=== PATIENT | female | born 1940 | race Caucasian/White ===

== ENCOUNTER 2020-07-05 12:30 | Outpatient (REF) | payer MEDICARE, SELFPAY ==
[2020-07-05 13:26] LABS: MANUAL DIFF FLAG NO
[2020-07-05 13:38] LABS: Basophils Absolute Auto 0.1 X10*3/uL (0.0-0.2); Basophils Percent Auto 1.8 % (0-2); Eosinophils Absolute Auto 0.5 X10*3/uL (0.0-0.4); Eosinophils Percent Auto 8.2 % (0-4); Hemoglobin 11.8 g/dl (12.0-16.0); Imm Gran Abs Auto 0.03 X10*3/uL (0.00-0.03); Imm Gran Pct Auto 0.5 % (0.0-0.4); Lymphocytes Absolute Auto 0.8 X10*3/uL (1.2-4.9); Lymphocytes Percent Auto 13.9 % (20-40); Mean Corpuscular HGB Conc 30.3 g/dl (31.0-35.0); Mean Corpuscular Hemoglobin 28.6 pg (27.0-33.0); Mean Corpuscular Volume 94.7 fL (80-98); Mean Platelet Volume 10.6 fL (9.4-12.3); Monocytes Absolute Auto 0.6 X10*3/uL (0.1-1.2); Neutrophils Absolute Auto 3.7 X10*3/uL (2.0-8.3); Neutrophils Percent Auto 65.6 % (45-73); Platelet Count 244 X10*3/uL (160-400); Red Blood Count 4.12 X10*6/uL (4.20-5.50); Red Cell Distribution Width 13.2 % (11.0-16.0); White Blood Count 5.6 X10*3/uL (4.8-10.8)
[2020-07-05 13:56] LABS: Estimated Average Glucose 143 mg/dL; Hemoglobin A1c % 6.6 %
[2020-07-05 14:12] LABS: Anion Gap 13 (12-20); Blood Urea Nitrogen 51 mg/dL (9-16); Calcium 9.2 mg/dL (8.4-10.2); Carbon Dioxide 26 mmol/L (22-29); Chloride 104 mmol/L (96-108); Estimated Glomerular Filt Rate 39; Potassium 5.1 mmol/l (3.3-5.1); Sodium 138 mmol/L (135-145)
[2020-07-05 16:20] LABS: Renal w Reflex Lab Use Only Order verified
== END 2020-07-05 12:31 | disposition home or self-care (01) ==
LOC: HO.LAB 12:30
PROVIDERS: PCP Internal Medicine; Visit Provider Internal Medicine Hypertension Specialist
DX: E11.9 Type 2 diabetes mellitus without complications (principal)
CPT/HCPCS: 36415; 80051; 82310; 82565; 83036; 84520; 85025

== ENCOUNTER → 2020-08-15 11:33 | Outpatient (BNVA) | payer MEDICARE, SELFPAY | PROVIDERS: PCP Internal Medicine; Visit Provider Internal Medicine Pulmonary Disease | DX: J45.30 Mild persistent asthma, uncomplicated (principal) | CPT/HCPCS: 99212 ==

== ENCOUNTER → 2020-09-06 12:57 | Outpatient (REF) | payer MEDICARE, SELFPAY ==
--- NOTE | 2020-09-06 13:00 | CA_ITS ---
Transthoracic Echocardiogram Patient (Last, First, Middle): Sarah Kraus, Gender: Female Date of : 1940 Age: 80 Procedure Date: 09/06/2020 Procedure Type: Transthoracic Echocardiogram Location: OP Height: 165.1 cm Weight: 77.11 kg BSA: 1.85 m2 Heart Rate: bpm BP: 134 / 70 mmHg Liquor Department Manager: DSRoman Referring MD: Clarence Russo MD Subject Scientific Research: Clarence Russo MD Symptoms: Z95.2 S/P TAVR, I50.30 HFpEF I10 HTN Study Quality: Fair ECG Rhythm: Sinus Conclusions: - 1. Normal LV systolic function with mild LVH with impaired relaxation filling pattern and elevated filling pressures 2. Severely dilated left atrium 3. Bioprosthetic aortic valve in place with increased gradient of 19 mm of mercury with no significant aortic regurgitation 4. Severe mitral annular calcification with [id number] mitral regurgitation 5. Mildly elevated right ventricular systolic pressure 6. No pericardial effusion Findings Left Ventricle Normal left ventricular size and systolic function. There is mildly increased left ventricular wall thickness. The visually estimated ejection fraction is between 55-60%. Spectral Doppler is indicative of an impaired relaxation filling pattern. Elevated filling pressures. E/E prime ratio is >15, consistent with elevated filling pressures. Right Ventricle Normal right ventricular cavity size and systolic function. Atria The left atrium is severely dilated. There is no evidence of interatrial shunt. The right atrium is likely dilated. 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 The mean gradient is 19 mmHg. There is no aortic valve regurgitation. Mitral Valve There is mild anterior mitral leaflet thickening. There is severe mitral annular calcification. There is mild to moderate mitral valve regurgitation. There is no mitral valve stenosis. Pulmonic Valve The pulmonic valve was not well visualized. Tricuspid Valve Likely normal tricuspid valve structure and function. There is mild tricuspid valve regurgitation. Normal right atrial pressure. Mild pulmonary hypertension is present. Great Vessels All visible segments of the aorta are normal in size. The pulmonary artery was not well visualized. Venous The inferior vena cava is normal in size and collapses greater than 50% with inspiration. Pericardium/Pleural There is no evidence of pericardial effusion. Prior Study Comparison Changes noted compared to prior study dated: 08/31/2019. RV systolic pressure is mildly increased. Mean gradient is again mildly increased to 19 mm of mercury across the bioprosthetic aortic martir Measurements 2D Linear Measurements IVSd: 1.17 0.6-0.9/0.6-1.0 cm LVIDd: 5.27 3.9-5.3/4.2-5.9 cm LVIDd Index: 2.85 2.4-3.2/2.2-3.1 cm/m2 LVIDs: 3.25 2.0-3.6 cm LVPWd: 1.40 0.7-1.1 cm Ao Root: 2.70 2.1-3.5 cm LA Diam: 4.90 2.7-3.8/3.0-4.0 cm LAIDs Index: 2.65 1.5-2.3 cm/m2 LV Mass: 348.95 67-162/88-224 g LV Mass Index: 188.62 43-95/49-115 g/m2 LVOT Diam: 1.90 3.0+(-)1.3 cm 2D Systolic Function EF 4C: 50.10 >55% EF 2C: 52.90 >55% EF BiP: 53.50 >55% Mitral Valve MV VTI: 0.46 MV Pk Gabino: 1.76 MV Mn Gabino: 1.16 MV Pk Grad: 12.00 MV Mn Grad: 6.00 MV Pk E: 1.44 MV PK A: 1.65 MV Decel Time: 203.00 E/A: 0.90 E'Lateral: 5.66 E'Medial: 3.37 E/E' Med: 42.70 E/E' Lat: 25.40 PHT: 60.00 MVA PHT: 3.67 MVA Continuity: 1.66 Decel [place]: 7.06 MR VTI: 1.84 Aortic Valve AoV Pk Gabino: 2.89 AoV Mn Gabino: 2.00 AoV VTI: 0.61 AoV Pk Grad: 33.00 Aov Mn Grad: 19.00 JUANCARLOS Cont.VTI: 1.24 LVOT LVOT Pk Gabino: 1.19 LVOT Mn Gabino: 0.79 LVOT VTI: 0.27 LVOT Pk Grad: 6.00 LVOT Mn Grad: 3.00 LVOT Diam: 1.90 LVOT Area: 2.84 Diastolic Function MV Pk E: 1.44 MV Pk A: 1.65 E/A: 0.90 E'Medial: 3.37 E/E' Med: 42.70 E' Laterial: 5.66 E/E' Lat: 25.40 Tricuspid Valve TR Pk Gabino: 3.06 TR Pk Grad: 37.00 RA Press: 3.00 RVSP: 40.00 Great Vessels Aorta Ao Root-2D: 2.70 2.0-3.7 cm Ao Asc: 3.60 2.1-3.4 cm Updated in Other Vendor System with Status of Final Clarence Russo MD electronically signed on 09/06/2020 2:40:21 PM with status of Final
== END ==
LOC: HO.CARD 12:57
PROVIDERS: Visit Provider Internal Medicine Cardiovascular Disease
DX: I50.30 Unspecified diastolic (congestive) heart failure (principal); I10 Essential (primary) hypertension; Z95.2 Presence of prosthetic heart valve
CPT/HCPCS: 93306

== ENCOUNTER → 2020-09-14 13:04 | Outpatient (BNVA) | payer MEDICARE, SELFPAY | PROVIDERS: PCP Internal Medicine; Visit Provider Internal Medicine Cardiovascular Disease | DX: Z13.89 Encounter for screening for other disorder (principal) | CPT/HCPCS: Q3014 ==

== ENCOUNTER 2020-10-26 12:17 | Outpatient (REF) | payer MEDICARE, SELFPAY ==
--- NOTE | ~2020-10-26 | XR_ITS ---
EXAMINATION: XR CHEST CLINICAL INFORMATION: Cough and wheeze COMPARISON: 09/15/2018 TECHNIQUE: 2 views of the chest were obtained. FINDINGS: The lungs are well expanded. There is patchy airspace opacity at the left lung base. Likely small left pleural effusion. No edema. No pneumothorax. The cardiomediastinal silhouette is within normal limits of size with a calcified aorta. No acute osseous abnormality. XR/XR chest 2V IMPRESSION: Patchy left basilar airspace opacity which could represent atelectasis or pneumonia. Likely small left pleural effusion.
== END 2020-10-26 12:18 | disposition home or self-care (01) ==
LOC: HO.HMGCX 12:17
PROVIDERS: PCP Internal Medicine; Visit Provider Internal Medicine
DX: R05 Cough (principal); R06.2 Wheezing
CPT/HCPCS: 71046

== ENCOUNTER 2020-11-02 14:12 | Outpatient (REF) | payer MEDICARE, SELFPAY ==
--- NOTE | ~2020-11-02 | XR_ITS ---
EXAMINATION: XR CHEST CLINICAL INFORMATION: Follow-up left lower lobe pneumonia COMPARISON: 10/26/2020 TECHNIQUE: 2 views of the chest were obtained. FINDINGS: The lungs are well expanded. There is improved aeration at the left lung base with minimal residual streaky opacity. Central vascular prominence without overt edema. No pneumothorax. Improvement of the prior left pleural effusion. The cardiomediastinal silhouette is normal in size. Aortic calcifications noted. Aortic valvular hardware. Degenerative changes in the spine. XR/XR chest 2V IMPRESSION: Improved aeration at the left lung base with minimal streaky opacities remaining suggestive of atelectasis. Improvement of prior left pleural effusion. Central vascular prominence without overt edema.
== END 2020-11-02 14:13 | disposition home or self-care (01) ==
LOC: HO.XRAY 14:12
PROVIDERS: PCP Internal Medicine; Visit Provider Internal Medicine
DX: J18.1 Lobar pneumonia, unspecified organism (principal)
CPT/HCPCS: 71046

== ENCOUNTER 2020-12-24 12:49 | Emergency (ER) | payer MEDICARE, SELFPAY ==
--- NOTE | ~2020-12-24 | XR_ITS ---
EXAMINATION: XR KNEE, RIGHT CLINICAL INFORMATION: Medial knee pain COMPARISON: None TECHNIQUE: Four views of the right knee. FINDINGS: There is no acute fracture or dislocation. There is medial and patellofemoral joint space narrowing with associated osteophyte formation. No joint effusion. There is mild diffuse osteopenia. Overlying soft tissues are intact. XR/XR knee RT 4V IMPRESSION: Moderate osteoarthritis and osteopenia of the right knee without acute fracture or dislocation.
--- NOTE | ~2020-12-24 | CT_ITS ---
EXAMINATION: CT HEAD WITHOUT CONTRAST CLINICAL INFORMATION: On Eliquis, concern for intracranial bleed COMPARISON: None TECHNIQUE: Contiguous axial imaging was performed from the skull base to vertex without intravenous administration of contrast. This CT examination was performed using dose optimization techniques as appropriate, variously including the following: *Automated exposure control *Adjustment of mA and/or kV according to patient size (this includes techniques or standardized protocols for targeted exams where dose is matched to indication/reason for exam; i.e. extremities or head) *Use of iterative reconstruction technique DLP: 607 mGy-cm FINDINGS: There is no evidence of acute intracranial hemorrhage or territorial infarction. No abnormal mass effect or midline shift is seen. Burkett to white matter differentiation is well preserved. No extra-axial fluid collections are identified. The ventricles are normal in size. There is no abnormal attenuation within the brain parenchyma. The osseous structures and soft tissues are normal. The mastoid air cells and visualized portions of the paranasal sinuses are well aerated. CT/CT head/brain wo con IMPRESSION: No acute intracranial pathology.
[2020-12-24 13:01] VITALS: BP 169/80; PULSE 78; RESP 16; TEMP 36.6; O2SAT 95; BMI 26.6
[2020-12-24 13:40] LABS: MANUAL DIFF FLAG NO
[2020-12-24 13:42] LABS: Basophils Absolute Auto 0.1 X10*3/uL (0.0-0.2); Basophils Percent Auto 1.4 % (0-2); Eosinophils Absolute Auto 0.6 X10*3/uL (0.0-0.4); Eosinophils Percent Auto 10.2 % (0-4); Hematocrit 38.7 % (37-47); Hemoglobin 12.1 g/dl (12.0-16.0); Imm Gran Abs Auto 0.01 X10*3/uL (0.00-0.03); Imm Gran Pct Auto 0.2 % (0.0-0.4); Lymphocytes Absolute Auto 0.8 X10*3/uL (1.2-4.9); Mean Corpuscular HGB Conc 31.3 g/dl (31.0-35.0); Mean Corpuscular Hemoglobin 28.1 pg (27.0-33.0); Mean Platelet Volume 10.2 fL (9.4-12.3); Monocytes Absolute Auto 0.4 X10*3/uL (0.1-1.2); Monocytes Percent Auto 7.2 % (2-11); Neutrophils Absolute Auto 3.9 X10*3/uL (2.0-8.3); Platelet Count 241 X10*3/uL (160-400); Red Cell Distribution Width 14.9 % (11.0-16.0); White Blood Count 5.9 X10*3/uL (4.8-10.8)
[2020-12-24 13:51] LABS: INTERNATIONAL NORM RATIO 1.3 (0.9-1.1); Prothrombin Time 15.2 SEC (10.8-13.0)
[2020-12-24 14:19] LABS: Anion Gap 14 (12-20); Blood Urea Nitrogen 35 mg/dL (9-16); Calcium 10.7 mg/dL (8.4-10.2); Carbon Dioxide 26 mmol/L (22-29); Chloride 106 mmol/L (96-108); Creatinine Clr Calc Pharmacy 38.6; Estimated Glomerular Filt Rate 46; Glucose Random 115 mg/dL (60-115); Potassium 4.6 mmol/L (3.3-5.1); Sodium 141 mmol/L (135-145)
[2020-12-24 14:38] LABS: Partial Thromboplastin Time 43.5 SEC (24.1-38.0)
[2020-12-24 15:20] VITALS: BP 156/85; PULSE 77; RESP 18; TEMP 36.7; O2SAT 92
--- NOTE | 2020-12-24 15:28 | ED_ITS ---
HPI - General Adult General Chief complaint: Extremity Problem Stated complaint: r leg pain l eye red headache Time Seen by Provider: 12/24/20 13:40 Source: patient Mode of arrival: ambulatory Limitations: no limitations History of Present Illness HPI narrative: Patient presents to the ED for medial right knee pain m for 3 days. Patient denies any recent trauma to the knee. Patient denies any swelling of right lower extremity or leg pain. Patient's secondary complaint is waking up this morning with left eye-bloodshot red looks like there is blood. Patient denies any recent trauma to the eye. Patient denies any recent head trauma. Patient states she takes Eliquis for viral replacement of her heart. 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 Related Data Home Medications Medication Instructions Recorded Confirmed amlodipine 5 mg tablet 5 mg PO DAILY 08/15/20 09/14/20 cyclosporine 0.05 % eye drops in a 1 drp OPHTHALMIC (EYE) Q12H 08/15/20 09/14/20 dropperette fenofibrate 160 mg tablet 160 mg PO DAILY 08/15/20 09/14/20 gabapentin 800 mg tablet 800 mg PO QID 08/15/20 09/14/20 glipizide 2.5 mg tablet, extended mg PO 08/15/20 09/14/20 release 24 hr levothyroxine 50 mcg tablet 50 mcg PO DAILY 08/15/20 09/14/20 simvastatin 20 mg tablet 20 mg PO DAILY 08/15/20 09/14/20 spironolactone 25 mg tablet 25 mg PO DAILY 08/15/20 09/14/20 Previous Rx's Medication Instructions Recorded furosemide 40 mg tablet 40 mg PO DAILY #180 tab 05/22/20 fluticasone propionate 45 2 puff PO BID #12 g 11/30/20 mcg-salmeterol 21 mcg/actuation HFA inhaler apixaban 5 mg tablet 5 mg PO BID #60 tab 12/08/20 artifi.tears(hypromellose)(PF) 1 drp OPHTHALMIC (EYE) Q2H 7 Days 12/24/20 #10 ml Allergies Allergy/AdvReac Type Severity Reaction Status Date / Time Penicillins [PENICILLINS] Allergy Intermediate HIVES Verified 08/15/20 11:34 Review of Systems Review of Systems: Yes all other systems are reviewed and are negative Constitutional: Constitutional: Reports as per HPI and Reports no additional constitutional complaints Eyes: Eyes: Reports as per HPI and Reports no additional eye complaints Comments: Bloodshot red left eyes ENT: Reports system reviewed and no additional complaints, except as documented and Reports as per HPI Cardiovascular: Cardiovascular: Reports as per HPI and Reports no additional cardiovascular complaints Respiratory: Respiratory: Reports as per HPI and Reports no additional respiratory complaints Gastrointestinal: Gastrointestinal: Reports as per HPI and Reports no additional gastrointestinal complaints Genitourinary: Genitourinary: Reports no additional female genitourinary complaints and Reports as per HPI Musculoskeletal: Musculoskeletal: Reports no additional musculoskeletal co mplaints and Reports arthralgias (Right knee) Neurologic: Reports system reviewed and no additional complaints, except as documented and Reports as per HPI Psychiatric: Psychiatric: Reports no additional psychiatric complaints and Reports as per HPI [facility] Past Medical History Medical History (Updated 12/24/20 @ 16:23 by RAJESH Mccarthy) Chronic heart failure with preserved ejection fraction (HFpEF) HTN (hypertension) LBBB (left bundle branch block) Surgical History (Updated 09/14/20 @ 13:14 by Clarence Russo MD) Hx of cardiac cath S/P TAVR (transcatheter aortic valve replacement) Family History Family History (Updated 09/14/20 @ 13:06 by KRISTA Avila) Father No problems noted. Mother CVD (cardiovascular disease) Social History Social History (Updated 08/15/20 @ 11:39 by Delia Alston MA) Advance Directives: No Advance Directives Information Provided: Yes Physical Exam Vital Signs: Vital Signs: Last Vital Signs Temp 98.1 F 12/24/20 15:20 Pulse 77 12/24/20 15:20 Resp 18 12/24/20 15:20 BP 156/85 H 12/24/20 15:20 Pulse Ox 92 12/24/20 15:20 Body Mass Index 26.6 Const: General: cooperative, healthy appearing, comfortable and no acute distress HENMT: Head: Yes normal to inspection, Yes No palpable skull fracture present, Yes normocephalic, Yes atraumatic and No abrasion Eyes: Other: Left eye: positive for subconjunctival hemorrhage. Tonometry pressures 17 Right eye; normal. Negative for erythema. Tonometry pressure 13 Neck: Neck: Yes normal visual inspection, Yes full ROM, Yes no lymphadenopathy, Yes no meningeal signs, Yes trachea midline, Yes supple and No tender Chest: Chest palpation & inspection: normal inspection of the chest and normal palpation of entire chest wall Resp: Effort & Inspection: normal respiratory effort and able to speak in complete sentences Auscultation: clear to auscultation bilaterally Cardio: Jugular venous distension: no JVD Heart sounds: S1 normal heart sound present and S2 normal heart sound present GI: Inspection: Yes normal to inspection and No abdominal wall ecchymosis Palpation (GI): Soft to palpation, not firm, nontender, no guarding and not rigid : General: No CVA tenderness and Yes no CVA tenderness Back/Spine/Pelvis: Back: no CVA tenderness, No CVA tenderness and No back tenderness Skin: General skin exam: no rashes or lesions noted and elasticity normal Neuro: General: patient oriented x3, gait normal, no meningeal signs and CN's II-XI intact bilaterally Cranial nerves: Yes CN's II-XII intact bilaterally Extrem: Other: Right lower extremity; positive for tenderness on palpation of medial aspect of right knee. Negative for knee swelling or redness. Negative for leg swelling, calf tenderness, pitting edema. Left lower extremity normal. Both lower extremities motor/neuro/vascular exam is intact. Psych: Appearance: grossly normal, well kempt and not disheveled Course Course Course Narrative: Physical exam indicate subconjunctival hemorrhage. Due to patient being on Eliquis and having subconjunctival hemorrhage was sent for head CT to make sure there is no brain bleed although very unlikely due to patient denies headache. Will do labs. Reevaluation(s) Reevaluation #1: Lab does not show any anemia. Coags are at baseline. Kidney function normal. Knee x-ray shows osteoarthritis. Not suspecting septic joint. Case discussed with Dr. Osorio recommends patient continue taking Eliquis and be sent home with artificial tears eyedrops to prevent corneal abrasion. Medical Decision Making MDM Narrative Medical decision making narrative: Subconjunctival hemorrhage. Knee osteoarthritis Lab Data Result diagrams: 12/24/20 13:32 12/24/20 13:32 Labs: Lab Results 12/24/20 12/24/20 12/24/20 Range/Units 13:32 13:32 13:32 WBC 5.9 (4.8-10.8) X10*3/uL RBC 4.30 (4.20-5.50) X10*6/uL Hgb 12.1 (12.0-16.0) g/dl Hct 38.7 (37-47) % MCV 90.0 (80-98) fL MCH 28.1 (27.0-33.0) pg MCHC 31.3 (31.0-35.0) g/dl RDW 14.9 (11.0-16.0) % Plt Count 241 (160-400) X10*3/uL MPV 10.2 (9.4-12.3) fL Immature Gran % (Auto) 0.2 (0.0-0.4) % Neut % (Auto) 67.0 (45-73) % Lymph % (Auto) 14.0 L (20-40) % [place] % (Auto) 7.2 (2-11) % Eos % (Auto) 10.2 H (0-4) % Baso % (Auto) 1.4 (0-2) % Lymph # (Auto) 0.8 L (1.2-4.9) X10*3/uL [place] # (Auto) 0.4 (0.1-1.2) X10*3/uL Eos # (Auto) 0.6 H (0.0-0.4) X10*3/uL Baso # (Auto) 0.1 (0.0-0.2) X10*3/uL Abs Immat Gran (auto) 0.01 (0.00-0.03) X10*3/uL Absolute Neuts (auto) 3.9 (2.0-8.3) X10*3/uL Absolute Nucleated RBC 0.000 (0.0-0.012) X10*3/uL Nucleated RBC % (auto) 0.0 (0.0-0.2) /100WBC PT 15.2 H (10.8-13.0) SEC INR 1.3 H (0.9-1.1) APTT 43.5 H (24.1-38.0) SEC Sodium 141 (135-145) mmol/L Potassium 4.6 (3.3-5.1) mmol/L Chloride 106 (96-108) mmol/L Carbon Dioxide 26 (22-29) mmol/L Anion Gap 14 (12-20) BUN 35 H (9-16) mg/dL Creatinine 1.14 (0.5-1.4) mg/dL Estim Creat Clear Calc 38.6 Estimated GFR 46 Random Glucose 115 (60-115) mg/dL Calcium 10.7 H D (8.4-10.2) mg/dL Discharge Plan Discharge Clinical Impression: Osteoarthritis, Non-traumatic subconjunctival hemorrhage Patient Disposition: Home, Self-Care Instructions: Subconjunctival Hemorrhage (ED), Osteoarthritis (ED) Additional Instructions: Return to the ED for change or loss in vision, headache, dizziness, eye pain, bleeding from any orifice, weakness, dizziness, passing out, slurred speech, loss of vision, paralysis of extremities, or any other concerning symptoms. Continue taking Eliquis as prescribed and call your PCP tomorrow. Prescriptions: New artifi.tears(hypromellose)(PF) 0.3 % drops 1 drp ophthalmic (eye) Q2H 7 Days Qty: 10 RF: 0 No Action furosemide 40 mg tablet 40 mg PO DAILY Qty: 180 RF: 2 fluticasone propion-salmeterol [Advair HFA] 45-21 mcg/actuation HFA aerosol inhaler 2 puff PO BID Qty: 12 RF: 3 apixaban [Eliquis] 5 mg tablet 5 mg PO BID Qty: 60 RF: 5 gabapentin 800 mg tablet 800 mg PO QID RF: 0 Restasis 0.05 % dropperette 1 drp ophthalmic (eye) Q12H RF: 0 fenofibrate 160 mg tablet 160 mg PO DAILY RF: 0 glipizide 2.5 mg tablet extended release 24hr PO RF: 0 simvastatin 20 mg tablet 20 mg PO DAILY RF: 0 amlodipine 5 mg tablet 5 mg PO DAILY RF: 0 spironolactone 25 mg tablet 25 mg PO DAILY RF: 0 levothyroxine 50 mcg tablet 50 mcg PO DAILY RF: 0 Referrals: Alfredo Garcia [Physician] - 2 days (Subconjunctival hemorrhage) Rudi Cunningham MD [Primary Care Provider] - 2 days (Subconjunctival hemorrhage. Right knee osteoarthritis. Head CT negative for bleed. Labs are normal.) Interventions: ED Discharge Assessment Last Done: 12/24/20 16:33 Discharge Date/Time: 12/24/20 16:34 Print Language: Setswana
--- NOTE | 2020-12-24 16:18 | PC.NURSE ---
VISUAL ACCUITY, L EYE 20/70, R EYE 20/50
== END 2020-12-24 16:34 | disposition home or self-care (01) ==
PROVIDERS: Physician Assistant; Emergency Provider Internal Medicine; PCP Internal Medicine
DX: H11.32 Conjunctival hemorrhage, left eye (principal); M17.11 Unilateral primary osteoarthritis, right knee; M25.561 Pain in right knee; I11.0 Hypertensive heart disease with heart failure; I50.32 Chronic diastolic (congestive) heart failure; J45.909 Unspecified asthma, uncomplicated; Z95.2 Presence of prosthetic heart valve; Z79.01 Long term (current) use of anticoagulants; Z79.02 Long term (current) use of antithrombotics/antiplatelets
CPT/HCPCS: 36415; 70450; 73564; 80048; 85025; 85610; 85730; 99283; 99284

== ENCOUNTER 2021-02-06 10:49 | Outpatient (REF) | payer MEDICARE, SELFPAY ==
[2021-02-06 12:29] LABS: Anion Gap 16 (12-20); Blood Urea Nitrogen 38 mg/dL (9-16); Carbon Dioxide 26 mmol/L (22-29); Chloride 104 mmol/L (96-108); Estimated Glomerular Filt Rate 45; Glucose Random 164 mg/dL (60-115); Potassium 5.2 mmol/L (3.3-5.1); Sodium 141 mmol/L (135-145)
[2021-02-06 12:40] LABS: Calcium 10.6 mg/dL (8.4-10.2)
[2021-02-06 12:46] LABS: Estimated Average Glucose 146 mg/dL; Hemoglobin A1c % 6.7 %
[2021-02-12 13:26] LABS: Vitamin D 25-OH, D2 <4 ng/mL; Vitamin D 25-OH, D3 32 ng/mL; Vitamin D 25-OH, Total 32 ng/mL (30-100)
== END 2021-02-06 10:50 | disposition home or self-care (01) ==
LOC: HO.LAB 10:49
PROVIDERS: PCP Internal Medicine; Visit Provider Internal Medicine
DX: N18.9 Chronic kidney disease, unspecified (principal); R53.83 Other fatigue
CPT/HCPCS: 36415; 80048; 82306; 83036

== ENCOUNTER → 2021-03-15 14:00 | Outpatient (BNVA) | payer MEDICARE, SELFPAY | PROVIDERS: PCP Internal Medicine; Referring Provider Internal Medicine; Visit Provider Internal Medicine Cardiovascular Disease | DX: I50.32 Chronic diastolic (congestive) heart failure (principal); Z95.2 Presence of prosthetic heart valve | CPT/HCPCS: 93005; 99212 ==

== ENCOUNTER 2021-04-16 10:56 | Outpatient (REF) | payer MEDICARE, SELFPAY ==
[2021-04-16 11:49] LABS: MANUAL DIFF FLAG NO
[2021-04-16 11:54] LABS: Basophils Absolute Auto 0.1 X10*3/uL (0.0-0.2); Basophils Percent Auto 0.9 % (0-2); Eosinophils Absolute Auto 0.5 X10*3/uL (0.0-0.4); Eosinophils Percent Auto 4.9 % (0-4); Hematocrit 32.7 % (37-47); Hemoglobin 10.1 g/dl (12.0-16.0); Imm Gran Abs Auto 0.06 X10*3/uL (0.00-0.03); Imm Gran Pct Auto 0.6 % (0.0-0.4); Lymphocytes Absolute Auto 0.8 X10*3/uL (1.2-4.9); Lymphocytes Percent Auto 8.2 % (20-40); Mean Corpuscular HGB Conc 30.9 g/dl (31.0-35.0); Mean Corpuscular Hemoglobin 29.1 pg (27.0-33.0); Mean Corpuscular Volume 94.2 fL (80-98); Mean Platelet Volume 10.1 fL (9.4-12.3); Monocytes Absolute Auto 0.8 X10*3/uL (0.1-1.2); Monocytes Percent Auto 7.9 % (2-11); Neutrophils Absolute Auto 7.8 X10*3/uL (2.0-8.3); Neutrophils Percent Auto 77.5 % (45-73); Platelet Count 272 X10*3/uL (160-400); Red Blood Count 3.47 X10*6/uL (4.20-5.50); Red Cell Distribution Width 13.8 % (11.0-16.0)
[2021-04-16 12:41] LABS: Albumin Level 3.8 g/dL (3.5-5.0); Anion Gap 14 (12-20); Blood Urea Nitrogen 32 mg/dL (9-16); Calcium 9.2 mg/dL (8.4-10.2); Carbon Dioxide 25 mmol/L (22-29); Chloride 107 mmol/L (96-108); Estimated Glomerular Filt Rate 44; Magnesium 2.2 mg/dL (1.6-2.6); Potassium 5.1 mmol/L (3.3-5.1); Sodium 141 mmol/L (135-145)
[2021-04-17 18:27] LABS: Calcium (PTHI) 9.6 mg/dL (8.6-10.4); PTHI 37 pg/mL (14-64)
== END 2021-04-16 10:57 | disposition home or self-care (01) ==
LOC: HO.LAB 10:56
PROVIDERS: PCP Internal Medicine; Visit Provider Internal Medicine Hypertension Specialist
DX: I13.0 Hypertensive heart and chronic kidney disease with heart failure and stage 1 through stage 4 chronic kidney disease, or unspecified chronic kidney disease (principal); N18.30 Chronic kidney disease, stage 3 unspecified; D63.8 Anemia in other chronic diseases classified elsewhere
CPT/HCPCS: 36415; 80051; 82040; 82310; 82565; 83735; 83970; 84520; 85025

== ENCOUNTER 2021-05-09 10:07 | Outpatient (REF) | payer MEDICARE, SELFPAY ==
[2021-05-09 10:42] LABS: COVID-19 Test Negative (Negative)
== END 2021-05-09 10:08 | disposition home or self-care (01) ==
LOC: HO.LAB 10:07
PROVIDERS: PCP Internal Medicine; Visit Provider Internal Medicine
DX: Z20.822 Contact with and (suspected) exposure to COVID-19 (principal)
CPT/HCPCS: 36415; 87635; C9803

== ENCOUNTER 2021-05-24 14:00 | Outpatient (REF) | payer MEDICARE, SELFPAY ==
--- NOTE | ~2021-05-24 | XR_ITS ---
EXAMINATION: XR CHEST CLINICAL INFORMATION: Chronic obstructive pulmonary disease. Shortness of breath. Cough. COMPARISON: 11/02/2020 TECHNIQUE: 2 views of the chest were obtained. FINDINGS: The lungs are well expanded. Increased opacification at the right upper lung. No pleural effusion or pneumothorax. The cardiomediastinal silhouette is unchanged, with a calcified aorta. Bilateral hilar prominence could be associated with prominent pulmonary vasculature. Aortic valvular hardware. Degenerative changes of the spine. XR/XR chest 2V IMPRESSION: Increased opacification of the right upper lung could represent atelectasis or pneumonia. Follow-up to resolution.
== END 2021-05-24 14:01 | disposition home or self-care (01) ==
LOC: HO.XRAY 14:00
PROVIDERS: PCP Internal Medicine; Visit Provider Internal Medicine
DX: R09.02 Hypoxemia (principal); J44.9 Chronic obstructive pulmonary disease, unspecified; I50.32 Chronic diastolic (congestive) heart failure
CPT/HCPCS: 71046; 99202

== ENCOUNTER 2021-06-05 14:05 | Outpatient (REF) | payer MEDICARE, SELFPAY ==
--- NOTE | 2021-06-05 16:16 | PFT_ITS ---
INDICATION: COPD. SPIROMETRY: The FEV1 to FVC 83% with an FEV1 of 1.13 L which is 50% predicted. An FVC of 1.37 L which is 54% predicted. Bronchodilators were not used, and she had just used in a few hours before. Maximum voluntary ventilation is 70% predicted. LUNG VOLUMES: Total lung capacity 72% predicted. DIFFUSION CAPACITY: DLCO 35% predicted. COMPARISONS: None. INTERPRETATION: No obstructive ventilatory defects and bronchodilators for night use. The patient does have a mild to moderate decrease in maximum voluntary ventilation secondary to likely deconditioning. Lung volumes do demonstrate a mild restrictive ventilatory defect, and therefore, interstitial lung conditions and/or neuromuscular conditions should be considered. The patient has severe out of proportion diffusion impairment. Again, interstitial lung conditions, parenchymal lung disease, pulmonary vascular conditions and/or neuromuscular conditions should be considered. The patient also has a severe diffusion impairment. Clinical correlation warranted. MD DARÍO Lomeli/RAVI / [id number]
== END 2021-06-05 14:06 | disposition home or self-care (01) ==
LOC: HO.RESP 14:05
PROVIDERS: PCP Internal Medicine; Visit Provider Internal Medicine
DX: J44.9 Chronic obstructive pulmonary disease, unspecified (principal); I50.32 Chronic diastolic (congestive) heart failure
CPT/HCPCS: 94010; 94727; 94729

== ENCOUNTER → 2021-06-14 14:19 | Outpatient (BNVA) | payer MEDICARE, SELFPAY | PROVIDERS: PCP Internal Medicine; Visit Provider Internal Medicine | DX: J44.9 Chronic obstructive pulmonary disease, unspecified (principal); R09.02 Hypoxemia; I50.32 Chronic diastolic (congestive) heart failure; I11.0 Hypertensive heart disease with heart failure; I44.7 Left bundle-branch block, unspecified; Z87.891 Personal history of nicotine dependence; Z98.890 Other specified postprocedural states; Z95.2 Presence of prosthetic heart valve; Z88.0 Allergy status to penicillin; Z99.81 Dependence on supplemental oxygen; Z79.84 Long term (current) use of oral hypoglycemic drugs; Z79.899 Other long term (current) drug therapy | CPT/HCPCS: 99212 ==

== ENCOUNTER → 2021-08-02 14:31 | Outpatient (BNVA) | payer MEDICARE, SELFPAY | PROVIDERS: PCP Internal Medicine; Visit Provider Internal Medicine | DX: R09.02 Hypoxemia (principal); R93.89 Abnormal findings on diagnostic imaging of other specified body structures; J44.9 Chronic obstructive pulmonary disease, unspecified | CPT/HCPCS: 99212 ==

== ENCOUNTER → 2021-08-28 13:07 | Outpatient (REF) | payer MEDICARE, SELFPAY ==
--- NOTE | 2021-08-28 13:12 | CA_ITS ---
Transthoracic Echocardiogram Patient (Last, First, Middle): Sarah Kraus, Gender: Female Date of : 1940 Age: 81 Procedure Date: 08/28/2021 Procedure Type: Transthoracic Echocardiogram Location: OP Height: 165.1 cm Weight: 72.58 kg BSA: 1.80 m2 Heart Rate: bpm BP: 135 / 75 mmHg [employer] Preassembler: DSRoman Referring MD: Clarence Russo MD Symptoms: Z95.2 - Presence of prosthetic heart valve Study Quality: Fair ECG Rhythm: Sinus Conclusions: - The left ventricular systolic function is low normal. The visually estimated ejection fraction is between 50-55%. - A bioprosthetic aortic valve is present. The prosthetic aortic valve appears to be functioning abnormally. The mean gradient is 17 mmHg. The aortic valve area is 1.11 cm2. Could indicate degenerative changes in the valve. - There is severe mitral annular calcification. There is moderate mitral valve regurgitation. Mean gradient across the mitral valve 6 mm Hg; Cannot exclude [id number] mitral stenosis. - There is mild to moderate tricuspid valve regurgitation. - The right ventricular systolic pressure is 68 mmHg. Severe pulmonary hypertension is present. Findings Procedure Information Contrast agent, definity, is being given per protocol without apparent complications. Left Ventricle Normal left ventricular cavity size. There is moderately increased left ventricular wall thickness. The left ventricular systolic function is low normal. The visually estimated ejection fraction is between 50-55%. E/E prime ratio is >15, consistent with elevated filling pressures. Evidence suggests grade II (moderate) diastolic dysfunction. Right Ventricle Normal right ventricular cavity size and systolic function. Atria The left atrium is severely dilated. The right atrium is normal in size. 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 The peak aortic velocity is 2.71 m/s with a calculated peak gradient of 29 mmHg. The mean gradient is 17 mmHg. The aortic valve area is 1.11 cm2. Trace valvular regurgitation. Mitral Valve There is severe mitral annular calcification. There is moderate mitral valve regurgitation. Mean gradient across the mitral valve 6 mm Hg; Cannot exclude [id number] mitral stenosis. Pulmonic Valve The pulmonic valve was not well visualized. Tricuspid Valve Normal tricuspid valve structure. There is mild to moderate tricuspid valve regurgitation. The right ventricular systolic pressure is 68 mmHg. Severe pulmonary hypertension is present. Great Vessels The asc aorta is normal in size. Venous The inferior vena cava is normal in size and collapses greater than 50% with inspiration. Pericardium/Pleural There is no evidence of pericardial effusion. Prior Study Comparison Changes noted compared to prior study dated: 09/06/2020. Increase in RVSP. Slight change in LVEF. Measurements 2D Linear Measurements IVSd: 1.29 0.6-0.9/0.6-1.0 cm LVIDd: 5.59 3.9-5.3/4.2-5.9 cm LVIDd Index: 3.11 2.4-3.2/2.2-3.1 cm/m2 LVIDs: 4.13 2.0-3.6 cm LVPWd: 1.27 0.7-1.1 cm LA Diam: 4.80 2.7-3.8/3.0-4.0 cm LAIDs Index: 2.67 1.5-2.3 cm/m2 LV Mass: 381.33 67-162/88-224 g LV Mass Index: 211.85 43-95/49-115 g/m2 LVOT Diam: 1.80 3.0+(-)1.3 cm 2D Systolic Function EF 4C: 54.80 >55% EF 2C: 60.90 >55% EF BiP: 58.10 >55% Mitral Valve MV VTI: 0.44 MV Pk Gabino: 1.79 MV Mn Gabino: 1.16 MV Pk Grad: 13.00 MV Mn Grad: 6.00 MV Pk E: 2.00 MV PK A: 1.65 MV Decel Time: 159.00 E/A: 1.20 E'Lateral: 4.79 E'Medial: 3.92 E/E' Med: 51.00 E/E' Lat: 41.80 PHT: 47.00 MVA PHT: 4.68 MVA Continuity: 1.41 Decel [place]: 12.55 MR VTI: 1.84 MR Alias Gabino: 0.29 Aortic Valve AoV Pk Gabino: 2.71 AoV Mn Gabino: 1.92 AoV VTI: 0.56 AoV Pk Grad: 29.00 Aov Mn Grad: 17.00 JUANCARLOS Cont.VTI: 1.11 LVOT LVOT Pk [place]ino: 1.24 LVOT Mn [place]ino: 0.79 LVOT VTI: 0.24 LVOT Pk Grad: 6.00 LVOT Mn Grad: 3.00 LVOT Diam: 1.80 LVOT Area: 2.54 Diastolic Function MV Pk E: 2.00 MV Pk A: 1.65 E/A: 1.20 E'Medial: 3.92 E/E' Med: 51.00 E' Laterial: 4.79 E/E' Lat: 41.80 Right Ventricle TAPSE (mm): 2.38 TVS' Gabino: 14.40 Tricuspid Valve TR Pk [place]: 4.04 TR Pk Grad: 65.00 RA Press: 3.00 RVSP: 68.00 Great Vessels Aorta Ao Asc: 3.60 2.1-3.4 cm Updated in Other Vendor System with Status of Final Lowell Patrick MD electronically signed on 08/29/2021 1:50:00 PM with status of Final
== END ==
LOC: HO.CARD 13:07
PROVIDERS: PCP Internal Medicine; Visit Provider Internal Medicine Cardiovascular Disease
DX: Z95.2 Presence of prosthetic heart valve (principal)
CPT/HCPCS: 93306; Q9957

== ENCOUNTER 2021-09-06 14:31 | Outpatient (REF) | payer MEDICARE, SELFPAY ==
[2021-09-06 14:50] LABS: MANUAL DIFF FLAG NO
[2021-09-06 15:15] LABS: Basophils Absolute Auto 0.1 X10*3/uL (0.0-0.2); Basophils Percent Auto 1.6 % (0-2); Eosinophils Absolute Auto 0.5 X10*3/uL (0.0-0.4); Eosinophils Percent Auto 7.1 % (0-4); Imm Gran Abs Auto 0.04 X10*3/uL (0.00-0.03); Imm Gran Pct Auto 0.5 % (0.0-0.4); Lymphocytes Absolute Auto 0.9 X10*3/uL (1.2-4.9); Lymphocytes Percent Auto 11.4 % (20-40); Mean Corpuscular HGB Conc 29.7 g/dl (31.0-35.0); Mean Corpuscular Hemoglobin 27.2 pg (27.0-33.0); Mean Corpuscular Volume 91.6 fL (80.0-98.0); Mean Platelet Volume 10.2 fL (9.4-12.3); Monocytes Absolute Auto 0.6 X10*3/uL (0.1-1.2); Neutrophils Absolute Auto 5.5 x10*3/uL (2.0-8.3); Neutrophils Percent Auto 71.4 % (45-73); Platelet Count 285 X10*3/uL (160-400); Red Blood Count 4.04 X10*6/uL (4.20-5.50); Red Cell Distribution Width 15.5 % (11.0-16.0); White Blood Count 7.6 X10*3/uL (4.8-10.8)
[2021-09-06 15:39] LABS: Alanine Aminotransferase 8 U/L (0-31); Albumin Level 3.9 g/dL (3.5-5.0); Alkaline Phosphatase 56 U/L (39-117); Anion Gap 13 (12-20); Aspartate Amino Transferase 18 U/L (5-31); Bilirubin Total 0.4 mg/dL (0.0-1.0); Blood Urea Nitrogen 36 mg/dL (9-16); Calcium 9.6 mg/dL (8.4-10.2); Carbon Dioxide 28 mmol/L (22-29); Chloride 105 mmol/L (96-108); Estimated Glomerular Filt Rate 46; Glucose Random 97 mg/dL (60-115); Potassium 4.9 mmol/L (3.3-5.1); Sodium 141 mmol/L (135-145); Total Protein 7.8 g/dL (6.5-8.0)
[2021-09-06 16:39] LABS: Estimated Average Glucose 128 mg/dL; Hemoglobin A1C 126.5211 umol/L; Hemoglobin A1c % 6.1 %
== END 2021-09-06 14:32 | disposition home or self-care (01) ==
LOC: HO.LAB 14:31
PROVIDERS: PCP Internal Medicine; Visit Provider Internal Medicine
DX: N18.9 Chronic kidney disease, unspecified (principal); R53.83 Other fatigue; E11.9 Type 2 diabetes mellitus without complications
CPT/HCPCS: 36415; 80053; 83036; 85025

== ENCOUNTER 2021-09-25 14:05 | Outpatient (REF) | payer MEDICARE, SELFPAY ==
[2021-09-25 15:48] LABS: Hematocrit 38.3 % (37.0-47.0); Hemoglobin 11.3 g/dl (12.0-16.0); Mean Corpuscular HGB Conc 29.5 g/dl (31.0-35.0); Mean Corpuscular Hemoglobin 27.5 pg (27.0-33.0); Mean Corpuscular Volume 93.2 fL (80.0-98.0); Platelet Count 297 X10*3/uL (160-400); Red Blood Count 4.11 X10*6/uL (4.20-5.50); White Blood Count 8.2 X10*3/uL (4.8-10.8)
[2021-09-25 15:53] LABS: INTERNATIONAL NORM RATIO 1.5 (0.9-1.1); Prothrombin Time 17.1 SEC (9.9-13.0)
[2021-09-25 16:12] LABS: Anion Gap 15 (12-20); Blood Urea Nitrogen 35 mg/dL (9-16); Calcium 9.8 mg/dL (8.4-10.2); Carbon Dioxide 28 mmol/L (22-29); Chloride 103 mmol/L (96-108); Estimated Glomerular Filt Rate 45; Glucose Random 150 mg/dL (60-115); Potassium 5.2 mmol/L (3.3-5.1); Sodium 141 mmol/L (135-145)
[2021-09-25 16:17] LABS: B Type Natriuretic Peptide 539 pg/mL (<100)
== END 2021-09-25 14:06 | disposition home or self-care (01) ==
LOC: HO.LAB 14:05
PROVIDERS: PCP Internal Medicine; Referring Provider Internal Medicine; Visit Provider Internal Medicine Cardiovascular Disease
DX: I50.32 Chronic diastolic (congestive) heart failure (principal)
CPT/HCPCS: 36415; 80048; 83880; 85027; 85610; 99212

== ENCOUNTER 2021-10-30 14:32 | Outpatient (REF) | payer MEDICARE, SELFPAY ==
--- NOTE | ~2021-10-30 | XR_ITS ---
EXAMINATION: XR CHEST CLINICAL INFORMATION: Abnormal findings on diagnostic imaging of other COMPARISON: Previous chest x-ray most recent April 2021 TECHNIQUE: 2 views of the chest were obtained. FINDINGS: The cardiac silhouette is enlarged but stable. There is an aortic valve stent graft. There are increased central hilar markings questionable for pulmonary venous redistribution versus airways disease. The lungs are otherwise clear. The previously identified increased opacity in the right upper lobe on April 2021 exam is no longer seen. There is no pleural effusion or pneumothorax. There are degenerative changes of the spine. XR/XR chest 2V IMPRESSION: Stable enlargement of the cardiac silhouette. Aortic valve stent graft. Prominent central lung markings. Resolved right upper lobe process from April 2021.
== END 2021-10-30 14:33 | disposition home or self-care (01) ==
LOC: HO.XRAY 14:32
PROVIDERS: PCP Internal Medicine; Visit Provider Internal Medicine
DX: J44.9 Chronic obstructive pulmonary disease, unspecified (principal); R09.02 Hypoxemia; R39.89 Other symptoms and signs involving the genitourinary system; Z79.899 Other long term (current) drug therapy
CPT/HCPCS: 71046; 94618; 99212

== ENCOUNTER → 2021-10-31 13:02 | Outpatient (BNVA) | payer MEDICARE, SELFPAY | PROVIDERS: PCP Internal Medicine; Referring Provider Internal Medicine; Visit Provider Nurse Practitioner Family | DX: I11.0 Hypertensive heart disease with heart failure (principal); I50.32 Chronic diastolic (congestive) heart failure; I27.20 Pulmonary hypertension, unspecified; I44.7 Left bundle-branch block, unspecified; I05.0 Rheumatic mitral stenosis; Z95.2 Presence of prosthetic heart valve; Z98.890 Other specified postprocedural states | CPT/HCPCS: 99212 ==

== ENCOUNTER 2021-11-14 11:31 | Outpatient (REF) | payer MEDICARE, SELFPAY ==
[2021-11-14 12:30] LABS: Anion Gap 14 (12-20); Blood Urea Nitrogen 50 mg/dL (9-16); Calcium 9.9 mg/dL (8.4-10.2); Carbon Dioxide 30 mmol/L (22-29); Chloride 102 mmol/L (96-108); Estimated Glomerular Filt Rate 32; Glucose Random 162 mg/dL (60-115); Potassium 4.6 mmol/L (3.3-5.1); Sodium 141 mmol/L (135-145)
[2021-11-14 12:36] LABS: B Type Natriuretic Peptide 483 pg/mL (<100)
== END 2021-11-14 11:32 | disposition home or self-care (01) ==
LOC: HO.LAB 11:31
PROVIDERS: PCP Internal Medicine; Visit Provider Internal Medicine Cardiovascular Disease
DX: I50.32 Chronic diastolic (congestive) heart failure (principal)
CPT/HCPCS: 36415; 80048; 83880

== ENCOUNTER 2022-01-24 22:20 | Inpatient (IN) | payer MEDICARE, SELFPAY ==
--- NOTE | 2022-01-24 | ECG_ITS ---
Test Reason : SEPSIS Blood Pressure : / mmHG Vent. Rate : 094 BPM Atrial Rate : 094 BPM P-R Int : 174 ms QRS Dur : 158 ms QT Int : 394 ms P-R-T Axes : 069 -26 079 degrees QTc Int : 492 ms Normal sinus rhythm Left bundle branch block Abnormal ECG When compared with ECG of 08-NOV-2018 15:06, Premature ventricular complexes are no longer Present Left bundle branch block has replaced Incomplete left bundle branch block Referred By: Raimundo Roman Electronically Signed By:DEJUAN MADRID
--- NOTE | ~2022-01-24 | XR_ITS ---
EXAMINATION: XR CHEST CLINICAL INFORMATION: Fever and cough COMPARISON: 10/30/2021 TECHNIQUE: Frontal view of the chest was obtained. FINDINGS: Cardiac leads overlie the chest. Diffuse bronchial wall thickening with patchy opacities mostly in a perihilar distribution. No pleural effusion or pneumothorax. The cardiomediastinal silhouette is unchanged, with a calcified aorta. XR/XR chest 1V IMPRESSION: Bronchial wall thickening can be seen with a small airways process such as asthma or atypical/viral infection. Patchy opacities of both lungs may represent superimposed atelectasis or pneumonia.
--- NOTE | 2022-01-24 22:27 | ED_ITS ---
HPI - General Adult General Chief complaint: Dyspnea Stated complaint: Fever/sob Time Seen by Provider: 01/24/22 22:27 Source: patient Mode of arrival: EMS Limitations: no limitations History of Present Illness HPI narrative: Patient 81 years old with history of hypertension, COPD, TAVR, LBBB, HFpEF came by ambulance for complaining of bilateral leg blister for last few days increased shortness of breath and fever since yesterday patient does use oxygen as needed, at home saturating 84% at room air when EMS arrived denies any chest pain or palpitation noticed to have fever of 101 degrees apparently patient's son clean the house with chemicals yesterday and during that time patient started noticing coughing with mucopurulent phlegm and increased shortness of breath. Patient also has chronic superficial blisters on both lower extremities right lower extremity blister ruptured few days ago with increased redness and swelling Related Data Home Medications Medication Instructions Recorded Confirmed amlodipine 5 mg tablet 5 mg PO DAILY 08/15/20 11/02/21 cyclosporine 0.05 % eye drops in a 1 drp ophthalmic (eye) Q12H 08/15/20 11/02/21 dropperette (Restasis) fenofibrate 160 mg tablet 160 mg PO DAILY 08/15/20 11/02/21 gabapentin 800 mg tablet 800 mg PO QID 08/15/20 11/02/21 levothyroxine 50 mcg tablet 50 mcg PO DAILY 08/15/20 11/02/21 simvastatin 20 mg tablet 20 mg PO DAILY 08/15/20 11/02/21 albuterol sulfate mg inhalation QID 05/24/21 11/02/21 albuterol sulfate 90 mcg/actuation 2 puff PO Q4H PRN 05/24/21 11/02/21 aerosol inhaler glipizide 2.5 mg tablet, extended 2.5 mg PO BID 05/24/21 11/02/21 release 24 hr prednisolone acetate 1 % eye 0 drp ophthalmic (eye) 05/24/21 11/02/21 drops,suspension tobramycin 0.3 % eye drops 1 drp ophthalmic-Right QID 05/24/21 11/02/21 white petrolatum-mineral oil 56.8 ophthalmic-Right BEDTIME 05/24/21 11/02/21 %-42.5 % eye ointment (Refresh Lacri-Lube) fluticasone propionate 50 spray intranasal 08/02/21 11/02/21 mcg/actuation nasal spray,suspension spironolactone 25 mg tablet 25 mg PO DAILY 08/02/21 11/02/21 aspirin 81 mg tablet,delayed 81 mg PO DAILY 10/30/21 11/02/21 release (Adult Aspirin Regimen) Previous Rx's Medication Instructions Recorded artifi.tears(hypromellose)(PF) 0.3 1 drp ophthalmic (eye) Q2H 7 days 12/24/20 % eye drops #10 mL fluticasone propionate 115 2 puff inhalation BID 30 days #1 ea 05/24/21 mcg-salmeterol 21 mcg/actuation HFA inhaler (Advair HFA) furosemide 40 mg tablet (Lasix) 40 mg PO DAILY #90 tabs 10/26/21 Allergies Allergy/AdvReac Type Severity Reaction Status Date / Time Penicillins [PENICILLINS] Allergy Intermediate HIVES Verified 10/31/21 13:14 Review of Systems Review of Systems: Yes all other systems are reviewed and are negative COUNT INCLUDES THE [facility] Past Medical History Medical History Abnormal chest x-ray Chronic heart failure with preserved ejection fraction (HFpEF) COPD (chronic obstructive pulmonary disease) HTN (hypertension) Hypoxemia LBBB (left bundle branch block) Mitral stenosis Pulmonary hypertension Surgical History Hx of cardiac cath S/P TAVR (transcatheter aortic valve replacement) Family History Family History Father No problems noted. Mother CVD (cardiovascular disease) Social History Social History Patient Tobacco Use Status: Former Tobacco user Quit Date: Years Smoked: 20 +/- Advance Directives: No Physical Exam ED Vital Signs: Vital Signs - 24 hr 01/24/22 22:39 01/24/22 23:53 01/24/22 23:59 Temperature 99.4 F Pulse Rate 100 88 85 Respiratory Rate 16 13 18 Blood Pressure 150/79 H 149/81 H Pulse Oximetry 98 Oxygen Delivery Method Nasal Cannula BMI result Body Mass Index 26.9 Appearance: Alert. Oriented X3. No acute distress. Eyes: PERRLA, No Nystagmus ENT: Pharynx normal. Oral Mucosa moist Neck: Normal inspection. Neck supple. CVS: Normal heart rate and rhythm. Pulses normal. Respiratory: No respiratory distress. Equal air entry bilateral, prolonged expiration with bilateral crackles posteriorly at bases Abdomen: Soft and nontender. Bowel sounds are present, no mass palpable, no CVA tenderness Skin: Skin warm and dry. Ruptured blister on her right clark with surrounding erythema left clark with intact blister no erythema. Extremities: +lower extremity edema. No calf tenderness Neuro: Oriented X 3. No motor deficit. No sensory deficit.No cerebellar signs , cranial nerves II-XII intact Extrem Other: Medical Decision Making MDM Narrative Medical decision making narrative: Patient with bilateral pneumonia with right leg cellulitis will admit patient for further evaluation and treatment Lab Data Lab results reviewed: Yes I reviewed the patient's lab results. Result diagrams: 01/24/22 22:51 01/24/22 22:51 Labs: Lab Results 01/24/22 01/24/22 01/24/22 Range/Units 22:51 22:51 22:51 WBC 11.7 H (4.8-10.8) X10*3/uL RBC 3.89 L (4.20-5.50) X10*6/uL Hgb 11.3 L (12.0-16.0) g/dl Hct 36.0 L (37.0-47.0) % MCV 92.5 (80.0-98.0) fL MCH 29.0 (27.0-33.0) pg MCHC 31.4 (31.0-35.0) g/dl RDW 13.9 (11.0-16.0) % Plt Count 265 (160-400) X10*3/uL MPV 9.8 (9.4-12.3) fL Immature Gran % (Auto) 0.4 (0.0-0.4) % Neut % (Auto) 81.0 H (45-73) % Lymph % (Auto) 5.8 L (20-40) % [place] % (Auto) 9.9 (2-11) % Eos % (Auto) 2.0 (0-4) % Baso % (Auto) 0.9 (0-2) % Lymph # (Auto) 0.7 L (1.2-4.9) X10*3/uL [place] # (Auto) 1.2 (0.1-1.2) X10*3/uL Eos # (Auto) 0.2 (0.0-0.4) X10*3/uL Baso # (Auto) 0.1 (0.0-0.2) X10*3/uL Abs Immat Gran (auto) 0.05 H (0.00-0.03) X10*3/uL Absolute Neuts (auto) 9.5 H (2.0-8.3) x10*3/uL Absolute Nucleated RBC 0.000 (0.0-0.012) X10*3/uL Nucleated RBC % (auto) 0.0 (0.0-0.2) /100WBC Sodium 138 (135-145) mmol/L Potassium 4.5 (3.3-5.1) mmol/L Chloride 103 (96-108) mmol/L Carbon Dioxide 25 (22-29) mmol/L Anion Gap 15 (12-20) BUN 41 H (9-16) mg/dL Creatinine 1.39 (0.5-1.4) mg/dL Estim Creat Clear Calc 31.3 Estimated GFR 36 Random Glucose 142 H (60-115) mg/dL Lactic Acid (0.5-2.0) mmol/L Calcium 9.0 D (8.4-10.2) mg/dL Total Bilirubin 0.7 (0.0-1.0) mg/dL AST 19 (5-31) U/L ALT 10 (0-31) U/L Alkaline Phosphatase 54 (39-117) U/L Total Protein 7.3 (6.5-8.0) g/dL Albumin 3.6 (3.5-5.0) g/dL COVID-19 (MICHAELLE) Negative (Negative) COVID-19 Clin Com See Note 01/24/22 Range/Units 22:51 WBC (4.8-10.8) X10*3/uL RBC (4.20-5.50) X10*6/uL Hgb (12.0-16.0) g/dl Hct (37.0-47.0) % MCV (80.0-98.0) fL MCH (27.0-33.0) pg MCHC (31.0-35.0) g/dl RDW (11.0-16.0) % Plt Count (160-400) X10*3/uL MPV (9.4-12.3) fL Immature Gran % (Auto) (0.0-0.4) % Neut % (Auto) (45-73) % Lymph % (Auto) (20-40) % [place] % (Auto) (2-11) % Eos % (Auto) (0-4) % Baso % (Auto) (0-2) % Lymph # (Auto) (1.2-4.9) X10*3/uL [place] # (Auto) (0.1-1.2) X10*3/uL Eos # (Auto) (0.0-0.4) X10*3/uL Baso # (Auto) (0.0-0.2) X10*3/uL Abs Immat Gran (auto) (0.00-0.03) X10*3/uL Absolute Neuts (auto) (2.0-8.3) x10*3/uL Absolute Nucleated RBC (0.0-0.012) X10*3/uL Nucleated RBC % (auto) (0.0-0.2) /100WBC Sodium (135-145) mmol/L Potassium (3.3-5.1) mmol/L Chloride (96-108) mmol/L Carbon Dioxide (22-29) mmol/L Anion Gap (12-20) BUN (9-16) mg/dL Creatinine (0.5-1.4) mg/dL Estim Creat Clear Calc Estimated GFR Random Glucose (60-115) mg/dL Lactic Acid 0.9 (0.5-2.0) mmol/L Calcium (8.4-10.2) mg/dL Total Bilirubin (0.0-1.0) mg/dL AST (5-31) U/L ALT (0-31) U/L Alkaline Phosphatase (39-117) U/L Total Protein (6.5-8.0) g/dL Albumin (3.5-5.0) g/dL COVID-19 (MICHAELLE) (Negative) COVID-19 Clin Com ECG Data Attestation: I personally reviewed and interpreted this ECG as follows: Interpretation: Number sinus rhythm with heart rate 94 beats per minute left bundle-branch block normal axis no acute ST wave changes no acute ischemia Discharge Plan Discharge Clinical Impression: COPD (chronic obstructive pulmonary disease), Community acquired pneumonia, Cellulitis Patient Disposition: Admitted As Inpatient
[2022-01-24 22:39] VITALS: BP 150/79; PULSE 100; RESP 16; TEMP 37.4; O2SAT 98; BMI 26.9
[2022-01-24 22:58] LABS: MANUAL DIFF FLAG NO
[2022-01-24 22:59] LABS: Basophils Absolute Auto 0.1 X10*3/uL (0.0-0.2); Basophils Percent Auto 0.9 % (0-2); Eosinophils Absolute Auto 0.2 X10*3/uL (0.0-0.4); Hemoglobin 11.3 g/dl (12.0-16.0); Imm Gran Abs Auto 0.05 X10*3/uL (0.00-0.03); Imm Gran Pct Auto 0.4 % (0.0-0.4); Lymphocytes Absolute Auto 0.7 X10*3/uL (1.2-4.9); Lymphocytes Percent Auto 5.8 % (20-40); Mean Corpuscular HGB Conc 31.4 g/dl (31.0-35.0); Mean Corpuscular Volume 92.5 fL (80.0-98.0); Mean Platelet Volume 9.8 fL (9.4-12.3); Monocytes Absolute Auto 1.2 X10*3/uL (0.1-1.2); Monocytes Percent Auto 9.9 % (2-11); Neutrophils Absolute Auto 9.5 x10*3/uL (2.0-8.3); Platelet Count 265 X10*3/uL (160-400); Red Blood Count 3.89 X10*6/uL (4.20-5.50); Red Cell Distribution Width 13.9 % (11.0-16.0); White Blood Count 11.7 X10*3/uL (4.8-10.8)
[2022-01-24 23:11] LABS: Lactic Acid 0.9 mmol/L (0.5-2.0)
[2022-01-24 23:13] LABS: COVID-19 Test Negative (Negative)
[2022-01-24 23:18] LABS: Alanine Aminotransferase 10 U/L (0-31); Albumin Level 3.6 g/dL (3.5-5.0); Alkaline Phosphatase 54 U/L (39-117); Anion Gap 15 (12-20); Aspartate Amino Transferase 19 U/L (5-31); Bilirubin Total 0.7 mg/dL (0.0-1.0); Blood Urea Nitrogen 41 mg/dL (9-16); Carbon Dioxide 25 mmol/L (22-29); Chloride 103 mmol/L (96-108); Creatinine Clr Calc Pharmacy 31.3; Estimated Glomerular Filt Rate 36; Glucose Random 142 mg/dL (60-115); Potassium 4.5 mmol/L (3.3-5.1); Sodium 138 mmol/L (135-145); Total Protein 7.3 g/dL (6.5-8.0)
[2022-01-24] MEDS: Acetaminophen 325 MG TABLET 650 MG PO (23:31)
[2022-01-24] MEDS: cefTRIAXone sodium 1 GM in 0.9 % Sodium Chloride 50 ML IV (23:32)
[2022-01-24 23:53] VITALS: BP 149/81; PULSE 88; RESP 13
[2022-01-24 23:59] VITALS: PULSE 85; RESP 18; O2SAT 96
[2022-01-24] MEDS: Albuterol/Iprat 2.5/0.5MG 3 ML AMPUL.NEB INHALE (23:59)
[2022-01-25] VITALS (11 sets, daily range): BP systolic 118–140; BP diastolic 52–69; PULSE 79–96; RESP 12–26; TEMP 36.4–37.2; O2SAT 90–96
[2022-01-25] MEDS: Doxycycline Hyclate 100 MG in 0.9 % Sodium Chloride 250 ML 166.67 MG IV (00:06)
--- NOTE | 2022-01-25 00:31 | P.HPHOSP_ITS ---
History of Present Illness Date of Service: 01/25/22 Chief Complaint: Not feeling well, cough, sob This is an 81-year-old female with past medical history of COPD, HTN, mitral stenosis, pulmonary hypertension, chronic hypoxic respiratory failure on 2 L of oxygen as needed, HTN, who presents to the hospital with complaints of cough, increased shortness of breath, as well as sputum production. Patient reports that her symptoms started about few days ago, her son had clean the bathroom and he used several strong chemicals, she felt that maybe she breathe that in which made her feel more short of breath. She also reports increased cough and sputum production. Patient felt lousy, she had significant weakness, fever of 101, rigors, adjusted and feel right. Reports that she was constantly using her O2 even though she was supposed to use it as needed with no relief. She has also noticed decreased urine output and urgency for the past few days, she reports that she has water blisters in her loose legs with 1 of them on the right bursting and now has redness around it. She reports compliance with her Lasix and has no orthopnea or PND and no lower extremity edema. On arrival to the ED patient noted to be hemodynamically stable satting 91% on 2L of nasal cannula Labs are significant for WBC count 11.7, hemoglobin of 11.3, BUN of 41, creatinine of 1.39, which is close to her baseline , UA positive for nitrites, leukocyte Estrace and WBC Chest x-ray revealed ankle wall thickening secondary to small airway process such as asthma or atypical/viral infection. Patchy opacities of both lungs may represent superimposed pneumonia Patient started on IV antibiotics and will be admitted for further management Review of Systems Review of Systems: Yes all other systems are reviewed and are negative [facility] Medical History Abnormal chest x-ray Chronic heart failure with preserved ejection fraction (HFpEF) COPD (chronic obstructive pulmonary disease) HTN (hypertension) Hypoxemia LBBB (left bundle branch block) Mitral stenosis Pulmonary hypertension Family History Father No problems noted. Mother CVD (cardiovascular disease) Surgical History Hx of cardiac cath S/P TAVR (transcatheter aortic valve replacement) Social History Patient Tobacco Use Status: Former Tobacco user Quit Date: Years Smoked: 20 +/- Advance Directives: No Meds Allergies Allergy/AdvReac Type Severity Reaction Status Date / Time Penicillins [PENICILLINS] Allergy Intermediate HIVES Verified 10/31/21 13:14 Active Medications: Current Medications Acetaminophen (Acetaminophen 325 Mg Tablet) 650 mg PO Q6H PRN PRN Reason: Pain, Mild (Pain Scale 1-3) Docusate Sodium (Docusate Sodium 100 Mg Capsule) 100 mg PO DAILY PRN PRN Reason: Constipation Doxycycline Hyclate 100 mg/ (Sodium Chloride) 250 mls @ 166.67 mls/hr IV ONCE O NE Stop: 01/25/22 01:14 Last Admin: 01/25/22 00:06 Dose: 166.67 mls/hr Ceftriaxone Sodium 1 gm/ (Sodium Chloride) 50 mls @ 100 mls/hr IV Q24H VIJAY Azithromycin 500 mg/ Sodium (Chloride) 250 mls @ 125 mls/hr IV Q24H VIJAY Ondansetron HCl (Ondansetron Hcl 4 Mg/2 Ml Vial) 4 mg IVPUSH Q8H PRN PRN Reason: Nausea and Vomiting Oxycodone HCl (Oxycodone Hcl Immed Release 5 Mg Tablet) 5 mg PO Q6H PRN PRN Reason: Pain, Severe (Pain Scale 7-10) Sodium Chloride (0.9 % Sodium Chloride Flush 3 Ml Syringe) 3 ml [facility] Home Medications Medication Instructions Recorded Confirmed Last Taken Type amlodipine 5 mg tablet 5 mg PO DAILY 08/15/20 11/02/21 Unknown History cyclosporine 0.05 % eye drops in a 1 drp ophthalmic (eye) Q12H 08/15/20 11/02/21 Unknown History dropperette (Restasis) fenofibrate 160 mg tablet 160 mg PO DAILY 08/15/20 11/02/21 Unknown History gabapentin 800 mg tablet 800 mg PO QID 08/15/20 11/02/21 Unknown History levothyroxine 50 mcg tablet 50 mcg PO DAILY 08/15/20 11/02/21 Unknown History simvastatin 20 mg tablet 20 mg PO DAILY 08/15/20 11/02/21 Unknown History albuterol sulfate mg inhalation QID 05/24/21 11/02/21 Unknown History albuterol sulfate 90 mcg/actuation 2 puff PO Q4H PRN 05/24/21 11/02/21 Unknown History aerosol inhaler glipizide 2.5 mg tablet, extended 2.5 mg PO BID 05/24/21 11/02/21 Unknown History release 24 hr prednisolone acetate 1 % eye 0 drp ophthalmic (eye) 05/24/21 11/02/21 Unknown History drops,suspension tobramycin 0.3 % eye drops 1 drp ophthalmic-Right QID 05/24/21 11/02/21 Unknown History white petrolatum-mineral oil 56.8 ophthalmic-Right BEDTIME 05/24/21 11/02/21 Unknown History %-42.5 % eye ointment (Refresh Lacri-Lube) fluticasone propionate 50 spray intranasal 08/02/21 11/02/21 Unknown History mcg/actuation nasal spray,suspension spironolactone 25 mg tablet 25 mg PO DAILY 08/02/21 11/02/21 Unknown History aspirin 81 mg tablet,delayed 81 mg PO DAILY 10/30/21 11/02/21 Unknown History release (Adult Aspirin Regimen) Physical Exam Vital Signs and Narrative: Vital Signs: Last Vital Signs Temp 99.4 F 01/24/22 22:39 Pulse 85 01/24/22 23:59 Resp 18 01/24/22 23:59 BP 149/81 H 01/24/22 23:53 Pulse Ox 98 01/24/22 22:39 O2 Del Method 01/24/22 22:39 Oxygen Flow Rate 4 01/24/22 22:39 BMI result Body Mass Index 26.9 Const: General: cooperative and no acute distress Orientation/consciousness: patient oriented x3 Eyes: General: appearance normal, both eyes and all related structures Pupils: Equal, round and reactive pupils present Resp: Other: Expiratory wheezing, crackles on exam Effort & Inspection: normal respiratory effort Cardio: Rate: regular rate Rhythm: regular rhythm GI: Palpation (GI): Soft to palpation Auscultation: normal bowel sounds Neuro: General: patient oriented x3 Cranial nerves: Yes Equal, round and reactive pupils present Cognition (Neuro): normal cognition Extrem: Other: Right leg cellulitis with erythema, warmth, mild tenderness Results Labs CBC and Chem 7: 01/24/22 22:51 01/24/22 22:51 Labs: Laboratory Results - last 24 hr 01/24/22 01/24/22 01/24/22 22:51 22:51 22:51 MCV 92.5 MCH 29.0 MCHC 31.4 RDW 13.9 Plt Count 265 MPV 9.8 Immature Gran % (Auto) 0.4 Neut % (Auto) 81.0 H Lymph % (Auto) 5.8 L [place] % (Auto) 9.9 Eos % (Auto) 2.0 Baso % (Auto) 0.9 Lymph # (Auto) 0.7 L [place] # (Auto) 1.2 Eos # (Auto) 0.2 Baso # (Auto) 0.1 Abs Immat Gran (auto) 0.05 H Absolute Neuts (auto) 9.5 H Absolute Nucleated RBC 0.000 Nucleated RBC % (auto) 0.0 Anion Gap 15 Estim Creat Clear Calc 31.3 Estimated GFR 36 Random Glucose 142 H Lactic Acid Calcium 9.0 D Total Bilirubin 0.7 AST 19 ALT 10 Alkaline Phosphatase 54 Total Protein 7.3 Albumin 3.6 COVID-19 (MICHAELLE) Negative COVID-19 Clin Com See Note 01/24/22 22:51 MCV MCH MCHC RDW Plt Count MPV Immature Gran % (Auto) Neut % (Auto) Lymph % (Auto) [place] % (Auto) Eos % (Auto) Baso % (Auto) Lymph # (Auto) [place] # (Auto) Eos # (Auto) Baso # (Auto) Abs Immat Gran (auto) Absolute Neuts (auto) Absolute Nucleated RBC Nucleated RBC % (auto) Anion Gap Estim Creat Clear Calc Estimated GFR Random Glucose Lactic Acid 0.9 Calcium Total Bilirubin AST ALT Alkaline Phosphatase Total Protein Albumin COVID-19 (MICHAELLE) COVID-19 Clin Com Imaging Radiologist's Impressions: Impressions Chest X-Ray 01/24/22 23:11 IMPRESSION: Bronchial wall thickening can be seen with a small airways process such as asthma or atypical/viral infection. Patchy opacities of both lungs may represent superimposed atelectasis or pneumonia. Assessment and Plan (1) Acute on chronic respiratory failure with hypoxia: Status: Acute (2) Community acquired pneumonia: Status: Acute (3) Cellulitis: Status: Acute (4) UTI (urinary tract infection): Status: Acute (5) COPD exacerbation: Status: Acute Plan 81-year-old female with past medical history as mentioned above who presents to the hospital with complaints of not feeling well, cough, sputum production found to have pneumonia UTI as well as cellulitis # acute on chronic hypoxic respiratory failure - patient usually on O2 only as needed, currently satting low 90s on 3 L of oxygen - likely secondary to pneumonia as well as COPD exacerbation - continue O2 supplement, p.r.n. DuoNeb as low Solu-Medrol scheduled - Monitor respiratory status # community-acquired pneumonia - chest x-ray evidence of pneumonia, patient febrile with leukocytosis - will treat with IV antibiotics - follow cultures # acute COPD exacerbation - increased cough sputum production, as well as dyspnea - with pneumonia on x-ray - will treat with Solu-Medrol, DuoNeb p.r.n. as well as scheduled # acute cellulitis of right lower extremity - has warmth, tenderness, as well as erythema - treat with IV antibiotics - follow cultures # acute UTI - symptomatic - UA positive - IV antibiotics - follow cultures # CHF with preserved ejection fraction - not in exacerbation - continue on Lasix # diabetes - hold oral anti hypoglycemics - low-dose sliding scale insulin - diabetic diet # all other home medications will be resumed wounds patient medications have been reviewed- multiple requests have been placed for nursing staff to complete med rec DVT prophylaxis: Heparin subQ Given the multiple root illnesses including acute hypoxic respiratory failure requiring continue with oxygen, pneumonia core IV antibiotics, COPD exacerbation as well cellulitis patient will to poorly outpatient and will require a minimum 2 night hospital stay for further management and evaluation as well as monitoring Quality Stroke Does the patient have a stroke diagnosis?: No VTE Prior VTE?: No VTE Risk Level:: Medical - moderate - high VTE Device Contraindication: Treatment Not Indicated VTE Drug Contraindication: N/A - Med Ordered
[2022-01-25] MEDS: Azithromycin 500 MG in 0.9 % Sodium Chloride 250 ML 125 MG IV (01:18)
[2022-01-25 03:15] LABS: Appearance Urine HAZY; Color Urine YELLOW; Glucose Urine UA NEG (NEG); Leukocyte Esterase Urine 1+ (NEG); Nitrite Urine POS (NEG); PH 5.5 (5.0-8.0); UACC Culture Trigger YES; Urine Blood NEG (NEG); Urine Ketones NEG (NEG); Urine Protein TRACE MG/DL (NEG-TRACE)
[2022-01-25 03:19] LABS: Bacteria Urine 3+ /LPF; RBC Urine 0 /HPF (0); Squamous Epithelial Cell Urine 1+ /LPF
[2022-01-25] MEDS: methylPREDNISolone Sod Succ 40 MG/ML VIAL IVPUSH ×2 (06:16→20:48)
[2022-01-25 06:48] LABS: MANUAL DIFF FLAG NO
[2022-01-25 06:50] LABS: Basophils Absolute Auto 0.1 X10*3/uL (0.0-0.2); Basophils Percent Auto 0.7 % (0-2); Eosinophils Absolute Auto 0.2 X10*3/uL (0.0-0.4); Eosinophils Percent Auto 1.2 % (0-4); Hematocrit 32.7 % (37.0-47.0); Hemoglobin 10.4 g/dl (12.0-16.0); Imm Gran Abs Auto 0.07 X10*3/uL (0.00-0.03); Imm Gran Pct Auto 0.6 % (0.0-0.4); Lymphocytes Absolute Auto 0.5 X10*3/uL (1.2-4.9); Lymphocytes Percent Auto 4.2 % (20-40); Mean Corpuscular HGB Conc 31.8 g/dl (31.0-35.0); Mean Corpuscular Hemoglobin 29.9 pg (27.0-33.0); Monocytes Absolute Auto 1.4 X10*3/uL (0.1-1.2); Monocytes Percent Auto 10.9 % (2-11); Neutrophils Absolute Auto 10.4 x10*3/uL (2.0-8.3); Neutrophils Percent Auto 82.4 % (45-73); Platelet Count 242 X10*3/uL (160-400); Red Blood Count 3.48 X10*6/uL (4.20-5.50); Red Cell Distribution Width 13.9 % (11.0-16.0); White Blood Count 12.6 X10*3/uL (4.8-10.8)
[2022-01-25 07:14] LABS: Glucose, Whole Blood 135 mg/dL (60-115)
[2022-01-25 07:19] LABS: Anion Gap 12 (12-20); Blood Urea Nitrogen 39 mg/dL (9-16); Calcium 8.4 mg/dL (8.4-10.2); Carbon Dioxide 26 mmol/L (22-29); Chloride 106 mmol/L (96-108); Creatinine Clr Calc Pharmacy 36.6; Estimated Glomerular Filt Rate 43; Glucose Random 140 mg/dL (60-115); Sodium 140 mmol/L (135-145)
--- NOTE | 2022-01-25 07:38 | PC.NURSE ---
Pt tearful stating she is unhappy with things at the moment she has not received her home medication of Gabapentin at this time due to home med rec not being completed. SUKI Bedoya called pharmacy to have this completed. Offered pt pain medication until med rec could be completed but pt refused. Pt sitting upright in bed eating breakfast now
--- NOTE | 2022-01-25 08:27 | PHA.MEDREC ---
Pharmacy Consult ? Medication Reconciliation Pharmacy has completed the medication reconciliation. Pt had list on her, concerned about gabapentin, stated it was last taken at 6pm on 01/24/22.
[2022-01-25] MEDS: Albuterol/Iprat 2.5/0.5MG 3 ML AMPUL.NEB INHALE ×4 (08:37→20:07)
[2022-01-25] MEDS: oxyCODONE HCl Immed Release 5 MG TABLET PO ×2 (08:39→16:15)
[2022-01-25] MEDS: ondansetron HCL 4 MG/2 ML VIAL IVPUSH (08:39)
[2022-01-25] MEDS: Gabapentin 400 MG CAPSULE 800 MG PO ×3 (10:57→23:18)
[2022-01-25] MEDS: 0.9 % Sodium Chloride Flush 3 ML SYRINGE IVFLUSH ×2 (10:58→17:24)
--- NOTE | 2022-01-25 11:18 | MHC.CM.PN ---
Attempted to meet with patient in regards to discharge planning. Patient sleeping. No family present. Will attempt to meet again. Continue to monitor for d/c needs.
--- NOTE | 2022-01-25 12:18 | PC.NURSE ---
Pt has own eye drops they prefer. Refused hospital prescribed eye drops.
[2022-01-25 12:36] LABS: Glucose, Whole Blood 195 mg/dL (60-115)
[2022-01-25] MEDS: Insulin Lispro 100 UNIT/ML 3 ML VIAL SUBCUT ×2 (14:05→19:01)
[2022-01-25] MEDS: Atorvastatin Calcium 10 MG TABLET PO ×2 (16:16→16:17)
--- NOTE | 2022-01-25 17:23 | PM.EVENT ---
Event Note Date of Service: 01/25/22 Event Note: Patient seen and examined patient admitted for acute on ch hypoxemic respiratory failure secondary to COPD exacerbation/pneumonia. Shortness of breath similar to last night with minimum improvement. Denies any chest pain , has dry cough. Physical exam: Unchanged from H&P. Assessment and plan: Coordinated in H&P note. Leukocytosis improving, no fever Will continue IV steroids, nebs, antibiotic. Follow blood culture.
[2022-01-25 18:41] LABS: Glucose, Whole Blood 184 mg/dL (60-115)
--- NOTE | 2022-01-25 19:09 | PC.NURSE ---
pt sitting up. reports good effect with pain medication. napped . ate dinner and remained afebile during shift. pt ambulation status not assessed by this RN.
[2022-01-25] MEDS: Heparin Sodium,Porcine 5,000 UNIT/ML VIAL 5000 UNIT SUBCUT (20:43)
--- NOTE | 2022-01-25 21:58 | MHC.CM.PN ---
IMM 01/25. A&Ox4. Very pleasant woman. Lives with and son. just returned from rehab. has VNA. Patient uses oxygen 2L prn and a cane. No services. Vax/boosted Pfizer 09/21/20, 10/02/20 & 05/23/21. HCP changed at patient request. HCP/daughter #1 Anu VargasLaura ([phone]) and HCP/son #2 Storm Kraus ([phone]). D/C plan: home without services. Family to provide transportation. CM to follow for d/c needs.
[2022-01-25] MEDS: Cholecalciferol (Vitamin D3) 25 MCG TABLET PO (23:18)
[2022-01-25] MEDS: cefTRIAXone sodium 1 GM in 0.9 % Sodium Chloride 50 ML IV (23:21)
[2022-01-26] VITALS (9 sets, daily range): BP systolic 126–161; BP diastolic 62–80; PULSE 91–102; RESP 18–20; TEMP 36.4–36.6; O2SAT 91–98; BMI 27.7
[2022-01-26] MEDS: Azithromycin 500 MG in 0.9 % Sodium Chloride 250 ML 125 MG IV (01:11)
[2022-01-26] MEDS: methylPREDNISolone Sod Succ 40 MG/ML VIAL IVPUSH ×2 (07:26→16:50)
[2022-01-26] MEDS: Levothyroxine Sodium 50 MCG TABLET PO (07:26)
[2022-01-26 07:40] LABS: Glucose, Whole Blood 207 mg/dL (60-115)
[2022-01-26] MEDS: Albuterol/Iprat 2.5/0.5MG 3 ML AMPUL.NEB INHALE ×4 (07:44→20:02)
[2022-01-26] MEDS: Fenofibrate 160 MG TABLET PO (08:23)
[2022-01-26] MEDS: amLODIPine Besylate 5 MG TABLET PO (08:23)
[2022-01-26] MEDS: Aspirin Enteric Coated 81 MG TABLET.DR PO (08:24)
[2022-01-26] MEDS: Gabapentin 400 MG CAPSULE 800 MG PO ×4 (08:24→21:56)
[2022-01-26] MEDS: Furosemide 40 MG TABLET PO (08:24)
[2022-01-26] MEDS: glipiZIDE XL 2.5 MG TAB.ER.24 PO ×2 (08:24→21:56)
[2022-01-26] MEDS: Cholecalciferol (Vitamin D3) 25 MCG TABLET PO ×2 (08:24→21:56)
[2022-01-26] MEDS: Spironolactone 25 MG TABLET PO (08:24)
[2022-01-26] MEDS: Insulin Lispro 100 UNIT/ML 3 ML VIAL SUBCUT ×4 (08:25→21:57)
[2022-01-26] MEDS: 0.9 % Sodium Chloride Flush 3 ML SYRINGE IVFLUSH ×3 (08:26→21:57)
[2022-01-26] MEDS: Fluticasone/Vilanterol 100/25 BLST.W.DEV 1 PUFF INHALE (08:59)
[2022-01-26 11:12] LABS: Glucose, Whole Blood 195 mg/dL (60-115)
--- NOTE | 2022-01-26 15:57 | P.PNIM_ITS ---
Subjective Subjective Date of Service: 01/26/22 Interval History: copd, pneumonia Review of Systems Still shortness of breath with minimal exertion, productive cough, denies any chest pain or abdominal pain or nausea vomiting or fever or chills Physical Exam Vital Signs: Vital Signs: Last Vital Signs Temp 97.8 F 01/26/22 11:31 Pulse 94 01/26/22 15:12 Resp 20 01/26/22 15:12 BP 161/75 H 01/26/22 11:31 Pulse Ox 98 01/26/22 11:31 O2 Del Method 01/26/22 11:31 O2 Flow Rate 2 01/26/22 11:31 Oxygen Flow Rate 4 01/24/22 22:39 BMI result Body Mass Index 27.7 Appearance: Alert.? Oriented X3.? not in distress.? cvs: [id number], [id number] , no murmur res: diminshed breath sounds at bases , b/l wheezing abd: no rebound or guarding ,nt, bs present. ext pulses present , no cyanosis ,Gait well balanced well coordinated. neuro: axo3 , nonfocal. Objective Data Active Medications Acetaminophen (Acetaminophen 325 Mg Tablet) 650 mg PO Q6H PRN PRN Reason: Pain, Mild (Pain Scale 1-3) Albuterol Sulfate (Albuterol Sulfate 90 Mcg 8 Gm Inhaler) 2 puff INHALE Q4H PRN PRN Reason: Shortness Of Breath Albuterol/Ipratropium (Albuterol/Iprat 2.5/0.5mg 3 Ml Ampul.Neb) 3 ml INHALE RQ4H WHILE AWAKE [facility] Last Admin: 01/26/22 15:10 Dose: 3 ml Documented By: JADIEL Amlodipine Besylate (Amlodipine Besylate 5 Mg Tablet) 5 mg PO DAILY [facility]; Protocol Last Admin: 01/26/22 08:23 Dose: 5 mg Documented By: JENNY Artificial Tears (Artificial Tears 15 Ml Drops) 1 drop EYE-BOTH Q2H [facility] Last Admin: 01/26/22 15:15 Dose: Not Given Documented By: JENNY Non-Admin Reason: Patient Refused Aspirin (Aspirin Enteric Coated 81 Mg Tablet.) 81 mg PO DAILY [facility] Last Admin: 01/26/22 08:24 Dose: 81 mg Documented By: JENNY Atorvastatin Calcium (Atorvastatin Calcium 10 Mg Tablet) 10 mg PO DAILY@1700 [facility] Last Admin: 01/25/22 16:17 Dose: 10 mg Documented By: TRINA Dextrose (Dextrose 50 % 25 Gm/50 Ml Syringe) 25 gm IVPUSH Q15M PRN; Protocol PRN Reason: per Hypoglycemia Standing Ord. Docusate Sodium (Docusate Sodium 100 Mg Capsule) 100 mg PO DAILY PRN PRN Reason: Constipation Fenofibrate (Fenofibrate 160 Mg Tablet) 160 mg PO DAILY [facility] Last Admin: 01/26/22 08:23 Dose: 160 mg Documented By: JENNY Fluticasone Propionate (Fluticasone Propionate Nasal 16 Gm [place]) 2 spray NOSTRIL-B DAILY [facility] Last Admin: 01/26/22 08:27 Dose: Not Given Documented By: JENNY Non-Admin Reason: Patient Refused Fluticasone/Vilanterol (Fluticasone/Vilanterol 100/25 Blst.W.Dev) 1 puff INHALE RDAILY [facility] Last Admin: 01/26/22 08:59 Dose: 1 puff Documented By: JADIEL Furosemide (Furosemide 40 Mg Tablet) 40 mg PO DAILY [facility]; Protocol Last Admin: 01/26/22 08:24 Dose: 40 mg Documented By: JENNY Gabapentin (Gabapentin 400 Mg Capsule) 800 mg PO QID [facility] Last Admin: 01/26/22 12:15 Dose: 800 mg Documented By: JENNY Glipizide (Glipizide Xl 2.5 Mg Tab.Er.24) 2.5 mg PO BID [facility] Last Admin: 01/26/22 08:24 Dose: 2.5 mg Documented By: JENNY Glucose (Glucose Gel 15 Gm Gel..Gram.) 15 gm PO Q15M PRN; Protocol PRN Reason: per Hypoglycemia Standing Ord. Heparin Sodium (Porcine) (Heparin Sodium,Porcine 5,000 Unit/Ml Vial) 5,000 unit SUBCUT Q12H [facility] Last Admin: 01/26/22 07:26 Dose: Not Given Documented By: MARY Non-Admin Reason: Patient Refused Ceftriaxone Sodium 1 gm/ (Sodium Chloride) 50 mls @ 100 mls/hr IV Q24H [facility] Last Infusion: 01/26/22 00:19 Dose: 0 mls/hr Documented By: STANLEY Azithromycin 500 mg/ Sodium (Chloride) 250 mls @ 125 mls/hr IV Q24H [facility] Last Infusion: 01/26/22 03:18 Dose: 0 mls/hr Documented By: STANLEY Insulin Human Lispro (Insulin Lispro 100 Unit/Ml 3 Ml Vial) 0 unit SUBCUT QIDACHS [facility]; Protocol Last Admin: 01/26/22 12:15 Dose: 2 unit Documented By: JENNY Levothyroxine Sodium (Levothyroxine Sodium 50 Mcg Tablet) 50 mcg PO DAILY@0600 [facility] Last Admin: 01/26/22 07:26 Dose: 50 mcg Documented By: MARY Methylprednisolone Sodium Succinate (Methylprednisolone Sod Succ 40 Mg/Ml Vial) 40 mg IVPUSH Q12H [facility] Last Admin: 01/26/22 07:26 Dose: 40 mg Documented By: MARY Ondansetron HCl (Ondansetron Hcl 4 Mg/2 Ml Vial) 4 mg IVPUSH Q8H PRN PRN Reason: Nausea and Vomiting Last Admin: 01/25/22 08:39 Dose: 4 mg Documented By: TRINA Oxycodone HCl (Oxycodone Hcl Immed Release 5 Mg Tablet) 5 mg PO Q6H PRN PRN Reason: Pain, Severe (Pain Scale 7-10) Last Admin: 01/25/22 16:15 Dose: 5 mg Documented By: TRINA Pharmacy Consult (Consult Rx Perform Med Rec) 1 each MISCELLANE ONCE PRN PRN Reason: Consult order Sodium Chloride (0.9 % Sodium Chloride Flush 3 Ml Syringe) [facility] Admin: 01/26/22 08:26 Dose: 3 ml Documented By: JENNY Spironolactone (Spironolactone 25 Mg Tablet) 25 mg PO DAILY [facility]; Protocol Last Admin: 01/26/22 08:24 Dose: 25 mg Documented By: JENNY Vitamin D (Cholecalciferol (Vitamin D3) 25 Mcg Tablet) 25 mcg PO BID [facility] Last Admin: 01/26/22 08:24 Dose: 25 mcg Documented By: JENNY Labs CBC & Chem 7: 01/25/22 06:23 01/25/22 06:23 Labs: Laboratory Results - last 24 hr 01/25/22 01/26/22 01/26/22 18:34 07:31 11:07 POC Glucose 184 H 207 H 195 H Microbiology Microbiology Results: Microbiology 01/25/22 Unknown Urine Culture - Preliminary Urine clean catch - Urine kamara top Gram negative stefany 01/24/22 23:02 Blood Culture - Preliminary Blood - Venous No growth after 24 hours. 01/24/22 22:51 Blood Culture - Preliminary Blood - Venous No growth after 24 hours. Assessment and Plan (1) COPD exacerbation: Status: Acute (2) Cellulitis: Status: Acute (3) Community acquired pneumonia: Status: Acute Plan 81-year-old female with past medical history as mentioned above who presents to the hospital with complaints of not feeling well, cough, sputum production found to have pneumonia UTI as well as cellulitis # acute on chronic hypoxic respiratory failure - patient usually on O2 only as needed, currently satting low 90s on 3 L of oxygen - likely secondary to pneumonia as well as COPD exacerbation - continue O2 supplement, p.r.n. DuoNeb as low Solu-Medrol scheduled - Monitor respiratory status # community-acquired pneumonia still sob with minimum excersion - chest x-ray evidence of pneumonia, patient febrile with leukocytosis - will treat with IV antibiotics - follow cultures # acute COPD exacerbation - increased cough sputum production, as well as dyspnea - with pneumonia on x-ray - will treat with Solu-Medrol, DuoNeb p.r.n. as well as scheduled # acute cellulitis of right lower extremity - has warmth, tenderness, as well as erythema-seems improivng - treat with IV antibiotics - follow cultures # acute UTI - symptomatic - UA positive - IV antibiotics - follow cultures # CHF with preserved ejection fraction - not in exacerbation - continue on Lasix # diabetes: fs 140-160 - hold oral anti hypoglycemics - low-dose sliding scale insulin - diabetic diet inpatient need: acute on chronic hypoxic respiratory failure,pneumonia -on iv antibiotics Quality Stroke Does the patient have a stroke diagnosis?: No VTE Prior VTE?: No VTE Risk Level:: Medical - moderate - high VTE Device Contraindication: Treatment Not Indicated VTE Drug Contraindication: N/A - Med Ordered
[2022-01-26 16:31] LABS: Glucose, Whole Blood 309 mg/dL (60-115)
[2022-01-26] MEDS: Atorvastatin Calcium 10 MG TABLET PO (16:53)
[2022-01-26 19:47] LABS: Glucose, Whole Blood 181 mg/dL (60-115)
[2022-01-26] MEDS: cefTRIAXone sodium 1 GM in 0.9 % Sodium Chloride 50 ML IV (21:56)
[2022-01-27] VITALS (10 sets, daily range): BP systolic 136–146; BP diastolic 77–87; PULSE 20–102; RESP 18–93; TEMP 36.4–37.1; O2SAT 90–99
[2022-01-27] MEDS: Azithromycin 500 MG in 0.9 % Sodium Chloride 250 ML 125 MG IV (01:19)
[2022-01-27] MEDS: Levothyroxine Sodium 50 MCG TABLET PO (05:59)
[2022-01-27] MEDS: methylPREDNISolone Sod Succ 40 MG/ML VIAL IVPUSH ×2 (06:00→17:01)
[2022-01-27] MEDS: Fluticasone/Vilanterol 100/25 BLST.W.DEV 1 PUFF INHALE (07:44)
[2022-01-27] MEDS: Albuterol/Iprat 2.5/0.5MG 3 ML AMPUL.NEB INHALE ×4 (07:44→20:12)
[2022-01-27 07:50] LABS: Glucose, Whole Blood 148 mg/dL (60-115)
[2022-01-27] MEDS: Fenofibrate 160 MG TABLET PO (08:19)
[2022-01-27] MEDS: Spironolactone 25 MG TABLET PO (08:19)
[2022-01-27] MEDS: glipiZIDE XL 2.5 MG TAB.ER.24 PO ×2 (08:20→20:53)
[2022-01-27] MEDS: amLODIPine Besylate 5 MG TABLET PO (08:20)
[2022-01-27] MEDS: Gabapentin 400 MG CAPSULE 800 MG PO ×4 (08:20→20:53)
[2022-01-27] MEDS: Cholecalciferol (Vitamin D3) 25 MCG TABLET PO ×2 (08:20→20:53)
[2022-01-27] MEDS: Furosemide 40 MG TABLET PO (08:20)
[2022-01-27] MEDS: Aspirin Enteric Coated 81 MG TABLET.DR PO (08:20)
[2022-01-27] MEDS: 0.9 % Sodium Chloride Flush 3 ML SYRINGE IVFLUSH ×3 (08:22→20:54)
[2022-01-27 11:52] LABS: Glucose, Whole Blood 301 mg/dL (60-115)
[2022-01-27] MEDS: Insulin Lispro 100 UNIT/ML 3 ML VIAL SUBCUT ×3 (12:00→20:53)
--- NOTE | 2022-01-27 12:38 | P.PNIM_ITS ---
Subjective Subjective Date of Service: 01/27/22 Interval History: copd, pneumonia Review of Systems Still shortness of breath with minimal exertion, productive cough,generally weak Physical Exam Vital Signs: Vital Signs: Last Vital Signs Temp 97.6 F 01/27/22 08:00 Pulse 91 01/27/22 11:30 Resp 20 01/27/22 11:30 BP 141/77 H 01/27/22 08:00 Pulse Ox 93 01/27/22 08:00 O2 Del Method 01/27/22 08:00 O2 Flow Rate 2 01/27/22 08:00 Oxygen Flow Rate 4 01/24/22 22:39 BMI result Body Mass Index 27.7 Appearance: Alert.? Oriented X3.? not in distress.? cvs: rrr, [id number] , no murmur res: diminshed breath sounds at bases , b/l wheezing abd: no rebound or guarding ,nt, bs present. ext pulses present , no cyanosis. neuro: axo3 , nonfocal. Objective Data Active Medications Acetaminophen (Acetaminophen 325 Mg Tablet) 650 mg PO Q6H PRN PRN Reason: Pain, Mild (Pain Scale 1-3) Albuterol Sulfate (Albuterol Sulfate 90 Mcg 8 Gm Inhaler) 2 puff INHALE Q4H PRN PRN Reason: Shortness Of Breath Albuterol/Ipratropium (Albuterol/Iprat 2.5/0.5mg 3 Ml Ampul.Neb) 3 ml INHALE RQ4H WHILE AWAKE [facility] Last Admin: 01/27/22 11:27 Dose: 3 ml Documented By: JADIEL Amlodipine Besylate (Amlodipine Besylate 5 Mg Tablet) 5 mg PO DAILY [facility]; Protocol Last Admin: 01/27/22 08:20 Dose: 5 mg Documented By: JENNY Artificial Tears (Artificial Tears 15 Ml Drops) 1 drop EYE-BOTH Q2H [facility] Last Admin: 01/27/22 12:01 Dose: Not Given Documented By: JENNY Non-Admin Reason: Patient Refused Aspirin (Aspirin Enteric Coated 81 Mg Tablet.) 81 mg PO DAILY [facility] Last Admin: 01/27/22 08:20 Dose: 81 mg Documented By: JENNY Atorvastatin Calcium (Atorvastatin Calcium 10 Mg Tablet) 10 mg PO DAILY@1700 [facility] Last Admin: 01/26/22 16:53 Dose: 10 mg Documented By: JENNY Dextrose (Dextrose 50 % 25 Gm/50 Ml Syringe) 25 gm IVPUSH Q15M PRN; Protocol PRN Reason: per Hypoglycemia Standing Ord. Docusate Sodium (Docusate Sodium 100 Mg Capsule) 100 mg PO DAILY PRN PRN Reason: Constipation Fenofibrate (Fenofibrate 160 Mg Tablet) 160 mg PO DAILY [facility] Last Admin: 01/27/22 08:19 Dose: 160 mg Documented By: JENNY Fluticasone Propionate (Fluticasone Propionate Nasal 16 Gm [place]) 2 spray NOSTRIL-B DAILY [facility] Last Admin: 01/27/22 08:28 Dose: Not Given Documented By: JENNY Non-Admin Reason: Patient Refused Fluticasone/Vilanterol (Fluticasone/Vilanterol 100/25 Blst.W.Dev) 1 puff INHALE RDAILY [facility] Last Admin: 01/27/22 07:44 Dose: 1 puff Documented By: JADIEL Furosemide (Furosemide 40 Mg Tablet) 40 mg PO DAILY [facility]; Protocol Last Admin: 01/27/22 08:20 Dose: 40 mg Documented By: JENNY Gabapentin (Gabapentin 400 Mg Capsule) 800 mg PO QID [facility] Last Admin: 01/27/22 08:20 Dose: 800 mg Documented By: JENNY Glipizide (Glipizide Xl 2.5 Mg Tab.Er.24) 2.5 mg PO BID [facility] Last Admin: 01/27/22 08:20 Dose: 2.5 mg Documented By: JENNY Glucose (Glucose Gel 15 Gm Gel..Gram.) 15 gm PO Q15M PRN; Protocol PRN Reason: per Hypoglycemia Standing Ord. Heparin Sodium (Porcine) (Heparin Sodium,Porcine 5,000 Unit/Ml Vial) 5,000 unit SUBCUT Q12H [facility] Last Admin: 01/27/22 06:05 Dose: Not Given Documented By: RADHA Non-Admin Reason: Patient Refused Ceftriaxone Sodium 1 gm/ (Sodium Chloride) 50 mls @ 100 mls/hr IV Q24H [facility] Last Infusion: 01/27/22 00:00 Dose: 0 mls/hr Documented By: RADHA Azithromycin 500 mg/ Sodium (Chloride) 250 mls @ 125 mls/hr IV Q24H [facility] Last Infusion: 01/27/22 03:30 Dose: 0 mls/hr Documented By: RADAH Insulin Human Lispro (Insulin Lispro 100 Unit/Ml 3 Ml Vial) 0 unit SUBCUT QIDACHS [facility]; Protocol Last Admin: 01/27/22 12:00 Dose: 8 unit Documented By: JENNY Levothyroxine Sodium (Levothyroxine Sodium 50 Mcg Tablet) 50 mcg PO DAILY@0600 [facility] Last Admin: 01/27/22 05:59 Dose: 50 mcg Documented By: RADHA Methylprednisolone Sodium Succinate (Methylprednisolone Sod Succ 40 Mg/Ml Vial) 40 mg IVPUSH Q12H [facility] Last Admin: 01/27/22 06:00 Dose: 40 mg Documented By: RADHA Ondansetron HCl (Ondansetron Hcl 4 Mg/2 Ml Vial) 4 mg IVPUSH Q8H PRN PRN Reason: Nausea and Vomiting Last Admin: 01/25/22 08:39 Dose: 4 mg Documented By: TRINA Oxycodone HCl (Oxycodone Hcl Immed Release 5 Mg Tablet) 5 mg PO Q6H PRN PRN Reason: Pain, Severe (Pain Scale 7-10) Last Admin: 01/25/22 16:15 Dose: 5 mg Documented By: TRINA Pharmacy Consult (Consult Rx Perform Med Rec) 1 each MISCELLANE ONCE PRN PRN Reason: Consult order Sodium Chloride (0.9 % Sodium Chloride Flush 3 Ml Syringe) 3 ml IVFLUSH QSHIFT [facility] Last Admin: 01/27/22 08:22 Dose: 3 ml Documented By: JENNY Spironolactone (Spironolactone 25 Mg Tablet) 25 mg PO DAILY [facility]; Protocol Last Admin: 01/27/22 08:19 Dose: 25 mg Documented By: JENNY Vitamin D (Cholecalciferol (Vitamin D3) 25 Mcg Tablet) 25 mcg PO BID [facility] Last Admin: 01/27/22 08:20 Dose: 25 mcg Documented By: JENNY Labs CBC & Chem 7: 01/25/22 06:23 01/25/22 06:23 Labs: Laboratory Results - last 24 hr 01/26/22 01/26/22 01/27/22 16:12 19:25 07:36 POC Glucose 309 H 181 H 148 H 01/27/22 11:30 POC Glucose 301 H Microbiology Microbiology Results: Microbiology 01/25/22 Unknown Urine Culture - Final Urine clean catch - Urine kamara top Escherichia coli 01/24/22 23:02 Blood Culture - Preliminary Blood - Venous No growth after 48 hours. 01/24/22 22:51 Blood Culture - Preliminary Blood - Venous No growth after 48 hours. Assessment and Plan (1) COPD exacerbation: Status: Acute (2) Cellulitis: Status: Acute (3) Community acquired pneumonia: Status: Acute Plan 81-year-old female with past medical history as mentioned above who presents to the hospital with complaints of not feeling well, cough, sputum production found to have pneumonia UTI as well as cellulitis # acute on chronic hypoxic respiratory failure - patient usually on O2 only as needed, currently satting low 90s on 3 L of oxy gen - likely secondary to pneumonia as well as COPD exacerbation - continue O2 supplement, p.r.n. DuoNeb as low Solu-Medrol scheduled - Monitor respiratory status # community-acquired pneumonia still sob with minimum excersion - chest x-ray evidence of pneumonia, patient febrile with leukocytosis - will treat with IV antibiotics - follow cultures # acute COPD exacerbation - increased cough sputum production, as well as dyspnea - with pneumonia on x-ray - will treat with Solu-Medrol, DuoNeb p.r.n. as well as scheduled # acute cellulitis of right lower extremity - has warmth, tenderness, as well as erythema-seems improivng - treat with IV antibiotics - follow cultures # acute UTI - symptomatic - UA positive - IV antibiotics - follow cultures # CHF with preserved ejection fraction - not in exacerbation - continue on Lasix # diabetes: fs 140-160 - hold oral anti hypoglycemics - low-dose sliding scale insulin - diabetic diet inpatient need: acute on chronic hypoxic respiratory failure,pneumonia -on iv antibiotics Quality Stroke Does the patient have a stroke diagnosis?: No VTE Prior VTE?: No VTE Risk Level:: Medical - moderate - high VTE Device Contraindication: Treatment Not Indicated VTE Drug Contraindication: N/A - Med Ordered
[2022-01-27 16:10] LABS: Glucose, Whole Blood 222 mg/dL (60-115)
[2022-01-27] MEDS: Atorvastatin Calcium 10 MG TABLET PO (17:01)
[2022-01-27 20:03] LABS: Glucose, Whole Blood 242 mg/dL (60-115)
[2022-01-27] MEDS: cefTRIAXone sodium 1 GM in 0.9 % Sodium Chloride 50 ML IV (23:57)
[2022-01-27] MEDS: oxyCODONE HCl Immed Release 5 MG TABLET PO (23:58)
[2022-01-28] VITALS (13 sets, daily range): BP systolic 106–166; BP diastolic 51–93; PULSE 85–102; RESP 17–20; TEMP 36.3–37.1; O2SAT 90–97
[2022-01-28] MEDS: Azithromycin 500 MG in 0.9 % Sodium Chloride 250 ML 125 MG IV (01:22)
[2022-01-28] MEDS: Levothyroxine Sodium 50 MCG TABLET PO (06:12)
[2022-01-28] MEDS: methylPREDNISolone Sod Succ 40 MG/ML VIAL IVPUSH (06:12)
[2022-01-28 07:32] LABS: Glucose, Whole Blood 192 mg/dL (60-115)
[2022-01-28] MEDS: Fluticasone/Vilanterol 100/25 BLST.W.DEV 1 PUFF INHALE (08:08)
[2022-01-28] MEDS: Albuterol/Iprat 2.5/0.5MG 3 ML AMPUL.NEB INHALE ×4 (08:08→19:18)
[2022-01-28] MEDS: Furosemide 40 MG TABLET PO (08:29)
[2022-01-28] MEDS: Fenofibrate 160 MG TABLET PO (08:29)
[2022-01-28] MEDS: amLODIPine Besylate 5 MG TABLET PO (08:30)
[2022-01-28] MEDS: glipiZIDE XL 2.5 MG TAB.ER.24 PO ×2 (08:30→20:54)
[2022-01-28] MEDS: Spironolactone 25 MG TABLET PO (08:30)
[2022-01-28] MEDS: Gabapentin 400 MG CAPSULE 800 MG PO ×3 (08:30→20:54)
[2022-01-28] MEDS: Aspirin Enteric Coated 81 MG TABLET.DR PO (08:30)
[2022-01-28] MEDS: Cholecalciferol (Vitamin D3) 25 MCG TABLET PO ×2 (08:30→20:54)
[2022-01-28] MEDS: Fluticasone Propionate Nasal 16 GM SPRAY 2 SPRAY NOSTRIL-B (08:31)
[2022-01-28] MEDS: Insulin Lispro 100 UNIT/ML 3 ML VIAL SUBCUT ×4 (08:31→20:54)
[2022-01-28] MEDS: 0.9 % Sodium Chloride Flush 3 ML SYRINGE IVFLUSH ×2 (08:33→17:18)
[2022-01-28 11:32] LABS: Glucose, Whole Blood 209 mg/dL (60-115)
--- NOTE | 2022-01-28 12:35 | HO.PM.IMPN ---
Subjective Subjective Date of Service: 01/28/22 Interval History: copd, pneumonia Review of Systems Shortness of breath seems to be improving significantly, denies any chest pain or nausea vomiting New did not cough when I saw her . Physical Exam Vital Signs: Vital Signs: Last Vital Signs Temp 97.3 F 01/28/22 11:13 Pulse 102 H 01/28/22 11:16 Resp 20 01/28/22 11:16 BP 147/78 H 01/28/22 11:13 Pulse Ox 93 01/28/22 11:13 O2 Del Method 01/28/22 11:13 O2 Flow Rate 4 01/28/22 11:13 Oxygen Flow Rate 4 01/24/22 22:39 BMI result Body Mass Index 27.7 Appearance: Alert.? Oriented X3.? not in distress.? cvs: rrr, [id number] , no murmur res: air entry seems better,no rhonchii abd: no rebound or guarding ,nt, bs present. ext pulses present , no cyanosis. neuro: axo3 , nonfocal. Objective Data Active Medications Acetaminophen (Acetaminophen 325 Mg Tablet) 650 mg PO Q6H PRN PRN Reason: Pain, Mild (Pain Scale 1-3) Albuterol Sulfate (Albuterol Sulfate 90 Mcg 8 Gm Inhaler) 2 puff INHALE Q4H PRN PRN Reason: Shortness Of Breath Albuterol/Ipratropium (Albuterol/Iprat 2.5/0.5mg 3 Ml Ampul.Neb) 3 ml INHALE RQ4H WHILE AWAKE [facility] Last Admin: 01/28/22 11:14 Dose: 3 ml Documented By: JADIEL Amlodipine Besylate (Amlodipine Besylate 5 Mg Tablet) 5 mg PO DAILY [facility]; Protocol Last Admin: 01/28/22 08:30 Dose: 5 mg Documented By: STEVE Artificial Tears (Artificial Tears 15 Ml Drops) 1 drop EYE-BOTH Q2H [facility] Last Admin: 01/28/22 11:39 Dose: Not Given Documented By: STEVE Non-Admin Reason: Patient Refused Aspirin (Aspirin Enteric Coated 81 Mg Tablet.) 81 mg PO DAILY [facility] Last Admin: 01/28/22 08:30 Dose: 81 mg Documented By: STEVE Atorvastatin Calcium (Atorvastatin Calcium 10 Mg Tablet) 10 mg PO DAILY@1700 [facility] Last Admin: 01/27/22 17:01 Dose: 10 mg Documented By: JENNY Azithromycin (Azithromycin 500 Mg Tablet) 500 mg PO Q24H [facility] Cefuroxime Axetil (Cefuroxime Axetil 500 Mg Tablet) 500 mg PO Q12H [facility] Last Admin: 01/28/22 11:44 Dose: 500 mg Documented By: STEVE Dextrose (Dextrose 50 % 25 Gm/50 Ml Syringe) 25 gm IVPUSH Q15M PRN; Protocol PRN Reason: per Hypoglycemia Standing Ord. Docusate Sodium (Docusate Sodium 100 Mg Capsule) 100 mg PO DAILY PRN PRN Reason: Constipation Fenofibrate (Fenofibrate 160 Mg Tablet) 160 mg PO DAILY [facility] Last Admin: 01/28/22 08:29 Dose: 160 mg Documented By: STEVE Fluticasone Propionate (Fluticasone Propionate Nasal 16 Gm [place]) 2 spray NOSTRIL-B DAILY [facility] Last Admin: 01/28/22 08:31 Dose: 2 spray Documented By: STEVE Fluticasone/Vilanterol (Fluticasone/Vilanterol 100/25 Blst.W.Dev) 1 puff INHALE RDAILY [facility] Last Admin: 01/28/22 08:08 Dose: 1 puff Documented By: JADIEL Furosemide (Furosemide 40 Mg Tablet) 40 mg PO DAILY [facility]; Protocol Last Admin: 01/28/22 08:29 Dose: 40 mg Documented By: STEVE Gabapentin (Gabapentin 400 Mg Capsule) 800 mg PO TID [facility] Last Admin: 01/28/22 08:30 Dose: 800 mg Documented By: STEVE Glipizide (Glipizide Xl 2.5 Mg Tab.Er.24) 2.5 mg PO BID [facility] Last Admin: 01/28/22 08:30 Dose: 2.5 mg Documented By: STEVE Glucose (Glucose Gel 15 Gm Gel..Gram.) 15 gm PO Q15M PRN; Protocol PRN Reason: per Hypoglycemia Standing Ord. Heparin Sodium (Porcine) (Heparin Sodium,Porcine 5,000 Unit/Ml Vial) 5,000 unit SUBCUT Q12H [facility] Last Admin: 01/28/22 06:20 Dose: Not Given Documented By: RADHA Non-Admin Reason: Patient Refused Insulin Human Lispro (Insulin Lispro 100 Unit/Ml 3 Ml Vial) 0 unit SUBCUT QIDACHS [facility]; Protocol Last Admin: 01/28/22 11:45 Dose: 6 unit Documented By: STEVE Levothyroxine Sodium (Levothyroxine Sodium 50 Mcg Tablet) 50 mcg PO DAILY@0600 [facility] Last Admin: 01/28/22 06:12 Dose: 50 mcg Documented By: RADHA Ondansetron HCl (Ondansetron Hcl 4 Mg/2 Ml Vial) 4 mg IVPUSH Q8H PRN PRN Reason: Nausea and Vomiting Last Admin: 01/25/22 08:39 Dose: 4 mg Documented By: TRINA Oxycodone HCl (Oxycodone Hcl Immed Release 5 Mg Tablet) 5 mg PO Q6H PRN PRN Reason: Pain, Severe (Pain Scale 7-10) Last Admin: 01/27/22 23:58 Dose: 5 mg Documented By: RADHA Pharmacy Consult (Consult Rx Perform Med Rec) 1 each MISCELLANE ONCE PRN PRN Reason: Consult order Sodium Chloride (0.9 % Sodium Chloride Flush 3 Ml Syringe) 3 ml IVFLUSH QSHIFT [facility] Last Admin: 01/28/22 08:33 Dose: 3 ml Documented By: STEVE Spironolactone (Spironolactone 25 Mg Tablet) 25 mg PO DAILY [facility]; Protocol Last Admin: 01/28/22 08:30 Dose: 25 mg Documented By: STEVE Vitamin D (Cholecalciferol (Vitamin D3) 25 Mcg Tablet) 25 mcg PO BID [facility] Last Admin: 01/28/22 08:30 Dose: 25 mcg Documented By: STEVE Labs CBC & Chem 7: 01/25/22 06:23 01/25/22 06:23 Labs: Laboratory Results - last 24 hr 01/27/22 01/27/22 01/28/22 16:07 19:58 07:17 POC Glucose 222 H 242 H 192 H 01/28/22 11:17 POC Glucose 209 H Assessment and Plan (1) COPD exacerbation: Status: Acute (2) Community acquired pneumonia: Status: Acute (3) Cellulitis: Status: Acute Plan 81-year-old female with past medical history as mentioned above who presents to the hospital with complaints of not feeling well, cough, sputum production found to have pneumonia UTI as well as cellulitis # acute on chronic hypoxic respiratory failure - patient usually on O2 only as needed, currently satting low 90s on 3 L of oxygen - likely secondary to pneumonia as well as COPD exacerbation - continue O2 supplement, p.r.n. DuoNeb as low Solu-Medrol scheduled - Monitor respiratory status # community-acquired pneumonia still sob with minimum excersion - chest x-ray evidence of pneumonia, patient febrile with leukocytosis - will treat with IV antibiotics - follow cultures # acute COPD exacerbation - increased cough sputum production, as well as dyspnea - with pneumonia on x-ray - will treat with Solu-Medrol, DuoNeb p.r.n. as well as scheduled # acute cellulitis of right lower extremity - has warmth, tenderness, as well as erythema-seems improivng - treat with IV antibiotics - follow cultures # acute UTI - symptomatic - UA positive - IV antibiotics - follow cultures # CHF with preserved ejection fraction - not in exacerbation - continue on Lasix # diabetes: fs 140-160 - hold oral anti hypoglycemics - low-dose sliding scale insulin - diabetic diet inpatient need: acute on chronic hypoxic respiratory failure,pneumonia -on iv antibiotics Quality Stroke Does the patient have a stroke diagnosis?: No VTE Prior VTE?: No VTE Risk Level:: Medical - moderate - high VTE Device Contraindication: Treatment Not Indicated VTE Drug Contraindication: N/A - Med Ordered
[2022-01-28 16:16] LABS: Glucose, Whole Blood 155 mg/dL (60-115)
[2022-01-28] MEDS: Atorvastatin Calcium 10 MG TABLET PO (17:18)
[2022-01-28 20:26] LABS: Glucose, Whole Blood 162 mg/dL (60-115)
[2022-01-29 04:00] VITALS: BP 169/77; PULSE 85; RESP 17; TEMP 36.4; O2SAT 96
[2022-01-29] MEDS: Azithromycin 500 MG TABLET PO (06:45)
[2022-01-29] MEDS: Levothyroxine Sodium 50 MCG TABLET PO (06:45)
[2022-01-29 08:05] LABS: Glucose, Whole Blood 96 mg/dL (60-115)
[2022-01-29] MEDS: Aspirin Enteric Coated 81 MG TABLET.DR PO (10:16)
[2022-01-29] MEDS: Spironolactone 25 MG TABLET PO (10:20)
[2022-01-29] MEDS: Furosemide 40 MG TABLET PO (10:20)
[2022-01-29] MEDS: amLODIPine Besylate 5 MG TABLET PO (10:20)
[2022-01-29] MEDS: Fenofibrate 160 MG TABLET PO (10:20)
[2022-01-29] MEDS: Cholecalciferol (Vitamin D3) 25 MCG TABLET PO (10:20)
[2022-01-29] MEDS: Gabapentin 400 MG CAPSULE 800 MG PO (10:21)
[2022-01-29] MEDS: glipiZIDE XL 2.5 MG TAB.ER.24 PO (10:21)
[2022-01-29] MEDS: 0.9 % Sodium Chloride Flush 3 ML SYRINGE IVFLUSH (10:22)
[2022-01-29] MEDS: Fluticasone Propionate Nasal 16 GM SPRAY 2 SPRAY NOSTRIL-B (10:22)
[2022-01-29 11:39] VITALS: BP 151/78; PULSE 95; RESP 18; TEMP 36.9; O2SAT 92
[2022-01-29 11:56] LABS: Glucose, Whole Blood 189 mg/dL (60-115)
[2022-01-29] MEDS: Insulin Lispro 100 UNIT/ML 3 ML VIAL SUBCUT (12:10)
--- NOTE | 2022-01-29 12:28 | PM.DS ---
DS: Providers Provider Date of Service: 01/29/22 Date of admission: 01/25/22 00:21 Primary care physician: Rudi Cunningham MD DS: Diagnosis Discharge Diagnosis (1) COPD exacerbation: Status: Acute (2) Community acquired pneumonia: Status: Acute (3) Cellulitis: Status: Acute (4) Acute on chronic respiratory failure with hypoxia: Status: Acute (5) UTI (urinary tract infection): Status: Acute DS: Summary Hospital Course Hospital Course: Admission note HPI This is an 81-year-old female with past medical history of COPD, HTN, mitral stenosis, pulmonary hypertension, chronic hypoxic respiratory failure on 2 L of oxygen as needed, HTN, who presents to the hospital with complaints of cough, increased shortness of breath, as well as sputum production.? Patient reports that her symptoms started about few days ago, her son had clean the bathroom and he used several strong chemicals, she felt that maybe she breathe that in which made her feel more short of breath.? She also reports increased cough and sputum production.? Patient felt lousy, she had significant weakness, fever of 101, rigors, adjusted and feel right.? Reports that she was constantly using her O2 even though she was supposed to use it as needed with no relief.? She has also noticed decreased urine output and urgency for the past few days, she reports that she has water blisters in her loose legs with 1 of them on the right bursting and now has redness around it.? She reports compliance with her Lasix and has no orthopnea or PND and no lower extremity edema.? On arrival to the ED patient noted to be hemodynamically stable satting 91% on 2L of nasal cannula Labs are significant for WBC count 11.7, hemoglobin of 11.3, BUN of 41, creatinine of 1.39, which is close to her baseline , UA positive for nitrites, leukocyte Estrace and WBC Chest x-ray revealed ankle wall thickening secondary to small airway process such as asthma or atypical/viral infection.? Patchy opacities of both lungs may represent superimposed pneumonia Patient started on IV antibiotics and will be admitted for further management Hospital course The patient was admitted for treatment of acute hypoxic respiratory failure secondary to pneumonia, UTI, COPD exacerbation and possible cellulitis. She was not septic. Treated with IV antibiotics of azithromycin and ceftriaxone , bronchodilator nebulizers and steroids with good response over the course of hospital stay S she was wean down oxygen supplement to 2 L. Evaluated by Physical therapy as she was able to ambulate. Urine culture grew E coli. Covered with ceftriaxone. Right lower extremity was treated empirically for possible cellulitis as erythema improved. She seems to have chronic underlying venous disease that was a need further evaluation as outpatient by PCP. Physical therapy recommended home with therapy at home. Continue azithromycin and Ceftin for 5 more days to finish total of 10 days of antibiotics. Prednisone for 3 more days for COPD exacerbation Wean down oxygen as tolerated at home. To follow-up with PCP in the next 2 weeks. Time Spent with Patient Time attestation: Total time spent providing and/or coordinating discharge services: Discharge coordination time: Greater than 30 minutes Quality: Safe Use of Opioids Does Pt have an Active Cancer Diagnosis on the Problem List?: No Quality: Stroke Does the patient have a stroke diagnosis?: No Physical Exam Vital Signs: Vital Signs: Last Vital Signs Temp 98.5 F 01/29/22 11:39 Pulse 95 01/29/22 11:39 Resp 18 01/29/22 11:39 BP 151/78 H 01/29/22 11:39 Pulse Ox 92 01/29/22 11:39 O2 Del Method 01/29/22 11:39 O2 Flow Rate 2 01/29/22 11:39 Oxygen Flow Rate 4 01/24/22 22:39 BMI result Body Mass Index 27.7 Const: Other: Constitutional : Alert, oriented, not in distress Neck : Normal inspection, Supple Cardiovascular : RRR, no JVP, more right-sided lower extremity swelling with no tenderness, warmth or erythema Respiratory : fair bilateral air entry, no crackles, wheezes or rhonchi Gastrointestinal: soft, lax, Normal bowel sounds, Non tender Skin : Warm, Dry, chronic lower extremity stasis dermatitis Neurological : Alert & oriented x3, No focal deficit , CN 2-12 within normal DS: Data Data Completed and Pending Labs on day of discharge: Laboratory Results - last 24 hr 01/28/22 01/28/22 01/29/22 16:06 20:17 07:18 POC Glucose 155 H 162 H 96 01/29/22 11:39 POC Glucose 189 H Preliminary micro results at discharge 01/24/22 23:02 Blood Culture - Preliminary Blood - Venous No growth after 48 hours. 01/24/22 22:51 Blood Culture - Preliminary Blood - Venous No growth after 48 hours. Discharge Plan Discharge Patient Disposition: Home Health Service Discharge Diagnosis: Pneumonia, COPD exacerbation Urinary tract infection Acute on chronic respiratory failure Cellulitis Referrals: Rudi Cunningham MD [Primary Care Provider] - 1 Week Discharge Medications: New cefuroxime axetil 500 mg Tablet 500 mg PO Q12H 5 Days Qty: 10 0RF azithromycin 500 mg Tablet 500 mg PO Q24H 5 Days Qty: 5 0RF prednisone 20 mg tablet 40 mg PO DAILY Qty: 6 0RF Continued Advair HFA 115-21 mcg/actuation HFA aerosol inhaler 2 puff inhalation BID 30 Days Qty: 1 6RF furosemide [Lasix] 40 mg tablet 40 mg PO DAILY Qty: 90 1RF artifi.tears(hypromellose)(PF) 0.3 % drops 1 drp ophthalmic (eye) Q2H 7 Days Qty: 10 0RF cholecalciferol (vitamin D3) 25 mcg (1,000 unit) Tablet 25 mcg PO BID gabapentin 800 mg tablet 800 mg PO QID fenofibrate 160 mg tablet 160 mg PO DAILY simvastatin 20 mg tablet 20 mg PO DAILY@1700 amlodipine 5 mg tablet 5 mg PO DAILY levothyroxine 50 mcg tablet 50 mcg PO DAILY@0600 glipizide 2.5 mg tablet extended release 24 hr 2.5 mg PO BID fluticasone propionate 50 mcg/actuation spray,suspension 2 spray intranasal DAILY spironolactone 25 mg tablet 25 mg PO DAILY aspirin [Adult Aspirin Regimen] 81 mg tablet,delayed release (DR/EC) 81 mg PO DAILY albuterol sulfate 90 mcg/actuation HFA aerosol inhaler 2 puff PO Q4H PRN (Reason: Shortness Of Breath) Discharge Orders: Discharge Order (Routine); Ordered 01/29/22 Ordered By: Wilson Andrade Activity on Discharge: As tolerated Stand Alone Forms: Patient Portal Discharge page Care Plan Goals: Read below Health Concerns: Read below Plan of Treatment: Read below Assessment: You were admitted to the hospital for evaluation of shortness of breath and cough. Found to be in COPD exacerbation with associated evidence of pneumonia on chest images. Treated with nebulizers, steroids and antibiotics with good response over the course of hospital stay as your oxygen supplement was weaned down to 2 L. You were noticed as well to have an evidence of urine infection with bacteria called E coli, sensitive to antibiotic growing in the urine. Treated with the same antibiotics. Concern of possible cellulitis and lower extremity was also covered with antibiotic. It seems more related to venous insufficiency and chronic edema. Continue azithromycin and Ceftin for 5 more days to finish total of 10 days of antibiotics. Prednisone for 3 more days for COPD exacerbation Wean down oxygen as tolerated at home. To follow-up with PCP in the next 2 weeks.
--- NOTE | 2022-01-29 12:46 | P.F2F_ITS ---
Service Date Service Date: 01/29/22 Encounter Date of encounter: 01/29/22 Reasons for Services Signs and symptoms assessed: Acute on chronic respiratory failure with hypoxia Physical deconditioning Reason for group home: teach disease management Reason for physical therapy: home safety and mobility and therapeutic exercises Homebound: Leaving the home is medically contraindicated at this time without the asist of a device and/or another person due th the listed conditions above and below. Reason homebound: unsteady gait / fall risk and shortness of breath with minimal effort Certification: Based on the above findings, I certify that this patient is confined to the home and needs intermittent group home care, physical therapy and/or speech therapy, or continues to need occupational therapy. The patient is under my care, and I have initiated the establishment of the plan of care. The patient will be followed by a physician who will periodically review the plan of care.
--- NOTE | 2022-01-29 12:47 | MHC.CM.PN ---
PATIENT IS DC HOME TODAY NEW [facility] REFERRAL PLACE PER PATIENT REQUESTED IMM 01/29 IN CHART DAUGHTER IS ON WAY TO [facility]ARE WORKER AWARE OF PLAN.
== END 2022-01-29 15:17 | disposition home health service (06) | DRG 193 ==
LOC: HO.ED 01-25 00:39 → HO.EDOVER 01-25 00:51 → HO.IMC 01-26 03:09 → HO.S3 01-28 21:12
PROVIDERS: Internal Medicine; Admitting Provider Internal Medicine; Emergency Provider Internal Medicine; PCP Internal Medicine; Visit Provider Student in an Organized Health Care Education/Training Program
DX: J18.9 Pneumonia, unspecified organism (principal); J96.21 Acute and chronic respiratory failure with hypoxia; J44.0 Chronic obstructive pulmonary disease with (acute) lower respiratory infection; J44.1 Chronic obstructive pulmonary disease with (acute) exacerbation; N39.0 Urinary tract infection, site not specified; L03.115 Cellulitis of right lower limb; I50.32 Chronic diastolic (congestive) heart failure; I11.0 Hypertensive heart disease with heart failure; Z20.822 Contact with and (suspected) exposure to COVID-19; Z95.2 Presence of prosthetic heart valve; B96.20 Unspecified Escherichia coli [E. coli] as the cause of diseases classified elsewhere; I27.20 Pulmonary hypertension, unspecified; Z87.891 Personal history of nicotine dependence; Z99.81 Dependence on supplemental oxygen; Z79.82 Long term (current) use of aspirin; Z79.51 Long term (current) use of inhaled steroids; Z79.52 Long term (current) use of systemic steroids; Z79.890 Hormone replacement therapy; Z79.899 Other long term (current) drug therapy
CPT/HCPCS: 36415; 71045; 80048; 80053; 81001; 82947; 83605; 85025; 87040; 87086; 87088; 87186; 87635; 93005; 94640; 96365; 96367; 97161; 99285; J0456; J0696; J2405; J2920

== ENCOUNTER → 2022-03-21 15:14 | Outpatient (BNVA) | payer MEDICARE, SELFPAY | PROVIDERS: PCP Internal Medicine; Visit Provider Internal Medicine | DX: J44.9 Chronic obstructive pulmonary disease, unspecified (principal); I27.20 Pulmonary hypertension, unspecified; R93.89 Abnormal findings on diagnostic imaging of other specified body structures; R09.02 Hypoxemia | CPT/HCPCS: 99212 ==

== ENCOUNTER → 2022-04-22 13:51 | Outpatient (BNVA) | payer MEDICARE, SELFPAY | PROVIDERS: PCP Internal Medicine; Referring Provider Internal Medicine; Visit Provider Internal Medicine Cardiovascular Disease | DX: J96.10 Chronic respiratory failure, unspecified whether with hypoxia or hypercapnia (principal); I50.32 Chronic diastolic (congestive) heart failure; I27.20 Pulmonary hypertension, unspecified; I05.0 Rheumatic mitral stenosis; Z95.2 Presence of prosthetic heart valve | CPT/HCPCS: 99212 ==

== ENCOUNTER 2022-10-22 14:47 | Outpatient (REF) | payer MEDICARE, SELFPAY ==
[2022-10-22 17:09] LABS: Anion Gap 13 (12-20); Blood Urea Nitrogen 31 mg/dL (9-16); Calcium 9.3 mg/dL (8.4-10.2); Carbon Dioxide 33 mmol/L (22-29); Chloride 102 mmol/L (96-108); Estimated Glomerular Filt Rate 39; Glucose Random 153 mg/dL (60-115); Potassium 4.3 mmol/L (3.3-5.1); Sodium 144 mmol/L (135-145)
[2022-10-22 17:13] LABS: B Type Natriuretic Peptide 2347 pg/mL (<100)
== END 2022-10-22 14:48 | disposition home or self-care (01) ==
LOC: HO.LAB 14:47
PROVIDERS: PCP Internal Medicine; Referring Provider Internal Medicine; Visit Provider Internal Medicine Cardiovascular Disease
DX: I50.32 Chronic diastolic (congestive) heart failure (principal); I05.0 Rheumatic mitral stenosis; R60.0 Localized edema; Z99.81 Dependence on supplemental oxygen; Z87.891 Personal history of nicotine dependence; Z95.2 Presence of prosthetic heart valve; Z79.899 Other long term (current) drug therapy
CPT/HCPCS: 36415; 80048; 83880; 99212

== ENCOUNTER 2022-10-29 15:26 | Outpatient (REF) | payer MEDICARE, SELFPAY ==
[2022-10-29 16:30] LABS: Anion Gap 13 (12-20); Blood Urea Nitrogen 33 mg/dL (9-16); Calcium 9.6 mg/dL (8.4-10.2); Carbon Dioxide 36 mmol/L (22-29); Chloride 97 mmol/L (96-108); Estimated Glomerular Filt Rate 41; Glucose Random 159 mg/dL (60-115); Potassium 4.3 mmol/L (3.3-5.1); Sodium 142 mmol/L (135-145)
[2022-10-29 16:32] LABS: B Type Natriuretic Peptide 2209 pg/mL (<100)
== END 2022-10-29 15:27 | disposition home or self-care (01) ==
LOC: HO.LAB 15:26
PROVIDERS: Visit Provider Internal Medicine Cardiovascular Disease
DX: I50.32 Chronic diastolic (congestive) heart failure (principal)
CPT/HCPCS: 36415; 80048; 83880

== ENCOUNTER 2022-11-05 15:10 | Outpatient (REF) | payer MEDICARE, SELFPAY ==
[2022-11-05 17:35] LABS: B Type Natriuretic Peptide 2341 pg/mL (<100)
[2022-11-05 17:59] LABS: Anion Gap 16 (12-20); Blood Urea Nitrogen 35 mg/dL (9-16); Calcium 9.5 mg/dL (8.4-10.2); Carbon Dioxide 35 mmol/L (22-29); Chloride 97 mmol/L (96-108); Estimated Glomerular Filt Rate 36; Glucose Random 141 mg/dL (60-115); Potassium 4.1 mmol/L (3.3-5.1); Sodium 144 mmol/L (135-145)
== END 2022-11-05 15:11 | disposition home or self-care (01) ==
LOC: HO.LAB 15:10
PROVIDERS: PCP Internal Medicine; Visit Provider Internal Medicine Cardiovascular Disease
DX: I50.32 Chronic diastolic (congestive) heart failure (principal)
CPT/HCPCS: 36415; 80048; 83880

== ENCOUNTER 2022-11-15 11:39 | Outpatient (REF) | payer MEDICARE, SELFPAY ==
[2022-11-15 12:52] LABS: B Type Natriuretic Peptide 2048 pg/mL (<100)
[2022-11-15 13:03] LABS: Anion Gap 12 (12-20); Blood Urea Nitrogen 41 mg/dL (9-16); Calcium 9.4 mg/dL (8.4-10.2); Carbon Dioxide 41 mmol/L (22-29); Chloride 96 mmol/L (96-108); Estimated Glomerular Filt Rate 36; Glucose Random 140 mg/dL (60-115); Sodium 144 mmol/L (135-145)
== END 2022-11-15 11:40 | disposition home or self-care (01) ==
LOC: HO.LAB 11:39
PROVIDERS: PCP Internal Medicine; Visit Provider Internal Medicine Cardiovascular Disease
DX: I50.32 Chronic diastolic (congestive) heart failure (principal)
CPT/HCPCS: 36415; 80048; 83880

== ENCOUNTER → 2023-08-19 14:02 | Outpatient (REF) | payer MEDICARE, SELFPAY ==
--- NOTE | 2023-08-19 14:12 | CA_ITS ---
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 The visually estimated ejection fraction is between 15-20%. - Moderately increased right ventricular cavity size. - The left atrium is severely dilated. 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 - Probable severe calcific mitral valve stenosis. - There is severe tricuspid valve regurgitation. - The right ventricular systolic pressure is 106 mmHg. Severe pulmonary hypertension is present. - The inferior vena cava is mildly dilated and collapses less than 50% with inspiration. Findings Left Ventricle Mildly increased left ventricular cavity size. There is mildly increased left ventricular wall thickness. The left ventricular systolic function is severely decreased. The visually estimated ejection fraction is between 15 20%. There is paradoxical septal motion consistent with a left bundle branch block. Right Ventricle Moderately increased right ventricular cavity size. There is normal right ventricular systolic function. Atria The left atrium is severely dilated. The right atrium is moderately dilated. 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 The peak aortic gradient is 28 mmHg.The mean gradient is 15 mmHg. The aortic valve area is 1.01 cm2. Mild valvular aortic regurgitation. Mitral Valve There is severe mitral annular calcification. There is mild to moderate mitral valve regurgitation. Probable severe calcific mitral valve stenosis. Pulmonic Valve The pulmonic valve is likely normal. There is trace pulmonic valve regurgitation. Tricuspid Valve Normal tricuspid valve structure. There is severe tricuspid valve regurgitation. The right ventricular systolic pressure is 106 mmHg. Severe pulmonary hypertension is present. Great Vessels The asc aorta is normal in size. Venous The inferior vena cava is mildly dilated and collapses less than 50% with inspiration. Pericardium/Pleural There is a trivial pericardial effusion. Prior Study Comparison Changes noted compared to prior study dated: 08/28/2021. Decrease in LVEF.Worsening pulmonary hypertension. Measurements 2D Linear Measurements IVSd: 1.33 0.6-0.9/0.6-1.0 cm LVIDd: 5.83 3.9-5.3/4.2-5.9 cm LVIDd Index: 3.37 2.4-3.2/2.2-3.1 cm/m2 LVIDs: 4.23 2.0-3.6 cm LVPWd: 1.25 0.7-1.1 cm Ao Root: 3.00 2.1-3.5 cm LA Diam: 5.30 2.7-3.8/3.0-4.0 cm LAIDs Index: 3.06 1.5-2.3 cm/m2 LV Mass: 412.53 67-162/88-224 g LV Mass Index: 238.46 43-95/49-115 g/m2 LVOT Diam: 2.00 3.0+(-)1.3 cm 2D Systolic Function EF 4C: 14.10 >55% EF 2C: 13.40 >55% EF BiP: 11.30 >55% Mitral Valve MV VTI: 0.45 MV Pk Gabino: 1.98 MV Mn Gabino: 1.29 MV Pk Grad: 16.00 MV Mn Grad: 8.00 MV Pk E: 1.23 MV Decel Time: 127.00 E'Lateral: 7.18 E'Medial: 7.29 E/E' Med: 16.90 E/E' Lat: 17.10 PHT: 37.00 MVA PHT: 5.95 MVA Continuity: 1.17 Decel [place]: 9.70 Aortic Valve AoV Pk [place]: 2.63 AoV Mn [place]: 1.78 AoV VTI: 0.52 AoV Pk Grad: 28.00 Aov Mn Grad: 15.00 JUANCARLOS Cont.VTI: 1.01 LVOT LVOT Pk [place]: 0.80 LVOT Mn [place]: 0.52 LVOT VTI: 0.17 LVOT Pk Grad: 3.00 LVOT Mn Grad: 1.00 LVOT Diam: 2.00 LVOT Area: 3.14 Diastolic Function MV Pk E: 1.23 E'Medial: 7.29 E/E' Med: 16.90 E' Laterial: 7.18 E/E' Lat: 17.10 Right Ventricle TAPSE (mm): 24.80 TVS' [place]: 8.16 Tricuspid Valve TR Pk [place]: 3.83 TR Pk Grad: 59.00 RVSP: 106.00 Great Vessels Aorta Ao Root-2D: 3.00 2.0-3.7 cm Ao Asc: 3.40 2.1-3.4 cm Pulmonary Valve PV Pk [place]: 1.09 Peak PV Grad: 5.00 Updated in Other Vendor System with Status of Final Lowell Patrick MD electronically signed on 08/19/2023 3:54:25 PM with status of Final
== END ==
LOC: HO.CARD 14:02
PROVIDERS: PCP Internal Medicine; Visit Provider Internal Medicine Cardiovascular Disease
DX: Z13.89 Encounter for screening for other disorder (principal)
CPT/HCPCS: 93306

== ENCOUNTER → 2023-08-19 14:12 | Outpatient (BNV) | payer MEDICARE, SELFPAY | PROVIDERS: PCP Internal Medicine; Visit Provider Internal Medicine | DX: I34.2 Nonrheumatic mitral (valve) stenosis (principal); I36.1 Nonrheumatic tricuspid (valve) insufficiency | CPT/HCPCS: 93010; 93306 ==

== ENCOUNTER 2023-08-19 15:36 | Inpatient (IN) | payer MEDICARE, SELFPAY ==
--- NOTE | ~2023-08-19 | US_ITS ---
EXAMINATION: US VENOUS ULTRASOUND WITH DOPPLER LOWER EXTREMITY, BILATERAL CLINICAL INFORMATION: Pain COMPARISON: Ultrasound 09/15/2018 TECHNIQUE: Ultrasound of the deep veins is performed from the hip to the calf with compression sonography and color and pulse Doppler assessment. Spectral analysis with color-flow imaging is performed. FINDINGS: RIGHT: There is normal venous compression and respiratory variation and augmented flow. The visualized common femoral vein, superficial femoral vein, profunda femoral vein, popliteal vein, and the trifurcation region shows no evidence of deep venous thrombosis. Complex Pennington's cyst measuring 4.1 x 1 x 2.4 cm. LEFT: There is normal venous compression and respiratory variation and augmented flow. The visualized common femoral vein, superficial femoral vein, profunda femoral vein, popliteal vein, and the trifurcation region shows no evidence of deep venous thrombosis. There is no significant popliteal fossa cyst. If the patient's symptoms persist, followup ultrasound in 5 days 7 days might be of value to exclude proximal propagation from a non-visualized calf vein. US/US venous duplex LE BI IMPRESSION: No DVT demonstrated in the bilateral lower extremity. Complex right Pennington's cyst measuring 4.1 cm.
--- NOTE | ~2023-08-19 | XR_ITS ---
EXAMINATION: XR CHEST CLINICAL INFORMATION: Shortness of breath. COMPARISON: Chest radiograph 08/19/2023. TECHNIQUE: AP view of the chest was obtained. FINDINGS: Stable prominence of the cardiomediastinal silhouette. TAVR. Calcifications in the aortic arch. Diffuse interstitial coarsening, bibasilar airspace opacities, left midlung platelike opacity and small right pleural effusion are not significantly changed. No pneumothorax. No discrete new focal airspace densities. No acute osseous findings. Chronic irregularity of the right humeral head. Degenerative changes of the shoulders and spine. XR/XR chest 1V IMPRESSION: Unchanged compared to 08/19/2023.
--- NOTE | ~2023-08-19 | XR_ITS ---
EXAMINATION: XR chest 1V CLINICAL INFORMATION: Reason for Exam pain COMPARISON: Prior study 01/24/2022 TECHNIQUE: Single portable frontal view. Tubes and lines: None Lungs and pleura: Diffuse increased interstitial lung marking and peribronchial cuffing might be a small airway disease such as bronchiolitis or interstitial pneumonitis, versus interstitial lung disease versus interstitial edema. No dense focal consolidation pneumonia. Blunting of costophrenic angles suggesting subpulmonic pleural effusions right more than left. Heart and mediastinum: Cardiac silhouette is enlarged, this is exaggerated by AP technique.. Bones/soft tissue: Cortical irregularity in the right humeral head probably an old fracture. XR/XR chest 1V IMPRESSION: 1. Diffuse increased interstitial lung marking and peribronchial cuffing might be a small airway disease such as bronchiolitis or interstitial pneumonitis, versus interstitial lung disease versus interstitial edema. No dense focal consolidation pneumonia. 2. Blunting of costophrenic angles suggesting subpulmonic pleural effusions right more than left.
[2023-08-19 16:07] VITALS: BP 155/90; PULSE 86; RESP 24; TEMP 36.6; O2SAT 92; BMI 27.3
[2023-08-19 16:21] VITALS: BP 155/83; PULSE 87; RESP 22; TEMP 36.6; O2SAT 93
--- NOTE | 2023-08-19 16:26 | ECG_ITS ---
Test Reason : SOB Blood Pressure : / mmHG Vent. Rate : 085 BPM Atrial Rate : 085 BPM P-R Int : 188 ms QRS Dur : 170 ms QT Int : 450 ms P-R-T Axes : 079 -59 049 degrees QTc Int : 535 ms Normal sinus rhythm with sinus arrhythmia Left axis deviation Left bundle branch block Abnormal ECG When compared with ECG of 24-JAN-2022 22:37, No significant change was found Referred By: Chepe Jimenez Electronically Signed By:Rhett Reddy
--- NOTE | 2023-08-19 16:26 | PC.NURSE ---
Pt alert and oriented. Skin warm and dry. Airway patent, breathing even and with increased dyspnea noted when talking for long periods. Pt went to outpatient electrocardiogram at [facility] office, sent her to ED. Pt has had increased dyspnea with exertion and talking over the past couple weeks along with increase in edema in bilat lower legs x1 week. Pts lower legs noted to be red, swollen with blisters present. Pt placed on bedside lunchroom monitor.
[2023-08-19 16:48] LABS: MANUAL DIFF FLAG NO
[2023-08-19 16:56] LABS: Basophils Absolute Auto 0.1 X10*3/uL (0.0-0.2); Basophils Percent Auto 1.6 % (0-2); Eosinophils Absolute Auto 0.3 X10*3/uL (0.0-0.4); Eosinophils Percent Auto 3.7 % (0-4); Hematocrit 39.2 % (37.0-47.0); Hemoglobin 11.9 g/dl (12.0-16.0); Imm Gran Abs Auto 0.03 X10*3/uL (0.00-0.03); Imm Gran Pct Auto 0.4 % (0.0-0.4); Lymphocytes Absolute Auto 0.5 X10*3/uL (1.2-4.9); Lymphocytes Percent Auto 6.2 % (20-40); Mean Corpuscular HGB Conc 30.4 g/dl (31.0-35.0); Mean Corpuscular Hemoglobin 28.7 pg (27.0-33.0); Mean Corpuscular Volume 94.7 fL (80.0-98.0); Mean Platelet Volume 10.3 fL (9.4-12.3); Monocytes Absolute Auto 0.7 X10*3/uL (0.1-1.2); Monocytes Percent Auto 9.3 % (2-11); Neutrophils Absolute Auto 5.8 x10*3/uL (2.0-8.3); Neutrophils Percent Auto 78.8 % (45-73); Platelet Count 246 X10*3/uL (160-400); Red Blood Count 4.14 X10*6/uL (4.20-5.50); Red Cell Distribution Width 15.2 % (11.0-16.0); White Blood Count 7.3 X10*3/uL (4.8-10.8)
[2023-08-19 17:11] LABS: Alanine Aminotransferase 13 U/L (0-31); Albumin Level 3.8 g/dL (3.5-5.0); Alkaline Phosphatase 81 U/L (39-117); Anion Gap 14 (12-20); Aspartate Amino Transferase 21 U/L (5-31); Bilirubin Total 0.6 mg/dL (0.0-1.0); Blood Urea Nitrogen 51 mg/dL (9-16); Carbon Dioxide 33 mmol/L (22-29); Chloride 100 mmol/L (96-108); Creatinine Clr Calc Pharmacy 24.4; Estimated Glomerular Filt Rate 29; Glucose Random 134 mg/dL (60-115); Lipase 48 U/L (8-78); Potassium 4.4 mmol/L (3.3-5.1); Sodium 143 mmol/L (135-145); Total Protein 7.8 g/dL (6.5-8.0)
[2023-08-19 17:12] LABS: B Type Natriuretic Peptide 2074 pg/mL (<100)
[2023-08-19 17:15] LABS: INTERNATIONAL NORM RATIO 1.2 (0.9-1.1); Prothrombin Time 14.2 SEC (11.1-13.3)
--- NOTE | 2023-08-19 17:16 | ED_ITS ---
HPI - General Adult General Chief complaint: Dyspnea Stated complaint: swollen bilat legs Time Seen by Provider: 08/19/23 16:05 Source: patient, family and RN notes reviewed Mode of arrival: ambulatory Limitations: no limitations History of Present Illness HPI narrative: 83 year old female with history of COPD on 2 L O2, and HFrEF s/p TAVR presents with bilateral lower extremity edema. Patient reports she had an echo performed this morning, where cloth framer recommended she been seen at the ED for leg swelling. She states that she takes Bumex, which initally helped, but the swelling has acutely worsened since the beginning of July. Denies shortness of breath but notes her oxygen saturation drops when she walks short distances. Denies chest pain, cough, dizziness, headache. Patient is chronically on 2L oxygen at home. Related Data Home Medications Medication Instructions Recorded Confirmed amlodipine 5 mg tablet 5 mg PO DAILY 08/15/20 10/22/22 fenofibrate 160 mg tablet 160 mg PO DAILY 08/15/20 10/22/22 gabapentin 800 mg tablet 800 mg PO QID 08/15/20 10/22/22 levothyroxine 50 mcg tablet 50 mcg PO DAILY@0600 08/15/20 10/22/22 simvastatin 20 mg tablet 20 mg PO DAILY@1700 08/15/20 10/22/22 albuterol sulfate 90 mcg/actuation 2 puff PO Q4H PRN Shortness Of 05/24/21 10/22/22 aerosol inhaler Breath glipizide 2.5 mg tablet, extended 2.5 mg PO BID 05/24/21 10/22/22 release 24 hr fluticasone propionate 50 2 spray intranasal DAILY 08/02/21 10/22/22 mcg/actuation nasal spray,suspension spironolactone 25 mg tablet 25 mg PO DAILY 08/02/21 10/22/22 aspirin 81 mg tablet,delayed 81 mg PO DAILY 10/30/21 10/22/22 release (Adult Aspirin Regimen) cholecalciferol (vitamin D3) 25 25 mcg PO BID 01/25/22 10/22/22 mcg (1,000 unit) tablet citalopram 20 mg tablet 20 mg PO DAILY 10/22/22 10/22/22 Previous Rx's Medication Instructions Recorded artifi.tears(hypromellose)(PF) 0.3 1 drp ophthalmic (eye) Q2H 7 days 12/24/ % eye drops #10 mL fluticasone propionate 115 2 puff inhalation BID 30 days #1 ea 05/24/21 mcg-salmeterol 21 mcg/actuation HFA inhaler (Advair HFA) metolazone 2.5 mg tablet 2.5 mg PO Q OTHER DAY #10 tabs 11/07/22 bumetanide 2 mg tablet 2 mg PO BID #60 tabs 05/29/23 Allergies Allergy/AdvReac Type Severity Reaction Status Date / Time Penicillins [PENICILLINS] Allergy Intermediate HIVES Verified 03/21/22 17:15 Review of Systems 2 Constitutional: Constitutional: Denies chills, Reports difficulty sleeping, Denies fever(s) and Denies headache(s) ENT: Denies headache(s) Cardiovascular: Cardiovascular: Denies chest pain at rest, Denies chest pain with activity, Denies Epigastric Pain, Reports pedal edema, Reports claudication, Reports leg ulcers, Reports leg edema, Denies lightheadedness and Denies dyspnea Respiratory: Respiratory: Denies chest congestion, Denies cough, Denies dyspnea and Denies wheezing Gastrointestinal: Gastrointestinal: Denies abdominal pain and Denies nausea Musculoskeletal: Musculoskeletal: Reports arthralgias Neurologic: Denies headache(s) Allergic/Immunologic: Allergic/Immunologic: Denies wheezing PMFSH Past Medical History Medical History Abnormal chest x-ray Chronic heart failure with preserved ejection fraction (HFpEF) COPD (chronic obstructive pulmonary disease) COPD (chronic obstructive pulmonary disease) HTN (hypertension) Hypoxemia LBBB (left bundle branch block) Mitral stenosis Pulmonary hypertension Surgical History Hx of cardiac cath S/P TAVR (transcatheter aortic valve replacement) Family History Family History Father No problems noted. Mother CVD (cardiovascular disease) Social History Social History Household Members: Spouse and Children Housing: House Do you presently have visiting nurse or other home services: No Patient Tobacco Use Status: Former Tobacco user Quit Date: Years Smoked: 20 +/- Smoked in Last 30 Days: No Use of substances other than those prescribed or required for medical reasons: No Advance Directives: Yes Advance Directives on File: Yes Advance Directives Date on File: 01/27/22 service: No Current occupational status: retired Physical Exam ED Vital Signs: Vital Signs - 24 hr 08/19/23 16:07 08/19/23 16:21 08/19/23 18:28 Temperature 97.9 F 97.9 F 97.2 F Pulse Rate 86 87 82 Respiratory Rate 24 H 22 H 16 Blood Pressure 155/90 H 155/83 H 145/74 H Pulse Oximetry 92 93 95 Oxygen Delivery Method Nasal Cannula Nasal Cannula Nasal Cannula Oxygen Flow Rate 2 3 08/19/23 21:09 08/19/23 21:09 Temperature Pulse Rate Respiratory Rate Blood Pressure Pulse Oximetry 87 L 91 L Oxygen Delivery Method Nasal Cannula Nasal Cannula Oxygen Flow Rate 2 2 BMI result Body Mass Index 27.3 Const General: healthy appearing, comfortable, no acute distress, alert and awake Nutritional Appearance: well nourished Eyes Eyelids: Yes eyelids normal Conjunctivae: conjunctivae normal Sclerae: sclerae normal Corneas: corneas normal Resp Effort & Inspection: normal respiratory effort, able to speak in complete sentences, no audible wheezes and not labored Auscultation: no crackles, no wheezes and diminished lung sounds Cardio Other: 2+ pitting edema to above the knees. Rate: regular rate Rhythm: regular rhythm Heart sounds: normal S1 and S2 Peripheral pulses: radial pulses present GI Inspection: Yes normal to inspection Palpation (GI): Soft to palpation, nontender and no guarding Extrem Other: 2+ pitting edema on bilateral lower extremities. Edematous to just above the knee. Circumferential erythema to lower extremities bilaterally with open sore at left medial malleolus and right calf. Mild tenderness to palpation. No increased warmth General: Yes full ROM Course Reevaluation(s) Reevaluation #1: Patient desaturated while ambulating on her baseline O2, discussed with hospitalist, Dr. Salcedo who will admit the patient Time: 21:22 Medications Administered Discontinued Medications Generic Name Dose Route Start Last Admin Trade Name Freq PRN Reason Stop Dose Admin Bumetanide 2 mg 08/19/23 18:16 08/19/23 18:27 Bumetanide 1 Mg/4 Ml Vial IVPUSH 08/19/23 18:17 2 mg ONCE ONE Administration Protocol Medical Decision Making Medical Decision Making [facility] Narrative: 83-year-old female with past medical history significant for COPD on chronic 2 L via nasal cannula, history of pulmonary hypertension, status post TAVR, heart failure presents for evaluation of leg swelling. Her oxygen saturation is around 90-91% on her baseline 2 L. She states that she does not feel short of breath. She reports increasing leg swelling for the last few weeks and she is on Bumex 2 mg b.i.d.. Plan for workup to rule out DVT, CHF I have a low suspicion for cellulitis as the legs are symmetrically edematous. There is no increased warmth.. Differential Diagnosis Differential Diagnoses: The differential diagnosis associated with the presentation includes (CHF exacerbation, DVT, cellulitis, edema) Admission/Observation Consideration of admission/observation: Escalation of care including admission/observation considered Patient was diuresed with Bumex 2 mg IV. After attempting to ambulate with her baseline oxygen she desatted to 87% rather quickly. She will require admission for IV diuresis. The patient has no audible wheezing and therefore I feel this is most likely related to CHF exacerbation and not a COPD exacerbation. I am holding steroids at this time. She also has significant lower extremity edema Lab Data [facility] Lab Attestation statement: I reviewed the patient's lab results. No leukocytosis. The patient has a mild anemia consistent with baseline. Her CO2 is elevated to 33 which is likely related to chronic O2 use. She has a mild ADRIANE with a BUN of 51 a creatinine of 1.67. However she appears to be volume overloaded. No significant electrolyte abnormalities. BNP is elevated to 2074 which is approximately around her baseline. 08/19/23 16:43 08/19/23 16:43 Labs: Lab Results 08/19/23 Range/Units 16:43 WBC 7.3 (4.8-10.8) X10*3/uL RBC 4.14 L (4.20-5.50) X10*6/uL Hgb 11.9 L (12.0-16.0) g/dl Hct 39.2 (37.0-47.0) % MCV 94.7 (80.0-98.0) fL MCH 28.7 (27.0-33.0) pg MCHC 30.4 L (31.0-35.0) g/dl RDW 15.2 (11.0-16.0) % Plt Count 246 (160-400) X10*3/uL MPV 10.3 (9.4-12.3) fL Immature Gran % (Auto) 0.4 (0.0-0.4) % Neut % (Auto) 78.8 H (45-73) % Lymph % (Auto) 6.2 L (20-40) % Dickens % (Auto) 9.3 (2-11) % Eos % (Auto) 3.7 (0-4) % Baso % (Auto) 1.6 (0-2) % Lymph # (Auto) 0.5 L (1.2-4.9) X10*3/uL Dickens # (Auto) 0.7 (0.1-1.2) X10*3/uL Eos # (Auto) 0.3 (0.0-0.4) X10*3/uL Baso # (Auto) 0.1 (0.0-0.2) X10*3/uL Abs Immat Gran (auto) 0.03 (0.00-0.03) X10*3/uL Absolute Neuts (auto) 5.8 (2.0-8.3) x10*3/uL Absolute Nucleated RBC 0.000 (0.0-0.012) X10*3/uL Nucleated RBC % (auto) 0.0 (0.0-0.2) /100WBC PT 14.2 H (11.1-13.3) SEC INR 1.2 H (0.9-1.1) APTT 36.8 H (26.0-36.4) SEC Sodium 143 (135-145) mmol/L Potassium 4.4 (3.3-5.1) mmol/L Chloride 100 (96-108) mmol/L Carbon Dioxide 33 H (22-29) mmol/L Anion Gap 14 (12-20) BUN 51 H (9-16) mg/dL Creatinine 1.67 H (0.5-1.4) mg/dL Estim Creat Clear Calc 24.4 Estimated GFR 29 Random Glucose 134 H (60-115) mg/dL Calcium 10.0 D (8.4-10.2) mg/dL Total Bilirubin 0.6 (0.0-1.0) mg/dL AST 21 (5-31) U/L ALT 13 (0-31) U/L Alkaline Phosphatase 81 (39-117) U/L B-Natriuretic Peptide 2074 H (<100) pg/mL Total Protein 7.8 (6.5-8.0) g/dL Albumin 3.8 (3.5-5.0) g/dL Lipase 48 (8-78) U/L Independent Interpretation I performed an independent interpretation of an: EKG (Sinus rhythm with a rate of 85 beats minute. Left bundle branch block that has been previously documented.) and Plain X-Ray (Blunting of the bilateral costophrenic angles) Discharge Plan Discharge Clinical Impression: Congestive heart failure Patient Disposition: Admitted As Inpatient Prescriptions: No Action Advair HFA 115-21 mcg/actuation HFA aerosol inhaler 2 puff inhalation BID 30 Days Qty: 1 6RF metolazone 2.5 mg tablet 2.5 mg PO Q OTHER DAY Qty: 10 0RF Rx Instructions: This Friday and Friday; November 08 and November 10 only. Additional pills will be used as directed by doctor when needed. bumetanide 2 mg tablet 2 mg PO BID Qty: 60 6RF artifi.tears(hypromellose)(PF) 0.3 % drops 1 drp ophthalmic (eye) Q2H 7 Days Qty: 10 0RF cholecalciferol (vitamin D3) 25 mcg (1,000 unit) Tablet 25 mcg PO BID gabapentin 800 mg tablet 800 mg PO QID fenofibrate 160 mg tablet 160 mg PO DAILY simvastatin 20 mg tablet 20 mg PO DAILY@1700 amlodipine 5 mg tablet 5 mg PO DAILY levothyroxine 50 mcg tablet 50 mcg PO DAILY@0600 glipizide 2.5 mg tablet extended release 24 hr 2.5 mg PO BID fluticasone propionate 50 mcg/actuation spray,suspension 2 spray intranasal DAILY spironolactone 25 mg tablet 25 mg PO DAILY aspirin [Adult Aspirin Regimen] 81 mg tablet,delayed release (DR/EC) 81 mg PO DAILY albuterol sulfate 90 mcg/actuation HFA aerosol inhaler 2 puff PO Q4H PRN (Reason: Shortness Of Breath) citalopram 20 mg tablet 20 mg PO DAILY
[2023-08-19 17:17] LABS: Partial Thromboplastin Time 36.8 SEC (26.0-36.4)
--- NOTE | 2023-08-19 17:27 | PC.NURSE ---
Pt alert and oriented. Breathing even and unlabored while at rest. Dyspnea noted when talking. SPO2 92-93% on baseline 2L O2. Pt denies any pain at this time, resting comfortably in bed. IV established in the right AC 20G.
--- NOTE | 2023-08-19 18:15 | MHC.EDTECH ---
Patient pad changed and repositioned
[2023-08-19] MEDS: Bumetanide 1 MG/4 ML VIAL 2 MG IVPUSH (18:27)
[2023-08-19 18:28] VITALS: BP 145/74; PULSE 82; RESP 16; TEMP 36.2; O2SAT 95
--- NOTE | 2023-08-19 19:41 | MHC.EDTECH ---
Patient given dinner tray
[2023-08-19 21:09] VITALS: O2SAT 87; O2SAT 91
--- NOTE | 2023-08-19 21:32 | PHA.MEDREC ---
Pharmacy Consult ? Medication Reconciliation Pharmacy has completed the medication reconciliation. Confirmed medications with patient. Zaina Arriaga CPhT
[2023-08-19 21:54] VITALS: BP 139/87; PULSE 95; RESP 28; O2SAT 93
[2023-08-19] MEDS: methylPREDNISolone Sod Succ 125 MG/2 ML VIAL IVPUSH (22:22)
[2023-08-19] MEDS: Albuterol/Iprat 2.5/0.5MG 3 ML AMPUL.NEB INHALE (22:26)
[2023-08-19 22:27] VITALS: PULSE 91; RESP 24; O2SAT 93
[2023-08-20] VITALS (12 sets, daily range): BP systolic 120–150; BP diastolic 58–83; PULSE 74–97; RESP 16–22; TEMP 36.4–37.2; O2SAT 90–93; BMI 26.1
[2023-08-20 00:13] LABS: VBG Base Excess 9.6 mmol/L; VBG HCO3 35 mmol/L (22-26); VBG pCO2 51 mmHg; VBG pH 7.44 (7.32-7.43); VBG pO2 41 mmHg
[2023-08-20 00:15] LABS: Venous Blood Gas Refer to POC result
[2023-08-20] MEDS: Gabapentin 400 MG CAPSULE PO (01:14)
[2023-08-20] MEDS: Levothyroxine Sodium 50 MCG TABLET PO (05:21)
[2023-08-20 05:41] LABS: Basophils Percent Auto 0.5 % (0-2); Eosinophils Percent Auto 0.2 % (0-4); Hematocrit 36.9 % (37.0-47.0); Hemoglobin 11.3 g/dl (12.0-16.0); Imm Gran Abs Auto 0.02 X10*3/uL (0.00-0.03); Imm Gran Pct Auto 0.3 % (0.0-0.4); Lymphocytes Absolute Auto 0.2 X10*3/uL (1.2-4.9); Lymphocytes Percent Auto 3.1 % (20-40); MANUAL DIFF FLAG SCAN; Mean Corpuscular HGB Conc 30.6 g/dl (31.0-35.0); Mean Corpuscular Hemoglobin 28.7 pg (27.0-33.0); Mean Corpuscular Volume 93.7 fL (80.0-98.0); Mean Platelet Volume 10.6 fL (9.4-12.3); Monocytes Absolute Auto 0.1 X10*3/uL (0.1-1.2); Monocytes Percent Auto 0.9 % (2-11); Neutrophils Absolute Auto 5.5 x10*3/uL (2.0-8.3); Platelet Count 216 X10*3/uL (160-400); Red Blood Count 3.94 X10*6/uL (4.20-5.50); Red Cell Distribution Width 15.1 % (11.0-16.0); SCAN SMEAR FLAG 1; White Blood Count 5.8 X10*3/uL (4.8-10.8)
--- NOTE | 2023-08-20 05:46 | PM.IMHP ---
History of Present Illness Date of Service: 08/19/23 Attending physician on admission: Bhavin Nazario Chief Complaint: Shortness of breath. Sarah Man is a very pleasant 83 years old woman with past medical history significant for HFrEF (15-20% TTE Jul 2022), severe MR stenosis, severe tricuspid valve regurgitation, s/p TAVR, COPD -on home oxygen 2 L/min, coronary artery disease, essential hypertension and pulmonary hypertension was brought to the emergency department after she is tired to experience worsening shortness of breath. Patient stated worsening shortness of breath over the last few days. Shortness of breathe increases with minimal activity. She also noted worsening swelling to her lower extremities. She uses Bumex as a diuretic but she feels that is not helping her anymore. She denies any chest pain, cough, palpitations, headache or dizziness. She denied any acute gastrointestinal genitourinary symptoms. She is a former tobacco smoker. In the ED, she was found to have tachypnea, hypertension a low oxygen saturation with ambulation 87%. She is currently requiring 2 liters/minute supplemental oxygen via nasal cannula which is her baseline. However, she stated that she is still feeling quite short of breath despite treatment in the emergency department. Blood workup is remarkable for elevated creatinine but seems to be around baseline (last was 1.October). BNP is mildly worse than her baseline. Venous blood gas showed no respiratory acidosis. CXR showed finding possibly consistent with bronchiolitis versus interstitial pneumonitis versus interstitial lung disease versus interstitial edema. ED tx: Bumex 2 mg IV. Review of Systems Review of Systems: All 12 systems were reviewed and normal except as noted in HPI. [facility] Medical History Abnormal chest x-ray Chronic heart failure with preserved ejection fraction (HFpEF) COPD (chronic obstructive pulmonary disease) COPD (chronic obstructive pulmonary disease) HTN (hypertension) Hypoxemia LBBB (left bundle branch block) Mitral stenosis Pulmonary hypertension Family History Father No problems noted. Mother CVD (cardiovascular disease) Surgical History Hx of cardiac cath S/P TAVR (transcatheter aortic valve replacement) Social History Household Members: Spouse and Children Housing: House Do you presently have visiting nurse or other home services: No Patient Tobacco Use Status: Former Tobacco user Quit Date: Years Smoked: 20 +/- Smoked in Last 30 Days: No Use of substances other than those prescribed or required for medical reasons: No Advance Directives: Yes Advance Directives on File: Yes Advance Directives Date on File: 01/27/22 Nutrition Risks: No Nutritional Risk service: No Current occupational status: retired Meds Allergies Allergy/AdvReac Type Severity Reaction Status Date / Time Penicillins [PENICILLINS] Allergy Intermediate HIVES Verified 03/21/22 17:15 Active Medications: Current Medications Acetaminophen (Acetaminophen 325 Mg Tablet) 650 mg PO Q6H PRN PRN Reason: Pain, Mild (Pain Scale 1-3) Albuterol/Ipratropium (Albuterol/Iprat 2.5/0.5mg 3 Ml Ampul.Neb) 3 ml INHALE RQ4H [facility] Last Admin: 08/20/23 04:06 Dose: Not Given Artificial Tears (Artificial Tears 15 Ml Drops) 1 drop EYE-BOTH Q2H PRN PRN Reason: Dry Eyes Aspirin (Aspirin Enteric Coated 81 Mg Tablet.Dr) 81 mg PO DAILY [facility] Atorvastatin Calcium (Atorvastatin Calcium 10 Mg Tablet) 10 mg PO DAILY@1700 [facility] Bumetanide (Bumetanide 1 Mg Tablet) 2 mg PO BID [facility]; Protocol Dextrose (Dextrose 50 % 25 Gm/50 Ml Syringe) 25 gm IVPUSH Q15M PRN; Protocol PRN Reason: per Hypoglycemia Standing Ord. Escitalopram Oxalate (Escitalopram Oxalate 10 Mg Tablet) 10 mg PO DAILY [facility] Glipizide (Glipizide Xl 2.5 Mg Tab.Er.24) 2.5 mg PO BID [facility] Glucose (Glucose Gel 15 Gm Gel..Gram.) 15 gm PO Q15M PRN; Protocol PRN Reason: per Hypoglycemia Standing Ord. Heparin Sodium (Porcine) (Heparin Sodium,Porcine 5,000 Unit/Ml Vial) 5,000 unit SUBCUT Q12H [facility] Insulin Human Lispro (Insulin Lispro 100 Unit/Ml 3 Ml Vial) 0 unit SUBCUT QIDACHS [facility]; Protocol Levothyroxine Sodium (Levothyroxine Sodium 50 Mcg Tablet) 50 mcg PO DAILY@0600 [facility] Last Admin: 08/20/23 05:21 Dose: 50 mcg Methylprednisolone Sodium Succinate (Methylprednisolone Sod Succ 40 Mg/Ml Vial) 40 mg IVPUSH Q12H [facility] Sodium Chloride (0.9 % Sodium Chloride Flush 3 Ml Syringe) 3 ml IVFLUSH QSHIFT [facility] Last Admin: 08/20/23 01:06 Dose: Not Given Spironolactone (Spironolactone 25 Mg Tablet) 25 mg PO DAILY [facility]; Protocol Vitamin D (Cholecalciferol (Vitamin D3) 25 Mcg Tablet) 25 mcg PO BID [facility] Home Medications Medication Instructions Recorded Confirmed Last Taken Type gabapentin 800 mg tablet 800 mg PO QID 08/15/20 08/19/23 08/19/23 History levothyroxine 50 mcg tablet 50 mcg PO DAILY@0600 08/15/20 08/19/23 08/19/23 History simvastatin 20 mg tablet 20 mg PO DAILY@1700 08/15/20 08/19/23 08/19/23 History glipizide 2.5 mg tablet, extended 2.5 mg PO BID 05/24/21 08/19/23 08/19/23 History release 24 hr spironolactone 25 mg tablet 25 mg PO DAILY 08/02/21 08/19/23 08/19/23 History aspirin 81 mg tablet,delayed 81 mg PO DAILY 10/30/21 08/19/23 08/19/23 History release (Adult Aspirin Regimen) cholecalciferol (vitamin D3) 25 25 mcg PO BID 01/25/22 08/19/23 08/19/23 History mcg (1,000 unit) tablet citalopram 20 mg tablet 20 mg PO DAILY 10/22/22 08/19/23 08/19/23 History artifi.tears(hypromellose)(PF) 0.3 1 drp ophthalmic (eye) Q2H PRN Dry 08/19/23 08/19/23 08/19/23 History % eye drops Eyes Physical Exam Vital Signs and Narrative: Vital Signs: Last Vital Signs Temp 97.5 F 08/20/23 05:23 Pulse 94 08/20/23 05:23 Resp 18 08/20/23 05:23 BP 150/78 H 08/20/23 05:23 Pulse Ox 93 08/20/23 05:23 O2 Del Method Nasal Cannula 08/20/23 05:23 O2 Flow Rate 2 08/20/23 05:23 Oxygen Flow Rate 2 08/19/23 16:07 BMI result Body Mass Index 27.3 Constitutional - Awake and Alert, No apparent distress. Acutely ill. Speaking short sentences. HEENT - PERRLA, EOMI Heart - RRR, normal rhythm Respiratory - Normal lung expansion, Normal respiratory effort, tachypnea. No respiratory distress. Bibasilar crackles. Inspiratory wheezing. Gastrointestinal - NT / ND; +BS; No rebound or guarding Extremities - bilateral edema to lower extremities Musculoskeletal - Normal inspection, normal ROM Skin - Warm/Dry Neurological - Alert & oriented x3. Psychological - Appropriate affect Results Labs 08/19/23 16:43 08/19/23 16:43 Labs: Laboratory Results - last 24 hr 08/19/23 08/20/23 16:43 00:06 MCV 94.7 MCH 28.7 MCHC 30.4 L RDW 15.2 Plt Count 246 MPV 10.3 Immature Gran % (Auto) 0.4 Neut % (Auto) 78.8 H Lymph % (Auto) 6.2 L Lee % (Auto) 9.3 Eos % (Auto) 3.7 Baso % (Auto) 1.6 Lymph # (Auto) 0.5 L Lee # (Auto) 0.7 Eos # (Auto) 0.3 Baso # (Auto) 0.1 Abs Immat Gran (auto) 0.03 Absolute Neuts (auto) 5.8 Absolute Nucleated RBC 0.000 Nucleated RBC % (auto) 0.0 PT 14.2 H INR 1.2 H APTT 36.8 H VBG pH 7.44 H VBG pCO2 51 VBG pO2 41 VBG HCO3 35 H VBG O2 Saturation 62.0 VBG Base Excess 9.6 Anion Gap 14 Estim Creat Clear Calc 24.4 Estimated GFR 29 Random Glucose 134 H Calcium 10.0 D Total Bilirubin 0.6 AST 21 ALT 13 Alkaline Phosphatase 81 B-Natriuretic Peptide 2074 H Total Protein 7.8 Albumin 3.8 Lipase 48 Imaging Radiologist's Impressions: Impressions Chest X-Ray 08/19/23 17:00 IMPRESSION: 1. Diffuse increased interstitial lung marking and peribronchial cuffing might be a small airway disease such as bronchiolitis or interstitial pneumonitis, versus interstitial lung disease versus interstitial edema. No dense focal consolidation pneumonia. 2. Blunting of costophrenic angles suggesting subpulmonic pleural effusions right more than left. Venous Duplex 08/19/23 17:12 IMPRESSION: No DVT demonstrated in the bilateral lower extremity. Complex right Pennington's cyst measuring 4.1 cm. Assessment and Plan (1) Hypoxic respiratory failure: Status: Acute (2) Acute on chronic systolic CHF (congestive heart failure): Status: Acute Plan Sarah Man is a very pleasant 83 years old woman with past medical history significant for HFrEF (15-20% TTE Jul 2022), severe MR stenosis, severe tricuspid valve regurgitation, s/p TAVR, COPD -on home oxygen 2 L/min, coronary artery disease and pulmonary hypertension admitted with: Hypoxic respiratory failure likely multifactorial: Acute on chronic systolic congestive heart failure and acute exacerbation of COPD. Admit to hospitalist service. Telemetry. Pulse oximetry. Continue supplemental oxygen to keep oxygen saturation above 90%. Continue bronchodilator therapy. Continue IV steroids. Continue Bumex IV twice daily. Continue spironolactone. Hypothyroidism. Continue levothyroxine. Check TSH. Essential hypertension. Continue spironolactone. Neuropathy. Continue gabapentin. Hyperlipidemia. Continue statin. Type 2 diabetes mellitus. Continue glipizide. Blood glucose monitoring before meals and bedtime. Insulin sliding scale. Chronic anemia, stable. Continue to monitor hemoglobin. Chronic kidney disease. Creatinine slightly increasing from baseline. Continue to monitor renal function. DVT prophylaxis: Heparin subcut Code status: Full Patient will need hospitalization for at least 2 midnights for respiratory failure treatment with supplemental oxygen, IV diuretics, bronchodilator therapy and IV steroids. Quality Stroke Does the patient have a stroke diagnosis?: No VTE Prior VTE?: No VTE Risk Level:: Medical - moderate - high VTE Device Contraindication: Treatment Not Indicated VTE Drug Contraindication: N/A - Med Ordered
[2023-08-20 05:59] LABS: Anion Gap 18 (12-20); Blood Urea Nitrogen 53 mg/dL (9-16); Calcium 9.5 mg/dL (8.4-10.2); Carbon Dioxide 26 mmol/L (22-29); Chloride 101 mmol/L (96-108); Creatinine Clr Calc Pharmacy 26.1; Estimated Glomerular Filt Rate 32; Glucose Random 234 mg/dL (60-115); Magnesium 2.3 mg/dL (1.6-2.6); Potassium 4.3 mmol/L (3.3-5.1); Sodium 141 mmol/L (135-145)
[2023-08-20 06:00] LABS: SLIDE REVIEW VERIFIED
[2023-08-20 06:50] LABS: TSH reflex Free T4 2.71 uIU/mL (0.32-4.0)
[2023-08-20 07:29] LABS: Glucose, Whole Blood 216 mg/dL (60-115)
[2023-08-20] MEDS: Insulin Lispro 100 UNIT/ML 3 ML VIAL SUBCUT ×4 (07:36→20:35)
[2023-08-20] MEDS: 0.9 % Sodium Chloride Flush 3 ML SYRINGE IVFLUSH ×3 (07:39→23:57)
--- NOTE | 2023-08-20 09:10 | PC.NURSE ---
pt being transported upstairs at this time.
[2023-08-20] MEDS: Bumetanide 1 MG/4 ML VIAL 1.5 MG IVPUSH (09:35)
[2023-08-20] MEDS: glipiZIDE XL 2.5 MG TAB.ER.24 PO ×2 (09:35→17:57)
[2023-08-20] MEDS: Cholecalciferol (Vitamin D3) 25 MCG TABLET PO ×2 (09:35→20:35)
[2023-08-20] MEDS: Spironolactone 25 MG TABLET PO (09:35)
[2023-08-20] MEDS: Aspirin Enteric Coated 81 MG TABLET.DR PO (09:35)
[2023-08-20] MEDS: Escitalopram Oxalate 10 MG TABLET PO (09:35)
[2023-08-20] MEDS: methylPREDNISolone Sod Succ 40 MG/ML VIAL IVPUSH (09:35)
[2023-08-20] MEDS: Albuterol/Iprat 2.5/0.5MG 3 ML AMPUL.NEB INHALE ×3 (11:14→19:53)
[2023-08-20 11:28] LABS: Glucose, Whole Blood 199 mg/dL (60-115)
--- NOTE | 2023-08-20 11:37 | MHC.CM.PN ---
IMM 08/20/23, Pt lives in her own home, her son lives with her and helps with care for the home, shopping. She does not have home health services at this time, she does have [facility], she has used [facility] in the past and is happy with them. For med equip she has home O2, nebulizer, cane, O2 is supplied by [employer]. Family to transport upon DC. CM to follow and assist with DC planning.
--- NOTE | 2023-08-20 15:50 | HO.PM.IMPN ---
Subjective Subjective Date of Service: 08/20/23 Interval History: Being followed for acute CHF exacerbation, feeling better this morning denies shortness of breath, leg edema has improved significantly denies PND, no orthopnea denies chest tightness, use albuterol MDI twice daily quit smoking 47 years, denies cough, no fevers, no chills. Review of Systems All other system reviewed and negative. Physical Exam Vital Signs: Vital Signs: Last Vital Signs Temp 98.2 F 08/20/23 15:40 Pulse 97 08/20/23 15:40 Resp 18 08/20/23 15:40 BP 132/83 08/20/23 15:40 Pulse Ox 93 08/20/23 15:40 O2 Del Method Nasal Cannula 08/20/23 15:40 O2 Flow Rate 5 08/20/23 15:40 Oxygen Flow Rate 2 08/19/23 16:07 BMI result Body Mass Index 26.1 Const: Other: General awake alert x3,resting comfortably in no acute distress. Neck supple no JVD. CVS regular rate rhythm, Respiratory lungs clear to auscultation, no respiratory distress, no wheeze, no rales Gastrointestinal abdomen soft, nontender, bowel sounds audible, no guarding , no rigidity. Extremities bilateral wrinkles, mild edema. Neuro nonfocal Skin no rash Psych appropriate affect Objective Data Active Medications Acetaminophen (Acetaminophen 325 Mg Tablet) 650 mg PO Q6H PRN PRN Reason: Pain, Mild (Pain Scale 1-3) Albuterol/Ipratropium (Albuterol/Iprat 2.5/0.5mg 3 Ml Ampul.Neb) 3 ml INHALE RQ4H [facility] Last Admin: 08/20/23 15:17 Dose: 3 ml Documented By: JADIEL Artificial Tears (Artificial Tears 15 Ml Drops) 1 drop EYE-BOTH Q2H PRN PRN Reason: Dry Eyes Aspirin (Aspirin Enteric Coated 81 Mg Tablet.) 81 mg PO DAILY [facility] Last Admin: 08/20/23 09:35 Dose: 81 mg Documented By: SUSANNA Atorvastatin Calcium (Atorvastatin Calcium 10 Mg Tablet) 10 mg PO DAILY@1700 [facility] Bumetanide (Bumetanide 1 Mg/4 Ml Vial) 1.5 mg IVPUSH BID@0900,1700 [facility]; Protocol Last Admin: 08/20/23 09:35 Dose: 1.5 mg Documented By: SUSANNA Dextrose (Dextrose 50 % 25 Gm/50 Ml Syringe) 25 gm IVPUSH Q15M PRN; Protocol PRN Reason: per Hypoglycemia Standing Ord. Escitalopram Oxalate (Escitalopram Oxalate 10 Mg Tablet) 10 mg PO DAILY [facility] Last Admin: 08/20/23 09:35 Dose: 10 mg Documented By: SUSANNA Glipizide (Glipizide Xl 2.5 Mg Tab.Er.24) 2.5 mg PO BID [facility] Last Admin: 08/20/23 09:35 Dose: 2.5 mg Documented By: SUSANNA Glucose (Glucose Gel 15 Gm Gel..Gram.) 15 gm PO Q15M PRN; Protocol PRN Reason: per Hypoglycemia Standing Ord. Heparin Sodium (Porcine) (Heparin Sodium,Porcine 5,000 Unit/Ml Vial) 5,000 unit SUBCUT Q12H [facility] Insulin Human Lispro (Insulin Lispro 100 Unit/Ml 3 Ml Vial) 0 unit SUBCUT QIDACHS [facility]; Protocol Last Admin: 08/20/23 11:46 Dose: 2 unit Documented By: SUSANNA Levothyroxine Sodium (Levothyroxine Sodium 50 Mcg Tablet) 50 mcg PO DAILY@0600 [facility] Last Admin: 08/20/23 05:21 Dose: 50 mcg Documented By: AVELINO Methylprednisolone Sodium Succinate (Methylprednisolone Sod Succ 40 Mg/Ml Vial) 40 mg IVPUSH Q12H [facility] Last Admin: 08/20/23 09:35 Dose: 40 mg Documented By: SUSANNA Sodium Chloride (0.9 % Sodium Chloride Flush 3 Ml Syringe) 3 ml IVFLUSH QSHIFT [facility] Last Admin: 08/20/23 07:39 Dose: 3 ml Documented By: MARCUS Spironolactone (Spironolactone 25 Mg Tablet) 25 mg PO DAILY [facility]; Protocol Last Admin: 08/20/23 09:35 Dose: 25 mg Documented By: SUSANNA Vitamin D (Cholecalciferol (Vitamin D3) 25 Mcg Tablet) 25 mcg PO BID [facility] Last Admin: 08/20/23 09:35 Dose: 25 mcg Documented By: SUSANNA Labs 08/20/23 05:05 08/20/23 05:05 Labs: Laboratory Results - last 24 hr 0108/20/23 08/20/23 16:43 00:06 05:05 MCV 94.7 93.7 MCH 28.7 28.7 MCHC 30.4 L 30.6 L RDW 15.2 15.1 Plt Count 246 216 MPV 10.3 10.6 Immature Gran % (Auto) 0.4 0.3 Neut % (Auto) 78.8 H 95.0 H Lymph % (Auto) 6.2 L 3.1 L [place] % (Auto) 9.3 0.9 L Eos % (Auto) 3.7 0.2 Baso % (Auto) 1.6 0.5 Lymph # (Auto) 0.5 L 0.2 L [place] # (Auto) 0.7 0.1 Eos # (Auto) 0.3 0.0 Baso # (Auto) 0.1 0.0 Abs Immat Gran (auto) 0.03 0.02 Absolute Neuts (auto) 5.8 5.5 Absolute Nucleated RBC 0.000 0.000 Nucleated RBC % (auto) 0.0 0.0 Smear Tech's Comments VERIFIED PT 14.2 H INR 1.2 H APTT 36.8 H VBG pH 7.44 H VBG pCO2 51 VBG pO2 41 VBG HCO3 35 H VBG O2 Saturation 62.0 VBG Base Excess 9.6 Anion Gap 14 18 Estim Creat Clear Calc 24.4 26.1 Estimated GFR 29 32 POC Glucose Random Glucose 134 H 234 H Calcium 10.0 D 9.5 Magnesium 2.3 Total Bilirubin 0.6 AST 21 ALT 13 Alkaline Phosphatase 81 B-Natriuretic Peptide 2074 H Total Protein 7.8 Albumin 3.8 Lipase 48 TSH 2.71 08/20/23 08/20/23 07:25 10:55 MCV MCH MCHC RDW Plt Count MPV Immature Gran % (Auto) Neut % (Auto) Lymph % (Auto) [place] % (Auto) Eos % (Auto) Baso % (Auto) Lymph # (Auto) [place] # (Auto) Eos # (Auto) Baso # (Auto) Abs Immat Gran (auto) Absolute Neuts (auto) Absolute Nucleated RBC Nucleated RBC % (auto) Smear Tech's Comments PT INR APTT VBG pH VBG pCO2 VBG pO2 VBG HCO3 VBG O2 Saturation VBG Base Excess Anion Gap Estim Creat Clear Calc Estimated GFR POC Glucose 216 H 199 H Random Glucose Calcium Magnesium Total Bilirubin AST ALT Alkaline Phosphatase B-Natriuretic Peptide Total Protein Albumin Lipase TSH Assessment and Plan (1) Acute on chronic systolic CHF (congestive heart failure): Status: Acute (2) Hypoxic respiratory failure: Status: Acute Plan Sarah Man is a very pleasant 83 years old woman with past medical history significant for HFrEF (15-20% TTE Jul 2022), severe MR stenosis, severe tricuspid valve regurgitation, s/p TAVR, COPD -on home oxygen 2 L/min, coronary artery disease and pulmonary hypertension admitted with: Acute on chronic hypoxic respiratory failure; Likely due to acute on chronic congestive heart failure Echo showed EF 15-20% moderately increased right ventricular cavity site, severely dilated left atrium, prosthetic aortic valve, severe tricuspid valve regurgitation Initially felt to have acute exacerbation of COPD but patient denies any symptoms and no clinical evidence of COPD exacerbation. On IV Bumex 1.5 mg b.i.d. continue by mouth spironolactone, follow I's and O's, daily weight and BMP, chronically elevated BNP. DC IV steroids and q.4 hours schedule updraft. Wean oxygen as tolerated on 2 L of home oxygen Consult cardiology for medication management. Hypothyroidism continue levothyroxine follow TSH Neuropathy resume gabapentin Type 2 diabetes mellitus continue diabetic diet, glipizide monitor point of care blood sugars and insulin sliding scale Chronic normocytic anemia stable Acute on chronic kidney disease stage 3 follow BMP while being diuresed DVT prophylaxis: Heparin subcut Code status: Full Patient will need continued inpatient hospitalization for med management of acute on chronic hypoxic respiratory failure requiring IV diuretics and close cardiac monitoring. Quality Stroke Does the patient have a stroke diagnosis?: No VTE Prior VTE?: No VTE Risk Level:: Medical - moderate - high VTE Device Contraindication: Treatment Not Indicated VTE Drug Contraindication: N/A - Med Ordered
[2023-08-20] MEDS: Atorvastatin Calcium 10 MG TABLET PO (16:10)
[2023-08-20] MEDS: Gabapentin 400 MG CAPSULE 800 MG PO ×2 (16:18→20:35)
[2023-08-20 16:25] LABS: Glucose, Whole Blood 273 mg/dL (60-115)
[2023-08-20] MEDS: Heparin Sodium,Porcine 5,000 UNIT/ML VIAL 5000 UNIT SUBCUT (20:36)
[2023-08-20 20:39] LABS: Glucose, Whole Blood 192 mg/dL (60-115)
[2023-08-21] VITALS (10 sets, daily range): BP systolic 100–140; BP diastolic 67–92; PULSE 87–99; RESP 16–20; TEMP 36.2–36.8; O2SAT 86–95
[2023-08-21] MEDS: Levothyroxine Sodium 50 MCG TABLET PO (06:01)
[2023-08-21 07:16] LABS: Anion Gap 14 (12-20); Blood Urea Nitrogen 69 mg/dL (9-16); Calcium 9.8 mg/dL (8.4-10.2); Carbon Dioxide 30 mmol/L (22-29); Chloride 100 mmol/L (96-108); Creatinine Clr Calc Pharmacy 21.6; Estimated Glomerular Filt Rate 26; Glucose Random 80 mg/dL (60-115); Potassium 4.6 mmol/L (3.3-5.1); Sodium 139 mmol/L (135-145)
[2023-08-21] MEDS: Albuterol/Iprat 2.5/0.5MG 3 ML AMPUL.NEB INHALE ×3 (07:46→20:11)
[2023-08-21 08:08] LABS: Glucose, Whole Blood 86 mg/dL (60-115)
[2023-08-21] MEDS: 0.9 % Sodium Chloride Flush 3 ML SYRINGE IVFLUSH ×2 (08:37→17:01)
[2023-08-21] MEDS: Gabapentin 400 MG CAPSULE 800 MG PO ×4 (08:37→20:50)
[2023-08-21] MEDS: Heparin Sodium,Porcine 5,000 UNIT/ML VIAL 5000 UNIT SUBCUT ×2 (08:37→20:51)
[2023-08-21] MEDS: Aspirin Enteric Coated 81 MG TABLET.DR PO (08:37)
[2023-08-21] MEDS: Cholecalciferol (Vitamin D3) 25 MCG TABLET PO ×2 (08:37→20:50)
[2023-08-21] MEDS: Escitalopram Oxalate 10 MG TABLET PO (08:37)
[2023-08-21] MEDS: Spironolactone 25 MG TABLET PO (08:37)
[2023-08-21] MEDS: glipiZIDE XL 2.5 MG TAB.ER.24 PO ×2 (08:37→20:51)
[2023-08-21] MEDS: Acetaminophen 325 MG TABLET 650 MG PO (09:52)
--- NOTE | 2023-08-21 11:32 | PM.CNCAR ---
History of Present Illness History of Present Illness Date of Service: 08/21/23 Requesting physician: Elizabeth Daly Chief complaint: CHF Narrative: Pleasant 83-year-old female who is presenting for shortness of breath. She has been feeling fatigued for few weeks and was also noticing lower extremity edema. She was getting short of breath with activities. She is saying that in January 2023 her and since then she has been sleeping in a recliner. Part of the reason is that she is on supplemental oxygen 17/02 and the tubing is not a long enough for her to move to her bedroom. She said she has been experiencing shortness of breath and fatigue. She said her legs were significantly swollen. With these symptoms she presented to us and was admitted for congestive heart failure. She has been on diuretics for her creatinine was rising. Her lower extremity edema is improved. She continues to be oxygen dependent but has chronic respiratory failure due to COPD and is on supplemental oxygen all the time. Previously she had transcatheter aortic valve replacement couple of years ago. 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 She has severe pulmonary hypertension. Previously had echocardiography was normal but recent echocardiography is showing EF in the severely reduced arrange and she has a wide left bundle-branch block on EKG. [facility] Past Medical History Medical History Abnormal chest x-ray Chronic heart failure with preserved ejection fraction (HFpEF) COPD (chronic obstructive pulmonary disease) COPD (chronic obstructive pulmonary disease) HTN (hypertension) Hypoxemia LBBB (left bundle branch block) Mitral stenosis Pulmonary hypertension Family History Family History Father No problems noted. Mother CVD (cardiovascular disease) Surgical History Surgical History Hx of cardiac cath S/P TAVR (transcatheter aortic valve replacement) Social History Social History Household Members: Family Housing: House Do you presently have visiting nurse or other home services: No Patient Tobacco Use Status: Former Tobacco user Quit Date: Years Smoked: 20 +/- Advance Directives Date on File: 01/27/22 service: No Current occupational status: retired Meds Allergies Allergy/AdvReac Type Severity Reaction Status Date / Time Penicillins [PENICILLINS] Allergy Intermediate HIVES Verified 03/21/22 17:15 Active Medications: Current Medications Acetaminophen (Acetaminophen 325 Mg Tablet) 650 mg PO Q6H PRN PRN Reason: Pain, Mild (Pain Scale 1-3) Last Admin: 08/21/23 09:52 Dose: 650 mg Albuterol/Ipratropium (Albuterol/Iprat 2.5/0.5mg 3 Ml Ampul.Neb) 3 ml INHALE RQ6H WHILE AWAKE [facility] Last Admin: 08/21/23 07:46 Dose: 3 ml Artificial Tears (Artificial Tears 15 Ml Drops) 1 drop EYE-BOTH Q2H PRN PRN Reason: Dry Eyes Aspirin (Aspirin Enteric Coated 81 Mg Tablet.Dr) 81 mg PO DAILY [facility] Last Admin: 08/21/23 08:37 Dose: 81 mg Atorvastatin Calcium (Atorvastatin Calcium 10 Mg Tablet) 10 mg PO DAILY@1700 [facility] Last Admin: 08/20/23 16:10 Dose: 10 mg Dextrose (Dextrose 50 % 25 Gm/50 Ml Syringe) 25 gm IVPUSH Q15M PRN; Protocol PRN Reason: per Hypoglycemia Standing Ord. Escitalopram Oxalate (Escitalopram Oxalate 10 Mg Tablet) 10 mg PO DAILY [facility] Last Admin: 08/21/23 08:37 Dose: 10 mg Gabapentin (Gabapentin 400 Mg Capsule) 800 mg PO QID [facility] Last Admin: 08/21/23 08:37 Dose: 800 mg Glipizide (Glipizide Xl 2.5 Mg Tab.Er.24) 2.5 mg PO BID [facility] Last Admin: 08/21/23 08:37 Dose: 2.5 mg Glucose (Glucose Gel 15 Gm Gel..Gram.) 15 gm PO Q15M PRN; Protocol PRN Reason: per Hypoglycemia Standing Ord. Heparin Sodium (Porcine) (Heparin Sodium,Porcine 5,000 Unit/Ml Vial) 5,000 unit SUBCUT Q12H [facility] Last Admin: 08/21/23 08:37 Dose: 5,000 unit Insulin Human Lispro (Insulin Lispro 100 Unit/Ml 3 Ml Vial) 0 unit SUBCUT QIDACHS [facility]; Protocol Last Admin: 08/21/23 08:28 Dose: Not Given Levothyroxine Sodium (Levothyroxine Sodium 50 Mcg Tablet) 50 mcg PO DAILY@0600 [facility] Last Admin: 08/21/23 06:01 Dose: 50 mcg Sodium Chloride (0.9 % Sodium Chloride Flush 3 Ml Syringe) 3 ml IVFLUSH QSHIFT [facility] Last Admin: 08/21/23 08:37 Dose: 3 ml Vitamin D (Cholecalciferol (Vitamin D3) 25 Mcg Tablet) 25 mcg PO BID [facility] Last Admin: 08/21/23 08:37 Dose: 25 mcg Home Medications Medication Instructions Recorded Confirmed Last Taken Type gabapentin 800 mg tablet 800 mg PO QID 08/15/20 08/19/23 08/19/23 History levothyroxine 50 mcg tablet 50 mcg PO DAILY@0600 08/15/20 08/19/23 08/19/23 History simvastatin 20 mg tablet 20 mg PO DAILY@1700 08/15/20 08/19/23 08/19/23 History glipizide 2.5 mg tablet, extended 2.5 mg PO BID 05/24/21 08/19/23 08/19/23 History release 24 hr spironolactone 25 mg tablet 25 mg PO DAILY 08/02/21 08/19/23 08/19/23 History aspirin 81 mg tablet,delayed 81 mg PO DAILY 10/30/21 08/19/23 08/19/23 History release (Adult Aspirin Regimen) cholecalciferol (vitamin D3) 25 25 mcg PO BID 01/25/22 08/19/23 08/19/23 History mcg (1,000 unit) tablet citalopram 20 mg tablet 20 mg PO DAILY 10/22/22 08/19/23 08/19/23 History artifi.tears(hypromellose)(PF) 0.3 1 drp ophthalmic (eye) Q2H PRN Dry 08/19/23 08/19/23 08/19/23 History % eye drops Eyes Physical Exam Vital Signs: Vital Signs: Last Vital Signs Temp 97.9 F 08/21/23 10:57 Pulse 92 08/21/23 10:57 Resp 18 08/21/23 10:57 BP 117/69 08/21/23 10:57 Pulse Ox 88 L 08/21/23 10:57 O2 Del Method Nasal Cannula 08/21/23 10:57 O2 Flow Rate 2 08/21/23 10:57 Oxygen Flow Rate 2 08/19/23 16:07 BMI result Body Mass Index 26.1 GENERAL APPEARANCE: Short of breath, on supplemental oxygen. NECK: no carotid bruit,, elevated JVD to the angle of jaw. SKIN: no suspicious lesions, warm and dry. HEART: Left parasternal heave, holosystolic murmur at the apex and left parasternal border. LUNGS: Few crackles at bases. ABDOMEN: soft, nontender. EXTREMITIES: Mild edema. PERIPHERAL PULSES: equal. NEUROLOGIC: No gross deficits, AAO X 3 Objective Labs and Meds 08/20/23 05:05 08/21/23 06:22 Lab results: Laboratory Results - last 24 hr 08/20/23 08/20/23 08/21/23 16:13 20:23 06:22 Hold Purple Top SEE NOTE Sodium 139 Potassium 4.6 Chloride 100 Carbon Dioxide 30 H Anion Gap 14 BUN 69 H Creatinine 1.85 H Estim Creat Clear Calc 21.6 Estimated GFR 26 POC Glucose 273 H 192 H Random Glucose 80 Calcium 9.8 08/21/23 08:00 Hold Purple Top Sodium Potassium Chloride Carbon Dioxide Anion Gap BUN Creatinine Estim Creat Clear Calc Estimated GFR POC Glucose 86 Random Glucose Calcium Assessment and Plan (1) Acute on chronic systolic CHF (congestive heart failure): Status: Acute (2) Mitral stenosis: Status: Acute (3) LBBB (left bundle branch block): Status: Acute (4) S/P TAVR (transcatheter aortic valve replacement): Status: Acute Plan [age] year female presenting for fatigue and lower extremity edema along with dyspnea. She had recent echocardiography which is showing severe LV dysfunction. She has a wide left bundle-branch block which can be potential etiology for cardiomyopathy. She had severe calcific mitral and aortic valve stenosis previously and underwent transcatheter aortic valve replacement. Mitral valve at the time of transcatheter aortic valve replacement was moderately stenosed. Recent echocardiography is raising concern for probably severe mitral valve stenosis. In any case she appears to be significantly volume overloaded but her creatinine is rising with diuretics. Please check another BNP level. If the BNP level is higher than before are not significantly changed, would favor keeping her on IV diuretics. In that case we may have to increase the diuretic dose. Quite challenging and complex situation as she has multiple issues and cardiovascular problems. Given drop in her ejection fraction with a wide left bundle-branch block [employer] ENGINE[employer] could be helpful to her. It is hard to say how much contribution in her pulmonary hypertension and RV dysfunction is due to mitral stenosis as she also carries diagnosis of chronic respiratory failure and COPD. We will follow along with you. Thank you for allowing me to participate in the care of your patient. Please feel free to contact me if you have any questions. Procedures Date of Service Date of Service: 08/21/23
[2023-08-21 11:46] LABS: Glucose, Whole Blood 174 mg/dL (60-115)
[2023-08-21] MEDS: Insulin Lispro 100 UNIT/ML 3 ML VIAL SUBCUT ×2 (12:05→20:51)
--- NOTE | 2023-08-21 15:02 | HO.SKINPHOTO ---
Location: Category: Stage: Length: Width: Depth: cm Location: Category: Stage: Length: Width: Depth: cm Location: Category: Stage: Length: Width: Depth: cm Location: Category: Stage: Length: Width: Depth: cm Location: Category: Stage: Length: Width: Depth: cm Location: Category: Stage: Length: Width: Depth: cm
[2023-08-21 15:50] LABS: B Type Natriuretic Peptide 1975 pg/mL (<100)
--- NOTE | 2023-08-21 16:02 | HO.WOUND ---
Wound Consult: Initial 78yr old F? admitted to [facility] on - See progress notes and H&P for detailed history.? Wound consult placed for Right Calf and Sacrum - POA.? Patient agreeable to assessment and photo documentation.? Pt reports the legs are a result of her swelling - she is noted for venous dermatitis with with keratotic flaking tissue revealing intact skin. the posterior wound is in fact resurfaced it is fragile and should be protected but is currently intact - recommend light barrier cream application and foam dressing to protect from friction as it is the posterior side of her leg with a lot of friction while in bed. The sacrum was assessed and reveals intact red pink blanchable tissue - no open wounds noted. MASD (Moisture associated Skin DAmage) noted. Sacrum - red pink intact tissue remains blanchable throughout - incontinence at times - foam dressing in place. Bilateral Lower Legs Right Posterior calf - resurfaced tissue Venous dermatitis with recent history of swelling Recommendations: 1. Turn and Reposition every 2 hours and as needed for patient comfort.? Use pillows or wedges to support off loading positions. 2. Off Load all bony prominences with use of pillows and heel boots if needed.? Apply Preventative foams where needed. ? 3. Monitor for incontinence and moisture control, use barrier creams when needed for prevention and treatment. 4. Provide adequate and supplemental nutrition.? 5. Order low air loss mattress. 6. When applicable maintain blood glucose levels per Providers order. 7. Sacrum - Off Load Pressure - Apply sacral foam dressing peel back and assess Q Shift and change every 3 days and PRN. 8. Bilateral Lower Legs - Elevate lower legs off of surface of bed with use of pillows.? Cleanse with NS, Pat dry.? Apply vaseline to both legs. To newly resurfaced tissue of right calf apply thin layer of barrier cream covered with foam dressing. Change every other day. Re-consult wound care Nurse for wound deterioration or wound changes.
[2023-08-21 16:34] LABS: Glucose, Whole Blood 146 mg/dL (60-115)
--- NOTE | 2023-08-21 16:44 | HO.PM.IMPN ---
Subjective Subjective Date of Service: 08/22/23 Interval History: Feeling better this morning, awake alert denies shortness of breath, no chest pain, leg edema resolved, tolerating diet no nausea no vomiting no abdominal pain no other acute issues overnight. Review of Systems All other system reviewed and negative Physical Exam Vital Signs: Vital Signs: Last Vital Signs Temp 98.2 F 08/21/23 15:32 Pulse 99 08/21/23 15:32 Resp 20 08/21/23 15:32 BP 111/81 08/21/23 15:32 Pulse Ox 90 L 08/21/23 15:32 O2 Del Method Nasal Cannula 08/21/23 15:32 O2 Flow Rate 2 08/21/23 15:32 Oxygen Flow Rate 2 08/19/23 16:07 BMI result Body Mass Index 26.1 Const: Other: General awake alert x3,resting comfortably in no acute distress. Neck supple ,+ JVD. CVS regular rate rhythm, Respiratory lungs few basilar crackles, no respiratory distress, no wheeze, no rales Gastrointestinal abdomen soft, nontender, bowel sounds audible, no guarding , no rigidity. Extremities mild edema. Neuro non focal Skin no rash Psych appropriate affect Objective Data Active Medications Acetaminophen (Acetaminophen 325 Mg Tablet) 650 mg PO Q6H PRN PRN Reason: Pain, Mild (Pain Scale 1-3) Last Admin: 08/21/23 09:52 Dose: 650 mg Documented By: FUNMILAYO Albuterol/Ipratropium (Albuterol/Iprat 2.5/0.5mg 3 Ml Ampul.Neb) 3 ml INHALE RQ6H WHILE AWAKE [facility] Last Admin: 08/21/23 14:59 Dose: 3 ml Documented By: JADIEL Artificial Tears (Artificial Tears 15 Ml Drops) 1 drop EYE-BOTH Q2H PRN PRN Reason: Dry Eyes Aspirin (Aspirin Enteric Coated 81 Mg Tablet.) 81 mg PO DAILY [facility] Last Admin: 08/21/23 08:37 Dose: 81 mg Documented By: FUNMILAYO Atorvastatin Calcium (Atorvastatin Calcium 10 Mg Tablet) 10 mg PO DAILY@1700 [facility] Last Admin: 08/20/23 16:10 Dose: 10 mg Documented By: SOHAIL Dextrose (Dextrose 50 % 25 Gm/50 Ml Syringe) 25 gm IVPUSH Q15M PRN; Protocol PRN Reason: per Hypoglycemia Standing Ord. Escitalopram Oxalate (Escitalopram Oxalate 10 Mg Tablet) 10 mg PO DAILY [facility] Last Admin: 08/21/23 08:37 Dose: 10 mg Documented By: FUNMILAYO Furosemide (Furosemide 100 Mg/10 Ml Vial) 80 mg IVPUSH BID@0900,1800 [facility]; Protocol Gabapentin (Gabapentin 400 Mg Capsule) 800 mg PO QID [facility] Last Admin: 08/21/23 12:05 Dose: 800 mg Documented By: FUNMILAYO Glipizide (Glipizide Xl 2.5 Mg Tab.Er.24) 2.5 mg PO BID [facility] Last Admin: 08/21/23 08:37 Dose: 2.5 mg Documented By: FUNMILAYO Glucose (Glucose Gel 15 Gm Gel..Gram.) 15 gm PO Q15M PRN; Protocol PRN Reason: per Hypoglycemia Standing Ord. Heparin Sodium (Porcine) (Heparin Sodium,Porcine 5,000 Unit/Ml Vial) 5,000 unit SUBCUT Q12H [facility] Last Admin: 08/21/23 08:37 Dose: 5,000 unit Documented By: FUNMILAYO Insulin Human Lispro (Insulin Lispro 100 Unit/Ml 3 Ml Vial) 0 unit SUBCUT QIDACHS [facility]; Protocol Last Admin: 08/21/23 16:37 Dose: Not Given Documented By: FUNMILAYO Non-Admin Reason: No Insulin Coverage Levothyroxine Sodium (Levothyroxine Sodium 50 Mcg Tablet) 50 mcg PO DAILY@0600 [facility] Last Admin: 08/21/23 06:01 Dose: 50 mcg Documented By: RAMIREZ Sodium Chloride (0.9 % Sodium Chloride Flush 3 Ml Syringe) 3 ml IVFLUSH QSHIFT [facility] Last Admin: 08/21/23 08:37 Dose: 3 ml Documented By: FUNMILAYO Vitamin D (Cholecalciferol (Vitamin D3) 25 Mcg Tablet) 25 mcg PO BID [facility] Last Admin: 08/21/23 08:37 Dose: 25 mcg Documented By: FUNMILAYO Labs 08/22/23 09:30 08/22/23 09:30 Labs: Laboratory Results - last 24 hr 08/20/23 08/21/23 08/21/23 20:23 06:22 08:00 Hold Purple Top SEE NOTE Anion Gap 14 Estim Creat Clear Calc 21.6 Estimated GFR 26 POC Glucose 192 H 86 Random Glucose 80 Calcium 9.8 B-Natriuretic Peptide 08/21/23 08/21/23 08/21/23 11:42 15:05 16:25 Hold Purple Top Anion Gap Estim Creat Clear Calc Estimated GFR POC Glucose 174 H 146 H Random Glucose Calcium B-Natriuretic Peptide 1975 H Assessment and Plan (1) Acute on chronic systolic CHF (congestive heart failure): Status: Acute (2) Hypoxic respiratory failure: Status: Acute Plan Sarah Man is a very pleasant 83 years old woman with past medical history significant for HFrEF (15-20% TTE Jul 2022), severe MR stenosis, severe tricuspid valve regurgitation, s/p TAVR, COPD -on home oxygen 2 L/min, coronary artery disease and pulmonary hypertension admitted with: Acute on chronic hypoxic respiratory failure; Likely due to acute on chronic systolic congestive heart failure Echo showed EF 15-20% moderately increased right ventricular cavity site, severely dilated left atrium, prosthetic aortic valve, severe tricuspid valve regurgitation, severe mitral stenosis, abnormally functioning prosthetic aortic valve, paradoxical septal motion consistent with left bundle branch block On IV Bumex 1.5 mg b.i.d. , by mouth spironolactone, noted to have significant rise in creatinine Case discussed with Cardiology they recommend IV Lasix 80 mg b.i.d. will DC Bumex and spironolactone Repeat BNP remains elevated 1974 chronically elevated BNP around 1999 1.2 L negative, follow I's and O's, daily weight and BMP Wean oxygen as tolerated on 2 L of home oxygen Hypothyroidism continue levothyroxine , stable TSH Neuropathy continue gabapentin Type 2 diabetes mellitus continue diabetic diet, glipizide monitor point of care blood sugars and insulin sliding scale Chronic normocytic anemia stable Acute on chronic kidney disease stage 3 follow BMP closely while being diuresed. DVT prophylaxis: Heparin subcut Code status: Full Patient will need continued inpatient hospitalization for med management of acute on chronic hypoxic respiratory failure requiring IV diuretics and close cardiac monitoring. Quality Stroke Does the patient have a stroke diagnosis?: No VTE Prior VTE?: No VTE Risk Level:: Medical - moderate - high VTE Device Contraindication: Treatment Not Indicated VTE Drug Contraindication: N/A - Med Ordered
[2023-08-21] MEDS: Furosemide 100 MG/10 ML VIAL 80 MG IVPUSH (17:01)
[2023-08-21] MEDS: Atorvastatin Calcium 10 MG TABLET PO (17:01)
[2023-08-21 20:00] LABS: Glucose, Whole Blood 164 mg/dL (60-115)
[2023-08-22] VITALS (9 sets, daily range): BP systolic 95–118; BP diastolic 54–84; PULSE 84–94; RESP 17–20; TEMP 35.4–37; O2SAT 90–94; BMI 26.5
[2023-08-22] MEDS: Levothyroxine Sodium 50 MCG TABLET PO (05:08)
[2023-08-22 07:58] LABS: Glucose, Whole Blood 73 mg/dL (60-115)
[2023-08-22] MEDS: Furosemide 100 MG/10 ML VIAL 80 MG IVPUSH (08:18)
[2023-08-22] MEDS: glipiZIDE XL 2.5 MG TAB.ER.24 PO ×2 (08:19→20:05)
[2023-08-22] MEDS: Gabapentin 400 MG CAPSULE 800 MG PO ×4 (08:19→20:05)
[2023-08-22] MEDS: Escitalopram Oxalate 10 MG TABLET PO (08:19)
[2023-08-22] MEDS: Cholecalciferol (Vitamin D3) 25 MCG TABLET PO ×2 (08:19→20:05)
[2023-08-22] MEDS: Aspirin Enteric Coated 81 MG TABLET.DR PO (08:19)
[2023-08-22] MEDS: Heparin Sodium,Porcine 5,000 UNIT/ML VIAL 5000 UNIT SUBCUT ×2 (08:20→20:05)
[2023-08-22] MEDS: 0.9 % Sodium Chloride Flush 3 ML SYRINGE IVFLUSH ×3 (08:20→17:18)
[2023-08-22] MEDS: Albuterol/Iprat 2.5/0.5MG 3 ML AMPUL.NEB INHALE ×3 (08:38→20:19)
[2023-08-22 10:19] LABS: Hematocrit 34.4 % (37.0-47.0); Hemoglobin 10.6 g/dl (12.0-16.0); Mean Corpuscular HGB Conc 30.8 g/dl (31.0-35.0); Mean Corpuscular Hemoglobin 29.2 pg (27.0-33.0); Mean Corpuscular Volume 94.8 fL (80.0-98.0); Mean Platelet Volume 10.7 fL (9.4-12.3); Platelet Count 219 X10*3/uL (160-400); Red Blood Count 3.63 X10*6/uL (4.20-5.50); Red Cell Distribution Width 15.5 % (11.0-16.0); White Blood Count 9.2 X10*3/uL (4.8-10.8)
[2023-08-22 10:30] LABS: Anion Gap 16 (12-20); Blood Urea Nitrogen 76 mg/dL (9-16); Calcium 9.1 mg/dL (8.4-10.2); Carbon Dioxide 31 mmol/L (22-29); Chloride 100 mmol/L (96-108); Creatinine Clr Calc Pharmacy 17.9; Estimated Glomerular Filt Rate 21; Glucose Random 90 mg/dL (60-115); Potassium 4.5 mmol/L (3.3-5.1); Sodium 142 mmol/L (135-145)
--- NOTE | 2023-08-22 11:29 | P.PNCA_ITS ---
Subjective Subjective Date of Service: 08/22/23 Interval history: Seen examined at bedside. Short of breath. Neck veins are distended. She was given diuretics but apparently creatinine has been rising with diuretics. I's and O's are not monitored correctly because she is using pads at this point. Difficult to say whether she had meaningful diuresis at this point or not but creatinine has been rising persistently. It appears she was on Bumex 2 mg twice a day and spironolactone 25 mg daily at home. Physical Exam Vital Signs: Last Vital Signs Temp 98.0 F 08/22/23 08:00 Pulse 90 08/22/23 08:39 Resp 18 08/22/23 08:39 BP 118/72 08/22/23 08:00 Pulse Ox 93 08/22/23 08:00 O2 Del Method Nasal Cannula 08/22/23 08:00 O2 Flow Rate 3 08/22/23 08:00 Oxygen Flow Rate 2 08/19/23 16:07 BMI result Body Mass Index 26.5 GENERAL APPEARANCE: Short of breath, on supplemental oxygen. NECK: no carotid bruit,, elevated JVD to the angle of jaw. Prominent V-wave. SKIN: no suspicious lesions, warm and dry. HEART: Left parasternal heave, holosystolic murmur at the apex and left parasternal border. LUNGS: Few crackles at bases. ABDOMEN: soft, nontender. EXTREMITIES: Mild edema. PERIPHERAL PULSES: equal. NEUROLOGIC: No gross deficits, AAO X 3 Objective Labs and Meds 08/22/23 09:30 08/22/23 09:30 Lab results: Laboratory Results - last 24 hr 08/21/23 08/21/23 08/21/23 11:42 15:05 16:25 WBC RBC Hgb Hct MCV MCH MCHC RDW Plt Count MPV Absolute Nucleated RBC Nucleated RBC % (auto) Sodium Potassium Chloride Carbon Dioxide Anion Gap BUN Creatinine Estim Creat Clear Calc Estimated GFR POC Glucose 174 H 146 H Random Glucose Calcium B-Natriuretic Peptide 1975 H 08/21/23 08/22/23 08/22/23 19:17 07:51 09:30 WBC 9.2 RBC 3.63 L Hgb 10.6 L Hct 34.4 L MCV 94.8 MCH 29.2 MCHC 30.8 L RDW 15.5 Plt Count 219 MPV 10.7 Absolute Nucleated RBC 0.000 Nucleated RBC % (auto) 0.0 Sodium 142 Potassium 4.5 Chloride 100 Carbon Dioxide 31 H Anion Gap 16 BUN 76 H Creatinine 2.25 H Estim Creat Clear Calc 17.9 Estimated GFR 21 POC Glucose 164 H 73 Random Glucose 90 Calcium 9.1 D B-Natriuretic Peptide Progress Note: A&P Assessment and plan (1) Acute on chronic systolic CHF (congestive heart failure): Status: Acute (2) Mitral stenosis: Status: Acute (3) Pulmonary hypertension: Status: Acute (4) LBBB (left bundle branch block): Status: Acute (5) S/P TAVR (transcatheter aortic valve replacement): Status: Acute Plan [age] year female with complex cardiovascular issues presenting with shortness of breath. Clinically volume overloaded and in heart failure but with diuretics creatinine has been rising. She had rise in her creatinine for few days before we got involved but by examination she was volume overloaded and had significantly elevated BNP levels 2. She has been on diuretics since yesterday but creatinine is rising further. She has incontinence and is using bad and does not have a Rodriguez catheter and I's and O's are not well documented. Recommend holding diuretics for now. Check her standing wait to see if there is any weight loss because his hard to know whether she had any meaningful diuresis at this point are not. Please consult Nephrology. She has complex issues with previous transcatheter aortic valve replacement but also had calcific mitral stenosis which by recent echocardiography is moderate to severe. She also has pulmonary hypertension, severe tricuspid valve regurgitation, moderate right ventricular dysfunction and severe LV dysfunction. I think LV dysfunction is due to significant dyssynchrony due to left bundle- branch block with a QRS interval of 170 milliseconds. Thank you for allowing me to participate in the care of your patient. Please feel free to contact me if you have any questions. Time Spent With Patient Time: Total time managing care of this patient today ____ minutes. Progress Note: Quality Stroke Does the patient have a stroke diagnosis?: No Procedures Date of Service Date of Service: 08/22/23
[2023-08-22 11:46] LABS: Glucose, Whole Blood 84 mg/dL (60-115)
--- NOTE | 2023-08-22 12:44 | MHC.CM.PN ---
EMR reviewed and per MD rounds, pt is not medically cleared for D/C due to continued management of CHF. CM will continue to follow.
--- NOTE | 2023-08-22 15:46 | HO.PM.IMPN ---
Subjective Subjective Date of Service: 08/22/23 Interval History: Feeling better this morning denies shortness of breath, complaining of cough bringing up clear phlegm, denies chest pain, no lightheadedness, no dizziness sleeping well tolerating diet, no other acute issues overnight. Review of Systems All other system reviewed and negative. Physical Exam Vital Signs: Vital Signs: Last Vital Signs Temp 95.8 F L 08/22/23 12:00 Pulse 84 08/22/23 14:57 Resp 20 08/22/23 14:57 BP 110/55 L 08/22/23 12:00 Pulse Ox 91 L 08/22/23 12:00 O2 Del Method Room Air 08/22/23 12:00 O2 Flow Rate 3 08/22/23 08:00 Oxygen Flow Rate 2 08/19/23 16:07 BMI result Body Mass Index 26.5 Const: Other: General awake alert x3,resting comfortably in no acute distress. Neck supple ,no JVD . CVS regular rate rhythm, Respiratory lungs left base crackles, no respiratory distress, no wheeze, no rales Gastrointestinal abdomen soft, non tender, bowel sounds audible, no guarding , no rigidity. Extremities edema resolved. Neuro non focal Skin dry/see wound nurse note for skin examination Psych appropriate affect Objective Data Active Medications Acetaminophen (Acetaminophen 325 Mg Tablet) 650 mg PO Q6H PRN PRN Reason: Pain, Mild (Pain Scale 1-3) Last Admin: 08/21/23 09:52 Dose: 650 mg Documented By: FUNMILAYO Albuterol/Ipratropium (Albuterol/Iprat 2.5/0.5mg 3 Ml Ampul.Neb) 3 ml INHALE RQ6H WHILE AWAKE [facility] Last Admin: 08/22/23 14:57 Dose: 3 ml Documented By: JET Artificial Tears (Artificial Tears 15 Ml Drops) 1 drop EYE-BOTH Q2H PRN PRN Reason: Dry Eyes Aspirin (Aspirin Enteric Coated 81 Mg Tablet.) 81 mg PO DAILY [facility] Last Admin: 08/22/23 08:19 Dose: 81 mg Documented By: NORRIS Atorvastatin Calcium (Atorvastatin Calcium 10 Mg Tablet) 10 mg PO DAILY@1700 [facility] Last Admin: 08/21/23 17:01 Dose: 10 mg Documented By: FUNMILAYO Dextrose (Dextrose 50 % 25 Gm/50 Ml Syringe) 25 gm IVPUSH Q15M PRN; Protocol PRN Reason: per Hypoglycemia Standing Ord. Escitalopram Oxalate (Escitalopram Oxalate 10 Mg Tablet) 10 mg PO DAILY [facility] Last Admin: 08/22/23 08:19 Dose: 10 mg Documented By: NRORIS Gabapentin (Gabapentin 400 Mg Capsule) 800 mg PO QID [facility] Last Admin: 08/22/23 12:51 Dose: 800 mg Documented By: NORRIS Glipizide (Glipizide Xl 2.5 Mg Tab.Er.24) 2.5 mg PO BID [facility] Last Admin: 08/22/23 08:19 Dose: 2.5 mg Documented By: NORRIS Glucose (Glucose Gel 15 Gm Gel..Gram.) 15 gm PO Q15M PRN; Protocol PRN Reason: per Hypoglycemia Standing Ord. Heparin Sodium (Porcine) (Heparin Sodium,Porcine 5,000 Unit/Ml Vial) 5,000 unit SUBCUT Q12H [facility] Last Admin: 08/22/23 08:20 Dose: 5,000 unit Documented By: NORRIS Insulin Human Lispro (Insulin Lispro 100 Unit/Ml 3 Ml Vial) 0 unit SUBCUT QIDACHS [facility]; Protocol Last Admin: 08/22/23 11:49 Dose: Not Given Documented By: NORRIS Non-Admin Reason: poc= 84 Levothyroxine Sodium (Levothyroxine Sodium 50 Mcg Tablet) 50 mcg PO DAILY@0600 [facility] Last Admin: 08/22/23 05:08 Dose: 50 mcg Documented By: LAWRENCE Sodium Chloride (0.9 % Sodium Chloride Flush 3 Ml Syringe) 3 ml IVFLUSH QSHIFT [facility] Last Admin: 08/22/23 08:20 Dose: 3 ml Documented By: NORRIS Vitamin D (Cholecalciferol (Vitamin D3) 25 Mcg Tablet) 25 mcg PO BID [facility] Last Admin: 08/22/23 08:19 Dose: 25 mcg Documented By: NORRIS Labs 08/22/23 09:30 08/22/23 09:30 Labs: Laboratory Results - last 24 hr 08/21/23 08/21/23 08/21/23 15:05 16:25 19:17 MCV MCH MCHC RDW Plt Count MPV Absolute Nucleated RBC Nucleated RBC % (auto) Anion Gap Estim Creat Clear Calc Estimated GFR POC Glucose 146 H 164 H Random Glucose Calcium B-Natriuretic Peptide 1975 H 08/22/23 08/22/23 08/22/23 07:51 09:30 11:38 MCV 94.8 MCH 29.2 MCHC 30.8 L RDW 15.5 Plt Count 219 MPV 10.7 Absolute Nucleated RBC 0.000 Nucleated RBC % (auto) 0.0 Anion Gap 16 Estim Creat Clear Calc 17.9 Estimated GFR 21 POC Glucose 73 84 Random Glucose 90 Calcium 9.1 D B-Natriuretic Peptide Assessment and Plan (1) Acute on chronic systolic CHF (congestive heart failure): Status: Acute Plan Sarah Man is a very pleasant 83 years old woman with past medical history significant for HFrEF (15-20% TTE Jul 2022), severe MR stenosis, severe tricuspid valve regurgitation, s/p TAVR, COPD -on home oxygen 2 L/min, coronary artery disease and pulmonary hypertension admitted with: Acute on chronic hypoxic respiratory failure; Likely due to acute on chronic systolic congestive heart failure Echo showed EF 15-20% moderately increased right ventricular cavity site, severely dilated left atrium, prosthetic aortic valve, severe tricuspid valve regurgitation, severe mitral stenosis, abnormally functioning prosthetic aortic valve, paradoxical septal motion consistent with left bundle branch block Treated with IV Bumex 1.5 mg b.i.d. and by mouth spironolactone, noted to have significant rise in creatinine JVD resolved, lower extremity edema improved. Case discussed with Cardiology they recommend to hold diuretics and obtain Nephro consultation for fluid management Repeat BNP remains elevated 1974 chronically elevated BNP around 1999 1.5 L negative since admission, will follow daily weight and BMP Wean oxygen as tolerated on 2 L of home oxygen Hypothyroidism continue levothyroxine , stable TSH Neuropathy on gabapentin 800 q.i.d. will wean dosage due to decreased creatinine clearance . Type 2 diabetes mellitus continue diabetic diet, glipizide monitor point of care blood sugars and insulin sliding scale Chronic normocytic anemia stable Acute on chronic kidney disease stage 3 noted to have gradually worsening creatinine 2.25 today Consult nephrology, follow BMP , avoid nephrotoxins Diabetes mellitus on glipizide will reduce dose to once daily to avoid hypoglycemia with worsening creatinine. MASD (Moisture associated Skin Damage) sacrum continue wound dressing as per wound nurse. DVT prophylaxis: Heparin subcut Code status: Full Patient will need continued inpatient hospitalization for med management of acute on chronic hypoxic respiratory failure and acute on chronic kidney disease require expert consultation and close monitoring of renal function and electrolytes. Quality Stroke Does the patient have a stroke diagnosis?: No VTE Prior VTE?: No VTE Risk Level:: Medical - moderate - high VTE Device Contraindication: Treatment Not Indicated VTE Drug Contraindication: N/A - Med Ordered
[2023-08-22 17:02] LABS: Glucose, Whole Blood 140 mg/dL (60-115)
[2023-08-22] MEDS: Atorvastatin Calcium 10 MG TABLET PO (17:16)
--- NOTE | 2023-08-22 19:45 | PM.CNNEP ---
History of Present Illness Reason for Consult Consult date: 08/22/23 Reason for consult: ADRIANE Chief Complaint Chief complaint: CHF History of Present Illness Narrative: Sarah Man is a very pleasant 83 years old woman with HFrEF (15-20% TTE Jul 2022), severe MR stenosis, severe tricuspid valve regurgitation, s/p TAVR, COPD -on home oxygen 2 L/min, coronary artery disease and pulmonary hypertension was brought to the emergency room for worsening shortness of breath even with minimal activity associated with worsening swelling to her lower extremities.She denies any chest pain, cough, palpitations, headache or dizziness. She denied any acute gastrointestinal genitourinary symptoms. She is a former tobacco smoker. In the ED, she was found to have tachypnea, hypertension a low oxygen saturation with ambulation 87%. She is currently requiring 2 liters/minute supplemental oxygen via nasal cannula which is her baseline. Blood workup is remarkable for elevated creatinine but seems to be around baseline (last was 1.October). BNP is mildly worse than her baseline. CXR showed finding possibly consistent with bronchiolitis versus interstitial pneumonitis versus interstitial lung disease versus interstitial edema. She was admitted for further management. She was seen by cards and was given diuresis as well. Her serum creatinine has gone up. Nephrology has been consulted to assist in her clinical care during her current hospital stay. Review of Systems Review of Systems Yes all other systems are reviewed and are negative PMF Past Medical History Medical History Abnormal chest x-ray Chronic heart failure with preserved ejection fraction (HFpEF) COPD (chronic obstructive pulmonary disease) COPD (chronic obstructive pulmonary disease) HTN (hypertension) Hypoxemia LBBB (left bundle branch block) Mitral stenosis Pulmonary hypertension Family History Family History Father No problems noted. Mother CVD (cardiovascular disease) Surgical History Surgical History Hx of cardiac cath S/P TAVR (transcatheter aortic valve replacement) Social History Social History Household Members: Family Housing: House Do you presently have visiting nurse or other home services: No Patient Tobacco Use Status: Former Tobacco user Quit Date: Years Smoked: 20 +/- Advance Directives Date on File: 01/27/22 service: No Current occupational status: retired Meds Allergies Allergy/AdvReac Type Severity Reaction Status Date / Time Penicillins [PENICILLINS] Allergy Intermediate HIVES Verified 03/21/22 17:15 Active Medications: Current Medications Acetaminophen (Acetaminophen 325 Mg Tablet) 650 mg PO Q6H PRN PRN Reason: Pain, Mild (Pain Scale 1-3) Last Admin: 08/21/23 09:52 Dose: 650 mg Albuterol/Ipratropium (Albuterol/Iprat 2.5/0.5mg 3 Ml Ampul.Neb) 3 ml INHALE RQ6H WHILE AWAKE [facility] [place] Last Admin: 08/22/23 14:57 Dose: 3 ml Artificial Tears (Artificial Tears 15 Ml Drops) 1 drop EYE-BOTH Q2H PRN PRN Reason: Dry Eyes Aspirin (Aspirin Enteric Coated 81 Mg Tablet.) 81 mg PO DAILY [facility] [place] Last Admin: 08/22/23 08:19 Dose: 81 mg Atorvastatin Calcium (Atorvastatin Calcium 10 Mg Tablet) 10 mg PO DAILY@1700 [facility] [place] Last Admin: 08/22/23 17:16 Dose: 10 mg Dextrose (Dextrose 50 % 25 Gm/50 Ml Syringe) 25 gm IVPUSH Q15M PRN; Protocol PRN Reason: per Hypoglycemia Standing Ord. Escitalopram Oxalate (Escitalopram Oxalate 10 Mg Tablet) 10 mg PO DAILY [facility] Last Admin: 08/22/23 08:19 Dose: 10 mg Gabapentin (Gabapentin 400 Mg Capsule) 800 mg PO QID [facility] [place] Last Admin: 08/22/23 17:16 Dose: 800 mg Glipizide (Glipizide Xl 2.5 Mg Tab.Er.24) 2.5 mg PO BID [facility] Last Admin: 08/22/23 08:19 Dose: 2.5 mg Glucose (Glucose Gel 15 Gm Gel..Gram.) 15 gm PO Q15M PRN; Protocol PRN Reason: per Hypoglycemia Standing Ord. Heparin Sodium (Porcine) (Heparin Sodium,Porcine 5,000 Unit/Ml Vial) 5,000 unit SUBCUT Q12H [facility] [place] Last Admin: 08/22/23 08:20 Dose: 5,000 unit Insulin Human Lispro (Insulin Lispro 100 Unit/Ml 3 Ml Vial) 0 unit SUBCUT QIDACHS [facility]; Protocol Last Admin: 08/22/23 17:11 Dose: Not Given Levothyroxine Sodium (Levothyroxine Sodium 50 Mcg Tablet) 50 mcg PO DAILY@0600 [facility] [place] Last Admin: 08/22/23 05:08 Dose: 50 mcg Sodium Chloride (0.9 % Sodium Chloride Flush 3 Ml Syringe) 3 ml IVFLUSH QSHIFT [facility] [place] Last Admin: 08/22/23 17:18 Dose: 3 ml Vitamin D (Cholecalciferol (Vitamin D3) 25 Mcg Tablet) 25 mcg PO BID [facility] [place] Last Admin: 08/22/23 08:19 Dose: 25 mcg Home Medications Medication Instructions Recorded Confirmed Last Taken Type gabapentin 800 mg tablet 800 mg PO QID 08/15/20 08/19/23 08/19/23 History levothyroxine 50 mcg tablet 50 mcg PO DAILY@0600 08/15/20 08/19/23 08/19/23 History simvastatin 20 mg tablet 20 mg PO DAILY@1700 08/15/20 08/19/23 08/19/23 History glipizide 2.5 mg tablet, extended 2.5 mg PO BID 05/24/21 08/19/23 08/19/23 History release 24 hr spironolactone 25 mg tablet 25 mg PO DAILY 08/02/21 08/19/23 08/19/23 History aspirin 81 mg tablet,delayed 81 mg PO DAILY 10/30/21 08/19/23 08/19/23 History release (Adult Aspirin Regimen) cholecalciferol (vitamin D3) 25 25 mcg PO BID 01/25/22 08/19/23 08/19/23 History mcg (1,000 unit) tablet citalopram 20 mg tablet 20 mg PO DAILY 10/22/22 08/19/23 08/19/23 History artifi.tears(hypromellose)(PF) 0.3 1 drp ophthalmic (eye) Q2H PRN Dry 08/19/23 08/19/23 08/19/23 History % eye drops Eyes Physical Exam Vital Signs: Last Vital Signs Temp 98.3 F 08/22/23 19:13 Pulse 84 08/22/23 19:13 Resp 20 08/22/23 19:13 BP 118/71 08/22/23 19:13 Pulse Ox 91 L 08/22/23 19:13 O2 Del Method Nasal Cannula 08/22/23 19:13 O2 Flow Rate 1 08/22/23 19:13 Oxygen Flow Rate 2 08/19/23 16:07 BMI result Body Mass Index 26.5 Const General: cooperative HEENT Head: Yes normocephalic Eyes EOM: EOMs intact bilaterally Neck Other: JVD Resp Auscultation: diminished lung sounds Cardio Jugular venous distension: JVD GI Palpation (GI): Soft to palpation General: Yes no CVA tenderness Back/Spine/Pelvis Back: no CVA tenderness Neuro General: moves all extremities Extrem General: Yes edema Results Lab Results 08/22/23 09:30 08/22/23 09:30 Lab results: Chemistry 08/20/23 08/21/23 08/22/23 05:05 06:22 09:30 Sodium 141 139 142 Potassium 4.3 4.6 4.5 Carbon Dioxide 26 30 H 31 H BUN 53 H 69 H 76 H Creatinine 1.56 H 1.85 H 2.25 H Calcium 9.5 9.8 9.1 D Hematology 08/20/23 08/22/23 05:05 09:30 WBC 5.8 9.2 Hgb 11.3 L 10.6 L Plt Count 216 219 Assessment and Plan (1) Acute kidney injury: Status: Acute Plan ADRIANE likely due to 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 Needs urine Na on diuretics as well May need vasodialator with diuretics if she doesnt have adequate response Will not be surprised if she will end up needing renal replacement Shall continue to follow up; D/W Cards Attending Procedures Date of Service Date of Service: 08/22/23
[2023-08-22 20:22] LABS: Glucose, Whole Blood 179 mg/dL (60-115)
[2023-08-22] MEDS: Insulin Lispro 100 UNIT/ML 3 ML VIAL SUBCUT (20:56)
[2023-08-23] VITALS (8 sets, daily range): BP systolic 101–141; BP diastolic 55–78; PULSE 64–88; RESP 15–20; TEMP 36.6–37.1; O2SAT 89–96; BMI 25.7
[2023-08-23] MEDS: 0.9 % Sodium Chloride Flush 3 ML SYRINGE IVFLUSH ×4 (06:03→21:22)
[2023-08-23] MEDS: Levothyroxine Sodium 50 MCG TABLET PO (06:03)
[2023-08-23 06:55] LABS: Glucose, Whole Blood 67 mg/dL (60-115)
[2023-08-23 07:37] LABS: Anion Gap 17 (12-20); Blood Urea Nitrogen 75 mg/dL (9-16); Calcium 9.5 mg/dL (8.4-10.2); Carbon Dioxide 29 mmol/L (22-29); Chloride 101 mmol/L (96-108); Creatinine Clr Calc Pharmacy 22.3; Estimated Glomerular Filt Rate 27; Glucose Random 63 mg/dL (60-115); Potassium 4.2 mmol/L (3.3-5.1); Sodium 143 mmol/L (135-145)
[2023-08-23] MEDS: glipiZIDE XL 2.5 MG TAB.ER.24 PO (08:03)
[2023-08-23] MEDS: Escitalopram Oxalate 10 MG TABLET PO (08:03)
[2023-08-23] MEDS: Heparin Sodium,Porcine 5,000 UNIT/ML VIAL 5000 UNIT SUBCUT ×2 (08:03→21:21)
[2023-08-23] MEDS: Gabapentin 400 MG CAPSULE 800 MG PO (08:03)
[2023-08-23] MEDS: Cholecalciferol (Vitamin D3) 25 MCG TABLET PO ×2 (08:03→21:21)
[2023-08-23] MEDS: Aspirin Enteric Coated 81 MG TABLET.DR PO (08:03)
[2023-08-23] MEDS: Albuterol/Iprat 2.5/0.5MG 3 ML AMPUL.NEB INHALE ×2 (08:23→15:48)
[2023-08-23 11:01] LABS: Glucose, Whole Blood 112 mg/dL (60-115)
[2023-08-23] MEDS: Furosemide 100 MG/10 ML VIAL 80 MG IVPUSH (11:45)
--- NOTE | 2023-08-23 13:00 | PM.PNCARD ---
Subjective Subjective Date of Service: 08/23/23 Interval history: Seen and examined at bedside. Continues to be short of breath. Significantly volume overloaded. She was given 80 mg of Lasix yesterday and subsequently due to creatinine rising Lasix was held. She is in negative balance today and creatinine is better than yesterday. Physical Exam Vital Signs: Last Vital Signs Temp 98.2 F 08/23/23 11:09 Pulse 84 08/23/23 11:09 Resp 20 08/23/23 11:09 BP 101/61 08/23/23 11:09 Pulse Ox 93 08/23/23 11:09 O2 Del Method Nasal Cannula 08/23/23 11:09 O2 Flow Rate 3 08/23/23 11:09 Oxygen Flow Rate 2 08/19/23 16:07 BMI result Body Mass Index 25.7 GENERAL APPEARANCE: Short of breath, on supplemental oxygen. NECK: no carotid bruit,, elevated JVD to the angle of jaw. Prominent V-wave. SKIN: no suspicious lesions, warm and dry. HEART: Left parasternal heave, holosystolic murmur at the apex and left parasternal border. LUNGS: crackles at bases. ABDOMEN: soft, nontender. EXTREMITIES: Mild edema. PERIPHERAL PULSES: equal. NEUROLOGIC: No gross deficits, AAO X 3 Objective Labs and Meds 08/22/23 09:30 08/23/23 06:21 Lab results: Laboratory Results - last 24 hr 08/22/23 08/22/23 08/23/23 16:59 20:18 06:21 Sodium 143 Potassium 4.2 Chloride 101 Carbon Dioxide 29 Anion Gap 17 BUN 75 H Creatinine 1.80 H Estim Creat Clear Calc 22.3 Estimated GFR 27 POC Glucose 140 H 179 H Random Glucose 63 Calcium 9.5 Ur Random Sodium 08/23/23 08/23/23 08/23/23 06:30 06:51 10:57 Sodium Potassium Chloride Carbon Dioxide Anion Gap BUN Creatinine Estim Creat Clear Calc Estimated GFR POC Glucose 67 112 Random Glucose Calcium Ur Random Sodium 67.0 Progress Note: A&P Assessment and plan (1) Acute on chronic systolic CHF (congestive heart failure): Status: Acute Plan 83-year-old female who presented with shortness of breath and clinical heart failure. She has severely reduced ejection fraction and wide left bundle branch block which could be potential cause for the cardiomyopathy. She also has RV dysfunction with severe tricuspid valve regurgitation, calcific mitral stenosis which is in the moderate to severe range as well as mitral regurgitation. Quite deconditioned and overall quite overloaded. Course has been challenging cause diuretics her creatinine was rising and ins and outs were not very well documented so it was hard to know whether getting worse due to diuretics or not. She received 80 mg Lasix yesterday and is in inactive balance and creatinine has improved despite being inactive balance. Clinically she is overloaded. I had a discussion with Nephrology detail and we have decided to diurese her with Lasix drip. Start her on 7.5 milligram/hour. We will monitor her closely. She should have b.i.d. labs potassium and magnesium in particular he currently unable tolerate any heart condition to blood pressure. He had any blood pressure room then will consider adding afterload reducers. Thank you for allowing me to participate in the care of your patient. Please feel free to contact me if you have any questions. Time Spent With Patient Time: Total time managing care of this patient today ____ minutes. Progress Note: Quality Stroke Does the patient have a stroke diagnosis?: No Procedures Date of Service Date of Service: 08/23/23
--- NOTE | 2023-08-23 13:32 | P.PNIM_ITS ---
Subjective Subjective Date of Service: 08/23/23 Interval History: Being followed for acute congestive heart failure, patient denies shortness of breath, slept well complaining of on and off cough congested but not bringing up any phlegm, denies chest pain, no fevers, no chills, tolerating diet, no nausea, no vomiting, no abdominal pain, no other acute issues overnight. Review of Systems All other system reviewed and negative. Physical Exam 2 Vital Signs: Vital Signs: Last Vital Signs Temp 98.2 F 08/23/23 11:09 Pulse 84 08/23/23 11:09 Resp 20 08/23/23 11:09 BP 101/61 08/23/23 11:09 Pulse Ox 93 08/23/23 11:09 O2 Del Method Nasal Cannula 08/23/23 11:09 O2 Flow Rate 3 08/23/23 11:09 Oxygen Flow Rate 2 08/19/23 16:07 BMI result Body Mass Index 25.7 Const: Other: General awake alert x3,resting comfortably in no acute distress. Neck supple ,+ JVD . CVS regular rate rhythm, Respiratory lungs left base crackles, no respiratory distress, no wheeze, no rales Gastrointestinal abdomen soft, non tender, bowel sounds audible, no guarding , no rigidity. Extremities edema resolved. Neuro non focal Skin dry/see wound nurse note for skin examination Psych appropriate affect Objective Data Active Medications Acetaminophen (Acetaminophen 325 Mg Tablet) 650 mg PO Q6H PRN PRN Reason: Pain, Mild (Pain Scale 1-3) Last Admin: 08/21/23 09:52 Dose: 650 mg Documented By: FUNMILAYO Albuterol/Ipratropium (Albuterol/Iprat 2.5/0.5mg 3 Ml Ampul.Neb) 3 ml INHALE RQ6H WHILE AWAKE [facility] Last Admin: 08/23/23 08:23 Dose: 3 ml Documented By: SHELLY Artificial Tears (Artificial Tears 15 Ml Drops) 1 drop EYE-BOTH Q2H PRN PRN Reason: Dry Eyes Aspirin (Aspirin Enteric Coated 81 Mg Tablet.) 81 mg PO DAILY [facility] Last Admin: 08/23/23 08:03 Dose: 81 mg Documented By: NORRIS Atorvastatin Calcium (Atorvastatin Calcium 10 Mg Tablet) 10 mg PO DAILY@1700 [facility] Last Admin: 08/22/23 17:16 Dose: 10 mg Documented By: NORRIS Dextrose (Dextrose 50 % 25 Gm/50 Ml Syringe) 25 gm IVPUSH Q15M PRN; Protocol PRN Reason: per Hypoglycemia Standing Ord. Escitalopram Oxalate (Escitalopram Oxalate 10 Mg Tablet) 10 mg PO DAILY [facility] Last Admin: 08/23/23 08:03 Dose: 10 mg Documented By: NORRIS Furosemide (Furosemide 100 Mg/10 Ml Vial) 80 mg IVPUSH Q12H [facility]; Protocol Last Admin: 08/23/23 11:45 Dose: 80 mg Documented By: NORRIS Gabapentin (Gabapentin 300 Mg Capsule) 600 mg PO BID [facility] Last Admin: 08/23/23 08:34 Dose: Not Given Documented By: NORRIS Non-Admin Reason: Previously Administered Glipizide (Glipizide Xl 2.5 Mg Tab.Er.24) 2.5 mg PO DAILY [facility] Last Admin: 08/23/23 08:34 Dose: Not Given Documented By: NORRIS Non-Admin Reason: Previously Administered Glucose (Glucose Gel 15 Gm Gel..Gram.) 15 gm PO Q15M PRN; Protocol PRN Reason: per Hypoglycemia Standing Ord. Heparin Sodium (Porcine) (Heparin Sodium,Porcine 5,000 Unit/Ml Vial) 5,000 unit SUBCUT Q12H [facility] Last Admin: 08/23/23 08:03 Dose: 5,000 unit Documented By: NORRIS Furosemide 200 mg/ Sodium (Chloride) 100 mls @ 3.75 mls/hr IVCONT .Q24H [facility] Insulin Human Lispro (Insulin Lispro 100 Unit/Ml 3 Ml Vial) 0 unit SUBCUT QIDACHS [facility]; Protocol Last Admin: 08/23/23 11:25 Dose: Not Given Documented By: NORRIS Non-Admin Reason: poc= 112 Levothyroxine Sodium (Levothyroxine Sodium 50 Mcg Tablet) 50 mcg PO DAILY@0600 [facility] Last Admin: 08/23/23 06:03 Dose: 50 mcg Documented By: DAVIDSON Sodium Chloride (0.9 % Sodium Chloride Flush 3 Ml Syringe) 3 ml IVFLUSH QSHIFT [facility] Last Admin: 08/23/23 08:03 Dose: 3 ml Documented By: NORRIS Vitamin D (Cholecalciferol (Vitamin D3) 25 Mcg Tablet) 25 mcg PO BID [facility] Last Admin: 08/23/23 08:03 Dose: 25 mcg Documented By: NORRIS Labs 08/22/23 09:30 08/23/23 06:21 Labs: Laboratory Results - last 24 hr 08/22/23 08/22/23 08/23/23 16:59 20:18 06:21 Anion Gap 17 Estim Creat Clear Calc 22.3 Estimated GFR 27 POC Glucose 140 H 179 H Random Glucose 63 Calcium 9.5 Ur Random Sodium 08/23/23 08/23/23 08/23/23 06:30 06:51 10:57 Anion Gap Estim Creat Clear Calc Estimated GFR POC Glucose 67 112 Random Glucose Calcium Ur Random Sodium 67.0 Assessment and Plan (1) Acute on chronic systolic CHF (congestive heart failure): Status: Acute Plan Sarah Man is a very pleasant 83 years old woman with past medical history significant for HFrEF (15-20% TTE Jul 2022), severe MR stenosis, severe tricuspid valve regurgitation, s/p TAVR, COPD -on home oxygen 2 L/min, coronary artery disease and pulmonary hypertension admitted with: Acute on chronic hypoxic respiratory failure due to acute on chronic systolic congestive heart failure/severe pulmonary hypertension right-sided heart failure. Echo showed EF 15-20% moderately increased right ventricular cavity site, severely dilated left atrium, prosthetic aortic valve, severe tricuspid valve regurgitation, severe mitral stenosis, abnormally functioning prosthetic aortic valve, paradoxical septal motion consistent with left bundle branch block Severe pulmonary hypertension. Treated with IV Bumex 1.5 mg b.i.d. and by mouth spironolactone, noted to have significant rise in creatinine , diuretics were held yesterday renal function better this a.m. but patient noted to have elevated JVD and appears volume overloaded Cardiology recommend IV Lasix 80 mg followed by IV Lasix drip Repeat BNP remains elevated 1975 chronically elevated BNP around 1999 Seen by nephrology they recommend to diurese accepting that her serum creatinine is going to rise. Will place on Rodriguez catheter to monitor I's and O's closely Wean oxygen as tolerated on 2 L of home oxygen Hypothyroidism continue levothyroxine , stable TSH Neuropathy on gabapentin 800 q.i.d. wean dosage due to decreased creatinine clearance . Type 2 diabetes mellitus continue diabetic diet, on glipizide 2.5 mg b.i.d., dose changed to 2.5 daily due to poor kidney function monitor point of care blood sugars and insulin sliding scale Chronic normocytic anemia stable Eight beat run of nonsustained V-tach: asymptomatic will monitor potassium and magnesium, soft blood pressure, hold beta-blockers. Acute on chronic kidney disease stage 3 noted to have gradually worsening creatinine 2.25 , today improved to 1.8 Being followed by Nephrology, follow BMP , avoid nephrotoxins MASD (Moisture associated Skin Damage) sacrum continue wound dressing as per wound nurse. DVT prophylaxis: Heparin subcut Code status: Full Patient will need continued inpatient hospitalization for med management of acute on chronic hypoxic respiratory failure and acute on chronic kidney disease require expert consultation and close monitoring of renal function and electrolytes. Quality Stroke Does the patient have a stroke diagnosis?: No VTE Prior VTE?: No VTE Risk Level:: Medical - moderate - high VTE Device Contraindication: Treatment Not Indicated VTE Drug Contraindication: N/A - Med Ordered
[2023-08-23] MEDS: Furosemide 200 MG in 0.9 % Sodium Chloride 80 ML IVCONT (15:14)
[2023-08-23 15:35] LABS: Glucose, Whole Blood 129 mg/dL (60-115)
[2023-08-23] MEDS: Atorvastatin Calcium 10 MG TABLET PO (17:02)
[2023-08-23 19:48] LABS: Glucose, Whole Blood 238 mg/dL (60-115)
[2023-08-23] MEDS: Gabapentin 300 MG CAPSULE 600 MG PO (21:21)
[2023-08-23] MEDS: Insulin Lispro 100 UNIT/ML 3 ML VIAL SUBCUT (21:22)
[2023-08-24] VITALS (11 sets, daily range): BP systolic 113–169; BP diastolic 58–73; PULSE 71–89; RESP 16–26; TEMP 36.3–37.2; O2SAT 88–97; BMI 25.4
[2023-08-24] MEDS: Levothyroxine Sodium 50 MCG TABLET PO (05:36)
[2023-08-24 07:27] LABS: Glucose, Whole Blood 90 mg/dL (60-115)
[2023-08-24 07:42] LABS: Anion Gap 15 (12-20); Blood Urea Nitrogen 73 mg/dL (9-16); Calcium 9.5 mg/dL (8.4-10.2); Carbon Dioxide 33 mmol/L (22-29); Chloride 99 mmol/L (96-108); Creatinine Clr Calc Pharmacy 24.6; Estimated Glomerular Filt Rate 31; Glucose Random 85 mg/dL (60-115); Magnesium 2.5 mg/dL (1.6-2.6); Potassium 3.9 mmol/L (3.3-5.1); Sodium 143 mmol/L (135-145)
[2023-08-24] MEDS: 0.9 % Sodium Chloride Flush 3 ML SYRINGE IVFLUSH ×2 (09:07→14:19)
[2023-08-24] MEDS: glipiZIDE XL 2.5 MG TAB.ER.24 PO (09:07)
[2023-08-24] MEDS: Gabapentin 300 MG CAPSULE 600 MG PO ×2 (09:07→21:28)
[2023-08-24] MEDS: Aspirin Enteric Coated 81 MG TABLET.DR PO (09:07)
[2023-08-24] MEDS: Cholecalciferol (Vitamin D3) 25 MCG TABLET PO ×2 (09:07→21:28)
[2023-08-24] MEDS: Escitalopram Oxalate 10 MG TABLET PO (09:07)
[2023-08-24] MEDS: Heparin Sodium,Porcine 5,000 UNIT/ML VIAL 5000 UNIT SUBCUT ×2 (09:08→21:28)
[2023-08-24 10:26] LABS: B Type Natriuretic Peptide 2970 pg/mL (<100)
[2023-08-24 11:05] LABS: Procalcitonin 0.07 ng/mL
[2023-08-24 11:08] LABS: Glucose, Whole Blood 136 mg/dL (60-115)
[2023-08-24] MEDS: Magnesium Sulfate/D5W 1 GM/100 ML PIGGYBACK IV (11:36)
[2023-08-24] MEDS: Albuterol/Iprat 2.5/0.5MG 3 ML AMPUL.NEB INHALE ×3 (11:56→19:36)
[2023-08-24] MEDS: metOLazone 5 MG TABLET PO (12:14)
--- NOTE | 2023-08-24 12:15 | PM.PNCARD ---
Subjective Subjective Date of Service: 08/24/23 Interval history: Seen examined at bedside. Still short of breath. Continues to be volume overloaded. Diuresing better and is-1480 mL. Creatinine is improving with diuresis. Physical Exam Vital Signs: Last Vital Signs Temp 97.4 F 08/24/23 11:24 Pulse 89 08/24/23 11:24 Resp 18 08/24/23 11:24 BP 116/59 L 08/24/23 11:24 Pulse Ox 95 08/24/23 11:24 O2 Del Method Nasal Cannula 08/24/23 11:24 O2 Flow Rate 3 08/24/23 11:24 Oxygen Flow Rate 2 08/19/23 16:07 BMI result Body Mass Index 25.4 GENERAL APPEARANCE: Short of breath, on supplemental oxygen. NECK: no carotid bruit,, elevated JVD to the angle of jaw. Prominent V-wave. SKIN: no suspicious lesions, warm and dry. HEART: Left parasternal heave, holosystolic murmur at the apex and left parasternal border. LUNGS: crackles at bases. ABDOMEN: soft, nontender. EXTREMITIES: Mild edema. PERIPHERAL PULSES: equal. NEUROLOGIC: No gross deficits, AAO X 3 Objective Labs and Meds 08/22/23 09:30 08/24/23 06:29 Lab results: Laboratory Results - last 24 hr 08/23/23 08/23/23 08/24/23 15:17 19:20 06:29 Sodium 143 Potassium 3.9 Chloride 99 Carbon Dioxide 33 H Anion Gap 15 BUN 73 H Creatinine 1.60 H Estim Creat Clear Calc 24.6 Estimated GFR 31 POC Glucose 129 H 238 H Random Glucose 85 Calcium 9.5 Magnesium 2.5 B-Natriuretic Peptide Procalcitonin 0.07 08/24/23 08/24/23 08/24/23 07:00 09:37 11:02 Sodium Potassium Chloride Carbon Dioxide Anion Gap BUN Creatinine Estim Creat Clear Calc Estimated GFR POC Glucose 90 136 H Random Glucose Calcium Magnesium B-Natriuretic Peptide 2970 H Procalcitonin Imaging Radiologist's impression: Impressions Chest X-Ray 08/24/23 10:19 IMPRESSION: Unchanged compared to 08/19/2023. Progress Note: A&P Assessment and plan (1) Acute on chronic systolic CHF (congestive heart failure): Status: Acute Plan 83-year-old female with advanced heart failure on background of valvular disease. 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 She has moderate to severe mitral valve stenosis which is calcific mitral valve disease. Severe cardiomyopathy with the left bundle-branch block. Severe tricuspid valve regurgitation and RV dysfunction. Initially she had rising creatinine with diuretics but with continued diuresis creatinine is improving which is a good sign. Continue diurese her she still is quite overloaded. Blood pressures still are borderline and creatinine is too high to add any Deejay or ARB. Low-dose hydralazine and nitroglycerin is a possibility but I think she may not be able to tolerate it and low blood pressure will lead to stopping her diuretics which are required currently to improve her volume status. Monitor electrolytes closely with diuresis. Thank you for allowing me to participate in the care of your patient. Please feel free to contact me if you have any questions. Time Spent With Patient Time: Total time managing care of this patient today ____ minutes. Progress Note: Quality Stroke Does the patient have a stroke diagnosis?: No Procedures Date of Service Date of Service: 08/24/23
[2023-08-24] MEDS: Furosemide 200 MG in 0.9 % Sodium Chloride 80 ML IVCONT (14:17)
--- NOTE | 2023-08-24 14:34 | P.PNIM_ITS ---
Subjective Subjective Date of Service: 08/24/23 Interval History: Acute hypoxemic respiratory failure Review of Systems sob seem intermittent seems similar to yesterday no fever ,has dry cough Physical Exam 2 Vital Signs: Vital Signs: Last Vital Signs Temp 97.4 F 08/24/23 11:24 Pulse 89 08/24/23 12:14 Resp 20 08/24/23 12:14 BP 116/59 L 08/24/23 11:24 Pulse Ox 95 08/24/23 11:24 O2 Del Method Nasal Cannula 08/24/23 11:24 O2 Flow Rate 3 08/24/23 11:24 Oxygen Flow Rate 3 08/24/23 08:00 BMI result Body Mass Index 25.4 General awake alert x3,resting comfortably in no acute distress. Neck supple ,+ JVD . CVS :rrr, s1s2 heard. Respiratory lungs left base crackles, no respiratory distress. Gastrointestinal abdomen soft, non tender, bowel sounds audible, no guarding , no rigidity. Extremities edema resolved. Neuro non focal Skin dry/see wound nurse note for skin examination Psych appropriate affect Objective Data Active Medications Acetaminophen (Acetaminophen 325 Mg Tablet) 650 mg PO Q6H PRN PRN Reason: Pain, Mild (Pain Scale 1-3) Last Admin: 08/21/23 09:52 Dose: 650 mg Documented By: FUNMILAYO Albuterol/Ipratropium (Albuterol/Iprat 2.5/0.5mg 3 Ml Ampul.Neb) 3 ml INHALE RQ4H WHILE AWAKE [facility] Last Admin: 08/24/23 11:56 Dose: 3 ml Documented By: SHELLY Artificial Tears (Artificial Tears 15 Ml Drops) 1 drop EYE-BOTH Q2H PRN PRN Reason: Dry Eyes Aspirin (Aspirin Enteric Coated 81 Mg Tablet.) 81 mg PO DAILY [facility] Last Admin: 08/24/23 09:07 Dose: 81 mg Documented By: NORRIS Atorvastatin Calcium (Atorvastatin Calcium 10 Mg Tablet) 10 mg PO DAILY@1700 [facility] Last Admin: 08/23/23 17:02 Dose: 10 mg Documented By: NORRIS Dextrose (Dextrose 50 % 25 Gm/50 Ml Syringe) 25 gm IVPUSH Q15M PRN; Protocol PRN Reason: per Hypoglycemia Standing Ord. Escitalopram Oxalate (Escitalopram Oxalate 10 Mg Tablet) 10 mg PO DAILY [facility] Last Admin: 08/24/23 09:07 Dose: 10 mg Documented By: NORRIS Gabapentin (Gabapentin 300 Mg Capsule) 600 mg PO BID [facility] Last Admin: 08/24/23 09:07 Dose: 600 mg Documented By: NORRIS Glipizide (Glipizide Xl 2.5 Mg Tab.Er.24) 2.5 mg PO DAILY [facility] Last Admin: 08/24/23 09:07 Dose: 2.5 mg Documented By: NORRIS Glucose (Glucose Gel 15 Gm Gel..Gram.) 15 gm PO Q15M PRN; Protocol PRN Reason: per Hypoglycemia Standing Ord. Guaifenesin (Guaifenesin 200 Mg/10 Ml 10 Ml Liquid) 10 ml PO Q4H PRN PRN Reason: Cough Heparin Sodium (Porcine) (Heparin Sodium,Porcine 5,000 Unit/Ml Vial) 5,000 unit SUBCUT Q12H [facility] Last Admin: 08/24/23 09:08 Dose: 5,000 unit Documented By: NORRIS Furosemide 200 mg/ Sodium (Chloride) 100 mls @ 3.75 mls/hr IVCONT .Q24H [facility] Last Admin: 08/24/23 14:17 Dose: 7.5 mg/hr, 3.75 mls/hr Documented By: NORRIS Insulin Human Lispro (Insulin Lispro 100 Unit/Ml 3 Ml Vial) 0 unit SUBCUT QIDACHS [facility]; Protocol Last Admin: 08/24/23 11:15 Dose: Not Given Documented By: NORRIS Non-Admin Reason: poc= 136 Levothyroxine Sodium (Levothyroxine Sodium 50 Mcg Tablet) 50 mcg PO DAILY@0600 [facility] Last Admin: 08/24/23 05:36 Dose: 50 mcg Documented By: DAVIDSON Sodium Chloride (0.9 % Sodium Chloride Flush 3 Ml Syringe) 3 ml IVFLUSH QSHIFT [facility] Last Admin: 08/24/23 14:19 Dose: 3 ml Documented By: NORRIS Vitamin D (Cholecalciferol (Vitamin D3) 25 Mcg Tablet) 25 mcg PO BID [facility] Last Admin: 08/24/23 09:07 Dose: 25 mcg Documented By: NORRIS Labs 08/22/23 09:30 08/24/23 06:29 Labs: Laboratory Results - last 24 hr 01/08/23/23 08/24/23 15:17 19:20 06:29 Anion Gap 15 Estim Creat Clear Calc 24.6 Estimated GFR 31 POC Glucose 129 H 238 H Random Glucose 85 Calcium 9.5 Magnesium 2.5 B-Natriuretic Peptide Procalcitonin 0.07 08/24/23 08/24/23 08/24/23 07:00 09:37 11:02 Anion Gap Estim Creat Clear Calc Estimated GFR POC Glucose 90 136 H Random Glucose Calcium Magnesium B-Natriuretic Peptide 2970 H Procalcitonin Assessment and Plan (1) Acute on chronic systolic CHF (congestive heart failure): Status: Acute Plan Sarah Man is a very pleasant 83 years old woman with past medical history significant for HFrEF (15-20% TTE Jul 2022), severe MR stenosis, severe tricuspid valve regurgitation, s/p TAVR, COPD -on home oxygen 2 L/min, coronary artery disease and pulmonary hypertension admitted with: Acute on chronic hypoxic respiratory failure due to acute on chronic systolic congestive heart failure/severe pulmonary hypertension right-sided heart failure. Echo showed EF 15-20% moderately increased right ventricular cavity site, severely dilated left atrium, prosthetic aortic valve, severe tricuspid valve regurgitation, severe mitral stenosis, abnormally functioning prosthetic aortic valve, paradoxical septal motion consistent with left bundle branch block,Severe pulmonary hypertension. bnp ch around 1999-today 2900 has jvd Rodriguez catheter to monitor I's and O's closely,daily weights i/o: 3800 ml negative patient received iv lasix ,then bumex -less response -switched to iv lasix drip ,added metolazone discussed with cardiology , as well as being followed by nephro :continue above ,creatinine is too high to add any Deejay or ARB. Low-dose hydralazine and nitroglycerin is a possibility but I think she may not be able to tolerate it and low blood pressure . Hypothyroidism continue levothyroxine , stable TSH. Neuropathy on gabapentin 600 b.i.d. wean dosage due to decreased creatinine clearance . Type 2 diabetes mellitus continue diabetic diet, on glipizide 2.5 mg b.i.d., dose changed to 2.5 daily due to poor kidney function monitor point of care blood sugars and insulin sliding scale Chronic normocytic anemia stable as per chart review :nonsustained V-tach: asymptomatic will monitor potassium and magnesium, soft blood pressure, hold beta-blockers. moniter electrolytes , keep postasium>4 ,mag >2. Acute on chronic kidney disease stage 3 noted to have gradually worsening creatinine 2.25 , today improved to 1.6 Being followed by Nephrology, follow BMP , avoid nephrotoxins MASD (Moisture associated Skin Damage) sacrum continue wound dressing as per wound nurse. DVT prophylaxis: Heparin subcut Code status: Full Patient will need continued inpatient hospitalization for med management of acute on chronic hypoxic respiratory failure and acute on chronic kidney disease require expert consultation and close monitoring of renal function and electrolytes. Quality Stroke Does the patient have a stroke diagnosis?: No VTE Prior VTE?: No VTE Risk Level:: Medical - moderate - high VTE Device Contraindication: Treatment Not Indicated VTE Drug Contraindication: N/A - Med Ordered
[2023-08-24 16:36] LABS: Glucose, Whole Blood 100 mg/dL (60-115)
[2023-08-24] MEDS: Potassium Chloride Packet 20 MEQ PACKET PO (17:21)
[2023-08-24] MEDS: Atorvastatin Calcium 10 MG TABLET PO (17:21)
[2023-08-24 20:38] LABS: Glucose, Whole Blood 174 mg/dL (60-115)
[2023-08-24] MEDS: Insulin Lispro 100 UNIT/ML 3 ML VIAL SUBCUT (21:28)
[2023-08-24] MEDS: Acetaminophen 325 MG TABLET 650 MG PO (21:33)
[2023-08-25] VITALS (8 sets, daily range): BP systolic 105–142; BP diastolic 59–92; PULSE 69–92; RESP 15–25; TEMP 36.4–36.6; O2SAT 90–95; BMI 24.3
[2023-08-25] MEDS: Levothyroxine Sodium 50 MCG TABLET PO (06:15)
[2023-08-25 07:38] LABS: Glucose, Whole Blood 115 mg/dL (60-115)
[2023-08-25 07:41] LABS: Anion Gap 16 (12-20); Blood Urea Nitrogen 67 mg/dL (9-16); Calcium 9.7 mg/dL (8.4-10.2); Carbon Dioxide 36 mmol/L (22-29); Chloride 95 mmol/L (96-108); Creatinine Clr Calc Pharmacy 23.3; Estimated Glomerular Filt Rate 32; Glucose Random 111 mg/dL (60-115); Potassium 3.8 mmol/L (3.3-5.1); Sodium 143 mmol/L (135-145)
[2023-08-25 07:46] LABS: B Type Natriuretic Peptide 2603 pg/mL (<100)
[2023-08-25] MEDS: Heparin Sodium,Porcine 5,000 UNIT/ML VIAL 5000 UNIT SUBCUT ×2 (08:02→22:13)
[2023-08-25] MEDS: Gabapentin 300 MG CAPSULE 600 MG PO ×2 (08:03→22:12)
[2023-08-25] MEDS: Aspirin Enteric Coated 81 MG TABLET.DR PO (08:03)
[2023-08-25] MEDS: Escitalopram Oxalate 10 MG TABLET PO (08:03)
[2023-08-25] MEDS: Cholecalciferol (Vitamin D3) 25 MCG TABLET PO ×2 (08:03→22:12)
[2023-08-25] MEDS: glipiZIDE XL 2.5 MG TAB.ER.24 PO (08:03)
[2023-08-25] MEDS: Albuterol/Iprat 2.5/0.5MG 3 ML AMPUL.NEB INHALE ×3 (08:23→20:32)
--- NOTE | 2023-08-25 10:44 | MHC.CM.PN ---
EMR reviewed and per MD rounds, pt is not medically cleared for D/C due to requiring management of CHF and on IV lasix. CM will continue to follow.
[2023-08-25] MEDS: Insulin Lispro 100 UNIT/ML 3 ML VIAL SUBCUT (11:53)
[2023-08-25 11:58] LABS: Glucose, Whole Blood 170 mg/dL (60-115)
[2023-08-25] MEDS: Furosemide 200 MG in 0.9 % Sodium Chloride 80 ML IVCONT (12:22)
[2023-08-25] MEDS: metOLazone 5 MG TABLET PO (12:22)
--- NOTE | 2023-08-25 15:30 | HO.PM.IMPN ---
Subjective Subjective Date of Service: 08/25/23 Interval History: Acute hypoxemic respiratory failure Review of Systems sob seem intermittentbut somewaht improving ,no fever ,has dry cough no fevers Physical Exam Vital Signs: Vital Signs: Last Vital Signs Temp 97.5 F 08/25/23 12:00 Pulse 85 08/25/23 12:00 Resp 15 08/25/23 12:00 BP 115/72 08/25/23 12:00 Pulse Ox 93 08/25/23 12:00 O2 Del Method Nasal Cannula 08/25/23 12:00 O2 Flow Rate 4 08/25/23 12:00 Oxygen Flow Rate 3 08/24/23 08:00 BMI result Body Mass Index 24.3 General awake alert x3,resting comfortably in no acute distress. Neck supple ,+ JVD . CVS :rrr, s1s2 heard. Respiratory lungs left base crackles, no respiratory distress. Gastrointestinal abdomen soft, non tender, bowel sounds audible, no guarding , no rigidity. Extremities edema resolved. Neuro non focal Skin dry/see wound nurse note for skin examination Psych appropriate affect Objective Data Active Medications Acetaminophen (Acetaminophen 325 Mg Tablet) 650 mg PO Q6H PRN PRN Reason: Pain, Mild (Pain Scale 1-3) Last Admin: 08/24/23 21:33 Dose: 650 mg Documented By: MATHEUS Albuterol/Ipratropium (Albuterol/Iprat 2.5/0.5mg 3 Ml Ampul.Neb) 3 ml INHALE RQ4H WHILE AWAKE [facility] Last Admin: 08/25/23 15:15 Dose: Not Given Documented By: BONY Non-Admin Reason: Patient Refused Artificial Tears (Artificial Tears 15 Ml Drops) 1 drop EYE-BOTH Q2H PRN PRN Reason: Dry Eyes Aspirin (Aspirin Enteric Coated 81 Mg Tablet.) 81 mg PO DAILY [facility] Last Admin: 08/25/23 08:03 Dose: 81 mg Documented By: ELAINE Atorvastatin Calcium (Atorvastatin Calcium 10 Mg Tablet) 10 mg PO DAILY@1700 [facility] Last Admin: 08/24/23 17:21 Dose: 10 mg Documented By: NORRIS Dextrose (Dextrose 50 % 25 Gm/50 Ml Syringe) 25 gm IVPUSH Q15M PRN; Protocol PRN Reason: per Hypoglycemia Standing Ord. Escitalopram Oxalate (Escitalopram Oxalate 10 Mg Tablet) 10 mg PO DAILY [facility] Last Admin: 08/25/23 08:03 Dose: 10 mg Documented By: ELAINE Gabapentin (Gabapentin 300 Mg Capsule) 600 mg PO BID [facility] Last Admin: 08/25/23 08:03 Dose: 600 mg Documented By: ELAINE Glipizide (Glipizide Xl 2.5 Mg Tab.Er.24) 2.5 mg PO DAILY [facility] Last Admin: 08/25/23 08:03 Dose: 2.5 mg Documented By: ELAINE Glucose (Glucose Gel 15 Gm Gel..Gram.) 15 gm PO Q15M PRN; Protocol PRN Reason: per Hypoglycemia Standing Ord. Guaifenesin (Guaifenesin 200 Mg/10 Ml 10 Ml Liquid) 10 ml PO Q4H PRN PRN Reason: Cough Heparin Sodium (Porcine) (Heparin Sodium,Porcine 5,000 Unit/Ml Vial) 5,000 unit SUBCUT Q12H [facility] Last Admin: 08/25/23 08:02 Dose: 5,000 unit Documented By: ELAINE Furosemide 200 mg/ Sodium (Chloride) 100 mls @ 3.75 mls/hr IVCONT .Q24H [facility] Last Admin: 08/25/23 12:22 Dose: 7.5 mg/hr, 3.75 mls/hr Documented By: ELAINE Insulin Human Lispro (Insulin Lispro 100 Unit/Ml 3 Ml Vial) 0 unit SUBCUT QIDACHS [facility]; Protocol Last Admin: 08/25/23 11:53 Dose: 2 unit Documented By: ELAINE Levothyroxine Sodium (Levothyroxine Sodium 50 Mcg Tablet) 50 mcg PO DAILY@0600 [facility] Last Admin: 08/25/23 06:15 Dose: 50 mcg Documented By: MATHEUS Sodium Chloride (0.9 % Sodium Chloride Flush 3 Ml Syringe) 3 ml IVFLUSH QSHIFT [facility] Last Admin: 08/25/23 13:14 Dose: Not Given Documented By: ELAINE Non-Admin Reason: See Note Vitamin D (Cholecalciferol (Vitamin D3) 25 Mcg Tablet) 25 mcg PO BID [facility] Last Admin: 08/25/23 08:03 Dose: 25 mcg Documented By: ELAINE Labs 08/22/23 09:30 08/25/23 07:03 Labs: Laboratory Results - last 24 hr 08/24/23 08/24/23 08/25/23 16:30 20:28 07:03 Anion Gap 16 Estim Creat Clear Calc 23.3 Estimated GFR 32 POC Glucose 100 174 H Random Glucose 111 Calcium 9.7 B-Natriuretic Peptide 2603 H 08/25/23 08/25/23 07:30 11:28 Anion Gap Estim Creat Clear Calc Estimated GFR POC Glucose 115 170 H Random Glucose Calcium B-Natriuretic Peptide Assessment and Plan (1) Acute on chronic systolic CHF (congestive heart failure): Status: Acute Plan Sarah Man is a very pleasant 83 years old woman with past medical history significant for HFrEF (15-20% TTE Jul 2022), severe MR stenosis, severe tricuspid valve regurgitation, s/p TAVR, COPD -on home oxygen 2 L/min, coronary artery disease and pulmonary hypertension admitted with: Acute on chronic hypoxic respiratory failure due to acute on chronic systolic congestive heart failure/severe pulmonary hypertension right-sided heart failure. Echo showed EF 15-20% moderately increased right ventricular cavity site, severely dilated left atrium, prosthetic aortic valve, severe tricuspid valve regurgitation, severe mitral stenosis, abnormally functioning prosthetic aortic valve, paradoxical septal motion consistent with left bundle branch block,Severe pulmonary hypertension. bnp ch around 1999- [id number] has jvd Rodriguez catheter to monitor I's and O's closely,daily weights i/o: 3800 ml negative patient received iv lasix ,then bumex -less response -switched to iv lasix drip ,added metolazone discussed with cardiology , as well as being followed by nephro :continue above ,creatinine is too high to add any Dejeay or ARB. Low-dose hydralazine and nitroglycerin is a possibility but I think she may not be able to tolerate it and low blood pressure . Hypothyroidism continue levothyroxine , stable TSH. Neuropathy on gabapentin 600 b.i.d. wean dosage due to decreased creatinine clearance . Type 2 diabetes mellitus continue diabetic diet, on glipizide 2.5 mg b.i.d., dose changed to 2.5 daily due to poor kidney function monitor point of care blood sugars and insulin sliding scale Chronic normocytic anemia stable as per chart review :nonsustained V-tach: asymptomatic will monitor potassium and magnesium, soft blood pressure, hold beta-blockers. moniter electrolytes , keep postasium>4 ,mag >2. Acute on chronic kidney disease stage 3 noted to have gradually worsening creatinine 2.25 , today improved to 1.6 Being followed by Nephrology, follow BMP , avoid nephrotoxins MASD (Moisture associated Skin Damage) sacrum continue wound dressing as per wound nurse. DVT prophylaxis: Heparin subcut Code status: Full ongoing inpatient hospitalization need : med management of acute on chronic hypoxic respiratory failure and acute on chronic kidney disease require expert consultation and close monitoring of renal function and electrolytes. Quality Stroke Does the patient have a stroke diagnosis?: No VTE Prior VTE?: No VTE Risk Level:: Medical - moderate - high VTE Device Contraindication: Treatment Not Indicated VTE Drug Contraindication: N/A - Med Ordered
--- NOTE | 2023-08-25 16:09 | P.PNNP_ITS ---
Subjective Subjective Date of Service: 08/27/23 Interval history: Events noted FAmily at bedside Acute hypoxemic respiratory failure Physical Exam 2 Vital Signs: Vital Signs: Last Vital Signs Temp 97.5 F 08/25/23 12:00 Pulse 85 08/25/23 12:00 Resp 15 08/25/23 12:00 BP 115/72 08/25/23 12:00 Pulse Ox 93 08/25/23 12:00 O2 Del Method Nasal Cannula 08/25/23 12:00 O2 Flow Rate 4 08/25/23 12:00 Oxygen Flow Rate 3 08/24/23 08:00 BMI result Body Mass Index 24.3 Const: General: cooperative HEENT: Head: Yes normocephalic Eyes: EOM: EOMs intact bilaterally Neck: Other: JVD Resp: Auscultation: diminished lung sounds Cardio: Jugular venous distension: JVD GI: Palpation (GI): Soft to palpation : General: Yes no CVA tenderness Back/Spine/Pelvis: Back: no CVA tenderness Neuro: General: moves all extremities Extrem: General: Yes edema Objective Data Labs 08/22/23 09:30 08/27/23 10:37 Labs: Laboratory Results - last 24 hr 08/24/23 08/24/23 08/25/23 16:30 20:28 07:03 Sodium 143 Potassium 3.8 Chloride 95 L Carbon Dioxide 36 H Anion Gap 16 BUN 67 H Creatinine 1.55 H Estim Creat Clear Calc 23.3 Estimated GFR 32 POC Glucose 100 174 H Random Glucose 111 Calcium 9.7 B-Natriuretic Peptide 2603 H 08/25/23 08/25/23 07:30 11:28 Sodium Potassium Chloride Carbon Dioxide Anion Gap BUN Creatinine Estim Creat Clear Calc Estimated GFR POC Glucose 115 170 H Random Glucose Calcium B-Natriuretic Peptide Procedures Date of Service Date of Service: 08/27/23 Assessment & Plan Assessment and plan (1) Acute kidney injury: Status: Acute Plan ADRIANE likely due to tubular injury from CR syndrome Has significant RV failure( likely has dominant pre load dependence) Continue Lasix drip Keep O > I by 1 to 2 L per 24 hours No indication for renal replacement Shall continue to follow up Time Spent With Patient Time: Total time managing care of this patient today ____ minutes. Progress Note: Quality Stroke Does the patient have a stroke diagnosis?: No
[2023-08-25 16:27] LABS: Glucose, Whole Blood 128 mg/dL (60-115)
[2023-08-25] MEDS: Atorvastatin Calcium 10 MG TABLET PO (16:51)
[2023-08-25 20:14] LABS: Glucose, Whole Blood 124 mg/dL (60-115)
[2023-08-25] MEDS: 0.9 % Sodium Chloride Flush 3 ML SYRINGE IVFLUSH ×2 (22:13)
[2023-08-25] MEDS: Acetaminophen 325 MG TABLET 650 MG PO (22:17)
[2023-08-26] VITALS (10 sets, daily range): BP systolic 98–137; BP diastolic 55–78; PULSE 69–85; RESP 16–20; TEMP 36–37.1; O2SAT 92–98
[2023-08-26] MEDS: Melatonin 3 MG TABLET 6 MG PO (01:59)
[2023-08-26] MEDS: guaiFENesin 200 MG/10 ML 10 ML LIQUID PO ×2 (02:01→09:58)
[2023-08-26] MEDS: Levothyroxine Sodium 50 MCG TABLET PO (05:42)
[2023-08-26 06:40] LABS: Anion Gap 15 (12-20); Blood Urea Nitrogen 67 mg/dL (9-16); Carbon Dioxide 37 mmol/L (22-29); Chloride 94 mmol/L (96-108); Estimated Glomerular Filt Rate 36; Glucose Random 83 mg/dL (60-115); Potassium 3.7 mmol/L (3.3-5.1); Sodium 142 mmol/L (135-145)
[2023-08-26 06:45] LABS: B Type Natriuretic Peptide 2537 pg/mL (<100)
[2023-08-26 07:46] LABS: Glucose, Whole Blood 91 mg/dL (60-115)
[2023-08-26] MEDS: Albuterol/Iprat 2.5/0.5MG 3 ML AMPUL.NEB INHALE ×4 (07:56→20:22)
--- NOTE | 2023-08-26 09:19 | P.PNNP_ITS ---
Subjective Subjective Date of Service: 08/26/23 Interval history: Events noted; all recent data reviewed. Renal functions improving Physical Exam 2 Vital Signs: Vital Signs: Last Vital Signs Temp 97.0 F 08/26/23 07:31 Pulse 72 08/26/23 07:58 Resp 16 08/26/23 07:58 BP 137/76 08/26/23 07:31 Pulse Ox 94 08/26/23 07:31 O2 Del Method Nasal Cannula 08/26/23 07:31 O2 Flow Rate 4 08/26/23 07:31 Oxygen Flow Rate 3 08/24/23 08:00 BMI result Body Mass Index 24.3 Const: General: comfortable and no acute distress O rientation/consciousness: patient oriented x3 HEENT: Head: Yes normocephalic Mouth: Normal oral and palatal mucosa present Eyes: EOM: EOMs intact bilaterally Neck: Neck: Yes supple Resp: Auscultation: clear to auscultation bilaterally Cardio: Jugular venous distension: JVD Rate: regular rate Heart sounds: Murmur heart sound present GI: Palpation (GI): Soft to palpation Auscultation: normal bowel sounds : General: Yes no CVA tenderness Back/Spine/Pelvis: Back: no CVA tenderness Skin: General skin exam: no rashes or lesions noted Neuro: General: patient oriented x3 and moves all extremities Extrem: General: Yes edema Objective Data Labs 08/22/23 09:30 08/26/23 05:58 Labs: Laboratory Results - last 24 hr 08/25/23 08/25/23 08/25/23 11:28 16:23 20:06 Sodium Potassium Chloride Carbon Dioxide Anion Gap BUN Creatinine Estim Creat Clear Calc Estimated GFR POC Glucose 170 H 128 H 124 H Random Glucose Calcium B-Natriuretic Peptide 08/26/23 08/26/23 05:58 07:32 Sodium 142 Potassium 3.7 Chloride 94 L Carbon Dioxide 37 H Anion Gap 15 BUN 67 H Creatinine 1.39 Estim Creat Clear Calc 26.0 Estimated GFR 36 POC Glucose 91 Random Glucose 83 Calcium 9.0 D B-Natriuretic Peptide 2537 H Procedures Date of Service Date of Service: 08/26/23 Assessment & Plan Assessment and plan (1) Acute kidney injury: Status: Acute Plan ADRIANE likely due to tubular injury from CR syndrome Had significant RV failure( likely has dominant pre load dependence) Serum creatinine improving with diuresis Agree with rest of the current management; labs am Shall continue to follow up Time Spent With Patient Time: . Progress Note: Quality Stroke Does the patient have a stroke diagnosis?: No
[2023-08-26] MEDS: glipiZIDE XL 2.5 MG TAB.ER.24 PO (09:54)
[2023-08-26] MEDS: Heparin Sodium,Porcine 5,000 UNIT/ML VIAL 5000 UNIT SUBCUT ×2 (09:54→20:18)
[2023-08-26] MEDS: Escitalopram Oxalate 10 MG TABLET PO (09:54)
[2023-08-26] MEDS: Cholecalciferol (Vitamin D3) 25 MCG TABLET PO ×2 (09:54→20:19)
[2023-08-26] MEDS: Aspirin Enteric Coated 81 MG TABLET.DR PO (09:55)
[2023-08-26] MEDS: Gabapentin 300 MG CAPSULE 600 MG PO ×2 (09:55→20:19)
[2023-08-26] MEDS: metOLazone 2.5 MG TABLET PO (09:58)
[2023-08-26 11:06] LABS: Glucose, Whole Blood 157 mg/dL (60-115)
--- NOTE | 2023-08-26 11:31 | P.PNIM_ITS ---
Subjective Subjective Date of Service: 08/26/23 Interval History: chf excerebation Review of Systems has sob with excersion but somewhat improving than yesterday has some dry cough no fever or chills Physical Exam 2 Vital Signs: Vital Signs: Last Vital Signs Temp 98.0 F 08/26/23 11:25 Pulse 76 08/26/23 11:25 Resp 20 08/26/23 11:25 BP 128/59 L 08/26/23 11:25 Pulse Ox 94 08/26/23 11:25 O2 Del Method Nasal Cannula 08/26/23 11:25 O2 Flow Rate 3 08/26/23 11:25 Oxygen Flow Rate 3 08/24/23 08:00 BMI result Body Mass Index 24.3 General awake alert x3,resting comfortably in no acute distress. Neck supple ,+ JVD . CVS :rrr, s1s2 heard. Respiratory: lungs left base crackles, no respiratory distress. Gastrointestinal :abdomen soft, non tender, bowel sounds audible, no guarding , no rigidity. Extremities: edema resolved. Neuro :non focal Skin dry/see wound nurse note for skin examination Psych appropriate affect Objective Data Active Medications Acetaminophen (Acetaminophen 325 Mg Tablet) 650 mg PO Q6H PRN PRN Reason: Pain, Mild (Pain Scale 1-3) Last Admin: 08/25/23 22:17 Dose: 650 mg Documented By: ANNELIESE Albuterol/Ipratropium (Albuterol/Iprat 2.5/0.5mg 3 Ml Ampul.Neb) 3 ml INHALE RQ4H WHILE AWAKE [facility] Last Admin: 08/26/23 11:22 Dose: 3 ml Documented By: DICK Artificial Tears (Artificial Tears 15 Ml Drops) 1 drop EYE-BOTH Q2H PRN PRN Reason: Dry Eyes Artificial Tears (Artificial Tears 15 Ml Drops) 1 drop EYE-BOTH Q4H PRN PRN Reason: Dry Eyes Aspirin (Aspirin Enteric Coated 81 Mg Tablet.) 81 mg PO DAILY [facility] Last Admin: 08/26/23 09:55 Dose: 81 mg Documented By: ELAINE Atorvastatin Calcium (Atorvastatin Calcium 10 Mg Tablet) 10 mg PO DAILY@1700 [facility] Last Admin: 08/25/23 16:51 Dose: 10 mg Documented By: ELAINE Benzonatate (Benzonatate 100 Mg Capsule) 100 mg PO TID PRN PRN Reason: Cough Dextrose (Dextrose 50 % 25 Gm/50 Ml Syringe) 25 gm IVPUSH Q15M PRN; Protocol PRN Reason: per Hypoglycemia Standing Ord. Escitalopram Oxalate (Escitalopram Oxalate 10 Mg Tablet) 10 mg PO DAILY [facility] Last Admin: 08/26/23 09:54 Dose: 10 mg Documented By: ELAINE Gabapentin (Gabapentin 300 Mg Capsule) 600 mg PO BID [facility] Last Admin: 08/26/23 09:55 Dose: 600 mg Documented By: ELAINE Glipizide (Glipizide Xl 2.5 Mg Tab.Er.24) 2.5 mg PO DAILY [facility] Last Admin: 08/26/23 09:54 Dose: 2.5 mg Documented By: ELAINE Glucose (Glucose Gel 15 Gm Gel..Gram.) 15 gm PO Q15M PRN; Protocol PRN Reason: per Hypoglycemia Standing Ord. Guaifenesin (Guaifenesin 200 Mg/10 Ml 10 Ml Liquid) 10 ml PO Q4H PRN PRN Reason: Cough Last Admin: 08/26/23 09:58 Dose: 10 ml Documented By: ELAINE Heparin Sodium (Porcine) (Heparin Sodium,Porcine 5,000 Unit/Ml Vial) 5,000 unit SUBCUT Q12H [facility] Last Admin: 08/26/23 09:54 Dose: 5,000 unit Documented By: ELAINE Furosemide 200 mg/ Sodium (Chloride) 100 mls @ 3.75 mls/hr IVCONT .Q24H [facility] Last Admin: 08/25/23 12:22 Dose: 7.5 mg/hr, 3.75 mls/hr Documented By: ELAINE Insulin Human Lispro (Insulin Lispro 100 Unit/Ml 3 Ml Vial) 0 unit SUBCUT QIDACHS [facility]; Protocol Last Admin: 08/26/23 07:08 Dose: Not Given Documented By: ELAINE Non-Admin Reason: See Note Levothyroxine Sodium (Levothyroxine Sodium 50 Mcg Tablet) 50 mcg PO DAILY@0600 [facility] Last Admin: 08/26/23 05:42 Dose: 50 mcg Documented By: ANNELIESE Melatonin (Melatonin 3 Mg Tablet) 6 mg PO BEDTIME PRN PRN Reason: Insomnia Last Admin: 01/30/24 01:59 Dose: 6 mg Documented By: ANNELIESE Sodium Chloride (0.9 % Sodium Chloride Flush 3 Ml Syringe) 3 ml IVFLUSH QSHIFT [facility] Last Admin: 08/26/23 07:21 Dose: Not Given Documented By: ELAINE Non-Admin Reason: See Note Vitamin D (Cholecalciferol (Vitamin D3) 25 Mcg Tablet) 25 mcg PO BID [facility] Last Admin: 08/26/23 09:54 Dose: 25 mcg Documented By: ELAINE Labs 08/22/23 09:30 08/26/23 05:58 Labs: Laboratory Results - last 24 hr 08/25/23 08/25/23 08/25/23 11:28 16:23 20:06 Anion Gap Estim Creat Clear Calc Estimated GFR POC Glucose 170 H 128 H 124 H Random Glucose Calcium B-Natriuretic Peptide 08/26/23 08/26/23 08/26/23 05:58 07:32 10:59 Anion Gap 15 Estim Creat Clear Calc 26.0 Estimated GFR 36 POC Glucose 91 157 H Random Glucose 83 Calcium 9.0 D B-Natriuretic Peptide 2537 H Assessment and Plan (1) Acute on chronic systolic CHF (congestive heart failure): Status: Acute Plan Sarah Man is a very pleasant 83 years old woman with past medical history significant for HFrEF (15-20% TTE Jul 2022), severe MR stenosis, severe tricuspid valve regurgitation, s/p TAVR, COPD -on home oxygen 2 L/min, coronary artery disease and pulmonary hypertension admitted with: Acute on chronic hypoxic respiratory failure due to acute on chronic systolic congestive heart failure/severe pulmonary hypertension right-sided heart failure. Echo showed EF 15-20% moderately increased right ventricular cavity site, severely dilated left atrium, prosthetic aortic valve, severe tricuspid valve regurgitation, severe mitral stenosis, abnormally functioning prosthetic aortic valve, paradoxical septal motion consistent with left bundle branch block,Severe pulmonary hypertension. bnp ch around 1999- [id number] has jvd Rodriguez catheter to monitor I's and O's closely,daily weights i/o:7 liter negative patient received iv lasix ,then bumex -less response -switched to iv lasix drip ,added metolazone discussed with cardiology , as well as being followed by nephro :continue above ,creatinine is too high to add any Deejay or ARB. Low-dose hydralazine and nitroglycerin is a possibility but I think she may not be able to tolerate it and low blood pressure . Hypothyroidism continue levothyroxine , stable TSH. Neuropathy on gabapentin 600 b.i.d. wean dosage due to decreased creatinine clearance . Type 2 diabetes mellitus continue diabetic diet, on glipizide 2.5 mg b.i.d., dose changed to 2.5 daily due to poor kidney function monitor point of care blood sugars and insulin sliding scale Chronic normocytic anemia stable as per chart review :nonsustained V-tach: asymptomatic will monitor potassium and magnesium, soft blood pressure, hold beta-blockers. moniter electrolytes , keep postasium>4 ,mag >2. Acute on chronic kidney disease stage 3 noted to have gradually worsening creatinine 2.25 , today improved to 1.6 Being followed by Nephrology, follow BMP , avoid nephrotoxins MASD (Moisture associated Skin Damage) sacrum continue wound dressing as per wound nurse. DVT prophylaxis: Heparin subcut Code status: Full ongoing inpatient hospitalization need : med management of acute on chronic hypoxic respiratory failure and acute on chronic kidney disease require expert consultation and close monitoring of renal function and electrolytes. Quality Stroke Does the patient have a stroke diagnosis?: No VTE Prior VTE?: No VTE Risk Level:: Medical - moderate - high VTE Device Contraindication: Treatment Not Indicated VTE Drug Contraindication: N/A - Med Ordered
[2023-08-26] MEDS: Insulin Lispro 100 UNIT/ML 3 ML VIAL SUBCUT ×3 (12:44→20:19)
[2023-08-26] MEDS: Potassium Chloride ER 20 MEQ TAB.ER.PRT PO (12:45)
--- NOTE | 2023-08-26 13:30 | PC.NURSE ---
Pt has yates, patent, draining, but urine is slightly blood tinged at this time. Notified Dr. Christie, will ctm
[2023-08-26] MEDS: Furosemide 200 MG in 0.9 % Sodium Chloride 80 ML IVCONT (15:27)
[2023-08-26] MEDS: 0.9 % Sodium Chloride Flush 3 ML SYRINGE IVFLUSH (15:31)
[2023-08-26] MEDS: Artificial Tears 15 ML DROPS 1 DROP EYE-BOTH (15:34)
[2023-08-26] MEDS: Benzonatate 100 MG CAPSULE PO (15:34)
[2023-08-26 16:36] LABS: Glucose, Whole Blood 161 mg/dL (60-115)
[2023-08-26] MEDS: Atorvastatin Calcium 10 MG TABLET PO (17:25)
[2023-08-26 19:54] LABS: Glucose, Whole Blood 166 mg/dL (60-115)
[2023-08-27] VITALS (10 sets, daily range): BP systolic 108–125; BP diastolic 58–60; PULSE 58–99; RESP 14–20; TEMP 36.3–36.6; O2SAT 92–98
[2023-08-27] MEDS: Acetaminophen 325 MG TABLET 650 MG PO ×2 (04:44→12:52)
[2023-08-27] MEDS: Levothyroxine Sodium 50 MCG TABLET PO (05:48)
[2023-08-27 07:19] LABS: Glucose, Whole Blood 101 mg/dL (60-115)
[2023-08-27] MEDS: Albuterol/Iprat 2.5/0.5MG 3 ML AMPUL.NEB INHALE ×4 (08:10→19:34)
[2023-08-27] MEDS: guaiFENesin 200 MG/10 ML 10 ML LIQUID PO (09:16)
[2023-08-27] MEDS: Cholecalciferol (Vitamin D3) 25 MCG TABLET PO ×2 (09:17→20:46)
[2023-08-27] MEDS: Docusate Sodium 100 MG CAPSULE PO ×2 (09:17→20:46)
[2023-08-27] MEDS: Artificial Tears 15 ML DROPS 1 DROP EYE-BOTH ×2 (09:17→12:56)
[2023-08-27] MEDS: Heparin Sodium,Porcine 5,000 UNIT/ML VIAL 5000 UNIT SUBCUT (09:17)
[2023-08-27] MEDS: glipiZIDE XL 2.5 MG TAB.ER.24 PO (09:17)
[2023-08-27] MEDS: Benzonatate 100 MG CAPSULE PO (09:17)
[2023-08-27] MEDS: Aspirin Enteric Coated 81 MG TABLET.DR PO (09:17)
[2023-08-27] MEDS: Gabapentin 300 MG CAPSULE 600 MG PO ×2 (09:17→20:46)
[2023-08-27] MEDS: Escitalopram Oxalate 10 MG TABLET PO (09:17)
[2023-08-27] MEDS: 0.9 % Sodium Chloride Flush 3 ML SYRINGE IVFLUSH ×3 (09:18→20:47)
[2023-08-27 11:08] LABS: Glucose, Whole Blood 122 mg/dL (60-115)
[2023-08-27 11:22] LABS: B Type Natriuretic Peptide 1669 pg/mL (<100)
[2023-08-27 11:27] LABS: Anion Gap 13 (12-20); Blood Urea Nitrogen 64 mg/dL (9-16); Calcium 9.6 mg/dL (8.4-10.2); Chloride 88 mmol/L (96-108); Creatinine Clr Calc Pharmacy 27.5; Estimated Glomerular Filt Rate 39; Glucose Random 129 mg/dL (60-115); Magnesium 2.3 mg/dL (1.6-2.6); Potassium 3.4 mmol/L (3.3-5.1); Sodium 142 mmol/L (135-145)
[2023-08-27 11:32] LABS: Carbon Dioxide 44 mmol/L (22-29)
--- NOTE | 2023-08-27 11:52 | MHC.CM.PN ---
EMR reviewed and per MD rounds, pt is not medically cleared for D/C due to requiring management of CHF and remains on IV lasix. PT rec STR, pt agreeable to going but doesn't not want to go to [facility]. Referrals placed in [facility], facilities following. CM will continue to follow.
[2023-08-27] MEDS: Furosemide 200 MG in 0.9 % Sodium Chloride 80 ML IVCONT (12:55)
--- NOTE | 2023-08-27 14:09 | HO.PM.IMPN ---
Subjective Subjective Date of Service: 08/27/23 Interval History: edema resolved dyspnea improved no chest pain Review of Systems Review of Systems: Yes all other systems are reviewed and are negative Physical Exam Vital Signs: Vital Signs: Last Vital Signs Temp 97.5 F 08/27/23 10:58 Pulse 74 08/27/23 11:13 Resp 16 08/27/23 11:13 BP 110/59 L 08/27/23 10:58 Pulse Ox 97 08/27/23 10:58 O2 Del Method Nasal Cannula 08/27/23 10:58 O2 Flow Rate 4 08/27/23 10:58 Oxygen Flow Rate 3 08/24/23 08:00 BMI result Body Mass Index 24.3 Gen: in no acute distress HEENT: sclera anicteric, moist mucus membranes Neck: supple, no JVD Lungs: clear to auscultation bilaterally Heart: regular rate and rhythm, systolic murmur Abd: soft, non-tender, non-distended Ext: no edema Skin: warm/well-perfused Neuro: alert and oriented x3, no focal findings Psych: appropriate affect Objective Data Active Medications Acetaminophen (Acetaminophen 325 Mg Tablet) 650 mg PO Q6H PRN PRN Reason: Pain, Mild (Pain Scale 1-3) Last Admin: 08/27/23 12:52 Dose: 650 mg Documented By: EVER Albuterol/Ipratropium (Albuterol/Iprat 2.5/0.5mg 3 Ml Ampul.Neb) 3 ml INHALE RQ4H WHILE AWAKE [facility] Last Admin: 08/27/23 11:13 Dose: 3 ml Documented By: JET Artificial Tears (Artificial Tears 15 Ml Drops) 1 drop EYE-BOTH Q2H PRN PRN Reason: Dry Eyes Artificial Tears (Artificial Tears 15 Ml Drops) 1 drop EYE-BOTH Q4H PRN PRN Reason: Dry Eyes Last Admin: 08/27/23 12:56 Dose: 1 drop Documented By: EVER Aspirin (Aspirin Enteric Coated 81 Mg Tablet.) 81 mg PO DAILY [facility] Last Admin: 08/27/23 09:17 Dose: 81 mg Documented By: EVER Atorvastatin Calcium (Atorvastatin Calcium 10 Mg Tablet) 10 mg PO DAILY@1700 [facility] Last Admin: 08/26/23 17:25 Dose: 10 mg Documented By: HO.WATKINK Benzonatate (Benzonatate 100 Mg Capsule) 100 mg PO TID PRN PRN Reason: Cough Last Admin: 08/27/23 09:17 Dose: 100 mg Documented By: EVER Bumetanide (Bumetanide 1 Mg Tablet) 3 mg PO BID@0800,1700 [facility]; Protocol Dextrose (Dextrose 50 % 25 Gm/50 Ml Syringe) 25 gm IVPUSH Q15M PRN; Protocol PRN Reason: per Hypoglycemia Standing Ord. Docusate Sodium (Docusate Sodium 100 Mg Capsule) 100 mg PO BID [facility] Last Admin: 08/27/23 09:17 Dose: 100 mg Documented By: EVER Escitalopram Oxalate (Escitalopram Oxalate 10 Mg Tablet) 10 mg PO DAILY [facility] Last Admin: 08/27/23 09:17 Dose: 10 mg Documented By: EVER Gabapentin (Gabapentin 300 Mg Capsule) 600 mg PO BID [facility] Last Admin: 08/27/23 09:17 Dose: 600 mg Documented By: EVER Glipizide (Glipizide Xl 2.5 Mg Tab.Er.24) 2.5 mg PO DAILY [facility] Last Admin: 08/27/23 09:17 Dose: 2.5 mg Documented By: EVER Glucose (Glucose Gel 15 Gm Gel..Gram.) 15 gm PO Q15M PRN; Protocol PRN Reason: per Hypoglycemia Standing Ord. Guaifenesin (Guaifenesin 200 Mg/10 Ml 10 Ml Liquid) 10 ml PO Q4H PRN PRN Reason: Cough Last Admin: 08/27/23 09:16 Dose: 10 ml Documented By: EVER Heparin Sodium (Porcine) (Heparin Sodium,Porcine 5,000 Unit/Ml Vial) 5,000 unit SUBCUT Q12H [facility] Last Admin: 08/27/23 09:17 Dose: 5,000 unit Documented By: EVER Insulin Human Lispro (Insulin Lispro 100 Unit/Ml 3 Ml Vial) 0 unit SUBCUT QIDACHS [facility]; Protocol Last Admin: 08/27/23 11:51 Dose: Not Given Documented By: EVER Non-Admin Reason: No Insulin Coverage Levothyroxine Sodium (Levothyroxine Sodium 50 Mcg Tablet) 50 mcg PO DAILY@0600 [facility] Last Admin: 08/27/23 05:48 Dose: 50 mcg Documented By: SILAS Melatonin (Melatonin 3 Mg Tablet) 6 mg PO BEDTIME PRN PRN Reason: Insomnia Last Admin: 08/26/23 01:59 Dose: 6 mg Documented By: ANNELIESE Sodium Chloride (0.9 % Sodium Chloride Flush 3 Ml Syringe) 3 ml IVFLUSH QSHIFT [facility] Last Admin: 08/27/23 09:18 Dose: 3 ml Documented By: EVER Vitamin D (Cholecalciferol (Vitamin D3) 25 Mcg Tablet) 25 mcg PO BID [facility] Last Admin: 08/27/23 09:17 Dose: 25 mcg Documented By: EVER Labs 08/22/23 09:30 08/27/23 10:37 Labs: Laboratory Results - last 24 hr 08/26/23 08/26/23 08/27/23 16:13 19:50 07:05 Anion Gap Estim Creat Clear Calc Estimated GFR POC Glucose 161 H 166 H 101 Random Glucose Calcium Magnesium B-Natriuretic Peptide 08/27/23 08/27/23 10:37 11:00 Anion Gap 13 Estim Creat Clear Calc 27.5 Estimated GFR 39 POC Glucose 122 H Random Glucose 129 H Calcium 9.6 D Magnesium 2.3 B-Natriuretic Peptide 1669 H Assessment and Plan (1) Acute on chronic systolic CHF (congestive heart failure): Status: Acute Plan d9 83yo F with HFrEF, moderate MR + severe stenosis, severe TR, hx TAVR, COPD on home 2L O2, CAD, pHTN admitted for CHF exacerbation acute/chronic hypoxic RF due toa cute/chronic HFrEF + R-sided HF - TTE 08/19/23:. EF 15-20% moderately increased right ventricular cavity site, severely dilated left atrium, prosthetic aortic valve, severe tricuspid valve regurgitation, severe mitral stenosis, abnormally functioning prosthetic aortic valve, paradoxical septal motion consistent with left bundle branch block, severe pulmonary hypertension. - neg negative 9251 mL and will now appears close to euvolemic and now has contraction alkalosis; will switch from IV furosemide to PO bumetanide + give 1 dose acetazolamide - wean O2 as tolerated - BP borderline for neurohormonal modulation - Cardiology consulted acute worsening of CKD3 - Cr markedly improved suggestive of the cardiorenal syndrome NSVT - has not recurred; monitor K/Mg hypothyroidism - continue LT4 neuropathy - continue gabapentin CAD - ASA, statin DM2 - glipizide, correction-dose lispro mood disorder - escitalopram VTE ppx - UFH dispo - STR recommended In my clinical judgment, the patient requires continued inpatient hospitalization for the following reasons: CHF, electrolyte monitoring Total time managing care of this patient today: 45 minutes. Quality Stroke Does the patient have a stroke diagnosis?: No VTE Prior VTE?: No VTE Risk Level:: Medical - moderate - high VTE Device Contraindication: Treatment Not Indicated VTE Drug Contraindication: N/A - Med Ordered
--- NOTE | 2023-08-27 14:34 | P.PNNP_ITS ---
Subjective Subjective Date of Service: 08/28/23 Interval history: edema resolved dyspnea improved no chest pain Physical Exam 2 Vital Signs: Vital Signs: Last Vital Signs Temp 97.5 F 08/27/23 10:58 Pulse 74 08/27/23 11:13 Resp 16 08/27/23 11:13 BP 110/59 L 08/27/23 10:58 Pulse Ox 97 08/27/23 10:58 O2 Del Method Nasal Cannula 08/27/23 10:58 O2 Flow Rate 4 08/27/23 10:58 Oxygen Flow Rate 3 08/24/23 08:00 BMI result Body Mass Index 24.3 Const: General: cooperative, comfortable and no acute distress O rientation/consciousness: patient oriented x3 HEENT: Head: Yes normocephalic Mouth: Normal oral and palatal mucosa present Eyes: EOM: EOMs intact bilaterally Neck: Other: JVD Neck: Yes supple Resp: Auscultation: clear to auscultation bilaterally and diminished lung sounds Cardio: Jugular venous distension: JVD Rate: regular rate Heart sounds: Murmur heart sound present GI: Palpation (GI): Soft to palpation Auscultation: normal bowel sounds : General: Yes no CVA tenderness Back/Spine/Pelvis: Back: no CVA tenderness Skin: General skin exam: no rashes or lesions noted Neuro: General: patient oriented x3 and moves all extremities Extrem: General: Yes edema Objective Data Labs 08/22/23 09:30 08/28/23 06:20 Labs: Laboratory Results - last 24 hr 08/26/23 08/26/23 08/27/23 16:13 19:50 07:05 Sodium Potassium Chloride Carbon Dioxide Anion Gap BUN Creatinine Estim Creat Clear Calc Estimated GFR POC Glucose 161 H 166 H 101 Random Glucose Calcium Magnesium B-Natriuretic Peptide 08/27/23 08/27/23 10:37 11:00 Sodium 142 Potassium 3.4 Chloride 88 L Carbon Dioxide 44 H* Anion Gap 13 BUN 64 H Creatinine 1.31 Estim Creat Clear Calc 27.5 Estimated GFR 39 POC Glucose 122 H Random Glucose 129 H Calcium 9.6 D Magnesium 2.3 B-Natriuretic Peptide 1669 H Procedures Date of Service Date of Service: 08/28/23 Assessment & Plan Assessment and plan (1) Acute kidney injury: Status: Acute Plan ADRIANE likely due to tubular injury from CR syndrome Has significant RV failure( likely has dominant pre load dependence) Continue Lasix drip Keep O > I by 1 to 2 L per 24 hours No indication for renal replacement Shall continue to follow up Time Spent With Patient Time: Total time managing care of this patient today ____ minutes. Progress Note: Quality Stroke Does the patient have a stroke diagnosis?: No
[2023-08-27] MEDS: acetaZOLAMIDE sodium 500 MG VIAL 250 MG IVPUSH (16:04)
[2023-08-27 16:06] LABS: Glucose, Whole Blood 157 mg/dL (60-115)
[2023-08-27] MEDS: Bumetanide 1 MG TABLET 3 MG PO (17:28)
[2023-08-27] MEDS: Atorvastatin Calcium 10 MG TABLET PO (17:29)
[2023-08-27] MEDS: Insulin Lispro 100 UNIT/ML 3 ML VIAL SUBCUT (17:30)
--- NOTE | 2023-08-27 18:25 | PC.NURSE ---
Pt A&OX4. POSADA to command 3-4/5 sensation intact, +pp bilat 1+ edema to BLE discolored/dark dry skin. LS dim fine crackles noted utilizing IS while awake with fair effort, remains on 4L oxygen via nasal cannula. Occasional junky hoarse cough guaifenesin given with some effect. c/o pain to abdomen from coughing Tylenol given with good effect. NSR with BBB on tele, denies chest pain. BS+X4 last BM 08/24 colace ordered and given. Rodriguez in place initially with dark silvestre urine with very small clots/sediment, mid afternoon moderate size clot noted in tubing approximately 1730 urine more dark pink/rust colored. Dr Horn notified per MD hold heparin and aspirin at this time. Pt seen by PT in am OOB to chair during shift. IV lasix drip stopped this afternoon approximately 1500, IV push diamox given per order per MD ok to give oral Bumex at 1700. Will continue to monitor and report changes
[2023-08-27 19:25] LABS: Glucose, Whole Blood 154 mg/dL (60-115)
[2023-08-28] VITALS (12 sets, daily range): BP systolic 99–157; BP diastolic 51–69; PULSE 65–77; RESP 14–20; TEMP 36.4–36.8; O2SAT 94–100
[2023-08-28] MEDS: Levothyroxine Sodium 50 MCG TABLET PO (06:06)
[2023-08-28 07:03] LABS: Glucose, Whole Blood 102 mg/dL (60-115)
[2023-08-28 07:18] LABS: B Type Natriuretic Peptide 1625 pg/mL (<100)
[2023-08-28] MEDS: Albuterol/Iprat 2.5/0.5MG 3 ML AMPUL.NEB INHALE ×4 (07:44→19:14)
[2023-08-28 07:51] LABS: Anion Gap 15 (12-20); Blood Urea Nitrogen 63 mg/dL (9-16); Calcium 9.7 mg/dL (8.4-10.2); Carbon Dioxide 43 mmol/L (22-29); Chloride 87 mmol/L (96-108); Creatinine Clr Calc Pharmacy 29.3; Estimated Glomerular Filt Rate 42; Glucose Random 93 mg/dL (60-115); Magnesium 2.4 mg/dL (1.6-2.6); Potassium 3.4 mmol/L (3.3-5.1); Sodium 142 mmol/L (135-145)
[2023-08-28] MEDS: Gabapentin 300 MG CAPSULE 600 MG PO ×2 (08:53→20:20)
[2023-08-28] MEDS: Bumetanide 1 MG TABLET 3 MG PO ×2 (08:53→17:20)
[2023-08-28] MEDS: Cholecalciferol (Vitamin D3) 25 MCG TABLET PO ×2 (08:53→20:20)
[2023-08-28] MEDS: Aspirin Enteric Coated 81 MG TABLET.DR PO (08:53)
[2023-08-28] MEDS: Escitalopram Oxalate 10 MG TABLET PO (08:53)
[2023-08-28] MEDS: Docusate Sodium 100 MG CAPSULE PO ×2 (08:53→20:20)
[2023-08-28] MEDS: 0.9 % Sodium Chloride Flush 3 ML SYRINGE IVFLUSH ×2 (08:53→17:20)
[2023-08-28] MEDS: glipiZIDE XL 2.5 MG TAB.ER.24 PO (08:53)
[2023-08-28] MEDS: acetaZOLAMIDE sodium 500 MG VIAL 250 MG IVPUSH (08:54)
[2023-08-28] MEDS: Heparin Sodium,Porcine 5,000 UNIT/ML VIAL 5000 UNIT SUBCUT ×2 (09:46→20:20)
--- NOTE | 2023-08-28 10:45 | P.PNNP_ITS ---
Subjective Subjective Date of Service: 08/28/23 Interval history: Events noted Off LAsix drip today Physical Exam 2 Vital Signs: Vital Signs: Last Vital Signs Temp 98.0 F 08/28/23 07:03 Pulse 66 08/28/23 10:32 Resp 20 08/28/23 07:45 BP 102/51 L 08/28/23 07:03 Pulse Ox 97 08/28/23 07:03 O2 Del Method Nasal Cannula 08/28/23 07:03 O2 Flow Rate 3 08/28/23 07:03 Oxygen Flow Rate 3 08/24/23 08:00 BMI result Body Mass Index 24.3 Const: General: cooperative, comfortable and no acute distress O rientation/consciousness: patient oriented x3 HEENT: Head: Yes normocephalic Mouth: Normal oral and palatal mucosa present Eyes: EOM: EOMs intact bilaterally Neck: Other: JVD Neck: Yes supple Resp: Auscultation: clear to auscultation bilaterally and diminished lung sounds Cardio: Jugular venous distension: JVD Rate: regular rate Heart sounds: Murmur heart sound present GI: Palpation (GI): Soft to palpation Auscultation: normal bowel sounds : General: Yes no CVA tenderness Back/Spine/Pelvis: Back: no CVA tenderness Skin: General skin exam: no rashes or lesions noted Neuro: General: patient oriented x3 and moves all extremities Extrem: General: Yes edema Objective Data Labs 08/22/23 09:30 08/28/23 06:20 Labs: Laboratory Results - last 24 hr 08/27/23 08/27/23 08/27/23 10:37 11:00 16:03 Sodium 142 Potassium 3.4 Chloride 88 L Carbon Dioxide 44 H* Anion Gap 13 BUN 64 H Creatinine 1.31 Estim Creat Clear Calc 27.5 Estimated GFR 39 POC Glucose 122 H 157 H Random Glucose 129 H Calcium 9.6 D Magnesium 2.3 B-Natriuretic Peptide 1669 H 08/27/23 08/28/23 08/28/23 19:22 06:20 06:53 Sodium 142 Potassium 3.4 Chloride 87 L Carbon Dioxide 43 H* Anion Gap 15 BUN 63 H Creatinine 1.23 Estim Creat Clear Calc 29.3 Estimated GFR 42 POC Glucose 154 H 102 Random Glucose 93 Calcium 9.7 Magnesium 2.4 B-Natriuretic Peptide 1625 H Procedures Date of Service Date of Service: 08/28/23 Assessment & Plan Assessment and plan (1) Acute kidney injury: Status: Acute Plan ADRIANE likely due to tubular injury from CR syndrome Has significant RV failure( likely has dominant pre load dependence) Continue Diuresis Agree with switching to PO Keep O > I by 1 to 2 L per 24 hours No indication for renal replacement Contraction alkalosis with tCO2 of 43 Shall continue to follow up Time Spent With Patient Time: Total time managing care of this patient today ____ minutes. Progress Note: Quality Stroke Does the patient have a stroke diagnosis?: No
[2023-08-28 11:01] LABS: Glucose, Whole Blood 123 mg/dL (60-115)
--- NOTE | 2023-08-28 11:53 | P.PNIM_ITS ---
Subjective Subjective Date of Service: 08/28/23 Interval History: dyspnea resolved no edema no chest pain Review of Systems Review of Systems: Yes all other systems are reviewed and are negative Physical Exam 2 Vital Signs: Vital Signs: Last Vital Signs Temp 97.8 F 08/28/23 11:00 Pulse 69 08/28/23 11:09 Resp 20 08/28/23 11:09 BP 103/55 L 08/28/23 11:00 Pulse Ox 100 08/28/23 11:00 O2 Del Method Nasal Cannula 08/28/23 11:00 O2 Flow Rate 3 08/28/23 11:00 Oxygen Flow Rate 3 08/24/23 08:00 BMI result Body Mass Index 24.3 Gen: in no acute distress HEENT: sclera anicteric, moist mucus membranes Neck: supple, no JVD Lungs: clear to auscultation bilaterally Heart: regular rate and rhythm, systolic murmur Abd: soft, non-tender, non-distended Ext: no edema Skin: warm/well-perfused Neuro: alert and oriented x3, no focal findings Psych: appropriate affect Objective Data Active Medications Acetaminophen (Acetaminophen 325 Mg Tablet) 650 mg PO Q6H PRN PRN Reason: Pain, Mild (Pain Scale 1-3) Last Admin: 08/27/23 12:52 Dose: 650 mg Documented By: EVER Albuterol/Ipratropium (Albuterol/Iprat 2.5/0.5mg 3 Ml Ampul.Neb) 3 ml INHALE RQ4H WHILE AWAKE [facility] Last Admin: 08/28/23 11:08 Dose: 3 ml Documented By: BONY Artificial Tears (Artificial Tears 15 Ml Drops) 1 drop EYE-BOTH Q2H PRN PRN Reason: Dry Eyes Aspirin (Aspirin Enteric Coated 81 Mg Tablet.Dr) 81 mg PO DAILY [facility] Last Admin: 08/28/23 08:53 Dose: 81 mg Documented By: SANTA Atorvastatin Calcium (Atorvastatin Calcium 10 Mg Tablet) 10 mg PO DAILY@1700 [facility] Last Admin: 08/27/23 17:29 Dose: 10 mg Documented By: EVER Benzonatate (Benzonatate 100 Mg Capsule) 100 mg PO TID PRN PRN Reason: Cough Last Admin: 08/27/23 09:17 Dose: 100 mg Documented By: EVER Bumetanide (Bumetanide 1 Mg Tablet) 3 mg PO BID@0800,1700 [facility]; Protocol Last Admin: 08/28/23 08:53 Dose: 3 mg Documented By: SANTA Dextrose (Dextrose 50 % 25 Gm/50 Ml Syringe) 25 gm IVPUSH Q15M PRN; Protocol PRN Reason: per Hypoglycemia Standing Ord. Docusate Sodium (Docusate Sodium 100 Mg Capsule) 100 mg PO BID [facility] Last Admin: 08/28/23 08:53 Dose: 100 mg Documented By: SANTA Escitalopram Oxalate (Escitalopram Oxalate 10 Mg Tablet) 10 mg PO DAILY [facility] Last Admin: 08/28/23 08:53 Dose: 10 mg Documented By: SANTA Gabapentin (Gabapentin 300 Mg Capsule) 600 mg PO BID [facility] Last Admin: 08/28/23 08:53 Dose: 600 mg Documented By: SANTA Glipizide (Glipizide Xl 2.5 Mg Tab.Er.24) 2.5 mg PO DAILY [facility] Last Admin: 08/28/23 08:53 Dose: 2.5 mg Documented By: SANTA Glucose (Glucose Gel 15 Gm Gel..Gram.) 15 gm PO Q15M PRN; Protocol PRN Reason: per Hypoglycemia Standing Ord. Guaifenesin (Guaifenesin 200 Mg/10 Ml 10 Ml Liquid) 10 ml PO Q4H PRN PRN Reason: Cough Last Admin: 08/27/23 09:16 Dose: 10 ml Documented By: EVER Heparin Sodium (Porcine) (Heparin Sodium,Porcine 5,000 Unit/Ml Vial) 5,000 unit SUBCUT Q12H [facility] Last Admin: 08/28/23 09:46 Dose: 5,000 unit Documented By: SANTA Insulin Human Lispro (Insulin Lispro 100 Unit/Ml 3 Ml Vial) 0 unit SUBCUT QIDACHS [facility]; Protocol Last Admin: 08/28/23 08:10 Dose: Not Given Documented By: SANTA Non-Admin Reason: No Insulin Coverage Levothyroxine Sodium (Levothyroxine Sodium 50 Mcg Tablet) 50 mcg PO DAILY@0600 [facility] Last Admin: 08/28/23 06:06 Dose: 50 mcg Documented By: YAYA Melatonin (Melatonin 3 Mg Tablet) 6 mg PO BEDTIME PRN PRN Reason: Insomnia Last Admin: 08/26/23 01:59 Dose: 6 mg Documented By: ANNELIESE Sodium Chloride (0.9 % Sodium Chloride Flush 3 Ml Syringe) 3 ml IVFLUSH QSHIFT [facility] Last Admin: 08/28/23 08:53 Dose: 3 ml Documented By: SANTA Vitamin D (Cholecalciferol (Vitamin D3) 25 Mcg Tablet) 25 mcg PO BID [facility] Last Admin: 08/28/23 08:53 Dose: 25 mcg Documented By: SANTA Labs 08/22/23 09:30 08/28/23 06:20 Labs: Laboratory Results - last 24 hr 08/27/23 08/27/23 08/28/23 16:03 19:22 06:20 Anion Gap 15 Estim Creat Clear Calc 29.3 Estimated GFR 42 POC Glucose 157 H 154 H Random Glucose 93 Calcium 9.7 Magnesium 2.4 B-Natriuretic Peptide 1625 H 08/28/23 08/28/23 06:53 10:51 Anion Gap Estim Creat Clear Calc Estimated GFR POC Glucose 102 123 H Random Glucose Calcium Magnesium B-Natriuretic Peptide Assessment and Plan (1) Acute on chronic systolic CHF (congestive heart failure): Status: Acute Plan d10 83yo F with HFrEF, moderate MR + severe stenosis, severe TR, hx TAVR, COPD on home 2L O2, CAD, pHTN admitted for CHF exacerbation acute/chronic hypoxic RF due toa cute/chronic HFrEF + R-sided HF - TTE 08/19/23:. EF 15-20% moderately increased right ventricular cavity site, severely dilated left atrium, prosthetic aortic valve, severe tricuspid valve regurgitation, severe mitral stenosis, abnormally functioning prosthetic aortic valve, paradoxical septal motion consistent with left bundle branch block, severe pulmonary hypertension. - net negative 10.86L this admission. switched from IV furosedmie to PO bumetanide. give another dose of acetazolamide. recheck BMP in AM - wean O2 as tolerated - BP too soft for neurohormonal modulation - Cardiology consulted acute worsening of CKD3 - Cr markedly improved suggestive of the cardiorenal syndrome NSVT - has not recurred; monitor K/Mg hypothyroidism - continue LT4 neuropathy - continue gabapentin CAD - ASA, statin DM2 - glipizide, correction-dose lispro mood disorder - escitalopram VTE ppx - UFH dispo - STR recommended In my clinical judgment, the patient requires continued inpatient hospitalization for the following reasons: CHF, electrolyte monitoring Total time managing care of this patient today: 35 minutes. Quality Stroke Does the patient have a stroke diagnosis?: No VTE Prior VTE?: No VTE Risk Level:: Medical - moderate - high VTE Device Contraindication: Treatment Not Indicated VTE Drug Contraindication: N/A - Med Ordered
--- NOTE | 2023-08-28 14:04 | MHC.CM.PN ---
Addendum entered by Hetal Oliva 08/28/23 15:13: Pts daughter/HCP Anu in and was updated on the plan for her mothers D/C tomorrow. Anu in agreement with plan, and would like to be updated if the plan changes for any reason. Original Note: Second IMM given 08/28. Pt has been offered, and accepted a bed at [facility] for tomorrow 08/29. Plan will be for her to D/C there at 11am on 08/29 transport via [facility].
[2023-08-28 16:16] LABS: Glucose, Whole Blood 195 mg/dL (60-115)
[2023-08-28] MEDS: Atorvastatin Calcium 10 MG TABLET PO (17:20)
[2023-08-28] MEDS: Insulin Lispro 100 UNIT/ML 3 ML VIAL SUBCUT (17:20)
[2023-08-28 20:38] LABS: Glucose, Whole Blood 133 mg/dL (60-115)
[2023-08-29] VITALS (10 sets, daily range): BP systolic 106–152; BP diastolic 51–68; PULSE 64–84; RESP 18–20; TEMP 36.1–36.9; O2SAT 90–96
[2023-08-29] MEDS: 0.9 % Sodium Chloride Flush 3 ML SYRINGE IVFLUSH ×3 (01:34→17:38)
[2023-08-29] MEDS: Acetaminophen 325 MG TABLET 650 MG PO (06:13)
[2023-08-29] MEDS: Levothyroxine Sodium 50 MCG TABLET PO (06:13)
[2023-08-29 06:49] LABS: Venous Blood Gas Refer to POC result
[2023-08-29 06:50] LABS: VBG Base Excess 26.8 mmol/L; VBG HCO3 55 mmol/L (22-26); VBG pCO2 77 mmHg; VBG pH 7.46 (7.32-7.43); VBG pO2 35 mmHg
[2023-08-29 06:59] LABS: Glucose, Whole Blood 115 mg/dL (60-115)
[2023-08-29 07:17] LABS: B Type Natriuretic Peptide 1655 pg/mL (<100)
[2023-08-29 07:32] LABS: Anion Gap 14 (12-20); Blood Urea Nitrogen 58 mg/dL (9-16); Calcium 9.6 mg/dL (8.4-10.2); Carbon Dioxide 45 mmol/L (22-29); Chloride 87 mmol/L (96-108); Creatinine Clr Calc Pharmacy 26.5; Estimated Glomerular Filt Rate 37; Glucose Random 108 mg/dL (60-115); Magnesium 2.6 mg/dL (1.6-2.6); Potassium 3.5 mmol/L (3.3-5.1); Sodium 142 mmol/L (135-145)
[2023-08-29] MEDS: Albuterol/Iprat 2.5/0.5MG 3 ML AMPUL.NEB INHALE ×4 (08:03→19:00)
[2023-08-29] MEDS: Heparin Sodium,Porcine 5,000 UNIT/ML VIAL 5000 UNIT SUBCUT ×2 (09:20→22:21)
[2023-08-29] MEDS: Cholecalciferol (Vitamin D3) 25 MCG TABLET PO ×2 (09:21→22:21)
[2023-08-29] MEDS: Docusate Sodium 100 MG CAPSULE PO ×2 (09:21→22:21)
[2023-08-29] MEDS: Gabapentin 300 MG CAPSULE 600 MG PO ×2 (09:22→22:22)
[2023-08-29] MEDS: glipiZIDE XL 2.5 MG TAB.ER.24 PO (09:22)
[2023-08-29] MEDS: Bumetanide 1 MG TABLET 3 MG PO ×2 (09:22→17:39)
[2023-08-29] MEDS: Aspirin Enteric Coated 81 MG TABLET.DR PO (09:22)
[2023-08-29] MEDS: Escitalopram Oxalate 10 MG TABLET PO (09:23)
--- NOTE | 2023-08-29 10:19 | P.PNIM_ITS ---
Subjective Subjective Date of Service: 08/29/23 Interval History: about the same as yesterday- minimal dyspnea, no edema no chest pain Review of Systems Review of Systems: Yes all other systems are reviewed and are negative Physical Exam 2 Vital Signs: Vital Signs: Last Vital Signs Temp 97.5 F 08/29/23 07:04 Pulse 64 08/29/23 07:04 Resp 18 08/29/23 07:04 BP 106/51 L 08/29/23 07:04 Pulse Ox 94 08/29/23 07:04 O2 Del Method Nasal Cannula 08/29/23 07:04 O2 Flow Rate 3 08/29/23 07:04 Oxygen Flow Rate 3 08/24/23 08:00 BMI result Body Mass Index 24.3 Gen: in no acute distress HEENT: sclera anicteric, moist mucus membranes Neck: supple, no JVD Lungs: clear to auscultation bilaterally Heart: regular rate and rhythm, systolic murmur Abd: soft, non-tender, non-distended Ext: no edema Skin: warm/well-perfused Neuro: alert and oriented x3, no focal findings Psych: appropriate affect Objective Data Active Medications Acetaminophen (Acetaminophen 325 Mg Tablet) 650 mg PO Q6H PRN PRN Reason: Pain, Mild (Pain Scale 1-3) Last Admin: 08/29/23 06:13 Dose: 650 mg Documented By: HEIDI Albuterol/Ipratropium (Albuterol/Iprat 2.5/0.5mg 3 Ml Ampul.Neb) 3 ml INHALE RQ4H WHILE AWAKE [facility] Last Admin: 08/29/23 08:03 Dose: 3 ml Documented By: CELENA Artificial Tears (Artificial Tears 15 Ml Drops) 1 drop EYE-BOTH Q2H PRN PRN Reason: Dry Eyes Aspirin (Aspirin Enteric Coated 81 Mg Tablet.Dr) 81 mg PO DAILY [facility] Last Admin: 08/29/23 09:22 Dose: 81 mg Documented By: KENTON Atorvastatin Calcium (Atorvastatin Calcium 10 Mg Tablet) 10 mg PO DAILY@1700 [facility] Last Admin: 08/28/23 17:20 Dose: 10 mg Documented By: SOHAIL Benzonatate (Benzonatate 100 Mg Capsule) 100 mg PO TID PRN PRN Reason: Cough Last Admin: 08/27/23 09:17 Dose: 100 mg Documented By: HO.RUANES Bumetanide (Bumetanide 1 Mg Tablet) 3 mg PO BID@0800,1700 [facility]; Protocol Last Admin: 08/29/23 09:22 Dose: 3 mg Documented By: KENTON Dextrose (Dextrose 50 % 25 Gm/50 Ml Syringe) 25 gm IVPUSH Q15M PRN; Protocol PRN Reason: per Hypoglycemia Standing Ord. Docusate Sodium (Docusate Sodium 100 Mg Capsule) 100 mg PO BID [facility] Last Admin: 08/29/23 09:21 Dose: 100 mg Documented By: KENTON Escitalopram Oxalate (Escitalopram Oxalate 10 Mg Tablet) 10 mg PO DAILY [facility] Last Admin: 08/29/23 09:23 Dose: 10 mg Documented By: KENTON Gabapentin (Gabapentin 300 Mg Capsule) 600 mg PO BID [facility] Last Admin: 08/29/23 09:22 Dose: 600 mg Documented By: KENTON Glipizide (Glipizide Xl 2.5 Mg Tab.Er.24) 2.5 mg PO DAILY [facility] Last Admin: 08/29/23 09:22 Dose: 2.5 mg Documented By: KENTON Glucose (Glucose Gel 15 Gm Gel..Gram.) 15 gm PO Q15M PRN; Protocol PRN Reason: per Hypoglycemia Standing Ord. Guaifenesin (Guaifenesin 200 Mg/10 Ml 10 Ml Liquid) 10 ml PO Q4H PRN PRN Reason: Cough Last Admin: 08/27/23 09:16 Dose: 10 ml Documented By: EVER Heparin Sodium (Porcine) (Heparin Sodium,Porcine 5,000 Unit/Ml Vial) 5,000 unit SUBCUT Q12H [facility] Last Admin: 08/29/23 09:20 Dose: 5,000 unit Documented By: KENTON Insulin Human Lispro (Insulin Lispro 100 Unit/Ml 3 Ml Vial) 0 unit SUBCUT QIDACHS [facility]; Protocol Last Admin: 08/29/23 08:24 Dose: Not Given Documented By: KENTON Non-Admin Reason: No Insulin Coverage Levothyroxine Sodium (Levothyroxine Sodium 50 Mcg Tablet) 50 mcg PO DAILY@0600 [facility] Last Admin: 08/29/23 06:13 Dose: 50 mcg Documented By: ANTOIC Melatonin (Melatonin 3 Mg Tablet) 6 mg PO BEDTIME PRN PRN Reason: Insomnia Last Admin: 08/26/23 01:59 Dose: 6 mg Documented By: ANNELIESE Sodium Chloride (0.9 % Sodium Chloride Flush 3 Ml Syringe) 3 ml IVFLUSH QSHIFT [facility] Last Admin: 08/29/23 09:19 Dose: 3 ml Documented By: KENTON Vitamin D (Cholecalciferol (Vitamin D3) 25 Mcg Tablet) 25 mcg PO BID [facility] Last Admin: 08/29/23 09:21 Dose: 25 mcg Documented By: KENTON Labs 08/22/23 09:30 08/29/23 06:36 Labs: Laboratory Results - last 24 hr 08/28/23 08/28/23 08/28/23 10:51 16:13 20:34 VBG pH VBG pCO2 VBG pO2 VBG HCO3 VBG O2 Saturation VBG Base Excess Anion Gap Estim Creat Clear Calc Estimated GFR POC Glucose 123 H 195 H 133 H Random Glucose Calcium Magnesium B-Natriuretic Peptide 08/29/23 08/29/23 08/29/23 06:36 06:43 06:55 VBG pH 7.46 H VBG pCO2 77 VBG pO2 35 VBG HCO3 55 H VBG O2 Saturation 50.0 VBG Base Excess 26.8 Anion Gap 14 Estim Creat Clear Calc 26.5 Estimated GFR 37 POC Glucose 115 Random Glucose 108 Calcium 9.6 Magnesium 2.6 B-Natriuretic Peptide 1655 H Assessment and Plan (1) Acute on chronic systolic CHF (congestive heart failure): Status: Acute Plan d10 83yo F with HFrEF, moderate MR + severe stenosis, severe TR, hx TAVR, COPD on home 2L O2, CAD, pHTN admitted for CHF exacerbation acute/chronic hypoxic RF due toa cute/chronic HFrEF + R-sided HF - TTE 08/19/23:. EF 15-20% moderately increased right ventricular cavity site, severely dilated left atrium, prosthetic aortic valve, severe tricuspid valve regurgitation, severe mitral stenosis, abnormally functioning prosthetic aortic valve, paradoxical septal motion consistent with left bundle branch block, severe pulmonary hypertension. - net negative 11.9L this admission. switched from IV furosemide infusion to PO bumetanide 08/27. - severe metabolic alkalosis likely from contraction alkalosis. Discussed with Nephrology. Replete K to >4 and give Diamox 500 mg IV q12 x 2-3 doses - wean O2 as tolerated - BP too soft for neurohormonal modulation - Cardiology consulted acute worsening of CKD3 - Cr markedly improved suggestive of the cardiorenal syndrome NSVT - has not recurred; monitor K/Mg, replete K to >4 as above hypothyroidism - continue LT4 neuropathy - continue gabapentin CAD - ASA, statin DM2 - glipizide, correction-dose lispro mood disorder - escitalopram VTE ppx - UFH dispo - STR recommended In my clinical judgment, the patient requires continued inpatient hospitalization for the following reasons: CHF, electrolyte monitoring Total time managing care of this patient today: 35 minutes. Quality Stroke Does the patient have a stroke diagnosis?: No VTE Prior VTE?: No VTE Risk Level:: Medical - moderate - high VTE Device Contraindication: Treatment Not Indicated VTE Drug Contraindication: N/A - Med Ordered
--- NOTE | 2023-08-29 10:25 | MHC.CM.PN ---
DC plan for pt. was to DC today to [facility]. Provider would like to keep pt. one more day d/t electrolyte monitoring. CM has notified [facility], They will accept pt. on 08/30/23. Anticipate DC 08/30/23.
[2023-08-29] MEDS: Potassium Chloride ER 20 MEQ TAB.ER.PRT 40 MEQ PO (10:38)
[2023-08-29] MEDS: acetaZOLAMIDE sodium 500 MG VIAL IVPUSH ×2 (10:40→22:19)
[2023-08-29] MEDS: Potassium Chloride/H20 10 MEQ/100 ML PIGGYBACK 100 MEQ IV (10:46)
[2023-08-29 11:36] LABS: Glucose, Whole Blood 116 mg/dL (60-115)
--- NOTE | 2023-08-29 11:51 | P.PNNP_ITS ---
Subjective Subjective Date of Service: 08/29/23 Interval history: Minimal dyspnea; no edema; no chest pain; Serum creatinine stable. Alkalotic Physical Exam 2 Vital Signs: Vital Signs: Last Vital Signs Temp 97.8 F 08/29/23 10:56 Pulse 64 08/29/23 10:56 Resp 20 08/29/23 10:56 BP 113/57 L 08/29/23 10:56 Pulse Ox 94 08/29/23 10:56 O2 Del Method Nasal Cannula 08/29/23 10:56 O2 Flow Rate 3 08/29/23 10:56 Oxygen Flow Rate 3 08/24/23 08:00 BMI result Body Mass Index 24.3 Const: General: comfortable and no acute distress Eyes: EOM: EOMs intact bilaterally Resp: Auscultation: diminished lung sounds Cardio: Rate: regular rate GI: Palpation (GI): Soft to palpation Neuro: General: moves all extremities Objective Data Labs 08/22/23 09:30 08/29/23 06:36 Labs: Laboratory Results - last 24 hr 08/28/23 08/28/23 08/29/23 16:13 20:34 06:36 VBG pH VBG pCO2 VBG pO2 VBG HCO3 VBG O2 Saturation VBG Base Excess Sodium 142 Potassium 3.5 Chloride 87 L Carbon Dioxide 45 H* Anion Gap 14 BUN 58 H Creatinine 1.36 Estim Creat Clear Calc 26.5 Estimated GFR 37 POC Glucose 195 H 133 H Random Glucose 108 Calcium 9.6 Magnesium 2.6 B-Natriuretic Peptide 1655 H 08/29/23 08/29/23 08/29/23 06:43 06:55 11:33 VBG pH 7.46 H VBG pCO2 77 VBG pO2 35 VBG HCO3 55 H VBG O2 Saturation 50.0 VBG Base Excess 26.8 Sodium Potassium Chloride Carbon Dioxide Anion Gap BUN Creatinine Estim Creat Clear Calc Estimated GFR POC Glucose 115 116 H Random Glucose Calcium Magnesium B-Natriuretic Peptide Procedures Date of Service Date of Service: 08/29/23 Assessment & Plan Assessment and plan (1) Acute kidney injury: Status: Acute (2) CKD (chronic kidney disease), stage III: Status: Acute (3) Alkalosis: Status: Acute Plan ADRIANE likely due to tubular injury from CR syndrome Had significant RV failure( likely has dominant pre load dependence) Serum creatinine improved with diuresis Renal function back to baseline; Keep K over 4 Diamox 500 mg bid today Agree with rest of the current management Labs AM; Shall continue to follow up Progress Note: Quality Stroke Does the patient have a stroke diagnosis?: No
[2023-08-29 16:03] LABS: Glucose, Whole Blood 144 mg/dL (60-115)
[2023-08-29] MEDS: Atorvastatin Calcium 10 MG TABLET PO (17:39)
[2023-08-29 19:59] LABS: Glucose, Whole Blood 182 mg/dL (60-115)
[2023-08-29] MEDS: Insulin Lispro 100 UNIT/ML 3 ML VIAL SUBCUT (22:21)
[2023-08-30 02:58] VITALS: BP 100/51; PULSE 87; RESP 20; TEMP 36.1; O2SAT 96
[2023-08-30] MEDS: Levothyroxine Sodium 50 MCG TABLET PO (05:42)
[2023-08-30 07:39] VITALS: BP 100/64; PULSE 62; RESP 18; TEMP 36.6; O2SAT 97
[2023-08-30 07:40] LABS: Glucose, Whole Blood 83 mg/dL (60-115)
[2023-08-30] MEDS: Bumetanide 1 MG TABLET 3 MG PO (08:06)
[2023-08-30] MEDS: acetaZOLAMIDE sodium 500 MG VIAL IVPUSH (08:06)
[2023-08-30] MEDS: Gabapentin 300 MG CAPSULE 600 MG PO (08:06)
[2023-08-30] MEDS: Heparin Sodium,Porcine 5,000 UNIT/ML VIAL 5000 UNIT SUBCUT (08:06)
[2023-08-30] MEDS: glipiZIDE XL 2.5 MG TAB.ER.24 PO (08:07)
[2023-08-30] MEDS: Docusate Sodium 100 MG CAPSULE PO (08:07)
[2023-08-30] MEDS: 0.9 % Sodium Chloride Flush 3 ML SYRINGE IVFLUSH (08:07)
[2023-08-30] MEDS: Cholecalciferol (Vitamin D3) 25 MCG TABLET PO (08:07)
[2023-08-30] MEDS: Aspirin Enteric Coated 81 MG TABLET.DR PO (08:07)
[2023-08-30] MEDS: Escitalopram Oxalate 10 MG TABLET PO (08:09)
[2023-08-30 08:12] LABS: Anion Gap 16 (12-20); Blood Urea Nitrogen 64 mg/dL (9-16); Calcium 9.5 mg/dL (8.4-10.2); Carbon Dioxide 38 mmol/L (22-29); Chloride 92 mmol/L (96-108); Creatinine Clr Calc Pharmacy 25.4; Estimated Glomerular Filt Rate 35; Glucose Random 66 mg/dL (60-115); Potassium 4.3 mmol/L (3.3-5.1); Sodium 142 mmol/L (135-145)
[2023-08-30] MEDS: Albuterol/Iprat 2.5/0.5MG 3 ML AMPUL.NEB INHALE (08:13)
[2023-08-30 08:17] VITALS: PULSE 67; RESP 16; O2SAT 96
--- NOTE | 2023-08-30 08:48 | MHC.CM.PN ---
Per MD, Patient is medically cleared for dc to SNF/STR today. Patient will dc to [facility] today at 11 AM via [facility]. Last IMM addressed on 08/28/2023.
--- NOTE | 2023-08-30 09:02 | P.DS_ITS ---
DS: Providers Provider Date of Service: 08/30/23 Date of admission: 08/19/23 22:17 Date of discharge: 08/30/23 Primary care physician: Rudi Cunningham MD Consults: 08/20/23 16:04 Consult to Cardiology Routine Consulting Provider: Rhett Reddy Reason for consultation: chf Has provider been notified: No 08/21/23 11:55 Consult to Wound Care Routine Reason for consultation: PI to coccyx, and wound to right calf 08/22/23 10:48 Consult to Nephrology Routine Consulting Provider: [facility] Reason for consultation: acute renal injury while being diuresed Has provider been notified: No DS: Diagnosis Discharge Diagnosis (1) Acute kidney injury: Status: Acute (2) CKD (chronic kidney disease), stage III: Status: Acute (3) Acute on chronic systolic CHF (congestive heart failure): Status: Acute (4) Right-sided heart failure: Status: Acute (5) Acute on chronic hypoxic respiratory failure: Status: Acute (6) Cardiorenal disease: Status: Acute DS: Summary Hospital Course Hospital Course: From the history and physical by the admitting hospitalist, Bhavin Steele MD, 08/20/23: Sarah Man is a very pleasant 83 years old woman with past medical history significant for HFrEF (15-20% TTE Jul 2022), severe MR stenosis, severe tricuspid valve regurgitation, s/p TAVR, COPD -on home oxygen 2 L/min, coronary artery disease, essential hypertension and pulmonary hypertension was brought to the emergency department after she is tired to experience worsening shortness of breath. Patient stated worsening shortness of breath over the last few days. Shortness of breathe increases with minimal activity. She also noted worsening swelling to her lower extremities. She uses Bumex as a diuretic but she feels that is not helping her anymore. She denies any chest pain, cough, palpitations, headache or dizziness. She denied any acute gastrointestinal genitourinary symptoms. She is a former tobacco smoker. In the ED, she was found to have tachypnea, hypertension a low oxygen saturation with ambulation 87%. She is currently requiring 2 liters/minute supplemental oxygen via nasal cannula which is her baseline. However, she stated that she is still feeling quite short of breath despite treatment in the emergency department. Blood workup is remarkable for elevated creatinine but seems to be around baseline (last was 1.October). BNP is mildly worse than her baseline. Venous blood gas showed no respiratory acidosis. CXR showed finding possibly consistent with bronchiolitis versus interstitial pneumonitis versus in terstitial lung disease versus interstitial edema. 83yo F with HFrEF, moderate MR + severe stenosis, severe TR, hx TAVR, COPD on home 2L O2, CAD, and pHTN who was admitted for hypoxia due to CHF exacerbation with acute worsening of CKD3. She was admitted to the telemetry unit and diuresed with furosemide infusion in consultation with Cardiology and Nephrology. TTE 07/30/23 showed EF 15-20% moderately increased right ventricular cavity site, severely dilated left atrium, prosthetic aortic valve, severe tricuspid valve regurgitation, severe mitral stenosis, abnormally functioning prosthetic aortic valve, paradoxical septal motion consistent with left bundle branch block, and severe pulmonary hypertension. Fluid balance was net negative 12.6L over the course of her 12-day admission. She was transitioned to PO bumetanide on 08/27/23. She also received a few doses of acetazolamide for severe alkalosis. Blood pressure was too soft for neurohormonal modulation. Creatinine improved to baseline of around 1.3-1.4 with diuresis, suggestive of the cardiorenal syndrome. She was weaned to 3L O2. Given weakness and deconditioning, she was transferred to [facility] for short-term rehabilitation. Discharge follow-up needs are: repeat BMP in 3 days, Cardiology follow-up in 2 weeks, and Primary Care follow-up 1 week after discharge from rehabilitation. She was discharged on bumetanide 4 mg bid. Time Attestation Discharge coordination time: Greater than 30 minutes Quality: Safe Use of Opioids Does Pt have an Active Cancer Diagnosis on the Problem List?: No Quality: Stroke Does the patient have a stroke diagnosis?: No Physical Exam Vital Signs: Vital Signs: Last Vital Signs Temp 97.9 F 08/30/23 07:39 Pulse 67 08/30/23 08:17 Resp 16 08/30/23 08:17 BP 100/64 08/30/23 07:39 Pulse Ox 97 08/30/23 07:39 O2 Del Method Nasal Cannula 08/30/23 07:39 O2 Flow Rate 3 08/30/23 07:39 Oxygen Flow Rate 3 08/24/23 08:00 BMI result Body Mass Index 24.3 Gen: in no acute distress HEENT: sclera anicteric, moist mucus membranes Neck: supple, no JVD Lungs: clear to auscultation bilaterally Heart: regular rate and rhythm, systolic murmur Abd: soft, non-tender, non-distended Ext: no edema Skin: warm/well-perfused Neuro: alert and oriented x3, no focal findings Psych: appropriate affect DS: Data Data Completed and Pending Completed studies during hospitalization [Text1]: Laboratory Results WBC 9.2 X10*3/uL (4.8-10.8) 08/22/23 09:30 RBC 3.63 X10*6/uL (4.20-5.50) L 08/22/23 09:30 Hgb 10.6 g/dl (12.0-16.0) L 08/22/23 09:30 Hct 34.4 % (37.0-47.0) L 08/22/23 09:30 MCV 94.8 fL (80.0-98.0) 08/22/23 09:30 MCH 29.2 pg (27.0-33.0) 08/22/23 09:30 MCHC 30.8 g/dl (31.0-35.0) L 08/22/23 09:30 RDW 15.5 % (11.0-16.0) 08/22/23 09:30 Plt Count 219 X10*3/uL (160-400) 08/22/23 09:30 MPV 10.7 fL (9.4-12.3) 08/22/23 09:30 Immature Gran % (Auto) 0.3 % (0.0-0.4) 08/20/23 05:05 Neut % (Auto) 95.0 % (45-73) H 08/20/23 05:05 Lymph % (Auto) 3.1 % (20-40) L 08/20/23 05:05 [place] % (Auto) 0.9 % (2-11) L 08/20/23 05:05 Eos % (Auto) 0.2 % (0-4) 08/20/23 05:05 Baso % (Auto) 0.5 % (0-2) 08/20/23 05:05 Lymph # (Auto) 0.2 X10*3/uL (1.2-4.9) L 08/20/23 05:05 [place] # (Auto) 0.1 X10*3/uL (0.1-1.2) 08/20/23 05:05 Eos # (Auto) 0.0 X10*3/uL (0.0-0.4) 08/20/23 05:05 Baso # (Auto) 0.0 X10*3/uL (0.0-0.2) 08/20/23 05:05 Abs Immat Gran (auto) 0.02 X10*3/uL (0.00-0.03) 08/20/23 05:05 Absolute Neuts (auto) 5.5 x10*3/uL (2.0-8.3) 08/20/23 05:05 Absolute Nucleated RBC 0.000 X10*3/uL (0.0-0.012) 08/22/23 09:30 Nucleated RBC % (auto) 0.0 /100WBC (0.0-0.2) 08/22/23 09:30 Smear Tech's Comments VERIFIED 08/20/23 05:05 Hold Purple Top SEE NOTE 08/30/23 06:50 PT 14.2 SEC (11.1-13.3) H 08/19/23 16:43 INR 1.2 (0.9-1.1) H 08/19/23 16:43 APTT 36.8 SEC (26.0-36.4) H 08/19/23 16:43 VBG pH 7.46 (7.32-7.43) H 08/29/23 06:43 VBG pCO2 77 mmHg 08/29/23 06:43 VBG pO2 35 mmHg 08/29/23 06:43 VBG HCO3 55 mmol/L (22-26) H 08/29/23 06:43 VBG O2 Saturation 50.0 % 08/29/23 06:43 VBG Base Excess 26.8 mmol/L 08/29/23 06:43 Sodium 142 mmol/L (135-145) 08/30/23 06:50 Potassium 4.3 mmol/L (3.3-5.1) D 08/30/23 06:50 Chloride 92 mmol/L (96-108) L 08/30/23 06:50 Carbon Dioxide 38 mmol/L (22-29) H 08/30/23 06:50 Anion Gap 16 (12-20) 08/30/23 06:50 BUN 64 mg/dL (9-16) H 08/30/23 06:50 Creatinine 1.42 mg/dL (0.5-1.4) H 08/30/23 06:50 Estim Creat Clear Calc 25.4 08/30/23 06:50 Estimated GFR 35 08/30/23 06:50 POC Glucose 83 mg/dL (60-115) 08/30/23 07:36 Random Glucose 66 mg/dL (60-115) 08/30/23 06:50 Calcium 9.5 mg/dL (8.4-10.2) 08/30/23 06:50 Magnesium 2.6 mg/dL (1.6-2.6) 08/29/23 06:36 Total Bilirubin 0.6 mg/dL (0.0-1.0) 08/19/23 16:43 AST 21 U/L (5-31) 08/19/23 16:43 ALT 13 U/L (0-31) 08/19/23 16:43 Alkaline Phosphatase 81 U/L (39-117) 08/19/23 16:43 B-Natriuretic Peptide 1655 pg/mL (<100) H 08/29/23 06:36 Total Protein 7.8 g/dL (6.5-8.0) 08/19/23 16:43 Albumin 3.8 g/dL (3.5-5.0) 08/19/23 16:43 Lipase 48 U/L (8-78) 08/19/23 16:43 Procalcitonin 0.07 ng/mL 08/24/23 06:29 TSH 2.71 uIU/mL (0.32-4.0) 08/20/23 05:05 Ur Random Sodium 67.0 mmol/L 08/23/23 06:30 Impressions Venous Duplex 08/19/23 17:12 IMPRESSION: No DVT demonstrated in the bilateral lower extremity. Complex right Pennington's cyst measuring 4.1 cm. Chest X-Ray 08/24/23 10:19 IMPRESSION: Unchanged compared to 08/19/2023. TTE 08/19/23 - The left ventricular systolic function is severely decreased. The visually estimated ejection fraction is between 15-20%. - Moderately increased right ventricular cavity size. - The left atrium is severely dilated. 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 - Probable severe calcific mitral valve stenosis. - There is severe tricuspid valve regurgitation. - The right ventricular systolic pressure is 106 mmHg. Severe pulmonary hypertension is present. - The inferior vena cava is mildly dilated and collapses less than 50% with inspiration. Discharge Plan Discharge Anticipated Discharge Date/Time: 08/30/23 11:56 Patient Disposition: er [facility] Discharge Diagnosis: respiratory failure CHF exacerbation acute worsening of chronic kidney disease Referrals: Rudi Cunningham MD [Primary Care Provider] - 1 Week Clarence Russo MD [Physician] - 2 Weeks Discharge Medications: New ipratropium-albuterol 0.5 mg-3 mg(2.5 mg base)/3 mL Solution For Nebulization 3 ml inhalation RQ4H WHILE AWAKE Qty: 1 0RF bumetanide 2 mg tablet 4 mg PO BID Qty: 1 0RF Continued Advair HFA 115-21 mcg/actuation HFA aerosol inhaler 2 puff inhalation BID 30 Days Qty: 1 6RF cholecalciferol (vitamin D3) 25 mcg (1,000 unit) Tablet 25 mcg PO BID artifi.tears(hypromellose)(PF) 0.3 % drops 1 drp ophthalmic (eye) Q2H PRN (Reason: Dry Eyes) gabapentin 800 mg tablet 800 mg PO QID simvastatin 20 mg tablet 20 mg PO DAILY@1700 levothyroxine 50 mcg tablet 50 mcg PO DAILY@0600 glipizide 2.5 mg tablet extended release 24 hr 2.5 mg PO BID spironolactone 25 mg tablet 25 mg PO DAILY aspirin [Adult Aspirin Regimen] 81 mg tablet,delayed release (DR/EC) 81 mg PO DAILY citalopram 20 mg tablet 20 mg PO DAILY Discontinued bumetanide 2 mg tablet 2 mg PO BID Qty: 60 6RF Discharge Orders: Discharge Order (Routine); Ordered 08/30/23 Ordered By: Hafsa Horn Diet: Low salt diet Activity on Discharge: As tolerated Stand Alone Forms: Patient Portal Discharge page Other Ambulatory Orders: Basic Metabolic Panel (Routine) Timeframe: 3 Days Facility: [facility] - Location: Laboratory Ordered By: Hafsa Horn Care Plan Goals: cardiac health renal health Health Concerns: respiratory failure CHF exacerbation acute worsening of chronic kidney disease Plan of Treatment: Low-sodium diet: less than 2000 mg of sodium daily. Weigh yourself daily and call your doctor if your weight goes up by more than 3 lb/day or 5 lb/week. Increase bumetanide to 4 mg twice daily Follow up with your bridge manager in 2 weeks Repeat BMP in 3 days Please follow up with your primary care doctor within 1 week of discharge from SNF. Return to the hospital if you experience recurrent or worsening symptoms.' Assessment: See Discharge Summary.
== END 2023-08-30 11:23 | disposition skilled nursing facility (03) | DRG 291 ==
LOC: HO.ED 21:23 → HO.EDOVER 22:31 → HO.IMC 08-20 07:56
PROVIDERS: Hospitalist; Internal Medicine; Internal Medicine Cardiovascular Disease; Internal Medicine Nephrology; Physician Assistant; Admitting Provider Internal Medicine; Emergency Provider Internal Medicine; PCP Internal Medicine; Visit Provider Family Medicine
DX: I13.0 Hypertensive heart and chronic kidney disease with heart failure and stage 1 through stage 4 chronic kidney disease, or unspecified chronic kidney disease (principal); I50.23 Acute on chronic systolic (congestive) heart failure; J96.21 Acute and chronic respiratory failure with hypoxia; N17.0 Acute kidney failure with tubular necrosis; I47.20 Ventricular tachycardia, unspecified; E87.3 Alkalosis; I25.10 Atherosclerotic heart disease of native coronary artery without angina pectoris; N18.30 Chronic kidney disease, stage 3 unspecified; E03.9 Hypothyroidism, unspecified; I05.0 Rheumatic mitral stenosis; E11.40 Type 2 diabetes mellitus with diabetic neuropathy, unspecified; L24.A0 Irritant contact dermatitis due to friction or contact with body fluids, unspecified; I44.7 Left bundle-branch block, unspecified; I27.29 Other secondary pulmonary hypertension; I50.810 Right heart failure, unspecified; E78.5 Hyperlipidemia, unspecified; Z99.81 Dependence on supplemental oxygen; E11.22 Type 2 diabetes mellitus with diabetic chronic kidney disease; D63.1 Anemia in chronic kidney disease; Z95.2 Presence of prosthetic heart valve; Z79.51 Long term (current) use of inhaled steroids; Z79.82 Long term (current) use of aspirin; Z79.84 Long term (current) use of oral hypoglycemic drugs; Z79.890 Hormone replacement therapy; Z79.899 Other long term (current) drug therapy
CPT/HCPCS: 36415; 71045; 80048; 80053; 82803; 82947; 83690; 83735; 83880; 84145; 84300; 84443; 85025; 85027; 85610; 85730; 93005; 93306; 93970; 94640; 97116; 97162; 99285; C1758; J1120; J1644; J1939; J1940; J2920; J2930; J3475; J3480

== ENCOUNTER → 2023-08-19 22:17 | Outpatient (BNV) | payer MEDICARE, SELFPAY | PROVIDERS: Admitting Provider Internal Medicine; Emergency Provider Internal Medicine; PCP Internal Medicine; Visit Provider Internal Medicine | DX: J96.21 Acute and chronic respiratory failure with hypoxia (principal); I50.23 Acute on chronic systolic (congestive) heart failure; J44.1 Chronic obstructive pulmonary disease with (acute) exacerbation; E11.40 Type 2 diabetes mellitus with diabetic neuropathy, unspecified | CPT/HCPCS: 99223; 99232; 99233; 99239; 99499 ==

== ENCOUNTER → 2023-08-19 22:17 | Outpatient (BNV) | payer MEDICARE, SELFPAY | PROVIDERS: Admitting Provider Internal Medicine; Emergency Provider Internal Medicine; PCP Internal Medicine; Visit Provider Internal Medicine Cardiovascular Disease | DX: I50.23 Acute on chronic systolic (congestive) heart failure (principal) | CPT/HCPCS: 99223; 99233 ==

== ENCOUNTER → 2023-08-19 22:17 | Outpatient (BNV) | payer MEDICARE, SELFPAY | PROVIDERS: Admitting Provider Internal Medicine; Emergency Provider Internal Medicine; PCP Internal Medicine; Visit Provider Internal Medicine Nephrology | DX: N17.9 Acute kidney failure, unspecified (principal); N18.30 Chronic kidney disease, stage 3 unspecified; I50.23 Acute on chronic systolic (congestive) heart failure | CPT/HCPCS: 99223; 99232 ==

== ENCOUNTER 2023-09-25 10:53 | Outpatient (AMB) | payer MEDICARE, SELFPAY ==
--- NOTE | 2023-09-25 10:58 | A.OFFVIS_ITS ---
Intake Vital Signs 09/25/23 10:59 Height 5 ft 2 in Weight 134 lb BMI 24.5 BP 118/58 L Blood Pressure Location Lt brachial Position Sitting Pulse 68 Intake Visit Reasons[place] [facility] [place]: [place] [facility] Sheltered [employer] Supervisor Required: No Accompanied by: Son Allergies Penicillins [PENICILLINS] Allergy (Intermediate, Verified 03/21/22 17:15) HIVES Medication List - Last Reconciled 09/25/23 by MD su Aguirre.tears(hypromellose)(PF) 0.3% 1 drp ophthalmic (eye) Q2H PRN aspirin (Adult Aspirin Regimen) 81 mg PO DAILY bumetanide 4 mg (2 x 2 mg) PO BID cholecalciferol (vitamin D3) 25 mcg PO BID citalopram 20 mg PO DAILY fluticasone propion-salmeterol 115-21 mcg/actuation (Advair HFA) 2 puffs inhalation BID 30 days gabapentin 600 mg PO QID glipizide ER 2.5 mg PO BID ipratropium-albuterol 0.5 mg-3 mg(2.5 mg base)/3 mL 3 mL inhalation RQ4H WHILE AWAKE levothyroxine 50 mcg PO DAILY@0600 simvastatin 20 mg PO DAILY@1700 spironolactone 25 mg PO DAILY HPI HPI Comments History of Present Illness Details Sarah comes for follow-up after recent hospitalization with heart failure decompensation, accompanied by her son. After discharge she was sent to nursing home facility for rehab and only 3 days ago went home and comes for follow-up. She says over the last few days her right lower leg below the knee swelling again and has blisters which are weeping. She said despite all the efforts and diuretic regimen she continues to have predominantly in the right lower extremity swelling. Her left lower extremity is not that swollen. She denies worsening shortness of breath although with exercise she said does oxygen level does go down somewhat but then comes correct quickly. She denies any orthopnea, PND. Overnight as per the son she has about 1 lb weight gain. She is currently taking Bumex 4 mg b.i.d.. In the hospital she was noted to have cardiorenal syndrome with elevated creatinine which improved diuresis. She remains pretty limited in activity level. Comes to the office in a wheelchair. [facility] Medical History (Updated 09/25/23 @ 12:39 by Clarence Russo MD) Acute on chronic hypoxic respiratory failure Acute on chronic systolic CHF (congestive heart failure) Congestive heart failure Chronic heart failure with preserved ejection fraction (HFpEF) COPD (chronic obstructive pulmonary disease) Mitral stenosis Pulmonary hypertension Abnormal chest x-ray Hypoxemia COPD (chronic obstructive pulmonary disease) HTN (hypertension) LBBB (left bundle branch block) Surgical History S/P TAVR (transcatheter aortic valve replacement) Hx of cardiac cath Family History Father No problems noted. Mother CVD (cardiovascular disease) Social History Household Members: Family Housing: House Do you presently have visiting nurse or other home services: No Patient Tobacco Use Status: Former Tobacco user Quit Date: Years Smoked: 20 +/- Advance Directives Date on File: 01/27/22 service: No Current occupational status: retired Review of Systems Const Denies weakness ENT Denies dizziness Card Denies chest pain, Denies chest pain with activity, Denies syncope, Denies rapid heart rate, Denies pedal edema, Denies edema, Denies leg edema, Denies lightheadedness, Denies palpitations, Denies dyspnea, Denies dyspnea on exertion and Denies orthopnea Resp Denies cough, Denies dyspnea and Denies dyspnea on exertion GI Denies hematochezia and Denies change in stool character Musc Denies abnormal gait, Denies muscle cramps, Denies muscle weakness, Denies numbness, Denies radiating pain into limb and Denies tingling Neuro Denies abnormal gait, Denies dizziness, Denies syncope, Denies numbness, Denies tingling and Denies weakness Endo Denies palpitations Physical Exam Vital Signs: Last Vital Signs Pulse 68 09/25/23 10:59 BP 118/58 L 09/25/23 10:59 BMI result Body Mass Index 24.5 Const General: cooperative, no acute distress, alert, awake and tired appearing Nutritional Appearance: average body habitus Orientation/consciousness: patient oriented x3 Limitations: wheelchair Neck Neck: Yes trachea midline, Yes supple and Yes no JVD (Prominent V-waves) Resp Effort & Inspection: decreased respiratory effort Auscultation: clear to auscultation bilaterally and diminished lung sounds Cardio Jugular venous distension: no JVD Palpation: abnormal PMI displaced PMI Rate: regular rate Rhythm: regular rhythm Heart sounds: S1 normal heart sound present, S2 normal heart sound present, no click, no gallops and Murmur heart sound present systolic GI Auscultation: normal bowel sounds Skin General skin exam: no rashes or lesions noted Neuro General: patient oriented x3 and no focal motor deficits Extrem General: No clubbing, No cyanosis and Yes edema (Right below-knee 3+ edema with blisters, 1+ below knee on left) Assessment & Plan Assessment & Plan (1) Heart failure with reduced ejection fraction: Code(s): I50.20 - Unspecified systolic (congestive) heart failure Plan: Heart failure with severely reduced ejection fraction with multiple comorbidities including both mitral and tricuspid regurgitation as well as left atrial enlargement as well as pulmonary hypertension with extra cardiac issues with chronic respiratory failure related to COPD, frailty and deconditioning as well as cardiorenal syndrome. Overall prognosis extremely guarded. Patient is on very high dose of loop diuretics. She continues to have leg swelling predominantly on the right side which appears to be combination of both central venous congestion although clinically appears to be more euvolemic and venous insufficiency. Advise right lower extremity to be treated with compression stockings and leg elevation. We discussed about management of heart failure in details. Given her multiple comorbidities management is going to be mostly medical and palliative in terms of improving symptoms and avoiding hospitalizations. Patient understands this. Will give her metolazone p.r.n. if she has weight gain greater than 2 lb to decongest in addition to be Bumex therapy. We discussed management of heart failure in details. They understand agree. Meanwhile continue aggressive oxygen replacement therapy and treatment of hypoxemic respiratory failure. Also advised to improve pulmonary capacity with incentive spirometry. Continue monitor renal function closely. Given her multiple comorbidities not a likely candidate for pursuing any aggressive interventional therapy for now. (2) S/P TAVR (transcatheter aortic valve replacement): Code(s): Z95.2 - Presence of prosthetic heart valve Plan: Status post transcatheter aortic valve replacement working well. Continue aspirin therapy. SBE prophylaxis as per ACC/[place] guidelines. Continue aggressive risk factor modification. Will follow up in the clinic in 3 months time, sooner p.r.n.. Greater than 40 minutes was spent in managing his complex care. Medications: New metolazone 2.5 mg PO DAILY PRN 20 tabs 3RF weight gain greater than 2 lbs Coding Level of Care Code Est Pt Level 5 (01396) Diagnoses Heart failure with reduced ejection fraction I50.20 S/P TAVR (transcatheter aortic valve replacement) Z95.2
[2023-09-25 10:59] VITALS: BP 118/58; PULSE 68; BMI 24.5
== END 2023-09-25 11:30 | disposition home or self-care (01) ==
PROVIDERS: PCP Internal Medicine; Visit Provider Internal Medicine Cardiovascular Disease
DX: I50.20 Unspecified systolic (congestive) heart failure (principal); Z95.2 Presence of prosthetic heart valve
CPT/HCPCS: 99215

== ENCOUNTER → 2023-09-25 10:53 | Outpatient (BNVA) | payer MEDICARE, SELFPAY | PROVIDERS: PCP Internal Medicine; Visit Provider Internal Medicine Cardiovascular Disease | DX: I50.20 Unspecified systolic (congestive) heart failure (principal); Z95.2 Presence of prosthetic heart valve | CPT/HCPCS: 99212 ==

== ENCOUNTER 2023-10-02 13:42 | Outpatient (REF) | payer MEDICARE, SELFPAY ==
[2023-10-02 13:48] LABS: MANUAL DIFF FLAG NO
[2023-10-02 14:00] LABS: Basophils Absolute Auto 0.1 X10*3/uL (0.0-0.2); Basophils Percent Auto 1.4 % (0-2); Eosinophils Absolute Auto 0.4 X10*3/uL (0.0-0.4); Eosinophils Percent Auto 6.1 % (0-4); Hematocrit 35.5 % (37.0-47.0); Imm Gran Abs Auto 0.02 X10*3/uL (0.00-0.03); Imm Gran Pct Auto 0.3 % (0.0-0.4); Lymphocytes Absolute Auto 0.5 X10*3/uL (1.2-4.9); Lymphocytes Percent Auto 7.4 % (20-40); Mean Corpuscular Hemoglobin 29.5 pg (27.0-33.0); Mean Corpuscular Volume 95.2 fL (80.0-98.0); Monocytes Absolute Auto 0.6 X10*3/uL (0.1-1.2); Monocytes Percent Auto 9.8 % (2-11); Neutrophils Absolute Auto 4.7 x10*3/uL (2.0-8.3); Platelet Count 199 X10*3/uL (160-400); Red Blood Count 3.73 X10*6/uL (4.20-5.50); Red Cell Distribution Width 15.3 % (11.0-16.0); White Blood Count 6.2 X10*3/uL (4.8-10.8)
[2023-10-02 14:28] LABS: Estimated Average Glucose 111 mg/dL; Hemoglobin A1c % 5.5 % (<6.0)
[2023-10-02 14:44] LABS: Alanine Aminotransferase 22 U/L (0-31); Albumin Level 3.7 g/dL (3.5-5.0); Alkaline Phosphatase 141 U/L (39-117); Anion Gap 13 (12-20); Aspartate Amino Transferase 18 U/L (5-31); Bilirubin Total 0.6 mg/dL (0.0-1.0); Blood Urea Nitrogen 62 mg/dL (9-16); Calcium 9.7 mg/dL (8.4-10.2); Carbon Dioxide 35 mmol/L (22-29); Chloride 98 mmol/L (96-108); Estimated Glomerular Filt Rate 35; Glucose Random 123 mg/dL (60-115); Potassium 4.6 mmol/L (3.3-5.1); Sodium 141 mmol/L (135-145); Total Protein 7.9 g/dL (6.5-8.0)
== END 2023-10-02 13:43 | disposition home or self-care (01) ==
LOC: HO.HVNA 13:42
PROVIDERS: Visit Provider Internal Medicine
DX: I13.0 Hypertensive heart and chronic kidney disease with heart failure and stage 1 through stage 4 chronic kidney disease, or unspecified chronic kidney disease (principal); I50.22 Chronic systolic (congestive) heart failure; N18.9 Chronic kidney disease, unspecified
CPT/HCPCS: 36415; 80053; 83036; 85025

== ENCOUNTER 2023-10-10 10:52 | Emergency (ER) | payer MEDICARE, SELFPAY ==
--- NOTE | ~2023-10-10 | XR_ITS ---
EXAMINATION: XR CHEST CLINICAL INFORMATION: Chest pain COMPARISON: 08/24/2023 TECHNIQUE: Frontal view of the chest was obtained. FINDINGS: Cardiac silhouette remains enlarged. Aortic calcifications and aortic stent graft again seen. Elvia remain prominent. Vascularity within normal limits. Small left midlung opacity. Right costophrenic increased markings and costophrenic angle blunting. Demineralization, degenerative changes and mild dextroscoliosis. XR/XR chest 1V IMPRESSION: Left mid lung and right costophrenic angle increased markings, likely atelectasis, pneumonia not excluded. Redemonstration right costophrenic angle blunting, question small effusion.
[2023-10-10 11:11] VITALS: BP 140/80; BP 144/75; PULSE 76; PULSE 80; RESP 18; TEMP 36.7; O2SAT 70; O2SAT 95; BMI 24.7
[2023-10-10 11:16] VITALS: BP 144/74; PULSE 76; RESP 18; TEMP 36.7; O2SAT 98
--- NOTE | 2023-10-10 11:17 | PC.NURSE ---
Pt coming from home via EMS. Nosebleed X3 hours, started after blowing nose. Pt has hx of frequent nosebleeds. Pt is O2 dependent at home 2L O2 NC for COPD, had her O2 off for multiple hours. EMS found pts sats in 70s, pt refused any O2 from them per EMS. Pt reports her O2 sat is normally around 90% on her baseline O2. Pt is alert and oriented, breathing even and slighly elevated. Pt noted to have blood on face and clothes dripping from nose. Pts RA SPO2 noted to be 74%, pt placed on oxymask (RT at bedside), initially at 15L, improved to over 94% and weaned down to 5L. Pt denies CP. Reports pain 5/10 in nose area. Bleeding controlled with pinching device. Pt reports some difficulty breathing but reports it is due to not being able to breathe through nose.
--- NOTE | 2023-10-10 11:30 | ED_ITS ---
HPI - General Adult General Chief complaint: General Medical Stated complaint: NOSE BLEED X3HRS, OXYGEN 74% Time Seen by Provider: 10/10/23 11:12 History of Present Illness HPI narrative: Patient is a 83-year-old female with a history of being on oxygen at home for COPD, baseline is on 2 L. patient not on any blood thinners other than aspirin. Today was blowing her nose started having nosebleed from the right nostril. Came to the ED for help. No fever no chills no chest pain or shortness of breath that is new. No diaphoresis. Patient is from home. Related Data Home Medications Medication Instructions Recorded Confirmed levothyroxine 50 mcg tablet 50 mcg PO DAILY@0600 08/15/20 09/25/23 simvastatin 20 mg tablet 20 mg PO DAILY@1700 08/15/20 09/25/23 glipizide 2.5 mg tablet, extended 2.5 mg PO BID 05/24/21 09/25/23 release 24 hr spironolactone 25 mg tablet 25 mg PO DAILY 08/02/21 09/25/23 aspirin 81 mg tablet,delayed 81 mg PO DAILY 10/30/21 09/25/23 release (Adult Aspirin Regimen) cholecalciferol (vitamin D3) 25 25 mcg PO BID 01/25/22 09/25/23 mcg (1,000 unit) tablet citalopram 20 mg tablet 20 mg PO DAILY 10/22/22 09/25/23 artifi.tears(hypromellose)(PF) 0.3 1 drp ophthalmic (eye) Q2H PRN Dry 08/19/23 09/25/23 % eye drops Eyes gabapentin 800 mg tablet 600 mg PO QID 09/25/23 09/25/23 Previous Rx's Medication Instructions Recorded fluticasone propionate 115 2 puff inhalation BID 30 days #1 ea 05/24/21 mcg-salmeterol 21 mcg/actuation HFA inhaler (Advair HFA) bumetanide 2 mg tablet 4 mg (2 x 2 mg) PO BID #1 tab 08/30/23 ipratropium 0.5 mg-albuterol 3 mg 3 ml inhalation RQ4H WHILE AWAKE 08/30/23 (2.5 mg base)/3 mL nebulization #1 mL soln metolazone 2.5 mg tablet 2.5 mg PO DAILY PRN weight gain 09/25/23 greater than 2 lbs #20 tabs Allergies Allergy/AdvReac Type Severity Reaction Status Date / Time Penicillins [PENICILLINS] Allergy Intermediate HIVES Verified 03/21/22 17:15 Review of Systems 2 Review of Systems: Positive nosebleed No fever no chills no cough no congestion that is new Yes all other systems are reviewed and are negative [facility] Past Medical History Attestation statement: The following information was validated with the patient. Medical History Acute on chronic hypoxic respiratory failure Acute on chronic systolic CHF (congestive heart failure) Congestive heart failure Chronic heart failure with preserved ejection fraction (HFpEF) COPD (chronic obstructive pulmonary disease) Mitral stenosis Pulmonary hypertension Abnormal chest x-ray Hypoxemia COPD (chronic obstructive pulmonary disease) HTN (hypertension) LBBB (left bundle branch block) Surgical History S/P TAVR (transcatheter aortic valve replacement) Hx of cardiac cath Family History Family History Father No problems noted. Mother CVD (cardiovascular disease) Social History Social History Household Members: Family Housing: House Do you presently have visiting nurse or other home services: No Patient Tobacco Use Status: Former Tobacco user Quit Date: Years Smoked: 20 +/- Smoked in Last 30 Days: No Use of substances other than those prescribed or required for medical reasons: No Advance Directives: Yes Advance Directives on File: Yes Advance Directives Date on File: 01/27/22 service: No Current occupational status: retired Physical Exam ED Vital Signs: Vital Signs - 24 hr 10/10/23 11:11 10/10/23 11:16 Temperature 98.1 F 98.1 F Pulse Rate 76 76 Respiratory Rate 18 18 Blood Pressure 144/75 H 144/74 H Pulse Oximetry 95 98 Oxygen Delivery Method Oxymask Oxymask Oxygen Flow Rate 6 BMI result Body Mass Index 24.7 Appearance: Alert. Oriented X3. No acute distress. Eyes: Pupils equal, round and reactive to light. ENT: Pharynx normal. Positive bleeding from the right nostril. Neck: Normal inspection. Neck supple. No lymph nodes noted. No crepitus CVS: Normal heart rate and rhythm. Pulses normal. Normal S1 and S2 Respiratory: No respiratory distress. Breath sounds normal. No Wheezing. No rales Abdomen: Soft and nontender. No rigidity. No distention. good BS x4 Skin: Skin warm and dry. Normal skin color. Normal skin turgor. Extremities: No lower extremity edema. Neurovascular intact to all extremities. No Lacerations. No Rash Neuro: Oriented X 3. No motor deficit. No sensory deficit. Moving all extermities. No slurred speech Medical Decision Making Medical Decision Making [facility] Narrative: Positive nosebleed. Further by direct pressure. Basic electrolytes and CBC ordered. Not hypoxic. No distress. No worsening shortness of breath. Patient's hemoglobin is baseline at approximately 10.2. Creatinine is 1.46 this is also approximately baseline. Patient's chest x-ray showed no gross infiltrate. Patient has no coughing or congestion question atelectasis versus infiltrate noted by Radiology. Doubt this is secondary to a pneumonia. In the setting of a normal white count. Will discharge patient home. Follow-up with ENT on an outpatient basis Differential Diagnosis Differential Diagnoses: The differential diagnosis associated with the presentation includes Anterior nosebleed posterior nosebleed anemia aspiration Admission/Observation Consideration of admission/observation: Escalation of care including admission/observation considered Lab Data [facility] Lab Attestation statement: I reviewed the patient's lab results. 10/10/23 12:16 10/10/23 12:16 Labs: Lab Results 10/10/23 10/10/23 Range/Units 12:06 12:16 WBC 6.2 (4.8-10.8) X10*3/uL RBC 3.43 L (4.20-5.50) X10*6/uL Hgb 10.2 L (12.0-16.0) g/dl Hct 32.3 L (37.0-47.0) % MCV 94.2 (80.0-98.0) fL MCH 29.7 (27.0-33.0) pg MCHC 31.6 (31.0-35.0) g/dl RDW 14.8 (11.0-16.0) % Plt Count 187 (160-400) X10*3/uL MPV 9.7 (9.4-12.3) fL Immature Gran % (Auto) 0.3 (0.0-0.4) % Neut % (Auto) 74.5 H (45-73) % Lymph % (Auto) 8.3 L (20-40) % Dent % (Auto) 11.4 H (2-11) % Eos % (Auto) 3.7 (0-4) % Baso % (Auto) 1.8 (0-2) % Lymph # (Auto) 0.5 L (1.2-4.9) X10*3/uL Dent # (Auto) 0.7 (0.1-1.2) X10*3/uL Eos # (Auto) 0.2 (0.0-0.4) X10*3/uL Baso # (Auto) 0.1 (0.0-0.2) X10*3/uL Abs Immat Gran (auto) 0.02 (0.00-0.03) X10*3/uL Absolute Neuts (auto) 4.6 (2.0-8.3) x10*3/uL Absolute Nucleated RBC 0.000 (0.0-0.012) X10*3/uL Nucleated RBC % (auto) 0.0 (0.0-0.2) /100WBC Sodium 141 (135-145) mmol/L Potassium 4.3 (3.3-5.1) mmol/L Chloride 101 (96-108) mmol/L Carbon Dioxide 29 (22-29) mmol/L Anion Gap 15 (12-20) BUN 69 H (9-16) mg/dL Creatinine 1.46 H (0.5-1.4) mg/dL Estim Creat Clear Calc 24.7 Estimated GFR 34 POC Glucose 117 H (60-115) mg/dL Random Glucose 122 H (60-115) mg/dL Calcium 9.4 (8.4-10.2) mg/dL Independent Historian Clinical information obtained from an independent historian. History obtained from or confirmed by: Other (Additional history obtained from family) Chronic Conditions COPD Discharge Plan Discharge Clinical Impression: Acute anterior epistaxis Patient Disposition: Home, Self-Care Instructions: Nosebleed (ED) Prescriptions: No Action Advair HFA 115-21 mcg/actuation HFA aerosol inhaler 2 puff inhalation BID 30 Days Qty: 1 6RF cholecalciferol (vitamin D3) 25 mcg (1,000 unit) Tablet 25 mcg PO BID artifi.tears(hypromellose)(PF) 0.3 % drops 1 drp ophthalmic (eye) Q2H PRN (Reason: Dry Eyes) ipratropium-albuterol 0.5 mg-3 mg(2.5 mg base)/3 mL Solution For Nebulization 3 ml inhalation RQ4H WHILE AWAKE Qty: 1 0RF bumetanide 2 mg tablet 4 mg PO BID Qty: 1 0RF simvastatin 20 mg tablet 20 mg PO DAILY@1700 levothyroxine 50 mcg tablet 50 mcg PO DAILY@0600 glipizide 2.5 mg tablet extended release 24 hr 2.5 mg PO BID gabapentin 800 mg tablet 600 mg PO QID spironolactone 25 mg tablet 25 mg PO DAILY aspirin [Adult Aspirin Regimen] 81 mg tablet,delayed release (DR/EC) 81 mg PO DAILY citalopram 20 mg tablet 20 mg PO DAILY metolazone 2.5 mg tablet 2.5 mg PO DAILY PRN (Reason: weight gain greater than 2 lbs) Qty: 20 3RF Referrals: Roberth Aguilar [Physician] - 10/13/23
--- NOTE | 2023-10-10 12:07 | PC.NURSE ---
Pt alerted that she is diabetic and has not eaten today, said she felt shaky. BGL assessed and is WNL, 117. Pt provided snack.
[2023-10-10 12:13] LABS: Glucose, Whole Blood 117 mg/dL (60-115)
[2023-10-10 12:22] LABS: MANUAL DIFF FLAG NO
[2023-10-10 12:25] LABS: Basophils Absolute Auto 0.1 X10*3/uL (0.0-0.2); Basophils Percent Auto 1.8 % (0-2); Eosinophils Absolute Auto 0.2 X10*3/uL (0.0-0.4); Eosinophils Percent Auto 3.7 % (0-4); Hematocrit 32.3 % (37.0-47.0); Hemoglobin 10.2 g/dl (12.0-16.0); Imm Gran Abs Auto 0.02 X10*3/uL (0.00-0.03); Imm Gran Pct Auto 0.3 % (0.0-0.4); Lymphocytes Absolute Auto 0.5 X10*3/uL (1.2-4.9); Lymphocytes Percent Auto 8.3 % (20-40); Mean Corpuscular HGB Conc 31.6 g/dl (31.0-35.0); Mean Corpuscular Hemoglobin 29.7 pg (27.0-33.0); Mean Corpuscular Volume 94.2 fL (80.0-98.0); Mean Platelet Volume 9.7 fL (9.4-12.3); Monocytes Absolute Auto 0.7 X10*3/uL (0.1-1.2); Monocytes Percent Auto 11.4 % (2-11); Neutrophils Absolute Auto 4.6 x10*3/uL (2.0-8.3); Neutrophils Percent Auto 74.5 % (45-73); Platelet Count 187 X10*3/uL (160-400); Red Blood Count 3.43 X10*6/uL (4.20-5.50); Red Cell Distribution Width 14.8 % (11.0-16.0); White Blood Count 6.2 X10*3/uL (4.8-10.8)
[2023-10-10 12:35] LABS: Anion Gap 15 (12-20); Blood Urea Nitrogen 69 mg/dL (9-16); Calcium 9.4 mg/dL (8.4-10.2); Carbon Dioxide 29 mmol/L (22-29); Chloride 101 mmol/L (96-108); Creatinine Clr Calc Pharmacy 24.7; Estimated Glomerular Filt Rate 34; Glucose Random 122 mg/dL (60-115); Potassium 4.3 mmol/L (3.3-5.1); Sodium 141 mmol/L (135-145)
[2023-10-10 14:35] VITALS: BP 136/71; PULSE 78; RESP 18; TEMP 36.4; O2SAT 94
[2023-10-10 16:08] VITALS: BP 142/87; PULSE 87; RESP 16; O2SAT 94
[2023-10-10 16:09] VITALS: BP 148/57; PULSE 87; RESP 18; TEMP 36.7; O2SAT 94
== END 2023-10-10 16:34 | disposition home or self-care (01) ==
PROVIDERS: Emergency Provider Emergency Medicine Emergency Medical Services; PCP Internal Medicine
DX: R04.0 Epistaxis (principal); J44.9 Chronic obstructive pulmonary disease, unspecified; I11.0 Hypertensive heart disease with heart failure; I50.9 Heart failure, unspecified; Z99.81 Dependence on supplemental oxygen
CPT/HCPCS: 36415; 71045; 80048; 82947; 85025; 99283; 99284

== ENCOUNTER 2023-12-30 14:37 | Outpatient (AMB) | payer MEDICARE, SELFPAY ==
--- NOTE | 2023-12-30 14:54 | A.OFFVIS_ITS ---
Vital Signs 12/30/23 14:55 Height 5 ft 2 in Weight 134 lb BMI 24.5 BP 116/74 Blood Pressure Location Lt brachial Position Sitting Pulse 72 Intake Visit Reasons: 3 month follow-up Intake Note: 3 month follow-up c/o low O2 when walking Hand Patcher Required: No Examination Grader: Examination Grader Present Accompanied by: Son Allergies Penicillins [PENICILLINS] Allergy (Intermediate, Verified 03/21/22 17:15) HIVES Medication List - Last Reconciled 12/30/23 by MD homar Aguirrei.tears(hypromellose)(PF) 0.3% 1 drp ophthalmic (eye) Q2H PRN aspirin (Adult Aspirin Regimen) 81 mg PO DAILY bumetanide 4 mg (2 x 2 mg) PO BID cholecalciferol (vitamin D3) 25 mcg PO BID citalopram 20 mg PO DAILY fluticasone propion-salmeterol 115-21 mcg/actuation (Advair HFA) 2 puffs inhal ation BID 30 days gabapentin 600 mg PO QID glipizide ER 2.5 mg PO BID ipratropium-albuterol 0.5 mg-3 mg(2.5 mg base)/3 mL 3 mL inhalation RQ4H WHILE AWAKE levothyroxine 50 mcg PO DAILY@0600 metolazone 2.5 mg PO DAILY PRN simvastatin 20 mg PO DAILY@1700 spironolactone 25 mg PO DAILY HPI Comments Details: Sarah comes for follow-up. No hospitalization the last 3 months. She continues to remain limited with exertional activity and says that she quickly developed hypoxemia. Usually this reverted back to normal after resting. She is concerned about it otherwise she says she has been managing her fluid status very well. Her dry weight is around 133.52 134.5. This has remained stable on current high dose of bumetanide therapy. The son is present and accompanying her and helps with her management of heart failure syndrome. Takes metolazone intermittently. Takes all other medications. No clear orthopnea, PND, worsening leg edema. She does uses compression in the lower extremity about 6 hours a day. Denies prolonged palpitation irregular heartbeat. No lightheadedness, syncope. No exertional chest pain. [facility] Medical History Acute on chronic hypoxic respiratory failure Acute on chronic systolic CHF (congestive heart failure) Congestive heart failure Chronic heart failure with preserved ejection fraction (HFpEF) COPD (chronic obstructive pulmonary disease) Mitral stenosis Pulmonary hypertension Abnormal chest x-ray Hypoxemia COPD (chronic obstructive pulmonary disease) HTN (hypertension) LBBB (left bundle branch block) Surgical History S/P TAVR (transcatheter aortic valve replacement) Hx of cardiac cath Family History Father No problems noted. Mother CVD (cardiovascular disease) Social History Household Members: Family Housing: House Do you presently have visiting nurse or other home services: No Patient Tobacco Use Status: Former Tobacco user Years Smoked: 20 +/- Advance Directives Date on File: 01/27/22 service: No Current occupational status: retired Review of Systems Const Denies chills, Denies fatigue, Denies fever(s), Denies frequent falls, Denies weakness, Denies weight gain and Denies weight loss ENT Denies dizziness Card Denies chest pain, Denies leg edema, Denies lightheadedness, Denies palpitations, Denies dyspnea, Denies dyspnea on exertion, Denies orthopnea and Denies other (loss of consciousness) Resp Denies cough, Denies dyspnea and Denies dyspnea on exertion GI Denies hematochezia and Denies change in stool character Musc Denies abnormal gait, Denies muscle weakness, Denies numbness, Denies radiating pain into limb and Denies tingling Neuro Denies abnormal gait, Denies dizziness, Denies frequent falls, Denies numbness, Denies tingling and Denies weakness Endo Denies fatigue and Denies palpitations Physical Exam Vital Signs: Last Vital Signs Pulse 72 12/30/23 14:55 BP 116/74 12/30/23 14:55 BMI result Body Mass Index 24.5 Const General: cooperative, no acute distress, alert, awake and tired appearing Nutritional Appearance: average body habitus Orientation/consciousness: patient oriented x3 Limitations: wheelchair Neck Neck: Yes trachea midline, Yes supple and Yes no JVD (Prominent V-waves) Resp Effort & Inspection: decreased respiratory effort Auscultation: clear to auscultation bilaterally and diminished lung sounds Cardio Jugular venous distension: no JVD Palpation: abnormal PMI displaced PMI Rate: regular rate Rhythm: regular rhythm Heart sounds: S1 normal heart sound present, S2 normal heart sound present, no click, no gallops and Murmur heart sound present systolic GI Auscultation: normal bowel sounds Skin General skin exam: no rashes or lesions noted Neuro General: patient oriented x3 and no focal motor deficits Extrem General: No clubbing, No cyanosis and Yes edema (Right below-knee 3+ edema with blisters, 2+ below knee on left) Assessment & Plan Assessment & Plan (1) Heart failure with reduced ejection fraction: Code(s): I50.20 - Unspecified systolic (congestive) heart failure Category: Medical Plan: Heart failure with reduced ejection fraction with multiple comorbidities including advanced age, deconditioning, frailty, chronic respiratory failure, cardiorenal syndrome, severe pulmonary hypertension, mitral stenosis. She is doing well overall from cardiac perspective with limitations as expected. We have advised her to continue aggressively treat her congestive syndrome with high dose bumetanide therapy with p.r.n. metolazone therapy. Daily weight monitoring avoidance of salt loading was discussed. Goals of therapy were discussed including avoidance of hospitalization and maintaining her current quality of life. She is encouraged to increase activity level as tolerated with limitations of hypoxemia, see below. Continue spironolactone therapy. Advise blood work today. Advised to call me with worsening symptoms. Overall prognosis is guarded. (2) Chronic respiratory failure: Code(s): J96.10 - Chronic respiratory failure, unspecified whether with hypoxia or hypercapnia Category: Medical Plan: Chronic respiratory failure with hypoxemia happening quickly with exercise. Continue oxygen replacement therapy. Continue maintain activity level as tolerated. We discussed about maintain activity level and taking rest when she developed hypoxemia. Hypoxemic respiratory failure multifactorial but has evidence of restrictive pulmonary defect most likely related to muscular deconditioning as well as possible interstitial lung disease as well as underlying severe cardiomyopathy mitral stenosis. (3) S/P TAVR (transcatheter aortic valve replacement): Code(s): Z95.2 - Presence of prosthetic heart valve Category: Surgical Plan: Status post transcatheter aortic valve replacement working well. Continue aspirin therapy. Continue risk factor modification. Blood pressure is well optimized. SBE prophylaxis as per ACC/[facility] guidelines. (4) Mitral stenosis: Code(s): I05.0 - Rheumatic mitral stenosis Category: Medical Plan: Calcific mitral stenosis possibly severe. Although given her multiple comorbidities unlikely to pursue invasive approach at this point time. She is doing well overall. Will follow up in the clinic in 3 months time, sooner p.r.n.. Thank you for allowing me to partake in her care Orders: Orders Basic Metabolic Panel Today I50.20 - Unspecified systolic (congestive) heart failure Coding Level of Care Code Est Pt Level 4 (51658) Diagnoses Heart failure with reduced ejection fraction I50.20 Chronic respiratory failure J96.10 S/P TAVR (transcatheter aortic valve replacement) Z95.2 Mitral stenosis I05.0
[2023-12-30 14:55] VITALS: BP 116/74; PULSE 72; BMI 24.5
== END 2023-12-30 15:19 | disposition home or self-care (01) ==
PROVIDERS: PCP Internal Medicine; Visit Provider Internal Medicine Cardiovascular Disease
DX: I50.20 Unspecified systolic (congestive) heart failure (principal); J96.10 Chronic respiratory failure, unspecified whether with hypoxia or hypercapnia; Z95.2 Presence of prosthetic heart valve; I05.0 Rheumatic mitral stenosis
CPT/HCPCS: 99214

== ENCOUNTER 2023-12-30 14:37 | Outpatient (REF) | payer MEDICARE, SELFPAY ==
[2023-12-30 16:09] LABS: Anion Gap 14 (12-20); Blood Urea Nitrogen 78 mg/dL (9-16); Calcium 9.9 mg/dL (8.4-10.2); Carbon Dioxide 35 mmol/L (22-29); Chloride 96 mmol/L (96-108); Estimated Glomerular Filt Rate 29; Glucose Random 120 mg/dL (60-115); Potassium 4.4 mmol/L (3.3-5.1); Sodium 141 mmol/L (135-145)
== END 2023-12-30 14:38 | disposition home or self-care (01) ==
LOC: HO.LAB 14:37
PROVIDERS: PCP Internal Medicine; Visit Provider Internal Medicine Cardiovascular Disease
DX: I50.20 Unspecified systolic (congestive) heart failure (principal); J96.10 Chronic respiratory failure, unspecified whether with hypoxia or hypercapnia; I05.0 Rheumatic mitral stenosis; Z95.2 Presence of prosthetic heart valve
CPT/HCPCS: 36415; 80048; 99212

== ENCOUNTER 2024-01-08 03:31 | Inpatient (IN) | payer MEDICARE, SELFPAY ==
[2024-01-08] VITALS (35 sets, daily range): BP systolic 83–135; BP diastolic 26–80; PULSE 42–115; RESP 12–30; TEMP 34.2–37.2; O2SAT 82–99; BMI 23.6
--- NOTE | 2024-01-08 | ECG_ITS ---
Test Reason : FALL Blood Pressure : / mmHG Vent. Rate : 080 BPM Atrial Rate : 080 BPM P-R Int : 178 ms QRS Dur : 168 ms QT Int : 466 ms P-R-T Axes : 059 -67 042 degrees QTc Int : 537 ms Normal sinus rhythm Left axis deviation Non-specific intra-ventricular conduction block Abnormal ECG When compared with ECG of 19-AUG-2023 16:35, No significant change was found Referred By: Generic ED Physician Electronically Signed By:DEJUAN MADRID
--- NOTE | 2024-01-08 | ECG_ITS ---
Test Reason : ?rhythm Blood Pressure : / mmHG Vent. Rate : 117 BPM Atrial Rate : 117 BPM P-R Int : 200 ms QRS Dur : 162 ms QT Int : 356 ms P-R-T Axes : 005 -39 089 degrees QTc Int : 496 ms Sinus tachycardia Left axis deviation Left bundle branch block Abnormal ECG When compared to the previous EKG of same day, increase in ventricular rate Referred By: Sweetie Rosas Electronically Signed By:DEJUAN MADRID
--- NOTE | ~2024-01-08 | FL_ITS ---
EXAMINATION: XR FLUOROSCOPY WITH IMAGES CLINICAL INFORMATION: Right IM nail COMPARISON: None available. TECHNIQUE: Fluoroscopy Supervised By: Dr. Stapleton. Fluoroscopy Time: 0.4 minutes. Cumulative Dose: 8.94 mGy. DAP: 0.155 Gycm2. Images: 6. FINDINGS: 6 images demonstrate insertion of a intramedullary stefany into the right femur with distal horizontal screw and interlocking compression screw through the proximal femur. For full details, please see Dr. Stapleton's report. FL/FL guidance in OR IMPRESSION: Intraoperative fluoroscopy provided. Please see Dr. Stapleton's report for full details.
--- NOTE | ~2024-01-08 | XR_ITS ---
EXAMINATION: XR CHEST CLINICAL INFORMATION: Endotracheal tube position. COMPARISON: 01/08/2024 TECHNIQUE: Frontal view of the chest was obtained. FINDINGS: The endotracheal tube tip terminates approximately 4 cm above the staci. A nasogastric tube terminates subdiaphragmatically with the tip not visualized. Right central venous catheter with tip projecting over the right atrium. Small right pleural effusion with right basilar consolidation. There is pulmonary vascular congestion an interstitial edema. Multifocal consolidation has improved. Cardiac silhouette is unchanged. Status post TAVR. XR/XR chest 1V IMPRESSION: As above.
--- NOTE | ~2024-01-08 | XR_ITS ---
EXAMINATION: XR HIP, RIGHT CLINICAL INFORMATION: Fall. Deformity. COMPARISON: None available. TECHNIQUE: Two views of the right hip. FINDINGS: The bony structures are osteopenic. There is a displaced right basicervical hip fracture which appears to extend into the intertrochanteric region with comminution. The left femoral head screw and proximal femoral stefany are noted in place. There is lower lumbar degenerative change. XR/XR hip RT w PEL1V IMPRESSION: 1. Displaced right basicervical hip fracture. 2. Osteopenia.
--- NOTE | ~2024-01-08 | XR_ITS ---
EXAMINATION: XR CHEST CLINICAL INFORMATION: Status post intubation COMPARISON: 01/08/2024 TECHNIQUE: Frontal view of the chest was obtained. FINDINGS: ET tube terminates 5 cm from the staci. Enteric tube extends off the inferior aspect of the study and of the stomach. Right IJ central venous catheter tip terminates over the right atrium. Status post TAVR. Calcifications at the mitral annulus. Cardiac silhouette is enlarged. Pulmonary venous congestion. Patchy airspace consolidation is present throughout both lungs as can be seen. Interstitial opacities are also noted bilaterally. Trace right pleural effusion. No pneumothorax. Degenerative spondylosis is present in the thoracic spine. Bones are osteopenic. XR/XR chest 1V IMPRESSION: 1. ET tube terminates 5 cm from the staci. 2. Right IJ central venous catheter tip terminates over the right atrium. 3. Cardiomegaly with pulmonary venous congestion and interstitial edema. Patchy airspace consolidation in both lungs could be due to alveolar edema or pneumonia.
--- NOTE | ~2024-01-08 | XR_ITS ---
EXAMINATION: XR CHEST CLINICAL INFORMATION: Preop COMPARISON: Chest 10/10/2023 TECHNIQUE: Frontal view of the chest was obtained. FINDINGS: The cardiac silhouette remains enlarged. A TAVR stent is noted. Mild blunting of the left right costophrenic sulci visualized. Diffuse pulmonary vascular indistinctness is identified. Mild scattered airspace type opacities are present. No pneumothoraces visualized. Dense aortic calcific atherosclerosis visualized. Multilevel endplate osteophytosis of the visualized thoracolumbar spine. Diffuse osteopenia noted. XR/XR chest 1V IMPRESSION: 1. Cardiomegaly unchanged compared with 10/10/2023. 2. Findings suspicious for moderate interstitial pulmonary edema. Additionally, scattered alveolar opacities are present in the lungs and may represent areas of alveolar edema. Multifocal infection could have a similar appearance. 3. Small bilateral pleural effusions. 4. Diffuse osteopenia.
--- NOTE | 2024-01-08 04:03 | PC.NURSE ---
pt biba from home, a&ox4, respirations even and unlabored. pt reporting a fall at home when walking to kitchen to get ice, report tripping on carpet and falling; reporting right hip pain, right hip noted to be externally rotated and shorted. pt reports pain with movement but has +CMS. pt on 2L nasal cannula baseline due to COPD. 20G placed in left wrist at this time.
--- NOTE | 2024-01-08 04:25 | PC.NURSE ---
22G placed in right wrist, labs obtained at this time.
[2024-01-08 04:29] LABS: Basophils Absolute Auto 0.1 X10*3/uL (0.0-0.2); Basophils Percent Auto 1.2 % (0-2); Eosinophils Absolute Auto 0.2 X10*3/uL (0.0-0.4); Eosinophils Percent Auto 3.5 % (0-4); Hematocrit 34.4 % (37.0-47.0); Hemoglobin 10.3 g/dl (12.0-16.0); Imm Gran Abs Auto 0.03 X10*3/uL (0.00-0.03); Imm Gran Pct Auto 0.5 % (0.0-0.4); Lymphocytes Absolute Auto 0.4 X10*3/uL (1.2-4.9); Lymphocytes Percent Auto 6.3 % (20-40); MANUAL DIFF FLAG NO; Mean Corpuscular HGB Conc 29.9 g/dl (31.0-35.0); Mean Corpuscular Hemoglobin 25.4 pg (27.0-33.0); Mean Corpuscular Volume 84.7 fL (80.0-98.0); Mean Platelet Volume 10.8 fL (9.4-12.3); Monocytes Absolute Auto 0.7 X10*3/uL (0.1-1.2); Monocytes Percent Auto 11.6 % (2-11); Neutrophils Absolute Auto 4.4 x10*3/uL (2.0-8.3); Neutrophils Percent Auto 76.9 % (45-73); Platelet Count 190 X10*3/uL (160-400); Red Blood Count 4.06 X10*6/uL (4.20-5.50); Red Cell Distribution Width 15.9 % (11.0-16.0); White Blood Count 5.7 X10*3/uL (4.8-10.8)
--- NOTE | 2024-01-08 04:34 | ED.FALL ---
HPI - Fall General Chief Complaint: Fall Stated Complaint: FALL Time Seen by Provider: 01/08/24 04:12 Source: patient Mode of arrival: EMS History of Present Illness ED Provider: Dr Chávez HPI Narrative: 83-year-old female arrives via EMS after getting up to the refrigerator to get some crushed ice and fell backwards and now is complaining of pain in the left hip but otherwise feels well, she recently underwent a procedure for known macular degeneration in the right eye. Related Data Home Medications ?Medication ?Instructions ?Recorded ?Confirmed levothyroxine 50 mcg tablet 50 mcg PO DAILY@0600 08/15/20 12/30/23 simvastatin 20 mg tablet 20 mg PO DAILY@1700 08/15/20 12/30/23 glipizide 2.5 mg tablet, extended 2.5 mg PO BID 05/24/21 12/30/23 release 24 hr spironolactone 25 mg tablet 25 mg PO DAILY 08/02/21 12/30/23 aspirin 81 mg tablet,delayed 81 mg PO DAILY 10/30/21 12/30/23 release (Adult Aspirin Regimen) cholecalciferol (vitamin D3) 25 25 mcg PO BID 01/25/22 12/30/23 mcg (1,000 unit) tablet citalopram 20 mg tablet 20 mg PO DAILY 10/22/22 12/30/23 artifi.tears(hypromellose)(PF) 0.3 1 drp ophthalmic (eye) Q2H PRN Dry 08/19/23 12/30/23 % eye drops Eyes gabapentin 800 mg tablet 600 mg PO QID 09/25/23 12/30/23 Previous Rx's ?Medication ?Instructions ?Recorded fluticasone propionate 115 2 puff inhalation BID 30 days #1 ea 05/24/21 mcg-salmeterol 21 mcg/actuation HFA inhaler (Advair HFA) bumetanide 2 mg tablet 4 mg (2 x 2 mg) PO BID #1 tab 08/30/23 ipratropium 0.5 mg-albuterol 3 mg 3 ml inhalation RQ4H WHILE AWAKE 08/30/23 (2.5 mg base)/3 mL nebulization #1 mL soln metolazone 2.5 mg tablet 2.5 mg PO DAILY PRN weight gain 09/25/23 greater than 2 lbs #20 tabs Allergies Allergy/AdvReac Type Severity Reaction Status Date / Time Penicillins [PENICILLINS] Allergy Intermediate HIVES Verified 01/08/24 03:43 Review of Systems Review of Systems: Pertinent positives and negatives as stated in [facility] Past Medical History Source: nursing notes reviewed Medical History Acute on chronic hypoxic respiratory failure Acute on chronic systolic CHF (congestive heart failure) Congestive heart failure Chronic heart failure with preserved ejection fraction (HFpEF) COPD (chronic obstructive pulmonary disease) Mitral stenosis Pulmonary hypertension Abnormal chest x-ray Hypoxemia COPD (chronic obstructive pulmonary disease) HTN (hypertension) LBBB (left bundle branch block) Surgical History S/P TAVR (transcatheter aortic valve replacement) Hx of cardiac cath Family History Family History Father No problems noted. Mother CVD (cardiovascular disease) Social History Social History Household Members: Family Housing: House Do you presently have visiting nurse or other home services: No Patient Tobacco Use Status: Former Tobacco user Years Smoked: 20 +/- Smoked in Last 30 Days: No Use of substances other than those prescribed or required for medical reasons: No Advance Directives: Yes Advance Directives on File: Yes Advance Directives Date on File: 01/27/22 Do you have a plan to hurt others: No Plan service: No Current occupational status: retired Physical Exam Vital Signs: Vital Signs: Last Vital Signs Temp 97.8 F 01/08/24 05:42 Pulse 80 01/08/24 05:42 Resp 16 01/08/24 05:55 BP 131/66 01/08/24 05:42 Pulse Ox 88 L 01/08/24 05:42 O2 Del Method Nasal Cannula 01/08/24 05:42 O2 Flow Rate 2 01/08/24 05:42 Oxygen Flow Rate 2 01/08/24 03:33 BMI result Body Mass Index 23.6 VITAL SIGNS: Reviewed. GENERAL: Well developed, well nourished, in no acute distress. HEAD: Normocephalic/atraumatic EYES: PERRLA, EOMI EARS: Ext canals without abnormality NOSE: Nares patent bilateral OROPHARYNX: no oral lesions noted, posterior pharynx clear NECK: Supple, no adenopathy LUNGS: Normal breath sounds. No adventitious sounds or accessory muscle use. SpO2<89> on 2 L of nasal cannula from home CARDIOVASCULAR: Regular rate and rhythm without noted murmurs, no JVD bilateral lower extremity edema ABDOMEN: Soft, non-tender, non-distended with bowel sounds. PELVIS: Stable, tenderness noted over greater trochanter area with a right lower extremity that is externally rotated and shortened MUSCULOSKELETAL: No tenderness, deformities, or effusions noted on gross inspection. EXTREMITIES: No cyanosis, clubbing or edema. SKIN: Inspection of the skin reveals no rashes NEUROLOGIC: Alert and oriented x 4. Strength and sensation to light touch were grossly intact x 4. Medications Administered Discontinued Medications Generic Name Dose Route Start Last Admin Trade Name Freq PRN Reason Stop Dose Admin Fentanyl 25 mcg 01/08/24 04:33 01/08/24 04:54 Fentanyl Citrate/Pf 100 Mcg/2 Ml Vial IVPUSH 01/08/24 04:34 25 mcg ONCE ONE Administration Protocol Hydromorphone HCl 0.25 mg 01/08/24 05:41 01/08/24 05:55 Hydromorphone Hcl 0.5 Mg/0.5 Ml Syringe IVPUSH 01/08/24 05:42 0.25 mg ONCE ONE Administration Protocol Ketorolac Tromethamine 15 mg 01/08/24 05:41 01/08/24 05:55 Ketorolac Tromethamine 30 Mg/Ml Vial IVPUSH 01/08/24 05:42 15 mg ONCE ONE Administration Medical Decision Making Medical Decision Making MDM Narrative: 83-year-old female with history and clinical presentation, DDX: Right hip fracture/dislocation. INTERVENTION: Hip/pelvis x-ray, pain medication, Rodriguez catheter, chest x-ray for preop, type and screen I reviewed all investigations and hematologic indices are negative for leukocytosis and there is a stable normocytic anemia without thrombocytopenia. Chemistries indices with CKD and mild bump in potassium and will provide saline although sample is mildly hemolyzed, otherwise liver enzymes are without derangement. Urinalysis negative for UTI. Displaced right basicervical hip fracture. 0552: I discussed case with inpatient hospitalist who accepts admission. 0606: I discussed the case with orthopedics who will be by to see the patient this morning. Differential Diagnosis Differential Diagnoses: The differential diagnosis associated with the presentation includes Please see the discussion above Admission/Observation Consideration of admission/observation: Escalation of care including admission/observation considered Please see the discussion above Consult Healthcare Provider Management of the patient was discussed with: Hospitalist and Pantograph Setter Please see the discussion above Lab Data MDM Lab Attestation statement: I reviewed the patient's lab results. Please see the discussion above 01/08/24 04:22 01/08/24 04:22 Labs: Lab Results 01/08/24 01/08/24 01/08/24 Range/Units 04:22 05:06 05:40 WBC 5.7 (4.8-10.8) X10*3/uL RBC 4.06 L (4.20-5.50) X10*6/uL Hgb 10.3 L (12.0-16.0) g/dl Hct 34.4 L (37.0-47.0) % MCV 84.7 (80.0-98.0) fL MCH 25.4 L (27.0-33.0) pg MCHC 29.9 L (31.0-35.0) g/dl RDW 15.9 (11.0-16.0) % Plt Count 190 (160-400) X10*3/uL MPV 10.8 (9.4-12.3) fL Immature Gran % (Auto) 0.5 H (0.0-0.4) % Neut % (Auto) 76.9 H (45-73) % Lymph % (Auto) 6.3 L (20-40) % [place] % (Auto) 11.6 H (2-11) % Eos % (Auto) 3.5 (0-4) % Baso % (Auto) 1.2 (0-2) % Lymph # (Auto) 0.4 L (1.2-4.9) X10*3/uL [place] # (Auto) 0.7 (0.1-1.2) X10*3/uL Eos # (Auto) 0.2 (0.0-0.4) X10*3/uL Baso # (Auto) 0.1 (0.0-0.2) X10*3/uL Abs Immat Gran (auto) 0.03 (0.00-0.03) X10*3/uL Absolute Neuts (auto) 4.4 (2.0-8.3) x10*3/uL Absolute Nucleated RBC 0.000 (0.0-0.012) X10*3/uL Nucleated RBC % (auto) 0.0 (0.0-0.2) /100WBC Hold Blue Top SEE NOTE Sodium 140 (135-145) mmol/L Potassium 5.3 H D (3.3-5.1) mmol/L Chloride 98 (96-108) mmol/L Carbon Dioxide 29 (22-29) mmol/L Anion Gap 18 (12-20) BUN 69 H (9-16) mg/dL Creatinine 1.74 H (0.5-1.4) mg/dL Estim Creat Clear Calc 21.6 Estimated GFR 28 Random Glucose 145 H (60-115) mg/dL Calcium 9.9 (8.4-10.2) mg/dL Total Bilirubin 0.6 (0.0-1.0) mg/dL AST 34 H (5-31) U/L ALT 26 (0-31) U/L Alkaline Phosphatase 140 H (39-117) U/L Total Protein 8.2 H (6.5-8.0) g/dL Albumin 3.7 (3.5-5.0) g/dL Urine Color Yellow Urine Appearance Clear Urine pH 5.5 (5.0-9.0) Ur Specific [place] 1.010 (1.005-1.025) Urine Protein Negative (Neg-Trace) mg/dL Urine Glucose (UA) Negative (Negative) mg/dL Urine Ketones Negative (Negative) mg/dL Urine Blood Trace H (Negative) Urine Nitrite Negative (Negative) Ur Leukocyte Esterase Trace H (Negative) Urine RBC 6-10 H (0-2) /HPF Urine WBC 0-5 (0-5) /HPF Ur Squamous Epith Cells 0-2 (0-2) /HPF Urine Bacteria None Seen (None Seen) Hyaline Casts >20 (0-2) /LPF Blood Type Cancelled B Positive Antibody Screen Cancelled Independent Interpretation I performed an independent interpretation of an: EKG Interpretation: Normal sinus rhythm, HR-80, no STEMI, NV within normal limits, QRS and QTC at patient's baseline, no acute changes when compared to prior from July/2023. Radiology Impression Discussion of test interpretation with radiology: I have reviewed the radiologist's reading. Radiologist Impression: Please see the discussion above External Record Review External record reviewed: Outpatient record, Prior outpatient labs and Prior outpatient radiology Chronic Conditions Patient?s care impacted by: Diabetes and Hypertension CHF, COPD Critical Care Time Critical Care Time Critical Care Time: Yes Total Critical Care Time: 60 Attestation: I personally attest to this time spent taking care of the patient. Discharge Plan Discharge Clinical Impression: Closed hip fracture, Fall Patient Disposition: Admitted As Inpatient Prescriptions: No Action Advair HFA 115-21 mcg/actuation HFA aerosol inhaler 2 puff inhalation BID 30 Days Qty: 1 6RF cholecalciferol (vitamin D3) 25 mcg (1,000 unit) Tablet 25 mcg PO BID artifi.tears(hypromellose)(PF) 0.3 % drops 1 drp ophthalmic (eye) Q2H PRN (Reason: Dry Eyes) ipratropium-albuterol 0.5 mg-3 mg(2.5 mg base)/3 mL Solution For Nebulization 3 ml inhalation RQ4H WHILE AWAKE Qty: 1 0RF bumetanide 2 mg tablet 4 mg PO BID Qty: 1 0RF simvastatin 20 mg tablet 20 mg PO DAILY@1700 levothyroxine 50 mcg tablet 50 mcg PO DAILY@0600 glipizide 2.5 mg tablet extended release 24 hr 2.5 mg PO BID gabapentin 800 mg tablet 600 mg PO QID spironolactone 25 mg tablet 25 mg PO DAILY aspirin [Adult Aspirin Regimen] 81 mg tablet,delayed release (DR/EC) 81 mg PO DAILY citalopram 20 mg tablet 20 mg PO DAILY metolazone 2.5 mg tablet 2.5 mg PO DAILY PRN (Reason: weight gain greater than 2 lbs) Qty: 20 3RF Print Language: Burkinan
[2024-01-08 04:45] LABS: Alanine Aminotransferase 26 U/L (0-31); Albumin Level 3.7 g/dL (3.5-5.0); Alkaline Phosphatase 140 U/L (39-117); Anion Gap 18 (12-20); Aspartate Amino Transferase 34 U/L (5-31); Bilirubin Total 0.6 mg/dL (0.0-1.0); Blood Urea Nitrogen 69 mg/dL (9-16); Calcium 9.9 mg/dL (8.4-10.2); Carbon Dioxide 29 mmol/L (22-29); Chloride 98 mmol/L (96-108); Creatinine Clr Calc Pharmacy 21.6; Estimated Glomerular Filt Rate 28; Glucose Random 145 mg/dL (60-115); Potassium 5.3 mmol/L (3.3-5.1); Sodium 140 mmol/L (135-145); Total Protein 8.2 g/dL (6.5-8.0)
[2024-01-08] MEDS: fentaNYL citrate/PF 100 MCG/2 ML VIAL 25 MCG IVPUSH (04:54)
--- NOTE | 2024-01-08 04:59 | PC.NURSE ---
pt medicated per sep for 10/10 right hip pain.
--- NOTE | 2024-01-08 05:41 | PC.NURSE ---
yates catheter placed per order at this time, pt tolerated well. pt had 400ml of yellow urine voided at this time. pt reports 10/10 right hip pain at this time.
[2024-01-08 05:44] LABS: Appearance Urine Clear; Color Urine Yellow; Glucose Urine UA Negative (Negative); Leukocyte Esterase Urine Trace (Negative); Nitrite Urine Negative (Negative); PH 5.5 (5.0-9.0); UMIC TRIGGER UACC YES; Urine Blood Trace (Negative); Urine Ketones Negative (Negative); Urine Protein Negative (Neg-Trace)
[2024-01-08 05:55] LABS: Bacteria Urine None Seen (None Seen); Hyaline Casts Urine >20 /LPF (0-2); Squamous Epithelial Cell Urine 0-2 /HPF (0-2); WBC Urine 0-5 /HPF (0-5)
[2024-01-08] MEDS: HYDROmorphone HCl 0.5 MG/0.5 ML SYRINGE 0.25 MG IVPUSH ×2 (05:55→22:49)
[2024-01-08] MEDS: Ketorolac Tromethamine 30 MG/ML VIAL 15 MG IVPUSH (05:55)
[2024-01-08] MEDS: 0.9 % Sodium Chloride 500 ML IV (06:04)
[2024-01-08 06:21] LABS: INTERNATIONAL NORM RATIO 1.2 (0.9-1.1); Prothrombin Time 14.4 SEC (11.1-13.3)
[2024-01-08] MEDS: HYDROmorphone HCl 0.5 MG/0.5 ML SYRINGE IVPUSH (07:26)
--- NOTE | 2024-01-08 08:13 | PC.NURSE ---
Pt resting, appears more comfortable.
--- NOTE | 2024-01-08 09:06 | P.HPHOSP_ITS ---
History of Present Illness Date of Service: 01/08/24 Chief Complaint: fall The patient is an 83 yo F with a PMH of HFrEF, valvular heart disease (TAVR, MV stenosis, TR), pulm HTN, chronic resp failure with hypoxia on 2L who presents to [facility] ED after sustained a fall on the day of admission. The patient states that she gets injections into her eyes for macular denegenration and did so on the day prior to admission. During the evening/night, she went to the kitchen for some ice, lost her balance, slipped and fell backwards. She reported immediate pain in the R hip and knew something was wrong. She denies LOC. She dnies chest pain/sob/palpitations. She denies headache, nausea/vomiting. She reports R hip pain, which is now controlled at rest with IV analgesics. ED work up revealed R basicvervical hip facture, displaced. She will now be admitted for further management. Review of Systems 2 Review of Systems: Negative except HPI/interval history. [facility] Medical History Acute on chronic hypoxic respiratory failure Acute on chronic systolic CHF (congestive heart failure) Congestive heart failure Chronic heart failure with preserved ejection fraction (HFpEF) COPD (chronic obstructive pulmonary disease) Mitral stenosis Pulmonary hypertension Abnormal chest x-ray Hypoxemia COPD (chronic obstructive pulmonary disease) HTN (hypertension) LBBB (left bundle branch block) Family History Father No problems noted. Mother CVD (cardiovascular disease) Surgical History S/P TAVR (transcatheter aortic valve replacement) Hx of cardiac cath Social History Household Members: Family Housing: House Do you presently have visiting nurse or other home services: No Patient Tobacco Use Status: Former Tobacco user Years Smoked: 20 +/- Smoked in Last 30 Days: No Use of substances other than those prescribed or required for medical reasons: No Advance Directives: Yes Advance Directives on File: Yes Advance Directives Date on File: 01/27/22 Do you have a plan to hurt others: No Plan service: No Current occupational status: retired Meds Allergies Allergy/AdvReac Type Severity Reaction Status Date / Time Penicillins [PENICILLINS] Allergy Intermediate HIVES Verified 01/08/24 03:43 Home Medications ?Medication ?Instructions ?Recorded ?Confirmed ?Last Taken ?Type levothyroxine 50 mcg tablet 50 mcg PO DAILY@0600 08/15/20 01/08/24 01/07/24 06:00 History simvastatin 20 mg tablet 20 mg PO DAILY@1700 08/15/20 01/08/24 08/19/23 History glipizide 2.5 mg tablet, extended 2.5 mg PO BID 05/24/21 01/08/24 01/07/24 09:00 History release 24 hr spironolactone 25 mg tablet 25 mg PO DAILY 08/02/21 01/08/24 01/07/24 09:00 History aspirin 81 mg tablet,delayed 81 mg PO DAILY 10/30/21 01/08/24 01/07/24 09:00 History release (Adult Aspirin Regimen) cholecalciferol (vitamin D3) 25 25 mcg PO BID 01/25/22 01/08/24 01/07/24 09:00 History mcg (1,000 unit) tablet citalopram 20 mg tablet 20 mg PO DAILY 10/22/22 01/08/24 01/07/24 09:00 History albuterol sulfate 90 mcg/actuation 2 puff inhalation Q4H PRN 01/08/24 01/08/24 Unknown History aerosol inhaler Shortness Of Breath Or Wheezing bumetanide 2 mg tablet 2 mg PO BID 01/08/24 01/08/24 01/07/24 09:00 History dextran 70-hypromellose (PF) 0.1 1 drp ophthalmic (eye) Q2H PRN Dry 01/08/24 01/08/24 Unknown History %-0.3 % eye drops in a dropperette Eyes (Artificial Tears (PF)) gabapentin 600 mg tablet 600 mg PO BID 01/08/24 01/08/24 01/07/24 09:00 History ipratropium 0.5 mg-albuterol 3 mg 3 ml inhalation RQ4H WHILE AWAKE 01/08/24 01/08/24 Unknown History (2.5 mg base)/3 mL nebulization PRN Shortness Of Breath Or Wheezing soln Physical Exam 2 Vital Signs and Narrative: Vital Signs: Last Vital Signs Temp 97.6 F 01/08/24 06:28 Pulse 75 01/08/24 07:35 Resp 17 01/08/24 07:35 BP 135/64 01/08/24 07:35 Pulse Ox 97 01/08/24 07:35 O2 Del Method Nasal Cannula 01/08/24 07:35 O2 Flow Rate 3 01/08/24 07:35 Oxygen Flow Rate 2 01/08/24 03:33 BMI result Body Mass Index 23.6 Const: Other: General - no acute distress, appears comfortable Cardiovascular - regular rate and rhythm, S1-S2 Lungs - normal respiratory effort, clear to auscultation bilaterally, no wheezing Abdomen - soft, nontender, no rebound or guarding Extremities - RLE rotated and shortened Neuro - awake and alert, no focal deficits Results Labs 01/08/24 04:22 01/08/24 04:22 Labs: Laboratory Results - last 24 hr 01/08/24 01/08/24 01/08/24 04:22 05:06 05:40 MCV 84.7 MCH 25.4 L MCHC 29.9 L RDW 15.9 Plt Count 190 MPV 10.8 Immature Gran % (Auto) 0.5 H Neut % (Auto) 76.9 H Lymph % (Auto) 6.3 L [place] % (Auto) 11.6 H Eos % (Auto) 3.5 Baso % (Auto) 1.2 Lymph # (Auto) 0.4 L [place] # (Auto) 0.7 Eos # (Auto) 0.2 Baso # (Auto) 0.1 Abs Immat Gran (auto) 0.03 Absolute Neuts (auto) 4.4 Absolute Nucleated RBC 0.000 Nucleated RBC % (auto) 0.0 PT 14.4 H INR 1.2 H Hold Blue Top SEE NOTE Anion Gap 18 Estim Creat Clear Calc 21.6 Estimated GFR 28 Random Glucose 145 H Calcium 9.9 Total Bilirubin 0.6 AST 34 H ALT 26 Alkaline Phosphatase 140 H Total Protein 8.2 H Albumin 3.7 Urine Color Yellow Urine Appearance Clear Urine pH 5.5 Ur Specific [place] 1.010 Urine Protein Negative Urine Glucose (UA) Negative Urine Ketones Negative Urine Blood Trace H Urine Nitrite Negative Ur Leukocyte Esterase Trace H Urine RBC 6-10 H Urine WBC 0-5 Ur Squamous Epith Cells 0-2 Urine Bacteria None Seen Hyaline Casts >20 Blood Type Cancelled B Positive Antibody Screen Cancelled POSITIVE Antibody Identification Anti-K Antigen Identification K Antigen - NEGATIVE ELVIRA, Polyspecific NEGATIVE Positive ELVIRA Work-up TNP Crossmatch (AHG) See Detail Imaging Radiologist's Impressions: Impressions Chest X-Ray 01/08/24 04:57 IMPRESSION: 1. Cardiomegaly unchanged compared with 10/10/2023. 2. Findings suspicious for moderate interstitial pulmonary edema. Additionally, scattered alveolar opacities are present in the lungs and may represent areas of alveolar edema. Multifocal infection could have a similar appearance. 3. Small bilateral pleural effusions. 4. Diffuse osteopenia. Hip/Pelvis X-Ray 01/08/24 04:57 IMPRESSION: 1. Displaced right basicervical hip fracture. 2. Osteopenia. Assessment and Plan (1) Closed hip fracture: Status: Acute Plan 83 yo F with multiple medical issues arriving to the ED after what appears to be a mechanical fall resulting in R hip fracture. She is admitted for further management, with anticipated surgical intervention. 1. Displaced R hip fracture NPO, IV analgesics, ortho consult -- anticipate operative repair will ask for cardiology input given significant cardiac history -- likely very high risk (see cardiology note) 2. HFrEF, vavular heart disease, CAD appears to be at baseline will continue baseline meds cardiology eval as above 3. CKD3 SCr appears to be at baseline monitor 4. DM hold orals, using sliding scale 5. hypothyroidism synthroid Full Code DVT pptx -- per ortho recs post surgical intervention Patient with hip fracture with anticipated surgical repair with underlying cardiopulmonary disease therefore, anticipated to require at least 2 midnights in the hospital for treatment. Hence, will be admitted as inpatient. Quality Stroke Does the patient have a stroke diagnosis?: No VTE Prior VTE?: No VTE Risk Level:: Medical - moderate - high VTE Device Contraindication: Treatment Not Indicated VTE Drug Contraindication: Treatment Not Indicated
--- NOTE | 2024-01-08 09:33 | PHA.MEDREC ---
Pharmacy Consult ? Medication Reconciliation Pharmacy has completed the medication reconciliation. Called daughter Anu ([phone]) to confirm meds.
--- NOTE | 2024-01-08 09:52 | PM.CNOR ---
History of Present Illness HPI Consult date: 01/08/24 <Blayne Jessica PA-C - Last Filed: 01/08/24 10:22> Chief complaint: hip fracture <RAJESH Wei Last Filed: 01/08/24 10:09> Narrative: Patient an 83-year-old female past medical history significant for CHF with ejection fraction of approximately 15-20% and COPD who is S/P IM and placement in her left hip presented to the emergency department yesterday with pain after a fall onto right hip. The patient reports that, when she was going to get some ice from her freezer, she slipped and fell backwards onto her right hip, and after this was unable to put weight on her right leg. In the ED, x-rays were obtained, which demonstrated right intertrochanteric femur fracture with external rotation of the femoral shaft. Patient has been nonweightbearing since arriving in the ED. <RAJESH Wei Last Filed: 01/08/24 10:09> Patient an 83-year-old female past medical history significant for CHF with ejection fraction of approximately 15-20% and COPD who is S/P IM nail placement in her left hip ( 20 years ago) presented to the emergency department yesterday with pain after a fall onto right hip. The patient reports that, when she was going to get some ice from her freezer, she slipped and fell backwards onto her right hip, and after this was unable to put weight on her right leg. In the ED, x-rays were obtained, which demonstrated right intertrochanteric femur fracture with external rotation of the femoral shaft. Patient has been nonweightbearing since arriving in the ED. <Blayne Jessica PA-C - Last Filed: 01/08/24 10:22> Review of Systems Review of Systems: Yes all other systems are reviewed and are negative <Blayne Jessica PA-C - Last Filed: 01/08/24 10:22> [facility] Past Medical History Medical History: Medical History Acute on chronic hypoxic respiratory failure Acute on chronic systolic CHF (congestive heart failure) Congestive heart failure Chronic heart failure with preserved ejection fraction (HFpEF) COPD (chronic obstructive pulmonary disease) Mitral stenosis Pulmonary hypertension Abnormal chest x-ray Hypoxemia COPD (chronic obstructive pulmonary disease) HTN (hypertension) LBBB (left bundle branch block) <RAJESH Wei - Last Filed: 01/08/24 10:09> Family History Family History: Family History Father No problems noted. Mother CVD (cardiovascular disease) <RAJESH Wei - Last Filed: 01/08/24 10:09> Surgical History Surgical History: Surgical History S/P TAVR (transcatheter aortic valve replacement) Hx of cardiac cath <RAJESH Wei - Last Filed: 01/08/24 10:09> Social History Social History: Social History Household Members: Family Housing: House Do you presently have visiting nurse or other home services: No Comment: COUTNS CORRECT Patient Tobacco Use Status: Former Tobacco user Years Smoked: 20 +/- Advance Directives Date on File: 01/27/22 service: No Current occupational status: retired <RAJESH Wei - Last Filed: 01/08/24 10:09> Meds Allergies/Adverse reactions: Allergies Allergy/AdvReac Type Severity Reaction Status Date / Time Penicillins [PENICILLINS] Allergy Intermediate HIVES Verified 01/08/24 03:43 <RAJESH Wei - Last Filed: 01/08/24 10:09> Active Medications: Current Medications Acetaminophen (Acetaminophen 325 Mg Tablet) 650 mg PO Q6H PRN PRN Reason: Pain, Mild (Pain Scale 1-3) Docusate Sodium (Docusate Sodium 100 Mg Capsule) 100 mg PO DAILY PRN PRN Reason: Constipation Hydromorphone HCl (Hydromorphone Hcl 0.5 Mg/0.5 Ml Syringe) 0.25 mg IVPUSH Q4H PRN; Protocol PRN Reason: Pain, Severe (Pain Scale 7-10) Ondansetron HCl (Ondansetron Hcl 4 Mg/2 Ml Vial) 4 mg IVPUSH Q8H PRN PRN Reason: Nausea and Vomiting Senna (Sennosides 8.6 Mg Tablet) 17.2 mg PO BEDTIME PRN PRN Reason: Constipation Sodium Chloride (0.9 % Sodium Chloride Flush 3 Ml Syringe) 3 ml IVFLUSH QSHIFT [facility] <RAJESH Wei - Last Filed: 01/08/24 10:09> Home medications: Home Medications ?Medication ?Instructions ?Recorded ?Confirmed ?Last Taken ?Type levothyroxine 50 mcg tablet 50 mcg PO DAILY@0600 08/15/20 01/08/24 01/07/24 06:00 History simvastatin 20 mg tablet 20 mg PO DAILY@1700 08/15/20 01/08/24 08/19/23 History glipizide 2.5 mg tablet, extended 2.5 mg PO BID 05/24/21 01/08/24 01/07/24 09:00 History release 24 hr spironolactone 25 mg tablet 25 mg PO DAILY 08/02/21 01/08/24 01/07/24 09:00 History aspirin 81 mg tablet,delayed 81 mg PO DAILY 10/30/21 01/08/24 01/07/24 09:00 History release (Adult Aspirin Regimen) cholecalciferol (vitamin D3) 25 25 mcg PO BID 01/25/22 01/08/24 01/07/24 09:00 History mcg (1,000 unit) tablet citalopram 20 mg tablet 20 mg PO DAILY 10/22/22 01/08/24 01/07/24 09:00 History albuterol sulfate 90 mcg/actuation 2 puff inhalation Q4H PRN 01/08/24 01/08/24 Unknown History aerosol inhaler Shortness Of Breath Or Wheezing bumetanide 2 mg tablet 2 mg PO BID 01/08/24 01/08/24 01/07/24 09:00 History dextran 70-hypromellose (PF) 0.1 1 drp ophthalmic (eye) Q2H PRN Dry 01/08/24 01/08/24 Unknown History %-0.3 % eye drops in a dropperette Eyes (Artificial Tears (PF)) gabapentin 600 mg tablet 600 mg PO BID 01/08/24 01/08/24 01/07/24 09:00 History ipratropium 0.5 mg-albuterol 3 mg 3 ml inhalation RQ4H WHILE AWAKE 01/08/24 01/08/24 Unknown History (2.5 mg base)/3 mL nebulization PRN Shortness Of Breath Or Wheezing soln <RAJESH Wei Last Filed: 01/08/24 10:09> Physical Exam Vital Signs: Vital Signs: Last Vital Signs Temp 97.6 F 01/08/24 06:28 Pulse 75 01/08/24 07:35 Resp 17 01/08/24 07:35 BP 135/64 01/08/24 07:35 Pulse Ox 97 01/08/24 07:35 O2 Del Method Nasal Cannula 01/08/24 07:35 O2 Flow Rate 3 01/08/24 07:35 Oxygen Flow Rate 2 01/08/24 03:33 BMI result Body Mass Index 23.6 <RAJESH Wei Last Filed: 01/08/24 10:09> Const: Other: Patient is alert, oriented, cooperative <RAJESH Wei Last Filed: 01/08/24 10:09> General: cooperative, healthy appearing, comfortable, no acute distress, well developed and alert <Blayne Jessica PA-C Last Filed: 01/08/24 10:22> Orientation/consciousness: patient oriented x3 <Blayne Jessica PA-C Last Filed: 01/08/24 10:22> HEENT: Head: Yes normocephalic and Yes atraumatic <RAJESH Wei Last Filed: 01/08/24 10:09> Eyes: General: appearance normal, both eyes and all related structures <ROCIO Romo Last Filed: 01/08/24 10:22> Neck: Neck: Yes normal visual inspection and Yes no lymphadenopathy <Blayne Jessica PA-C - Last Filed: 01/08/24 10:22> Resp: Effort & Inspection: normal respiratory effort and able to speak in complete sentences <RAJESH Wei Last Filed: 01/08/24 10:09> Cardio: Jugular venous distension: no JVD <RAJESH Wei Last Filed: 01/08/24 10:09> Rate: regular rate <ROCIO Romo Last Filed: 01/08/24 10:22> Peripheral pulses: Peripheral pulses 2+ throughout <Blayne Jessica PA-C - Last Filed: 01/08/24 10:22> GI: Inspection: Yes normal to inspection <Blayne McelroyROCIO martin Last Filed: 01/08/24 10:22> Palpation (GI): Soft to palpation <Blayne McelroyROCIO martin Jazlyn Last Filed: 01/08/24 10:22> Skin: General skin exam: no rashes or lesions noted <CelsoJazlynAmbreen Jessica PA-C Jazlyn Last Filed: 01/08/24 10:22> Neuro: General: gait normal <RAJESH Wei Last Filed: 01/08/24 10:09> General: patient oriented x3 <CelsoAndrewlizbeth Jessica PA-C Jazlyn Last Filed: 01/08/24 10:22> Cognition (Neuro): normal cognition <RAJESH Wei Last Filed: 01/08/24 10:09> Extrem: Other: On inspection, the patient's right leg is shortened and externally rotated when compared to the left. No erythema or ecchymosis of the right hip noted. Patient is very tender to gentle palpation about the right hip. Patient is unable to move the right hip, but is able to flex and extend foot and toes. NVI. <RAJESH Wei Last Filed: 01/08/24 10:09> Psych: Appearance: grossly normal <RAJESH Wei Last Filed: 01/08/24 10:09> Mental Status: mental status grossly normal <RAJESH Wei Last Filed: 01/08/24 10:09> Results Labs Result Diagrams: 01/08/24 04:22 01/08/24 04:22 <RAJESH Wei Last Filed: 01/08/24 10:09> Labs: Abnormal lab results 01/08/24 01/08/24 01/08/24 Range/Units 04:22 05:06 05:40 RBC 4.06 L (4.20-5.50) X10*6/uL Hgb 10.3 L (12.0-16.0) g/dl Hct 34.4 L (37.0-47.0) % MCH 25.4 L (27.0-33.0) pg MCHC 29.9 L (31.0-35.0) g/dl Immature Gran % (Auto) 0.5 H (0.0-0.4) % Neut % (Auto) 76.9 H (45-73) % Lymph % (Auto) 6.3 L (20-40) % [place] % (Auto) 11.6 H (2-11) % Lymph # (Auto) 0.4 L (1.2-4.9) X10*3/uL PT 14.4 H (11.1-13.3) SEC INR 1.2 H (0.9-1.1) Potassium 5.3 H D (3.3-5.1) mmol/L BUN 69 H (9-16) mg/dL Creatinine 1.74 H (0.5-1.4) mg/dL Random Glucose 145 H (60-115) mg/dL AST 34 H (5-31) U/L Alkaline Phosphatase 140 H (39-117) U/L Total Protein 8.2 H (6.5-8.0) g/dL Urine Blood Trace H (Negative) Ur Leukocyte Esterase Trace H (Negative) Urine RBC 6-10 H (0-2) /HPF Crossmatch (AHG) See Detail H & H 01/08/24 Range/Units 04:22 Hgb 10.3 L (12.0-16.0) g/dl Hct 34.4 L (37.0-47.0) % Coagulation 01/08/24 Range/Units 04:22 INR 1.2 H (0.9-1.1) All other labs normal. <RAJESH Wei - Last Filed: 01/08/24 10:09> Assessment and Plan (1) Closed hip fracture: Status: Acute <RAJESH Wei - Last Filed: 01/08/24 10:09> I discussed the case with Dr Stapleton and explained the extent of the injury to the patient and her son who is at bedside ( Storm) and options available which include surgical intervention. I explained the procedure in detail along with the length of recovery and rehab course. I explained the risk, benefits and alternatives. Risk including, but not limited to infection, blood clots, bleeding, non union or malunion and nerve/tissue damage to surrounding areas. I also explained the risk of decompensation in overall health given her cardiac risks. I answered all their questions and with their understanding they have consented to move forward with Operative Fixation of the right hip. The patient will be T&S, med clearance obtained and NPO . <Blayne Jessica PA-C - Last Filed: 01/08/24 10:22> I discussed this patient with Dr Stapleton, the patient and her son who is at bedside ( Storm) and options available which include surgical intervention. I explained the procedure in detail along with the length of recovery and rehab course. I explained the risk, benefits and alternatives. Risk including, but not limited to infection, blood clots, bleeding, non union or malunion and nerve/tissue damage to surrounding areas. I also explained the risk of decompensation in overall health given her cardiac risks. I answered all their questions and with their understanding they have consented to move forward with Operative Fixation of the right hip. The patient will be T&S, med clearance obtained and NPO . <Milind Stapleton MD - Last Filed: 01/08/24 16:32> Procedures Date of Service Date of Service: 01/08/24 <RAJESH Wei - Last Filed: 01/08/24 10:09> 01/08/24 <Blayne Jessica PA-C - Last Filed: 01/08/24 10:22> 01/08/24 <Milind Stapleton MD - Last Filed: 01/08/24 16:32>
--- NOTE | 2024-01-08 09:55 | P.CONCA_ITS ---
History of Present Illness History of Present Illness Date of Service: 01/08/24 Chief complaint: hip fracture Narrative: This is a cardiology consultation regarding preoperative stratification for hip surgery. Patient with many comorbidities. Recently seen by Dr. Russo. She has history of transcatheter aortic valve replacement. Also has chronic heart failure with reduced ejection fraction, chronic respiratory failure and suspected severe mitral stenosis with pulmonary hypertension. She apparently gets some injections into her eyes for macular degeneration and did that on the day prior to admission. During the evening/night, she went to the kitchen and, lost her balance and fell down. Then it seems she developed pain in the right hip and diagnosed with hip fracture. She has now in the ER and planning to go to the operating room today. Dr. Bustamante requested this consultation due to her many cardiac issues. In spite of all her cardiac comorbidities, she states she is able to still get along slowly. Denies any overt cardiac symptoms within her limitations. Review of Systems 2 Review of Systems: Yes all other systems are reviewed and are negative Constitutional: Constitutional: Reports as per HPI and Reports no additional constitutional complaints Eyes: Eyes: Reports as per HPI and Denies no additional eye complaints ENT: Denies system reviewed and no additional complaints, except as documented and Reports as per HPI Cardiovascular: Cardiovascular: Reports as per HPI, Reports no additional cardiovascular complaints, Denies acrocyanosis, Denies cool extremities, Denies chest pain, Denies leg edema, Denies lightheadedness, Denies palpitations and Denies dyspnea Respiratory: Respiratory: Reports as per HPI, Denies no additional respiratory complaints and Denies dyspnea Gastrointestinal: Gastrointestinal: Reports as per HPI and Denies no additional gastrointestinal complaints Genitourinary: Genitourinary: Reports as per HPI Musculoskeletal: Musculoskeletal: Reports no additional musculoskeletal complaints and Reports as per HPI Integumentary/Breasts: Skin/Breast: Reports system reviewed and no additional complaints, except as docu Neurologic: Reports system reviewed and no additional complaints, except as documented and Reports as per HPI Psychiatric: Psychiatric: Reports no additional psychiatric complaints and Reports as per HPI Endocrine: Endocrine: Reports no additional endocrine complaints, Reports as per HPI and Denies palpitations Hematologic/Lymphatic: Hematologic/Lymphatic: Reports no additional hematologic/lymphatic complaints and Reports as per HPI Allergic/Immunologic: Allergic/Immunologic: Reports no additional allergic/immunologic complaints and Reports as per HPI [facility] Past Medical History Medical History Acute on chronic hypoxic respiratory failure Acute on chronic systolic CHF (congestive heart failure) Congestive heart failure Chronic heart failure with preserved ejection fraction (HFpEF) COPD (chronic obstructive pulmonary disease) Mitral stenosis Pulmonary hypertension Abnormal chest x-ray Hypoxemia COPD (chronic obstructive pulmonary disease) HTN (hypertension) LBBB (left bundle branch block) Family History Family History Father No problems noted. Mother CVD (cardiovascular disease) Surgical History Surgical History S/P TAVR (transcatheter aortic valve replacement) Hx of cardiac cath Social History Social History Household Members: Family Housing: House Do you presently have visiting nurse or other home services: No Patient Tobacco Use Status: Former Tobacco user Years Smoked: 20 +/- Smoked in Last 30 Days: No Use of substances other than those prescribed or required for medical reasons: No Advance Directives: Yes Advance Directives on File: Yes Advance Directives Date on File: 01/27/22 Do you have a plan to hurt others: No Plan service: No Current occupational status: retired Meds Allergies Allergy/AdvReac Type Severity Reaction Status Date / Time Penicillins [PENICILLINS] Allergy Intermediate HIVES Verified 01/08/24 03:43 Active Medications: Current Medications Acetaminophen (Acetaminophen 325 Mg Tablet) 650 mg PO Q6H PRN PRN Reason: Pain, Mild (Pain Scale 1-3) Docusate Sodium (Docusate Sodium 100 Mg Capsule) 100 mg PO DAILY PRN PRN Reason: Constipation Hydromorphone HCl (Hydromorphone Hcl 0.5 Mg/0.5 Ml Syringe) 0.25 mg IVPUSH Q4H PRN; Protocol PRN Reason: Pain, Severe (Pain Scale 7-10) Ondansetron HCl (Ondansetron Hcl 4 Mg/2 Ml Vial) 4 mg IVPUSH Q8H PRN PRN Reason: Nausea and Vomiting Senna (Sennosides 8.6 Mg Tablet) 17.2 mg PO BEDTIME PRN PRN Reason: Constipation Sodium Chloride (0.9 % Sodium Chloride Flush 3 Ml Syringe) 3 ml IVFLUSH QSHIFT [facility] Home Medications ?Medication ?Instructions ?Recorded ?Confirmed ?Last Taken ?Type levothyroxine 50 mcg tablet 50 mcg PO DAILY@0600 08/15/20 01/08/24 01/07/24 06:00 History simvastatin 20 mg tablet 20 mg PO DAILY@1700 08/15/20 01/08/24 08/19/23 History glipizide 2.5 mg tablet, extended 2.5 mg PO BID 05/24/21 01/08/24 01/07/24 09:00 History release 24 hr spironolactone 25 mg tablet 25 mg PO DAILY 08/02/21 01/08/24 01/07/24 09:00 History aspirin 81 mg tablet,delayed 81 mg PO DAILY 10/30/21 01/08/24 01/07/24 09:00 History release (Adult Aspirin Regimen) cholecalciferol (vitamin D3) 25 25 mcg PO BID 01/25/22 01/08/24 01/07/24 09:00 History mcg (1,000 unit) tablet citalopram 20 mg tablet 20 mg PO DAILY 10/22/22 01/08/24 01/07/24 09:00 History albuterol sulfate 90 mcg/actuation 2 puff inhalation Q4H PRN 01/08/24 01/08/24 Unknown History aerosol inhaler Shortness Of Breath Or Wheezing bumetanide 2 mg tablet 2 mg PO BID 01/08/24 01/08/24 01/07/24 09:00 History dextran 70-hypromellose (PF) 0.1 1 drp ophthalmic (eye) Q2H PRN Dry 01/08/24 01/08/24 Unknown History %-0.3 % eye drops in a dropperette Eyes (Artificial Tears (PF)) gabapentin 600 mg tablet 600 mg PO BID 01/08/24 01/08/24 01/07/24 09:00 History ipratropium 0.5 mg-albuterol 3 mg 3 ml inhalation RQ4H WHILE AWAKE 01/08/24 01/08/24 Unknown History (2.5 mg base)/3 mL nebulization PRN Shortness Of Breath Or Wheezing soln Physical Exam 2 Vital Signs: Vital Signs: Last Vital Signs Temp 97.6 F 01/08/24 06:28 Pulse 75 01/08/24 07:35 Resp 17 01/08/24 07:35 BP 135/64 01/08/24 07:35 Pulse Ox 97 01/08/24 07:35 O2 Del Method Nasal Cannula 01/08/24 07:35 O2 Flow Rate 3 01/08/24 07:35 Oxygen Flow Rate 2 01/08/24 03:33 BMI result Body Mass Index 23.6 Const: General: comfortable and no acute distress O rientation/consciousness: patient oriented x3 HEENT: Other: Unremarkable Head: Yes normal to inspection Neck: Neck: Yes normal visual inspection Chest: Chest palpation & inspection: normal inspection of the chest Resp: Auscultation: crackles Cardio: Palpation: normal PMI Heart sounds: S1 normal heart sound present, S2 normal heart sound present, no gallops, Murmur heart sound present systolic at the apex and no rubs GI: Palpation (GI): Soft to palpation Back/Spine/Pelvis: Other: unremarkable Skin: General skin exam: no rashes or lesions noted Neuro: General: patient oriented x3 Extrem: General: Yes normal to inspection Psych: Mental Status: mental status grossly normal Objective Labs and Meds 01/08/24 04:22 01/08/24 04:22 Lab results: Laboratory Results - last 24 hr 01/08/24 01/08/24 01/08/24 04:22 05:06 05:40 WBC 5.7 RBC 4.06 L Hgb 10.3 L Hct 34.4 L MCV 84.7 MCH 25.4 L MCHC 29.9 L RDW 15.9 Plt Count 190 MPV 10.8 Immature Gran % (Auto) 0.5 H Neut % (Auto) 76.9 H Lymph % (Auto) 6.3 L [place] % (Auto) 11.6 H Eos % (Auto) 3.5 Baso % (Auto) 1.2 Lymph # (Auto) 0.4 L [place] # (Auto) 0.7 Eos # (Auto) 0.2 Baso # (Auto) 0.1 Abs Immat Gran (auto) 0.03 Absolute Neuts (auto) 4.4 Absolute Nucleated RBC 0.000 Nucleated RBC % (auto) 0.0 PT 14.4 H INR 1.2 H Hold Blue Top SEE NOTE Sodium 140 Potassium 5.3 H D Chloride 98 Carbon Dioxide 29 Anion Gap 18 BUN 69 H Creatinine 1.74 H Estim Creat Clear Calc 21.6 Estimated GFR 28 Random Glucose 145 H Calcium 9.9 Total Bilirubin 0.6 AST 34 H ALT 26 Alkaline Phosphatase 140 H Total Protein 8.2 H Albumin 3.7 Urine Color Yellow Urine Appearance Clear Urine pH 5.5 Ur Specific [place] 1.010 Urine Protein Negative Urine Glucose (UA) Negative Urine Ketones Negative Urine Blood Trace H Urine Nitrite Negative Ur Leukocyte Esterase Trace H Urine RBC 6-10 H Urine WBC 0-5 Ur Squamous Epith Cells 0-2 Urine Bacteria None Seen Hyaline Casts >20 Blood Type Cancelled B Positive Antibody Screen Cancelled POSITIVE Antibody Identification Anti-K Antigen Identification K Antigen - NEGATIVE ELVIRA, Polyspecific NEGATIVE Positive ELVIRA Work-up TNP Crossmatch (AHG) See Detail ECG Interpretation: EKG with sinus, 80/min, LBBB Imaging Radiologist's impression: Impressions Chest X-Ray 01/08/24 04:57 IMPRESSION: 1. Cardiomegaly unchanged compared with 10/10/2023. 2. Findings suspicious for moderate interstitial pulmonary edema. Additionally, scattered alveolar opacities are present in the lungs and may represent areas of alveolar edema. Multifocal infection could have a similar appearance. 3. Small bilateral pleural effusions. 4. Diffuse osteopenia. Hip/Pelvis X-Ray 01/08/24 04:57 IMPRESSION: 1. Displaced right basicervical hip fracture. 2. Osteopenia. Assessment and Plan (1) Preoperative cardiovascular examination: Status: Acute (2) Heart failure with reduced ejection fraction: Status: Acute (3) Closed hip fracture: Status: Acute (4) Chronic respiratory failure: Status: Acute (5) Mitral stenosis: Status: Acute (6) Pulmonary hypertension: Status: Acute Plan Echocardiogram with LVEF of 15-20%. RV dilated. Left atrium severely dilated. Normally functioning bioprosthetic aortic valve and suspected severe mitral stenosis. Severe tricuspid regurgitation and severe pulmonary hypertension. Overall, considering her cardiac issues as well as age and frailty, she will be at very high risk for cardiac complications and this includes myocardial infarction, congestive heart failure as well as . These risks are not modifiable. Discussed in patient's room with Dr. Bustamante. Procedures Date of Service Date of Service: 01/08/24
--- NOTE | 2024-01-08 12:03 | PC.NURSE ---
Pt appears comfortable at this time
--- NOTE | 2024-01-08 13:42 | PC.NURSE ---
Report given to NEVAEH RN.
[2024-01-08 14:45] LABS: Glucose, Whole Blood 100 mg/dL (60-115)
--- NOTE | 2024-01-08 15:05 | P.CONAN_ITS ---
[facility] Active Problems Active Problems: All Active Problems Preoperative cardiovascular examination (Acute) Fall (Acute) Closed hip fracture (Acute) Heart failure with reduced ejection fraction (Acute) Cardiorenal disease (Acute) Right-sided heart failure (Acute) CKD (chronic kidney disease), stage III (Acute) Hypoxic respiratory failure (Acute) Chronic respiratory failure (Acute) COPD (chronic obstructive pulmonary disease) (Acute) Mitral stenosis (Acute) Pulmonary hypertension (Acute) Hx of cardiac cath (Acute) Abnormal chest x-ray (Acute) Hypoxemia (Acute) HTN (hypertension) (Acute) LBBB (left bundle branch block) (Acute) S/P TAVR (transcatheter aortic valve replacement) (Acute) Mild persistent asthma (Acute) Past Medical History Medical History Acute on chronic hypoxic respiratory failure Acute on chronic systolic CHF (congestive heart failure) Congestive heart failure Chronic heart failure with preserved ejection fraction (HFpEF) COPD (chronic obstructive pulmonary disease) Mitral stenosis Pulmonary hypertension Abnormal chest x-ray Hypoxemia COPD (chronic obstructive pulmonary disease) HTN (hypertension) LBBB (left bundle branch block) Family History Family History Father No problems noted. Mother CVD (cardiovascular disease) Family history of problems with anesthesia: No Surgical History Surgical History S/P TAVR (transcatheter aortic valve replacement) Hx of cardiac cath History of Problems with Anesthesia: No Social History Social History Household Members: Family Housing: House Do you presently have visiting nurse or other home services: No Patient Tobacco Use Status: Former Tobacco user Years Smoked: 20 +/- Advance Directives Date on File: 01/27/22 service: No Current occupational status: retired Meds Allergies Allergy/AdvReac Type Severity Reaction Status Date / Time Penicillins [PENICILLINS] Allergy Intermediate HIVES Verified 01/08/24 03:43 Active Medications: Current Medications Acetaminophen (Acetaminophen 325 Mg Tablet) 650 mg PO Q6H PRN PRN Reason: Pain, Mild (Pain Scale 1-3) Atorvastatin Calcium (Atorvastatin Calcium 10 Mg Tablet) 10 mg PO DAILY@1700 VIJAY Bumetanide (Bumetanide 1 Mg Tablet) 2 mg PO BID [facility]; Protocol Docusate Sodium (Docusate Sodium 100 Mg Capsule) 100 mg PO DAILY PRN PRN Reason: Constipation Escitalopram Oxalate (Escitalopram Oxalate 10 Mg Tablet) 10 mg PO DAILY [facility] Fentanyl (Fentanyl Citrate/Pf 100 Mcg/2 Ml Vial) 25 mcg IVPUSH Q5M PRN; Protocol PRN Reason: Pain, Moderate(Pain Scale 4-6) Stop: 01/08/24 20:56 Hydromorphone HCl (Hydromorphone Hcl 0.5 Mg/0.5 Ml Syringe) 0.25 mg IVPUSH Q4H PRN; Protocol PRN Reason: Pain, Severe (Pain Scale 7-10) Hydromorphone HCl (Hydromorphone Hcl 0.5 Mg/0.5 Ml Syringe) 0.5 mg IVPUSH Q5M PRN; Protocol PRN Reason: Pain, Severe (Pain Scale 7-10) Stop: 01/08/24 20:57 Levothyroxine Sodium (Levothyroxine Sodium 50 Mcg Tablet) 50 mcg PO DAILY@0600 [facility] Ondansetron HCl (Ondansetron Hcl 4 Mg/2 Ml Vial) 4 mg IVPUSH Q8H PRN PRN Reason: Nausea and Vomiting Senna (Sennosides 8.6 Mg Tablet) 17.2 mg PO BEDTIME PRN PRN Reason: Constipation Sodium Chloride (0.9 % Sodium Chloride Flush 3 Ml Syringe) [facility] D (Cholecalciferol (Vitamin D3) 25 Mcg Tablet) 25 mcg PO BID [facility] Home Medications ?Medication ?Instructions ?Recorded ?Confirmed ?Last Taken ?Type levothyroxine 50 mcg tablet 50 mcg PO DAILY@0600 08/15/20 01/08/24 01/07/24 06:00 History simvastatin 20 mg tablet 20 mg PO DAILY@1700 08/15/20 01/08/24 08/19/23 History glipizide 2.5 mg tablet, extended 2.5 mg PO BID 05/24/21 01/08/24 01/07/24 09:00 History release 24 hr spironolactone 25 mg tablet 25 mg PO DAILY 08/02/21 01/08/24 01/07/24 09:00 History aspirin 81 mg tablet,delayed 81 mg PO DAILY 10/30/21 01/08/24 01/07/24 09:00 History release (Adult Aspirin Regimen) cholecalciferol (vitamin D3) 25 25 mcg PO BID 01/25/22 01/08/24 01/07/24 09:00 History mcg (1,000 unit) tablet citalopram 20 mg tablet 20 mg PO DAILY 10/22/22 01/08/24 01/07/24 09:00 History albuterol sulfate 90 mcg/actuation 2 puff inhalation Q4H PRN 01/08/24 01/08/24 Unknown History aerosol inhaler Shortness Of Breath Or Wheezing bumetanide 2 mg tablet 2 mg PO BID 01/08/24 01/08/24 01/07/24 09:00 History dextran 70-hypromellose (PF) 0.1 1 drp ophthalmic (eye) Q2H PRN Dry 01/08/24 01/08/24 Unknown History %-0.3 % eye drops in a dropperette Eyes (Artificial Tears (PF)) gabapentin 600 mg tablet 600 mg PO BID 01/08/24 01/08/24 01/07/24 09:00 History ipratropium 0.5 mg-albuterol 3 mg 3 ml inhalation RQ4H WHILE AWAKE 01/08/24 01/08/24 Unknown History (2.5 mg base)/3 mL nebulization PRN Shortness Of Breath Or Wheezing soln Exam Height,Weight and Vital Signs: Height 5 ft 5 in Weight 64.4 kg Last Vital Signs Temp 97.9 F 01/08/24 14:53 Pulse 79 01/08/24 14:53 Resp 18 01/08/24 14:53 BP 130/68 01/08/24 14:53 Pulse Ox 94 01/08/24 14:53 O2 Del Method Room Air 01/08/24 14:53 O2 Flow Rate 2.5 01/08/24 14:11 Oxygen Flow Rate 2 01/08/24 03:33 Pertinent Lab Results Pertinent Lab Results: Laboratory Tests 01/08/24 01/08/24 01/08/24 04:22 05:06 05:40 WBC 5.7 RBC 4.06 L Hgb 10.3 L Hct 34.4 L MCV 84.7 MCH 25.4 L MCHC 29.9 L RDW 15.9 Plt Count 190 MPV 10.8 Immature Gran % (Auto) 0.5 H Neut % (Auto) 76.9 H Lymph % (Auto) 6.3 L [place] % (Auto) 11.6 H Eos % (Auto) 3.5 Baso % (Auto) 1.2 Lymph # (Auto) 0.4 L [place] # (Auto) 0.7 Eos # (Auto) 0.2 Baso # (Auto) 0.1 Abs Immat Gran (auto) 0.03 Absolute Neuts (auto) 4.4 Absolute Nucleated RBC 0.000 Nucleated RBC % (auto) 0.0 PT 14.4 H INR 1.2 H Hold Blue Top SEE NOTE Sodium 140 Potassium 5.3 H D Chloride 98 Carbon Dioxide 29 Anion Gap 18 BUN 69 H Creatinine 1.74 H Estim Creat Clear Calc 21.6 Estimated GFR 28 POC Glucose Random Glucose 145 H Calcium 9.9 Total Bilirubin 0.6 AST 34 H ALT 26 Alkaline Phosphatase 140 H Total Protein 8.2 H Albumin 3.7 Urine Color Yellow Urine Appearance Clear Urine pH 5.5 Ur Specific [place] 1.010 Urine Protein Negative Urine Glucose (UA) Negative Urine Ketones Negative Urine Blood Trace H Urine Nitrite Negative Ur Leukocyte Esterase Trace H Urine RBC 6-10 H Urine WBC 0-5 Ur Squamous Epith Cells 0-2 Urine Bacteria None Seen Hyaline Casts >20 Blood Type Cancelled B Positive Antibody Screen Cancelled POSITIVE Antibody Identification Anti-K Antigen Identification K Antigen - NEGATIVE ELVIRA, Polyspecific NEGATIVE Positive ELVIRA Work-up TNP Crossmatch (AHG) See Detail 01/08/24 14:41 WBC RBC Hgb Hct MCV MCH MCHC RDW Plt Count MPV Immature Gran % (Auto) Neut % (Auto) Lymph % (Auto) [place] % (Auto) Eos % (Auto) Baso % (Auto) Lymph # (Auto) [place] # (Auto) Eos # (Auto) Baso # (Auto) Abs Immat Gran (auto) Absolute Neuts (auto) Absolute Nucleated RBC Nucleated RBC % (auto) PT INR Hold Blue Top Sodium Potassium Chloride Carbon Dioxide Anion Gap BUN Creatinine Estim Creat Clear Calc Estimated GFR POC Glucose 100 Random Glucose Calcium Total Bilirubin AST ALT Alkaline Phosphatase Total Protein Albumin Urine Color Urine Appearance Urine pH Ur Specific [place] Urine Protein Urine Glucose (UA) Urine Ketones Urine Blood Urine Nitrite Ur Leukocyte Esterase Urine RBC Urine WBC Ur Squamous Epith Cells Urine Bacteria Hyaline Casts Blood Type Antibody Screen Antibody Identification Antigen Identification ELVIRA, Polyspecific Positive ELVIRA Work-up Crossmatch (AHG) Airway Mallampati Class: II TM Dist: >3cm Neck ROM: Full Denture: Upper and Lower Loose/Missing/Broken Teeth: No Heart: rrr Lungs: clear Assessment and Plan Final Anesthetic Review Family History of Problems with Anesthesia: No History of Problems with Anesthesia: No NPO: Yes ASA Class: III and Emergency Final Preanesthetic Review: No Changes in Pt Med Stat, Meds/Allgs Chart Reviewed, Consent Obtained/Reviewed and Anes Risks/Benef Reviewed Patient Risk: High Procedure Risk: Intermediate Anesthetic Plan Anesthetic Plan: GA Disposition: Standard PACU
--- NOTE | 2024-01-08 16:37 | PM.OP ---
Brief Operative Note Date of Service: 01/08/24 Pre-op diagnosis: Right hip fracture Post-op diagnosis: same Procedure: Right hip IMN Implants: Srinivas [id number] 125 deg imn with 100 mm hip screw and 40 mm distal interlock Surgeon: Milind Stapleton MD Anesthesia: GLMA and local Was an Youth Coordinator used for this Procedure?: No Estimated blood loss (mL): 75 IV fluids (mL): 400 Pathology: none sent Condition: stable Disposition: PACU
[2024-01-08 16:52] LABS: Glucose, Whole Blood 134 mg/dL (60-115)
--- NOTE | 2024-01-08 19:21 | ECG_ITS ---
Test Reason : ?rhythm Blood Pressure : / mmHG Vent. Rate : 063 BPM Atrial Rate : 063 BPM P-R Int : 160 ms QRS Dur : 158 ms QT Int : 436 ms P-R-T Axes : 067 -36 061 degrees QTc Int : 446 ms Sinus rhythm with Premature atrial complexes Left axis deviation Left bundle branch block Abnormal ECG No previous ECGs available Referred By: Sweetie Rosas Electronically Signed By:DEJUAN MADRID
[2024-01-08] MEDS: DOPamine HCL/D5W 400 MG/250 ML PLAST..BAG 12.08 MG IVCONT (19:30)
[2024-01-08 19:44] LABS: MANUAL DIFF FLAG NO
[2024-01-08 19:46] LABS: Basophils Absolute Auto 0.1 X10*3/uL (0.0-0.2); Basophils Percent Auto 0.6 % (0-2); Eosinophils Absolute Auto 0.1 X10*3/uL (0.0-0.4); Eosinophils Percent Auto 0.6 % (0-4); Hematocrit 27.3 % (37.0-47.0); Hemoglobin 8.2 g/dl (12.0-16.0); Imm Gran Abs Auto 0.05 X10*3/uL (0.00-0.03); Imm Gran Pct Auto 0.6 % (0.0-0.4); Lymphocytes Absolute Auto 0.3 X10*3/uL (1.2-4.9); Lymphocytes Percent Auto 2.9 % (20-40); Mean Corpuscular Hemoglobin 25.6 pg (27.0-33.0); Mean Corpuscular Volume 85.3 fL (80.0-98.0); Mean Platelet Volume 10.2 fL (9.4-12.3); Neutrophils Absolute Auto 7.2 x10*3/uL (2.0-8.3); Neutrophils Percent Auto 83.3 % (45-73); Platelet Count 160 X10*3/uL (160-400); Red Cell Distribution Width 16.1 % (11.0-16.0); Venous Blood Gas Refer to POC result; White Blood Count 8.7 X10*3/uL (4.8-10.8)
[2024-01-08 19:46] LABS: VBG Base Excess 11.6 mmol/L; VBG HCO3 36 mmol/L (22-26); VBG pCO2 48 mmHg; VBG pH 7.48 (7.32-7.43); VBG pO2 61 mmHg
[2024-01-08] MEDS: Furosemide 40 MG/4 ML VIAL IVPUSH (19:49)
[2024-01-08 20:03] LABS: Alanine Aminotransferase 21 U/L (0-31); Albumin Level 2.9 g/dL (3.5-5.0); Alkaline Phosphatase 106 U/L (39-117); Anion Gap 14 (12-20); Aspartate Amino Transferase 23 U/L (5-31); Bilirubin Total 0.8 mg/dL (0.0-1.0); Blood Urea Nitrogen 71 mg/dL (9-16); Calcium 8.9 mg/dL (8.4-10.2); Carbon Dioxide 32 mmol/L (22-29); Chloride 99 mmol/L (96-108); Creatinine Clr Calc Pharmacy 18.4; Estimated Glomerular Filt Rate 23; Glucose Random 140 mg/dL (60-115); Magnesium 2.2 mg/dL (1.6-2.6); Potassium 5.1 mmol/L (3.3-5.1); Sodium 140 mmol/L (135-145); Total Protein 6.3 g/dL (6.5-8.0)
[2024-01-08 20:04] LABS: Lactic Acid 2.7 mmol/L (0.5-2.0)
[2024-01-08 20:09] LABS: Troponin-I High Sensitivity 24.8 ng/L (<3.5-17.0)
[2024-01-08] MEDS: propofoL 1,000 MG/100 ML VIAL 7.73 MG IVCONT (20:30)
--- NOTE | 2024-01-08 20:39 | PM.CCPN ---
Subjective Subjective Date of Service: 01/09/24 Critical Care Time (minutes): 90 Physical Exam Vital Signs: Vital Signs: Last Vital Signs Temp 97.8 F 01/08/24 18:55 Pulse 115 H 01/08/24 20:05 Resp 28 H 01/08/24 20:00 BP 118/53 L 01/08/24 20:05 Pulse Ox 91 L 01/08/24 20:00 O2 Del Method CPAP 01/08/24 20:00 O2 Flow Rate 6 01/08/24 18:55 FiO2 100 01/08/24 20:00 Oxygen Flow Rate 2 01/08/24 03:33 BMI result Body Mass Index 23.6 Const: Other: intubated, sedated; no appreciable spontaneous movements General: comfortable and no acute distress HEENT: Head: Yes normal to inspection, Yes No palpable skull fracture present, Yes normocephalic and Yes atraumatic Eyes: General: appearance normal, both eyes and all related structures Neck: Neck: Yes normal visual inspection, Yes full ROM, Yes trachea midline and Yes supple Chest: Chest palpation & inspection: normal inspection of the chest Resp: Other: some appreciable rales; no appreciable rhonchi, wheezing Cardio: Rate: regular rate Rhythm: regular rhythm GI: Inspection: Yes normal to inspection, No Abdominal wall edema and No distended Palpation (GI): Soft to palpation, not firm, nontender, no guarding and not rigid : External Female Exam: normal external appearance Skin: General skin exam: no rashes or lesions noted Neuro: General: tone normal Extrem: Other: 1+ pitting edema bilateral knees; appreciable bandage R hip, clean, dry, intact; no appreciable erythema, fluctuance, induration; R lower extremity compartments soft throughout General: Yes normal to inspection, Yes full ROM and Yes capillary refill normal Psych: Other: unable to asses Objective Data Labs 01/09/24 05:06 01/09/24 05:06 Labs: Laboratory Results - last 24 hr 01/08/24 01/08/24 01/08/24 04:22 05:06 05:40 WBC 5.7 RBC 4.06 L Hgb 10.3 L Hct 34.4 L MCV 84.7 MCH 25.4 L MCHC 29.9 L RDW 15.9 Plt Count 190 MPV 10.8 Immature Gran % (Auto) 0.5 H Neut % (Auto) 76.9 H Lymph % (Auto) 6.3 L [place] % (Auto) 11.6 H Eos % (Auto) 3.5 Baso % (Auto) 1.2 Lymph # (Auto) 0.4 L [place] # (Auto) 0.7 Eos # (Auto) 0.2 Baso # (Auto) 0.1 Abs Immat Gran (auto) 0.03 Absolute Neuts (auto) 4.4 Absolute Nucleated RBC 0.000 Nucleated RBC % (auto) 0.0 PT 14.4 H INR 1.2 H Hold Blue Top SEE NOTE VBG pH VBG pCO2 VBG pO2 VBG HCO3 VBG O2 Saturation VBG Base Excess Sodium 140 Potassium 5.3 H D Chloride 98 Carbon Dioxide 29 Anion Gap 18 BUN 69 H Creatinine 1.74 H Estim Creat Clear Calc 21.6 Estimated GFR 28 POC Glucose Random Glucose 145 H Lactic Acid Calcium 9.9 Phosphorus Magnesium Total Bilirubin 0.6 AST 34 H ALT 26 Alkaline Phosphatase 140 H Troponin I High Sens Total Protein 8.2 H Albumin 3.7 Urine Color Yellow Urine Appearance Clear Urine pH 5.5 Ur Specific [place] 1.010 Urine Protein Negative Urine Glucose (UA) Negative Urine Ketones Negative Urine Blood Trace H Urine Nitrite Negative Ur Leukocyte Esterase Trace H Urine RBC 6-10 H Urine WBC 0-5 Ur Squamous Epith Cells 0-2 Urine Bacteria None Seen Hyaline Casts >20 Blood Type Cancelled B Positive Antibody Screen Cancelled POSITIVE Antibody Identification Anti-K Antigen Identification K Antigen - NEGATIVE ELVIRA, Polyspecific NEGATIVE Positive ELVIRA Work-up TNP Crossmatch ([facility]) See Detail 01/08/24 01/08/24 01/08/24 14:41 16:42 19:35 WBC 8.7 RBC 3.20 L D Hgb 8.2 L D Hct 27.3 L D MCV 85.3 MCH 25.6 L MCHC 30.0 L RDW 16.1 H Plt Count 160 MPV 10.2 Immature Gran % (Auto) 0.6 H Neut % (Auto) 83.3 H Lymph % (Auto) 2.9 L [place] % (Auto) 12.0 H Eos % (Auto) 0.6 Baso % (Auto) 0.6 Lymph # (Auto) 0.3 L [place] # (Auto) 1.0 Eos # (Auto) 0.1 Baso # (Auto) 0.1 Abs Immat Gran (auto) 0.05 H Absolute Neuts (auto) 7.2 Absolute Nucleated RBC 0.000 Nucleated RBC % (auto) 0.0 PT INR Hold Blue Top VBG pH VBG pCO2 VBG pO2 VBG HCO3 VBG O2 Saturation VBG Base Excess Sodium 140 Potassium 5.1 Chloride 99 Carbon Dioxide 32 H Anion Gap 14 BUN 71 H Creatinine 2.05 H Estim Creat Clear Calc 18.4 Estimated GFR 23 POC Glucose 100 134 H Random Glucose 140 H Lactic Acid 2.7 H* Calcium 8.9 D Phosphorus 5.0 H Magnesium 2.2 Total Bilirubin 0.8 AST 23 ALT 21 Alkaline Phosphatase 106 Troponin I High Sens 24.8 H Total Protein 6.3 L Albumin 2.9 L Urine Color Urine Appearance Urine pH Ur Specific [place] Urine Protein Urine Glucose (UA) Urine Ketones Urine Blood Urine Nitrite Ur Leukocyte Esterase Urine RBC Urine WBC Ur Squamous Epith Cells Urine Bacteria Hyaline Casts Blood Type Antibody Screen Antibody Identification Antigen Identification ELVIRA, Polyspecific Positive ELVIRA Work-up Crossmatch ([facility]) 01/08/24 19:40 WBC RBC Hgb Hct MCV MCH MCHC RDW Plt Count MPV Immature Gran % (Auto) Neut % (Auto) Lymph % (Auto) [place] % (Auto) Eos % (Auto) Baso % (Auto) Lymph # (Auto) [place] # (Auto) Eos # (Auto) Baso # (Auto) Abs Immat Gran (auto) Absolute Neuts (auto) Absolute Nucleated RBC Nucleated RBC % (auto) PT INR Hold Blue Top VBG pH 7.48 H VBG pCO2 48 VBG pO2 61 VBG HCO3 36 H VBG O2 Saturation 89.0 VBG Base Excess 11.6 Sodium Potassium Chloride Carbon Dioxide Anion Gap BUN Creatinine Estim Creat Clear Calc Estimated GFR POC Glucose Random Glucose Lactic Acid Calcium Phosphorus Magnesium Total Bilirubin AST ALT Alkaline Phosphatase Troponin I High Sens Total Protein Albumin Urine Color Urine Appearance Urine pH Ur Specific [place] Urine Protein Urine Glucose (UA) Urine Ketones Urine Blood Urine Nitrite Ur Leukocyte Esterase Urine RBC Urine WBC Ur Squamous Epith Cells Urine Bacteria Hyaline Casts Blood Type Antibody Screen Antibody Identification Antigen Identification ELVIRA, Polyspecific Positive ELVIRA Work-up Crossmatch ([facility]) Progress Note: A&P Assessment and plan (1) Heart failure with reduced ejection fraction: Status: Acute (2) Cardiogenic shock: Status: Acute (3) Acute and chronic respiratory failure: Status: Acute (4) Acute on chronic renal insufficiency: Status: Acute (5) Closed hip fracture: Status: Acute (6) COPD (chronic obstructive pulmonary disease): Status: Acute (7) Pulmonary hypertension: Status: Acute Plan Patient is an 83 Y F with heart failure with significantly reduced ejection fraction, extensive valvular disease, pulmonary hypertension, complicated by chronic respiratory failure on 2L NC who initially presented to the emergency department on 01/07 s/p fall, found to have displaced R hip fracture, now s/p operative repair; of note, patient w/ reported bleeding and hypotension intra-operatively; in PACU, patient found to be bradycardic 40s and hypotensive SBP 90s, w/ appreciable increased work of breathing; ICU course c/b vivi acute hypoxic respiratory failure, intubated 01/07, and cardiogenic shock N: intubated, sedated w/ propofol gtt CV: c/f cardiogenic shock, bradycardia; dopamine gtt, titrate to HR >60s; norepinephrine gtt for BP as needed R: acute on chronic hypoxic respiratory failure, likely d/t pulmonary edema; intubated 01/07, wean as tolerated; COPD GI: NPO : acute on chronic renal insufficiency; volume overload; furosemide gtt; to monitor renal indices H: no acute issues ID: no overt stigmata of infection; to monitor E: to monitor hypo-/hyper-glycemia; hypothyroidism P: no acute issues Quality Stroke Does the patient have a stroke diagnosis?: No VTE Prior VTE?: No VTE Risk Level:: Medical - moderate - high VTE Device Contraindication: Treatment Not Indicated VTE Drug Contraindication: Treatment Not Tolerated
--- NOTE | 2024-01-08 20:47 | W.PM.CCHP ---
Procedures Date of Service Date of Service: 01/09/24 Intubation Intubation Comments: Patient arrived to the ICU with dyspnea, O2 sat 83-84% on 6 L OxyMask. She was placed on CPAP but was unable to tolerate the mask. The patient developed progressive respiratory fatigue, and hypoxemia. She had considerable work of breathing, was unable to speak more than a few words at a time and was using accessory muscles. It was apparent that she was grossly hypoventilating. The patient was unable to consent due to medical condition. I was unable to reach her HCP to obtain consent. She was emergently intubated. She was preoxygenated with Ambu bag 100%. RSI was carried out with the meds below. The glottis was easily visualized with #3 GlideScope, and the trachea was intubated with a 7.0 ETT via indirect video visualization, atraumatic.? BSBE, +CO2, SpO2 maintained.? The tube was secured at 22 cm at the upper lip. The patient tolerated the procedure well with no complications.? Placement confirmed with chest x-ray. Consent for Procedure: Emergent-no informed consent obtained Time out performed: Yes Sedative: etomidate Mg given: 20 Laryngoscope: fiber optic video scope ET tube size: 7 ET tube uncuffed: No Tube secured depth (cm): 22 Tube secured location: lips Tube placement confirmation: visualized tube passing through cords, equal breath sounds bilaterally, no breath sounds over epigastrium and confirmation by capnometry Patient tolerated procedure: well and no complications Intubation complications: none
[2024-01-08 21:13] LABS: B Type Natriuretic Peptide 2044 pg/mL (<100)
--- NOTE | 2024-01-08 21:28 | P.PCNCC_ITS ---
Procedures Date of Service Date of Service: 01/08/24 Central Line Placement Right IJ: Central Line Comments: The right neck was widely prepped and draped in full sterile fashion.? Under US?guidance, the right IJ vein was cannulated on the 1st pass of the 18 g thin wall needle, with return of dark, nonpulsatile blood. The wire was threaded without incident.?The 16 cm x 7 Wallisian triple-lumen CVC was advanced into the vein up to the hub via the Seldinger technique without incident.? There was good blood return x3.? The catheter was sutured x2 and a Biopatch and dry sterile dressing were applied. Postop chest x-ray showed the line in good position with no pneumothorax.? The patient tolerated the procedure well with no complications. Consent for Procedure: Elective - informed consent obtained (HCP Anu Sanchez (daughter)) Time out performed: Yes Sterile Technique Used: Yes Patient placed on monitor/pulse ox: Yes MD prep: mask, gown and gloves Central line prep: Chlorhexidine scrub and sterile drapes applied Local anesthesia used: lidocaine 1% Amount of anesthesia used (ml): 3 Ultrasound used for placement: Yes Central line lumen inserted: triple Post procedure: sutured in place, good blood return, all ports aspirated, flushed, capped and sterile dressing applied Post procedure x-ray: tip of catheter in good position and no pneumothorax seen Patient tolerated procedure: well Complications: hematoma at puncture site
[2024-01-08 21:42] LABS: Reflex Lactate? Lactic Acid Added
[2024-01-08] MEDS: Albumin Human 25 % 100 ML IV ×2 (21:43→22:19)
[2024-01-08] MEDS: Furosemide 200 MG in 0.9 % Sodium Chloride 80 ML IVCONT (21:43)
[2024-01-08 21:50] LABS: Glucose, Whole Blood 135 mg/dL (60-115)
[2024-01-08 22:11] LABS: VBG Base Excess 8.3 mmol/L; VBG HCO3 33 mmol/L (22-26); VBG pCO2 48 mmHg; VBG pH 7.44 (7.32-7.43); VBG pO2 56 mmHg
[2024-01-08] MEDS: Etomidate 20 MG/10 ML VIAL IVPUSH (22:19)
[2024-01-08 22:21] LABS: ~Lactic Acid-LAB USE ONLY 3.1 mmol/L (0.5-2.0)
--- NOTE | 2024-01-08 22:34 | P.PNCC_ITS ---
Critical Care Event Note Summary Date of Service: 01/08/24 Code activated: No Narrative: Patient is an 83 Y F with heart failure with significantly reduced ejection fraction, extensive valvular disease, pulmonary hypertension, complicated by chronic respiratory failure on 2L NC who initially presented to the emergency department on 01/07 s/p fall, found to have displaced R hip fracture, now s/p operative repair; of note, patient w/ reported bleeding and hypotension intra- operatively; in PACU, patient found to be bradycardic 40s and hypotensive SBP 90s.? She arrived in the ICU with appreciable increased work of breathing, hypotension, and bradycardia. She was started on a dopamine infusion. She was placed on CPAP but was unable to tolerate the mask. It was apparent that she was grossly hypoventilating. She was emergently intubated. Her HCP (daughter Anu Sanchez) was called and informed of the patient's condition. She arrived at the bedside shortly thereafter. All questions and concerns were addressed. Code status was discussed. She would like her mother to remain a full code at this time.? Patient's care was discussed in detail with Dr. Roman. She is aware of all the above as well as the plan of care for this patient. This case had a high probability of a clinically significant, sudden, or life threatening deterioration of this patient's condition which required my full and direct attention, intervention and personal management. Critical Care Time (minutes): 240
[2024-01-08 22:51] LABS: Venous Blood Gas Refer to POC result
[2024-01-09] VITALS (47 sets, daily range): BP systolic 69–166; BP diastolic 29–79; PULSE 44–136; RESP 15–22; TEMP 34.8–38.1; O2SAT 88–98; BMI 25.3
[2024-01-09 00:06] LABS: Reflex Lactate? 2 Y
[2024-01-09] MEDS: propofoL 1,000 MG/100 ML VIAL 15.46 MG IVCONT ×2 (00:56→05:12)
[2024-01-09] MEDS: Norepinephrine Bitartrate/D5W 8 MG/250 ML PLAST..BAG 6.46 MG IV (02:26)
[2024-01-09] MEDS: Pantoprazole Sodium 40 MG/10 ML VIAL IVPUSH (05:11)
[2024-01-09] MEDS: Levothyroxine Sodium 100 MCG/5 ML VIAL 25 MCG IVPUSH (05:11)
[2024-01-09 05:13] LABS: VBG Base Excess 14.2 mmol/L; VBG HCO3 36 mmol/L (22-26); VBG pCO2 38 mmHg; VBG pH 7.59 (7.32-7.43); VBG pO2 39 mmHg
[2024-01-09 05:16] LABS: Venous Blood Gas Refer to POC result
[2024-01-09 05:16] LABS: MANUAL DIFF FLAG NO
[2024-01-09 05:17] LABS: Basophils Absolute Auto 0.1 X10*3/uL (0.0-0.2); Basophils Percent Auto 1.1 % (0-2); Eosinophils Absolute Auto 0.3 X10*3/uL (0.0-0.4); Hematocrit 27.3 % (37.0-47.0); Hemoglobin 8.3 g/dl (12.0-16.0); Imm Gran Abs Auto 0.03 X10*3/uL (0.00-0.03); Imm Gran Pct Auto 0.3 % (0.0-0.4); Lymphocytes Absolute Auto 0.6 X10*3/uL (1.2-4.9); Lymphocytes Percent Auto 6.1 % (20-40); Mean Corpuscular HGB Conc 30.4 g/dl (31.0-35.0); Mean Corpuscular Hemoglobin 25.5 pg (27.0-33.0); Mean Corpuscular Volume 83.7 fL (80.0-98.0); Mean Platelet Volume 10.8 fL (9.4-12.3); Monocytes Absolute Auto 1.1 X10*3/uL (0.1-1.2); Monocytes Percent Auto 12.4 % (2-11); Neutrophils Absolute Auto 6.9 x10*3/uL (2.0-8.3); Neutrophils Percent Auto 77.1 % (45-73); Platelet Count 170 X10*3/uL (160-400); Red Blood Count 3.26 X10*6/uL (4.20-5.50); Red Cell Distribution Width 16.5 % (11.0-16.0)
[2024-01-09 05:34] LABS: Lactic Acid 1.8 mmol/L (0.5-2.0)
[2024-01-09 05:40] LABS: Alanine Aminotransferase 17 U/L (0-31); Albumin Level 3.6 g/dL (3.5-5.0); Alkaline Phosphatase 97 U/L (39-117); Anion Gap 16 (12-20); Aspartate Amino Transferase 22 U/L (5-31); Bilirubin Total 1.3 mg/dL (0.0-1.0); Blood Urea Nitrogen 71 mg/dL (9-16); Calcium 9.2 mg/dL (8.4-10.2); Carbon Dioxide 31 mmol/L (22-29); Chloride 99 mmol/L (96-108); Creatinine Clr Calc Pharmacy 19.3; Estimated Glomerular Filt Rate 22; Glucose Random 106 mg/dL (60-115); Magnesium 2.1 mg/dL (1.6-2.6); Phosphorus 4.2 mg/dL (2.7-4.5); Potassium 4.8 mmol/L (3.3-5.1); Sodium 141 mmol/L (135-145); Total Protein 6.8 g/dL (6.5-8.0)
--- NOTE | 2024-01-09 06:45 | PC.NURSE ---
Pt transferred to ICU 260, from PACU s/p R hip IMN at approx 191. Upon initial assessment, pt A&O x2/3, slightly drowsy, but calm/cooperative and following commands, denied any s/s. HR 40s, SBP 80s, SpO2 > 92% on 4L simple face mask- dopamine ordered and titrated per SEP. YARD SPOTTER Ralph at bedside. At approx 1930, oxygen increased to 6L, SpO2 88%, encouraged to cough/deep breathe. At approx 194, multiple rhythm changes on tele, HR 50?120s with frequent ectopy and intermittent mobitz 2, EKGs done per order. Oxygen increased to 15L, RR 30s, SpO2 82%, LS with fine crackles bilaterally- new order for lasix 40 mg IVP x1. RT notified of pt condition and to bedside. At approx 1999, pt tried on CPAP 10/100% but didn?t tolerate well and c/o nausea. Switched to HFNC but becoming more lethargic and remained hypoxic. Decision made to intubate by YARD SPOTTER. At approx 2029, given etomidate 20 mg IVP for intubation. Propofol started for sedation post intubation per SEP. ETT #7.0, 22 cm at lip. OGT and R IJ TLC inserted, all lines/tube placements confirmed by pCXR. Family called in and to bedside at approx 2200 and updated on pt status/plan of care. Tmax 100.0 via esophageal probe. On ACVC settings, FiO2 titrated down as tolerated. NSR on tele with LBBB, HR 80-90s with dopamine. SBP 80s, MAP <65, YARD SPOTTER aware of BP & levophed ordered and titrated per SEP. Lasix gtt ordered and started per SEP. Urinary catheter in place, UOP approx 30 mL/hr, YARD SPOTTER aware. OGT clamped. Skin overall intact, R hip surgical dressings x3 C/D/I. Repositioned in bed q2hrs with pillows/wedges. Bed locked in lowest position with alarm on.
[2024-01-09] MEDS: 0.9 % Sodium Chloride Flush 3 ML SYRINGE IVFLUSH ×2 (08:55→17:12)
[2024-01-09] MEDS: Chlorhexidine Gluc Oral Rinse 15 ML MOUTHWASH BUCCAL (08:57)
[2024-01-09] MEDS: Cholecalciferol (Vitamin D3) 25 MCG TABLET PO (08:57)
--- NOTE | 2024-01-09 09:32 | MHC.CM.PN ---
IMM DELIVERED. MCR RIGHTS EXPLAINED TO S.I.L, VERBALIZED UNDERSTANDING/ WHITE COPY GIVEN TO S.I.L. PT IS CURRENTLY INTUBATED AND SEDATED. PER S.I.L, PT LIVES WITH HER SON. PT USES [employer] FOR MAJOR MOBILITY. PT HAS MOW. +HCP ON FILE. PCP DR. WATSON DP: PT MOST LIKELY WILL NEED STR ON RECOVERY, WILL NEED P.T. EVAL TO DETERMINE DISPOSITION. CM WILL CONTINUE TO FOLLOW FOR DC PLAN/NEEDS.
--- NOTE | 2024-01-09 10:06 | MHC.CLN ---
PT IS INTUBATED AND SEDATED CURRENTLY NPO IF TF NEEDED; RECOMMEND PROMOTE AT MAX GOAL RATE 50ML/HR TO PROVIDE 1200KCALS (1506KCALS WITH SEDATION; 25KCALS/KG), 75G PROTEIN (1.2G/KG), 1007ML FREE WATER FROM FORMULA MONITOR TOLERANCE, RESIDUALS AND LYTES FOLLOWING FOR DIET ADVANCEMENT RD CAN BE REACHED VIA TIGER CONNECT DURING OFF HOURS IF NEEDED SEE ALSO FULL CLINCAL NUTRITION ASSESSMENT
[2024-01-09] MEDS: propofoL 1,000 MG/100 ML VIAL 11.59 MG IVCONT (11:21)
[2024-01-09 12:11] LABS: Glucose, Whole Blood 86 mg/dL (60-115)
[2024-01-09] MEDS: Albumin Human 25 % 50 ML 100 ML IV (13:23)
[2024-01-09] MEDS: Magnesium Sulfate/H2O 2 GM/50 ML PIGGYBACK IV ×4 (16:37→17:19)
[2024-01-09] MEDS: Calcium Chloride 1 GM/10 ML SYRINGE IVPUSH ×2 (16:47→16:49)
[2024-01-09] MEDS: Sodium Bicarbonate 8.4% 50 MEQ/50 ML SYRINGE IVPUSH ×2 (16:50→16:54)
[2024-01-09] MEDS: EPINEPHrine 5 MG in Dextrose 5 % 250 ML 42.17 MG IVCONT (16:58)
--- NOTE | 2024-01-09 17:02 | PM.CCN ---
Critical Care Event Note Summary Date of Service: 01/09/24 Code activated: Yes Narrative: This case had a high probability of a clinically significant, sudden, or life threatening deterioration of this patient's condition which required my full and direct attention, intervention and personal management. Critical Care Time (minutes): 120 Comment: Ms. Kraus was found to be bradycardic to 40s, then found to be in torsades de pointes. Dopamine gtt was increased to 20 and magnesium 4 g was given immediately. Ms. Kraus initially exhibited a pulse. However, after about 1 minute, pulses were lost. A code was called. Ms. Kraus received 1 round of compressions, 1 epinephrine, bicarbonate, and calcium, as well as an additional magnesium 4 g, with return of circulation. Ms. Amadors heart rate after ROSC remained bradycardic to 40s/50s. Epinephrine gtt was started and maximized, with heart rate in 70s. Ms. Kraus's daughter, Anu, was called and encouraged to come to the hospital. I met Anu, as well as many other family members at Ms. Kraus's bedside. I offered updates and clarifications. We discussed Ms. Kraus chronic and acute illnesses, and her guarded, unstable clinical condition. They expressed understanding. We discussed the different possible directions of Ms. Kraus's care, including full treatment, changing her code status to DNR while maintaining medical treatment, and comfort-focused care. After discussing as a family, Ms. Kraus's family elected for DNR while maintaining medical treatment.
[2024-01-09 17:06] LABS: Basophils Absolute Auto 0.1 X10*3/uL (0.0-0.2); Basophils Percent Auto 1.1 % (0-2); Eosinophils Absolute Auto 0.2 X10*3/uL (0.0-0.4); Eosinophils Percent Auto 1.6 % (0-4); Hematocrit 27.5 % (37.0-47.0); Hemoglobin 8.4 g/dl (12.0-16.0); Imm Gran Abs Auto 0.14 X10*3/uL (0.00-0.03); Imm Gran Pct Auto 1.1 % (0.0-0.4); Lymphocytes Absolute Auto 1.6 X10*3/uL (1.2-4.9); Lymphocytes Percent Auto 12.3 % (20-40); MANUAL DIFF FLAG SCAN; Mean Corpuscular HGB Conc 30.5 g/dl (31.0-35.0); Mean Corpuscular Hemoglobin 25.6 pg (27.0-33.0); Mean Corpuscular Volume 83.8 fL (80.0-98.0); Mean Platelet Volume 10.5 fL (9.4-12.3); Monocytes Absolute Auto 1.9 X10*3/uL (0.1-1.2); Monocytes Percent Auto 14.1 % (2-11); NRBC Pct Auto 0.4 /100WBC (0.0-0.2); Neutrophils Absolute Auto 9.3 x10*3/uL (2.0-8.3); Neutrophils Percent Auto 69.8 % (45-73); Platelet Count 178 X10*3/uL (160-400); Red Blood Count 3.28 X10*6/uL (4.20-5.50); Red Cell Distribution Width 17.1 % (11.0-16.0); SCAN SMEAR FLAG 1
--- NOTE | 2024-01-09 17:06 | P.OP_ITS ---
Operative Note Operative Note Date of Service: 01/08/24 Narrative: Date of Service: 01/08/24 Pre-op diagnosis: Right hip fracture Post-op diagnosis: same Procedure: Right hip IMN Implants: [place] [id number] 125 deg imn with 100 mm hip screw and 40 mm distal interlock Surgeon: Milind Stapleton MD Anesthesia: GLMA and local Was an Stone Chimney Mason used for this Procedure?: No Estimated blood loss (mL): 75 IV fluids (mL): 400 Pathology: none sent Condition: stable Disposition: PACU Procedure in detail: Patient was brought to the operating room and prepped and draped in standard sterile fashion. Time-out was called to identify proper site procedure proper surgeon and IV antibiotics per weight were administered. She was positioned on the fracture table and a traction and slight internal rotation were performed and biplanar fluoroscopy confirmed initial fracture reduction. I then made a stab incision proximal to the greater trochanter in using a guidewire made a entry point just lateral to the tip of the greater trochanter and placed a guidewire into the femoral metadiaphysis. I then over-reamed with 15 mm Reamer placed my ball-tip guidewire down distally in the femur and measured my length. I selected a [id number] IM nail and reamed up to a 13. I then inserted the nail. I then turned my attention to the hip screw where I used a guidewire and a tip apex distance of less than 1.5 measured a 100mm hip screw. I then pre drilled and placed a hip screw using biplanar fluoroscopy. Once I was satisfied with the position of the hip screw I turned my attention to the distal aspect of the nail. Using the staic guide I placed 1 40mm static distal interlocking screw in standard AO technique. I then removed all I then placed my set screw proximally and removed all extraneous instrumentation. Final biplanar radiographs were taken. I was satisfied with the position of the brisa dware and the fracture reduction. I think copiously irrigated closed with absorbable sutures marii and injected 30 mL of into the area of the incisions. Traction was let down patient was placed in sterile dressing awakened from anesthesia brought to recovery room stable condition there were no known complications.
[2024-01-09 17:09] LABS: Venous Blood Gas Refer to POC result
[2024-01-09 17:09] LABS: VBG HCO3 34 mmol/L (22-26); VBG pCO2 46 mmHg; VBG pH 7.48 (7.32-7.43); VBG pO2 63 mmHg
[2024-01-09 17:20] LABS: Lactic Acid 5.2 mmol/L (0.5-2.0)
[2024-01-09 17:25] LABS: Alanine Aminotransferase 16 U/L (0-31); Albumin Level 3.2 g/dL (3.5-5.0); Alkaline Phosphatase 86 U/L (39-117); Anion Gap 17 (12-20); Aspartate Amino Transferase 27 U/L (5-31); Bilirubin Total 1.2 mg/dL (0.0-1.0); Blood Urea Nitrogen 69 mg/dL (9-16); Calcium 12.1 mg/dL (8.4-10.2); Carbon Dioxide 27 mmol/L (22-29); Chloride 96 mmol/L (96-108); Creatinine Clr Calc Pharmacy 16.3; Estimated Glomerular Filt Rate 18; Glucose Random 400 mg/dL (60-115); Magnesium > 9.5 mg/dL (1.6-2.6); Phosphorus 4.7 mg/dL (2.7-4.5); Potassium 4.7 mmol/L (3.3-5.1); Sodium 135 mmol/L (135-145); Total Protein 5.7 g/dL (6.5-8.0)
[2024-01-09 17:27] LABS: White Blood Count 13.3 X10*3/uL (4.8-10.8)
[2024-01-09 17:28] LABS: SLIDE REVIEW VERIFIED
[2024-01-09 17:28] LABS: Glucose, Whole Blood 195 mg/dL (60-115)
[2024-01-09] MEDS: EPINEPHrine 5 MG in Dextrose 5 % 250 ML 421.67 MG IVCONT ×4 (17:33→19:20)
--- NOTE | 2024-01-09 17:52 | HO.POSTANES ---
Post Anesthesia Evaluation Post Anesthesia Evaluation Date of Service: 01/09/24 Vital Signs: Vital Signs Temp Pulse Resp BP Pulse Ox O2 Del Method FiO2 01/09/24 16:57 74 15 128/36 L 96 Mechanical Ventilation 50 01/09/24 16:00 100.4 F 96 18 106/56 L 96 Mechanical Ventilation 50 01/09/24 15:22 50 01/09/24 15:00 99.9 F 91 18 106/52 L 95 Mechanical Ventilation 50 01/09/24 14:56 95 Mechanical Ventilation 01/09/24 14:00 98.6 F 88 18 108/54 L 96 Mechanical Ventilation 50 01/09/24 13:00 87 18 104/53 L 96 Mechanical Ventilation 50 01/09/24 13:00 97.0 F 87 18 104/53 L 96 Mechanical Ventilation 50 01/09/24 12:00 50 01/09/24 12:00 99.9 F 83 20 107/46 L 96 Mechanical Ventilation 50 01/09/24 11:35 50 01/09/24 10:52 100.4 F 89 18 103/51 L 95 Mechanical Ventilation 50 01/09/24 09:53 100.6 F H 88 18 100/47 L 95 Mechanical Ventilation 50 01/09/24 09:00 98.8 F 88 18 102/53 L 97 Mechanical Ventilation 50 01/09/24 08:19 50 01/09/24 08:00 50 01/09/24 08:00 100.0 F 87 18 101/52 L 97 Mechanical Ventilation 50 01/09/24 07:00 100.2 F 89 18 106/57 L 96 Mechanical Ventilation 50 01/09/24 06:00 99.9 F 89 18 105/55 L 97 Mechanical Ventilation 50 Anesthesia: General LMA Mental Status: Sedated Pain Control: Satisfactory Nausea/Vomiting: None Anesthesia-Related Issues: No Anes. Related Issues Comments: pt is in ICU, needed intubation last night due to cardiogenic shock. Regarding her very high risk preop condition, it was among the introp and/or postop risks.
[2024-01-09] MEDS: DOPamine HCL/D5W 400 MG/250 ML PLAST..BAG 48.3 MG IVCONT (18:06)
[2024-01-09 18:44] LABS: Alanine Aminotransferase 20 U/L (0-31); Albumin Level 3.5 g/dL (3.5-5.0); Alkaline Phosphatase 99 U/L (39-117); Anion Gap 21 (12-20); Aspartate Amino Transferase 35 U/L (5-31); Bilirubin Total 1.3 mg/dL (0.0-1.0); Blood Urea Nitrogen 67 mg/dL (9-16); Calcium 11.1 mg/dL (8.4-10.2); Carbon Dioxide 26 mmol/L (22-29); Chloride 94 mmol/L (96-108); Creatinine Clr Calc Pharmacy 15.9; Estimated Glomerular Filt Rate 18; Magnesium 6.8 mg/dL (1.6-2.6); Potassium 4.6 mmol/L (3.3-5.1); Sodium 136 mmol/L (135-145); Total Protein 6.6 g/dL (6.5-8.0)
[2024-01-09 18:58] LABS: Reflex Lactate? Lactic Acid Added
--- NOTE | 2024-01-09 19:00 | PC.NURSE ---
16:38 CCT reported rhythm change to sinus bradycardia LBBB on tele. Pt had been in sinus rhythm with LBBB and stable on vent since 07:00. RN to bedside. 16:39 Torsades on tele monitor. primary RN remained at beside. Pulse present. Second RN to obtain Mag 2G from amy. to bedside. Verbal order for Mag IV. Per MD increased Dopamine gtt to @20. 16:40 sinus bradycardia with LBBB. Pacer pads applied with zoll monitor on. Mag 2G infusing. 16:41 pulse check, no pulse present. Torsades on tele. Zoll monitor showed torsades. Code blue initiated to ICU. 16:42 rhythm changed to Vfib. 120 J shock given. see code blue sheet ROSC @16:47 family/HCP contected by . family to bedside for discussion with MD. 8G Mag IV given total, mag gtt started. 16:54 Epi gtt started per protocol.
[2024-01-09] MEDS: fentaNYL citrate/PF 100 MCG/2 ML VIAL 50 MCG IVPUSH (19:45)
[2024-01-09] MEDS: fentaNYL citrate/NS 1,000 MCG/100 ML PLAST..BAG 5 MCG IVCONT (19:45)
--- NOTE | 2024-01-09 19:47 | P.ACPN_ITS ---
Advanced Care Planning Note Advanced Care Planning Note Discussed with: family member(s) Time spent (in minutes): 30 Narrative: The patient's daughter Anu (HCP) requested that the ETT be removed. Many members of Ms. Kraus's family were at the bedside; all were in agreement to transition to comfort-focused care only. 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 Problems Discussed (1) Heart failure with reduced ejection fraction: (2) Cardiogenic shock: (3) Acute and chronic respiratory failure: (4) Acute on chronic renal insufficiency: (5) Closed hip fracture: (6) COPD (chronic obstructive pulmonary disease): (7) Pulmonary hypertension:
[2024-01-09 19:48] LABS: Glucose Random 378 mg/dL (60-115)
[2024-01-09 20:04] LABS: ~Lactic Acid-LAB USE ONLY 8.9 mmol/L (0.5-2.0)
--- NOTE | 2024-01-09 20:09 | PM.CCN ---
Critical Care Event Note Summary Date of Service: 01/09/24 Code activated: No Narrative: This case had a high probability of a clinically significant, sudden, or life threatening deterioration of this patient's condition which required my full and direct attention, intervention and personal management.
--- NOTE | 2024-01-09 20:38 | PC.NURSE ---
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 Given fentanyl 50 mcg IVP x1 and fentanyl gtt started per SEP. All other gtts discontinued per SEP. Pt extubated at 1954. Family at bedside. Asystolic/TOD at 2001, pronounced by GOLD AND SILVER ASSAYER. NEDS called at 2024, pt declined. See EMR for further details.
--- NOTE | 2024-01-09 20:55 | PM.EVENT ---
Documented by User: Sweetie Rosas NP 01/09/24 22:25 Event Note Date of Service: 01/09/24 Event Note: Ms. Kraus was transitioned to comfort-focused care as per the wishes of the family due to Cardiogenic shock secondary to heart failure with reduced EF, pulmonary hypertension, valvulopathy. She was extubated per their request at 1954.? At 2001, the patient was pulseless showing PEA on the monitor. Absent peripheral pulses.? Pupils fixed and dilated.? Absent heart sounds and no spontaneous breathing.? Time of at 2001. She was surrounded by family at the bedside. white shoe examiner accepted the case for chart review. Organ donation was notified by nursing. Attending Dr Roman notified.? Time Spent With Patient Time: Total time managing care of this patient today ____ minutes. Documented by User: Nay Roman MD 01/10/24 07:53 Event Note Date of Service: 01/10/24
[2024-01-09 21:45] LABS: Reflex Lactate? 2 Y
--- NOTE | 2024-01-09 21:45 | P.DN_ITS ---
Discharge Sum: Prov Provider Primary care physician: Rudi Cunningham MD Admitting clinician: Jonnathan Bustamante Attending physician on admission: Nay Roman Consults: 01/08/24 08:53 Consult to Cardiology Routine Consulting Provider: [facility] [place] [facility] Reason for consultation: pre-op clearance, known HFrEF and valvular disease 01/08/24 09:03 Consult to Orthopedics Routine Consulting Provider: [facility] [place] [facility] Reason for consultation: hip fracture Pronouncing clinician: Sweetie Rosas Discharge Sum: Diag PCOD Cause of : Cardiogenic shock Contributing Factors (1) Heart failure with reduced ejection fraction: (2) Cardiogenic shock: (3) Acute and chronic respiratory failure: (4) Acute on chronic renal insufficiency: (5) Closed hip fracture: (6) COPD (chronic obstructive pulmonary disease): (7) Pulmonary hypertension: Discharge Sum: Summary Date and Time Date of admission: 01/08/24 09:03 Date of : 01/09/24 Time of : 20:02 Summary Details: Ms Kraus is an 83 Y F with history of heart failure with significantly reduced ejection fraction, extensive valvular disease, pulmonary hypertension, CKD stg 3, complicated by chronic respiratory failure on 2L NC who initially presented to the emergency department on 01/07 s/p fall.?Operative repair of a displaced R hip fracture was performed on 01/07; of note, patient w/ reported bleeding and hypotension intra-operatively; in PACU, patient found to be bradycardic 40s and hypotensive SBP 90s, w/ appreciable increased work of breathing. She was transferred to the ICU where she was found to have acute hypoxic respiratory failure requiring intubation and cardiogenic shock. Further deterioration of the patient?s clinical status occurred in the evening on 01/08 when she was found to be bradycardic to 40s, then found to be in torsades de pointes. She initially exhibited a pulse, however, after about 1 minute, pulses were lost. ROSC was achieved after 1 round of ACLS but she remained bradycardic to 40s/50s. Code status was changed to DNR at the families request. A short while later, the family elected to transition to comfort-focused care and requested the ETT be removed. The patient at 2001.? Additional Data Confirmation of as documented by pronouncing clinician: no pulse, no respirations, no heart sounds and pupils fixed and dilated Family: at bedside Attending/PCP notified?: Yes Attending physician: Nay Roman MD Was code activated?: No Autopsy requested?: No credit union examiner notified?: Yes Organ bank notified?: Yes Advance directives: Yes Hospice patient?: No
--- NOTE | 2024-01-20 07:49 | P.CDIM_ITS ---
PROVIDER RESPONSE TEXT: To clarify, the appropriate diagnosis supported by the clinical indicators: Acute on chronic systolic Congestive heart failure: Suspected QUERY TEXT: PHYSICIAN'S DOCUMENTATION REQUEST Date of Query: 01/15/2024 11:06 AM EDT Patient Name: Sarah Kraus Admit Date: 01/08/2024 Dear Nay Roman MD, RETROSPECTIVE QUERY A review of the medical record indicates additional documentation may be needed. Please review below and update the documentation accordingly. Clinical Indicators: Event note dated 01/09/24 - Comfort-focused care as per the wishes of the family due to Cardiogenic sh ock secondary to heart failure with reduced EF. BNP 4 H IV Lasix drip PMH: HFrEF History of heart failure with significantly reduced ejection fraction, extensive valvular disease, pu lmonary hypertension. bradycardic 40's, hypotension SBP 90's, increased work at breathing, deterioration of patient's statu s. Please provide further specificity regarding the most likely type acuity of CHF you are evaluating, t reating, or monitoring. Acute on chronic systolic Congestive heart failure possible, suspected, probable, etc. Chronic systolic Congestive heart failure Other (explain) Clinically unable to determine (explain) Thank you, Lita Lucio, CCS, CDIS Use of terms such as suspected, likely, concern for, or probable (associated with a specific diagnosi s that is being evaluated, monitored, or treated as if it exists) are acceptable and can be coded in the inpatient se tting, when documented at the time of discharge. Please use your independent medical judgment in providing your response. THIS QUERY IS PART OF THE PERMANENT MEDICAL RECORD
== END 2024-01-09 23:39 | disposition expired | DRG 480 ==
LOC: HO.ED 06:15 → HO.EDOVER 09:09 → HO.ICU 19:17
PROVIDERS: Nurse Practitioner Family; Orthopaedic Surgery; Admitting Provider Family Medicine; Emergency Provider Student in an Organized Health Care Education/Training Program; PCP Internal Medicine; Visit Provider Internal Medicine Critical Care Medicine
PROC: 0QS636Z Reposition Right Upper Femur with Intramedullary Internal Fixation Device, Percutaneous Approach (ICD-10-PCS; principal; 2024-01-08 15:00)
DX: S72.001A Fracture of unspecified part of neck of right femur, initial encounter for closed fracture (principal); I50.23 Acute on chronic systolic (congestive) heart failure; J96.21 Acute and chronic respiratory failure with hypoxia; I13.0 Hypertensive heart and chronic kidney disease with heart failure and stage 1 through stage 4 chronic kidney disease, or unspecified chronic kidney disease; I47.21 Torsades de pointes; R57.0 Cardiogenic shock; Z51.5 Encounter for palliative care; Z66 Do not resuscitate; W19.XXXA Unspecified fall, initial encounter; I25.10 Atherosclerotic heart disease of native coronary artery without angina pectoris; J44.9 Chronic obstructive pulmonary disease, unspecified; I08.1 Rheumatic disorders of both mitral and tricuspid valves; I27.20 Pulmonary hypertension, unspecified; N18.30 Chronic kidney disease, stage 3 unspecified; E11.22 Type 2 diabetes mellitus with diabetic chronic kidney disease; Z95.2 Presence of prosthetic heart valve; Z87.891 Personal history of nicotine dependence; Z88.0 Allergy status to penicillin; Z99.81 Dependence on supplemental oxygen; Z79.890 Hormone replacement therapy; Z79.899 Other long term (current) drug therapy
CPT/HCPCS: 36415; 71045; 73502; 80053; 81001; 82803; 82947; 83605; 83735; 83880; 84100; 84484; 85025; 85610; 86850; 86870; 86880; 86900; 86901; 86902; 86905; 86920; 86922; 93005; 94002; 94003; 94799; 99285; C1713; C1758; C9113; J0171; J0651; J0690; J1170; J1265; J1885; J1940; J2310; J2371; J2598; J2704; J2795; J3010; J3475; P9047

== ENCOUNTER → 2024-01-08 09:03 | Outpatient (BNV) | payer MEDICARE, SELFPAY | PROVIDERS: Admitting Provider Family Medicine; Emergency Provider Student in an Organized Health Care Education/Training Program; PCP Internal Medicine; Visit Provider Family Medicine | DX: S72.001A Fracture of unspecified part of neck of right femur, initial encounter for closed fracture (principal); E11.22 Type 2 diabetes mellitus with diabetic chronic kidney disease; N18.30 Chronic kidney disease, stage 3 unspecified; I50.20 Unspecified systolic (congestive) heart failure | CPT/HCPCS: 99223 ==

== ENCOUNTER → 2024-01-08 09:03 | Outpatient (BNV) | payer MEDICARE, SELFPAY | PROVIDERS: Admitting Provider Family Medicine; Emergency Provider Student in an Organized Health Care Education/Training Program; PCP Internal Medicine; Visit Provider Nurse Practitioner Family | DX: I50.20 Unspecified systolic (congestive) heart failure (principal); R57.0 Cardiogenic shock; J96.20 Acute and chronic respiratory failure, unspecified whether with hypoxia or hypercapnia; N28.9 Disorder of kidney and ureter, unspecified; N18.9 Chronic kidney disease, unspecified; S72.009A Fracture of unspecified part of neck of unspecified femur, initial encounter for closed fracture; J44.9 Chronic obstructive pulmonary disease, unspecified; I27.20 Pulmonary hypertension, unspecified | CPT/HCPCS: 31500; 36556; 99239; 99291; 99292; 99497; 99499 ==

== ENCOUNTER → 2024-01-08 09:03 | Outpatient (BNV) | payer MEDICARE, SELFPAY | PROVIDERS: Admitting Provider Family Medicine; Emergency Provider Student in an Organized Health Care Education/Training Program; PCP Internal Medicine; Visit Provider Physician Assistant | DX: S72.141A Displaced intertrochanteric fracture of right femur, initial encounter for closed fracture (principal) | CPT/HCPCS: 27245; 99223 ==

== ENCOUNTER → 2024-01-08 09:03 | Outpatient (BNV) | payer MEDICARE, SELFPAY | PROVIDERS: Admitting Provider Family Medicine; Emergency Provider Student in an Organized Health Care Education/Training Program; PCP Internal Medicine; Visit Provider Internal Medicine | DX: I45.9 Conduction disorder, unspecified (principal); I44.7 Left bundle-branch block, unspecified | CPT/HCPCS: 93010; 99223 ==